=== PATIENT | female | born 1950 | race Caucasian/White ===

== ENCOUNTER 2017-03-11 16:32 | Emergency (ER) | payer MEDICARE, OTHER ==
[~2017-03-11] VITALS: Ht 160 cm; Wt 78.0 kg
[~2017-03-11 16:32] MED LIST: ASPIRIN EC81 MG PO; AZITHROMYCIN250 MG PO; BIAXIN500 MG PO; BRILINTA60 MG PO; C TESTOSTERONE; CARVEDILOL6.25 MG PO; CITALOPRAM HBR40 MG PO; CLARITHROMYCIN500 MG PO; CLONAZEPAM0.5 MG PO; CLONAZEPAM1 MG PO; COZAAR100 MG PO; CYCLOBENZAPRINE5 MG PO; EPIPEN 2-P0.3 MG/0.3 IM; GABAPENTIN100 MG PO; HYDROCODON-ACE1 EA10 PO; HYDROCODON-ACE1 EA14 PO; LEVOTHYROXINE50 MCG PO; LIPITOR80 MG PO; LISINOPRIL10 MG PO; LISINOPRIL5 MG PO; NORCO 5-325 TA1 EACH PO; PENICILLIN V P250 MG PO; PERCOCET 5-3251 EACH PO; POTASSIUM CHLO20 ME1 PO; PREDNISONE10 MG PO; PROGES; TRIAMCINOLONE16.5 GM NAS; [UNRECOGNIZED DRUG - OTHER]; [UNRECOGNIZED DRUG - OTHER]
[2017-03-11] MEDS ORDERED: ALDACTONE25 MG PO (17:03)
[2017-03-11] MEDS ORDERED: CRESTOR5 MG PO (17:04)
[2017-03-11] MEDS ORDERED: PROZAC20 MG PO (17:04)
[2017-03-11] MEDS ORDERED: PLAVIX75 MG PO (17:04)
[2017-03-11] MEDS ORDERED: LASIX20 MG PO (17:04)
[2017-03-11] MEDS ORDERED: ATENOLOL100 MG PO (17:05)
[2017-03-11] MEDS ORDERED: MECLIZINE HCL25 MG PO (18:30)
--- NOTE | 2017-03-12 19:16 | EKG ---
[facility] [address] [facility] [place] [address] Signed Sinus bradycardia Possible Anterior infarct , age undetermined Abnormal ECG When compared with ECG of 25-OCT-2016 15:39, T wave inversion no longer evident in Anterolateral leads Confirmed by HARRY ZACARIAS MD ([id number]) on 03/12/2017 7:16:01 PM Electronically Signed By: HARRY ZACARIAS MD 03/12/17 1916 PATIENT NAME: DANICALOPEZKINGSLEY Hayden Electrocardiogram DATE OF : 46 PHYSICIAN: HARRY ZACARIAS MD REPORT #: [id number] REPORT IS CONFIDENTIAL AND NOT TO BE RELEASED WITHOUT AUTHORIZATION
[2017-05-10] MEDS ORDERED: CARVEDILOL12.5 MG PO (17:43)
== END 2017-03-11 18:45 | disposition home or self-care (01) ==
LOC: ED 16:32
DX: R42 Dizziness and giddiness (principal); F32.9 Major depressive disorder, single episode, unspecified; F43.10 Post-traumatic stress disorder, unspecified; F41.9 Anxiety disorder, unspecified; Z87.891 Personal history of nicotine dependence; Z90.710 Acquired absence of both cervix and uterus; Z88.5 Allergy status to narcotic agent; Z88.2 Allergy status to sulfonamides; Z88.8 Allergy status to other drugs, medicaments and biological substances; Z79.899 Other long term (current) drug therapy
CPT/HCPCS: 80053; 84484; 85025; 93005; 93010; 99284

== ENCOUNTER 2017-05-10 17:01 | Emergency (ER) | payer MEDICARE, OTHER ==
[~2017-05-10] VITALS: Ht 160 cm; Wt 78.0 kg
[~2017-05-10 17:01] MED LIST changes: +ALDACTONE25 MG PO; +ATENOLOL100 MG PO; +CRESTOR5 MG PO; +CYCLOBENZAPRINE10 MG PO; +LASIX20 MG PO; +LEVOTHYROXINE100 MCG PO; -LEVOTHYROXINE50 MCG PO; +MECLIZINE HCL25 MG PO; +PLAVIX75 MG PO; +PROZAC20 MG PO
[2017-05-10] MEDS ORDERED: CARVEDILOL6.25 MG PO (17:43)
[2017-05-10] MEDS ORDERED: BACTRIM DS TAB1 EACH PO (19:47)
[2017-05-10] MEDS ORDERED: CEPHALEXIN500 MG PO (19:48)
[2017-05-10] MEDS ORDERED: OXYCODONE HCL5 MG PO (19:55)
[2017-05-10] MEDS ORDERED: HYDROXYZINE HCL25 MG PO (19:57)
== END 2017-05-10 20:08 | disposition home or self-care (01) ==
LOC: ED 17:01
DX: L03.211 Cellulitis of face (principal); R21 Rash and other nonspecific skin eruption; F32.9 Major depressive disorder, single episode, unspecified; F41.9 Anxiety disorder, unspecified; F43.10 Post-traumatic stress disorder, unspecified; Z90.710 Acquired absence of both cervix and uterus; Z87.891 Personal history of nicotine dependence; Z88.5 Allergy status to narcotic agent; Z88.8 Allergy status to other drugs, medicaments and biological substances; Z79.899 Other long term (current) drug therapy; Z79.82 Long term (current) use of aspirin
CPT/HCPCS: 96372; 99283; J1100; J1170; J2550; Q0177

== ENCOUNTER 2017-06-04 21:31 | Observation (INO) | payer MEDICARE, OTHER ==
[~2017-06-04] VITALS: Ht 160 cm; Wt 80.3 kg
[~2017-06-04 21:31] MED LIST changes: +BACTRIM DS TAB1 EACH PO; +CEPHALEXIN500 MG PO; +HYDROXYZINE HCL25 MG PO; +OXYCODONE HCL5 MG PO
[2017-06-04] MEDS ORDERED: COREG6.25 MG PO (21:41)
--- NOTE | 2017-06-05 00:20 | NUR ---
REPORT RECEIVED FROM IRON PILERGERA. PT ARRIVES TO FLOOR VIA STRETCHER, IS ABLE TO AMBULATE TO BED. PT IS ALERT/ORIENTED, REPORTS 6/10 BACK PAIN WHICH SHE STATES IS CHRONIC, AND A HEADACHE, SHE HAS MULTIPLE SALON-PAS PATCHES ON HER BODY. LUNGS CLEAR, RA. HR IRREGULAR, MURMUR PRESENT. BOWEL TONES ACTIVE, DENIES NAUSEA. SKIN INTACT. IV PATENT, SL. PT UP TO BATHROOM WITH SBA, DENIES DIZZINESS. VOIDED 400ML AND THEN RETURNED TO BED. PT HAS CALL LIGHT WITHIN REACH AND DENIES FURTHER REQUESTS AT THIS TIME.
--- NOTE | 2017-06-05 02:23 | NUR ---
PT APPEARS TO BE SLEEPING, NO APPARENT DISTRESS. RESPIRATIONS EVEN/UNLABORED, RR:14, SPO2: 97% ON RA. HR:59, SINUS AT THIS TIME. WILL CONTINUE TO MONITOR.
--- NOTE | 2017-06-05 03:59 | NUR ---
PT CONTINUES TO SLEEP, NO APPARENT DISTRESS. RESPIRATIONS EVEN AND UNLABORED, RR: 16, SPO2:94% ON RA. HR:59, SINUS HERNANDEZ. IV SL. WILL ALLOW FOR REST AND CONTINUE TO MONITOR.
--- NOTE | 2017-06-05 06:00 | NUR ---
PT APPEARS TO BE SLEEPING, NO APPARENT DISTRESS. RESPIRATIONS EVEN AND UNLABORED, RR:13, SPO2: 94% ON RA. HR:58, SINUS HERNANDEZ. WILL CONTINUE TO MONITOR.
--- NOTE | 2017-06-05 06:31 | NUR ---
PT UP TO BATHROOM WITH SBA, VOIDED 400ML AND THEN RETURNED TO BED. PT DENIES NEEDS AT THIS TIME, CALL LIGHT IS WITHIN REACH.=
--- NOTE | 2017-06-05 08:02 | NUR ---
Dr Bentley in to see patient, I just finished helping her to the bathroom and back, very stable and alert/oriented. family member in room also. Back to bed with HOB up about 30 degrees.
--- NOTE | 2017-06-05 09:42 | NUR ---
visitor in to see patient. patient has been up to the bathroom x2 this am but states no BM or urine output. just feeling cramping.
--- NOTE | 2017-06-05 10:55 | NUR ---
SOME OLD BLOOD AND CLOTS PRESENT IN EXTENSION TUBING. TUBING CHANGED AND DRESSING CHANGED.
--- NOTE | 2017-06-05 11:00 | NUR ---
DR ZACARIAS SPOKE WITH THE PATIENT'S AERODYNAMICIST AND THEY DECIDED SHE COULD BENEFIT FROM ELIQUIS. NEW ORDERS RECIEVED FOR THIS.
--- NOTE | 2017-06-05 11:22 | NUR ---
GAVE FIRST DOSE OF ELIQUIS. EDUCATION PROVIDED WRITTEN MATERIAL AND VERBAL TO PATIENT AND HER .
[2017-06-05] MEDS ORDERED: GABAPENTIN300 MG PO (11:23)
[2017-06-05] MEDS ORDERED: EUCRISA60 GM TOP (11:26)
[2017-06-05] MEDS ORDERED: ISOSORBIDE MONO30 MG PO (11:27)
[2017-06-05] MEDS ORDERED: HYDROXYZINE PAM25 MG PO (11:32)
[2017-06-05] MEDS ORDERED: LASIX20 MG PO (11:33)
[2017-06-05] MEDS ORDERED: MECLIZINE HCL25 MG PO (11:59)
[2017-06-05] MEDS ORDERED: CO Q-1050 MG PO (12:03)
[2017-06-05] MEDS ORDERED: VITAMIN D5000 UNIT PO (12:03)
[2017-06-05] MEDS ORDERED: MAGNESIUM400 M1 PO ×2 (12:03→17:36)
[2017-06-05] MEDS ORDERED: CALCIUM + VITA1 EACH PO (12:04)
--- NOTE | 2017-06-05 12:05 | NUR ---
MED REC COMPLETE
--- NOTE | 2017-06-05 12:20 | NUR ---
ASKING IF SHE CAN TAKE A CLONAZEPAM NOW FOR ANIETY AND TO HELP HER SLEEP. I ASKED DR ZACARIAS AND HE SAID HE WILL ORDER ONE FOR NOW.
--- NOTE | 2017-06-05 15:02 | NUR ---
HAS BEEN SLEEPING WITH IN ROOM, AWOKE FOR VITAL SIGNS EASILY AND QUICKLY.
--- NOTE | 2017-06-05 15:22 | NUR ---
MD MADE AWARE OF HR AND ORDERS TO CONTINUE CARDIZEM AND WALK PATIENT IN [place].
--- NOTE | 2017-06-05 16:39 | NUR ---
ASSESSMENT DONE. FAMILY IN ROOM. DINNER ORDERED. PATIENT DENIES PAIN.
--- NOTE | 2017-06-05 17:10 | NUR ---
UP TO BR TO VOID THEN AMBULATED IN J[place]. TOLERATED AMBULATION WELL. HR REMAIN IN NSR W/ HR 75. DENIES SHORTNESS OF BREATH. IS STABLE ON FEET. THEN TO CHAIR FOR DINNER.
[2017-06-05] MEDS ORDERED: ELIQUIS5 MG PO (17:34)
[2017-06-05] MEDS ORDERED: CARDIZEM LA120 MG PO (17:35)
[2017-06-05] MEDS ORDERED: COREG6.25 MG PO (17:35)
[2017-06-05] MEDS ORDERED: CARVEDILOL12.5 MG PO (17:39)
--- NOTE | 2017-06-05 18:21 | EKG ---
[facility] [address] [facility] [place] [address] Signed Atrial fibrillation Artefact noted in V4 and V5 Abnormal ECG When compared with ECG of 11-MAR-2017 16:46, Junctional rhythm has replaced Sinus rhythm Vent. rate has increased BY [address] now depressed in Anterior leads Nonspecific T wave abnormality, worse in Inferior leads Nonspecific T wave abnormality now evident in Lateral leads Confirmed by HARRY ZACARIAS MD ([id number]) on 06/05/2017 6:20:50 PM Electronically Signed By: HARRY ZCAARIAS MD 06/05/17 1821 PATIENT NAME: KINGSLEY SNELL ROSY Electrocardiogram DATE OF : 46 PHYSICIAN: HARRY ZACARIAS MD REPORT #: [id number] REPORT IS CONFIDENTIAL AND NOT TO BE RELEASED WITHOUT AUTHORIZATION
== END 2017-06-05 18:30 | disposition home or self-care (01) ==
LOC: ED 21:31 → CCU 21:33
PROVIDERS: ADMIT Internal Medicine
DX: I48.0 Paroxysmal atrial fibrillation (principal); I25.10 Atherosclerotic heart disease of native coronary artery without angina pectoris; I25.2 Old myocardial infarction; I10 Essential (primary) hypertension; K58.9 Irritable bowel syndrome, unspecified; M79.7 Fibromyalgia; E03.9 Hypothyroidism, unspecified; E78.5 Hyperlipidemia, unspecified; F43.10 Post-traumatic stress disorder, unspecified; F41.8 Other specified anxiety disorders; F13.20 Sedative, hypnotic or anxiolytic dependence, uncomplicated; Z88.5 Allergy status to narcotic agent; Z88.8 Allergy status to other drugs, medicaments and biological substances; Z95.5 Presence of coronary angioplasty implant and graft; Z79.02 Long term (current) use of antithrombotics/antiplatelets; Z79.82 Long term (current) use of aspirin; Z79.891 Long term (current) use of opiate analgesic; Z79.899 Other long term (current) drug therapy
CPT/HCPCS: 71045; 80053; 83735; 84439; 84443; 84484; 85025; 85610; 85730; 93005; 93010; 96365; 96374; 96375; 99285; G0378; J3475

== ENCOUNTER 2017-08-21 04:17 | Inpatient (IN) | payer MEDICARE, OTHER ==
[~2017-08-21] VITALS: Ht 160 cm; Wt 83.9 kg
--- OUTSIDE RECORDS SUMMARY | ~2017-08-21 | XMS | Encounter Summary ---
Demographics + + + | Address | [address] [place] [address] | | | [place] [address] | + + + | Home Phone | | + + + | Preferred Language | Unknown | + + + | Marital Status | | + + + | Synagogue Affiliation | 1013 | + + + | Race | Unknown | + + + | Ethnic Group | Unknown | + + + Author + + + | Author | [facility] | | | and [place] | + + + | Organization | [facility] | | | and [place] | + + + | Address | Unknown | + + + | Phone | Unavailable | + + + Support + + + + + | Name | Relationship | Address | Phone | + + + + + | Rashaun Escudero | ECON | [address] | | | | | [place] | | | | | [address] | | + + + + + Care Team Providers + +------+ + | Care Service Superintendent Name | Role | Phone | + +------+ + | Shane Bates MD | PCP | | + +------+ + Reason for Visit + + + | Reason | Comments | + + + | Medication Refill | | + + + Encounter Details +--------+--------+ + + + | Date | Type | Department | Care Team | Description | +--------+--------+ + + + | 06/21/ | Refill | [facility] | Shane Bates | Medication Refill | | 2017 | | [facility] | [address] | | | | | [facility] [address] | [facility] [place], | | | | | [address]TH [facility], | [place] [address] | | | | | [place] [address] | [phone] | | | | | [phone] | | | +--------+--------+ + + + Social History + +-------+ +--------+ + | Tobacco Use | Types | Packs/Day | Years | Date | | | | | Used | | + +-------+ +--------+ + | Former Smoker | | | | Quit: 05/17/1981 | + +-------+ +--------+ + + +---+---+ + | Smokeless Tobacco: | | | Quit: | | Former User | | | 09/15/18 | | | | | 74 | + +---+---+ + + + +---------+ + | Alcohol Use | Drinks/We | oz/Week | Comments | | | ek | | | + + +---------+ + | Yes | 0 | 9.0 | | | | Standard | | | | | drinks or | | | | | | | | | | equivalen | | | | | t 14 | | | | | Glasses | | | | | of wine | | | | | 1 Shots | | | | | of liquor | | | + + +---------+ + + + + | Sex Assigned at | Date Recorded | | | | + + + | Not on file | | + + + as of this encounter Functional Status + + + + | Functional Status | Response | Date of Assessment | + + + + | Are you deaf or do you have serious | No | 10/17/2016 | | difficulty hearing? | | | + + + + | Are you blind or do you have serious | No | 10/17/2016 | | difficulty seeing, even when wearing | | | | glasses? | | | + + + + | Do you have serious difficulty walking or | No | 10/17/2016 | | climbing stairs? (5 years old or older) | | | + + + + | Do you have difficulty dressing or bathing? | No | 10/17/2016 | | (5 years old or older) | | | + + + + | Because of a physical, mental, or emotional | No | 10/17/2016 | | condition, do you have difficulty doing | | | | errands alone such as visiting a doctor's | | | | office or shopping? [15 years old or | | | | older)] | | | + + + + + + + + | Cognitive Status | Response | Date of Assessment | + + + + | Because of a physical, mental, or emotional | No | 10/17/2016 | | condition, do you have serious difficulty | | | | concentrating, remembering, or making | | | | decisions? (5 years old or older) | | | + + + + as of this encounter Plan of Treatment +--------+---------+ + + + | Date | Type | Specialty | Care Team | Description | +--------+---------+ + + + | 09/07/ | Office | Sleep Medicine | Bubba Weller PA | | | 2017 | Visit | | [address] | | | | | | [place] | | | | | | [id number] | | | | | | | | +--------+---------+ + + + | 10/21/ | Office | Primary Care | Shane Bates | | | 2017 | Visit | | [address] | | | | | | [place], | | | | | | [place] [address] | | | | | | [phone] | | | | | | | | +--------+---------+ + + + as of this encounter Visit Diagnoses Not on filein this encounter"
--- OUTSIDE RECORDS SUMMARY | ~2017-08-21 | XMS | Encounter Summary ---
Demographics + + + | Address | [address] [place] [address] | | | [place] [address] | + + + | Home Phone | | + + + | Preferred Language | Unknown | + + + | Marital Status | | + + + | Restorationism Affiliation | 1013 | + + + | Race | Unknown | + + + | Ethnic Group | Unknown | + + + Author + + + | Author | [facility] | | | and [place] | + + + | Organization | [facility] | | | and [...] [place] | | | | | [address] | | + + + + + Care Team Providers + +------+ + | Care Manager Analysis Name | Role | Phone | + +------+ + | Shane Bates MD | PCP | | + +------+ + Reason for Visit + + + | Reason | Comments | + + + | CPAP Follow Up | | + + + Encounter Details +--------+---------+ + + + | Date | Type | Department | Care Team | Description | +--------+---------+ + + + | 07/07/ | Office | [facility] | Carla Cardoso MD | NADIR (obstructive | | 2018 | Visit | SLEEP DISORDER [address] | [address] | sleep apnea) | | | | [address] | [place] | (Primary Dx); PTSD | | | | [place] [id number] | [address] | (post-traumatic | | | | [phone] | | stress disorder) | +--------+---------+ + + + Social History + +-------+ [...] + + + as of this encounter Last Filed Vital Signs + + + + | Vital Sign | Reading | Time Taken | + + + + | Blood Pressure | 130/70 | 07/07/2017 1343 PST | + + + + | Pulse | 70 | 07/07/2017 1343 PST | + + + + | Temperature | - | - | + + + + | Respiratory Rate | 16 | 07/07/2017 134 PST | + + + + | Oxygen Saturation | 96% | 07/07/2017 134 PST | + + + + | Inhaled Oxygen | - | - | | Concentration | | | + + + + | Weight | 82.6 kg (182 lb 1.6 | 07/07/20171342 PST | | | oz) | | + + + + | Height | - | - | + + + + | Body Mass Index | 32.26 | 07/07/20171342 PST | + + + + in this encounter Functional Status + + + [...] + + + as of this encounter Instructions Patient Instructions - Carla Cardoso MD - 07/07/2017 1345 PST- We will send a prescription for CPAP machine to your home care company. - Please start using your CPAP as directed. - Follow up with DRE Mcmillan within 1-2 weeks. - Follow up with Dr. Cardoso afterwards. - Insurance compliance criteria: Once you received your machine, you have 90 days in which you must use your machine for 30 consecutive days and for 70% of those 30 days you must use your machine for >= 4 hours.in this encounter Progress Notes Carla Cardoso MD - 07/07/2017 1345 PSTFormatting of this note may be different from the or iginal. The patient comes in to discuss her sleep study results. My interpretation of the patient' s sleep study, which I have reviewed with the patient, is as follows: Polysomnogram Report on Tameka Escudero performed on June 15, 2017. PATIENT IDENTIFICATION: Tameka Escudero IS a 67 y.o..-year-old female. with a history of fibromyalgia, non-ST elevation MD in October 2016 status post 1 stent placement, hypertension, hypercholesterolemia, PTSD, depression, insomnia, and obstructive sleep apneapresenting for reevaluation of her sleep apnea. BMI: 32 She first was diagnosed with obstructive sleep apnea in this sleep center based on a diag nostic polysomnography which was done on September 20, 2002. She had moderate obstructive sleep apnea with AHI of 18 and no significant hypoxemia. She had spent 17.2% of total sleep time in supine sleep, and 25.3% of stage R sleep hadbeen captured. She had a second sleep study in [place] about 15 years ago. She says she tried CPAP for 5 years, but then she lost her insurance and didn't follow up. She thinks it was helping her to sleep better. She says she had a sleep study at [facility] September 2016, and she had hypoxemia but was not qualified for oxygen. Technical Information: Please see technical data which is attached. Definitions (The AASM Manual for the Scoring of Sleep and Associated Events, Version 2.4; 2 017): Apnea: There is a drop in the peak signal excursion by 90% or greater of pre-sara nt baseline using an oronasal thermal sensor (diagnostic study), PAP device flow (titration study), or an alternative apnea sensor (diagnostic study); the duration of the 90% or greate r drop in sensor signal is 10 seconds or longer. Obstructive Apnea: Event associated with continued or increased inspi ratory effort throughout the entire period of absent airflow. Central Apnea: Event associated with absent inspiratory effort throug hout the entire period of absent airflow. Mixed Apnea: Event associated with absent inspiratory effort in the i nitial portion of the event followed by resumption of inspiratory effort during the second p ortion of the event. Hypopnea: Nasal pressure excursion drop by 30% or more from baseline, lasting at lease 10 seconds and 90% of the event's duration meets this amplitude criteria. This is ass ociated with a 4% or greater desaturation from pre-baseline Respiratory Event Related Arousal: A sequence of breaths lasting 10 seconds or l onger characterized by increasing respiratory effort or by flattening of the inspiratory por tion of the nasal pressure (diagnostic study) or PAP device flow (titration study) waveform leading to arousal from sleep when the sequence of breaths does not meet criteria for an hotel or motel manager ea or hypopnea. REVELANT MEDICATIONS: Gabapentin, clonazepam as needed. Patient took 3 gabapentin 300 mg at bedtime. The dose had been increased after her recent fall. SUBJECTIVE: The patient rated sleep quality during sleep study as much better. Environmental Law Professor note: patient agreed to sleep in bed and stayed in bed for the entire study time . She sleeps in her recliner at home because she is scared she 4 stop breathing during sleep if she sleeps in her bed. She tried both fullface mask and nasal pillows and she tolerated Airfit P10 nasal pillows much better. SLEEP ARCHITECTURE AND EEG: Total sleep time was 466 minutes. Sleep efficiency was 83.5% and was normal. Sleep onset latency was 41 minutes and was increased. patient had a fall recently and wa s in pain. REM latency was 119 minutes and was increased. Percent of time in stage N3 was 13.7% and was within normal limits. Percent of time in stage REM was 17.1 % and was decreased. Arousal Index for this diagnostic study was 6.8/hour and was normal, with 3.3 respirator y arousals/hour and 3.5 spontaneous arousals/hour. RESPIRATORY: Respiratory disturbance index (RDI) was 10.7, consisting of total 70 hypopneas, 6 obstru ctive apneas, 0 mixed apneas, and 0 central apneas and 7 RERAs. AHI 1B was 9.8 and was mildl y elevated. Sleep disordered breathing was worsened in supine position with supine AHI of 21.7. Sh e spent 13.6% of total sleep time in supine position. Nonsupine AHI was 7.9.. Sleep disordered breathing was worsened in REM sleep with REM AHI of 23.4. Non-REM AHI was 7.. Mean SpO2 was 94 %, jen SpO2 was 82%, and amount of total sleep time spent below SpO2 of 88% was 3.2 minutes. 4% Oxygen Desaturation Index (KAILASH) was 8 and was mildly elevated. ETCO2 was not elevated. Raúl-Boucher breathing was not observed. LIMB MOVEMENTS: Total sleep periodic limb movement index was 0 and was not increased. EKG: Normal sinus rhythm was noted with mean heart rate of 71, 65, and 66 beats per minute in wa ke, non-REM, and REM sleep respectively.. INTERPRETATION: - This diagnostic polysomnography showed mild obstructive sleep apnea which was worsened i n supine position and stage R sleep. Patient spent 31.6% of total sleep time in supine posi tion, and 17.1% of stage R sleep was captured. Mean SpO2 was 94 %, jen SpO2 was 82%, and a mount of total sleep time spent below SpO2 of 88% was 3.2 minutes. 4% Oxygen Desaturation In dex (KAILASH) was 8 and was mildly elevated. - Sleep efficiency was normal, and sleep was minimally fragmented. - Excessive leg movement was not observed. RECOMMENDATIONS: Start auto-PAP at 5-15 cm H2O with a small Airfit P10 mask. Today, I discussed the above results in detail with patient. NADIR: She is interested in trying CPAP again. Discussed with her that, and CPAP machines ar e not noisy like her old machine, and we now have better masks. also, discussed with her th at there are some studies that have shown that treating her sleep apnea might help with nigh tmares in PTSD. I also discussed the benefits of treatment of CPAP because of her history o f atrial fibrillation. Insurance compliance criteria was discussed. Nightmares (PTSD): She is very disturbed by her nightmares. Sometimes she cannot recall th em, but they're usually repetitive. Today, I discussed Imagery Rehearsal Therapy as an effe ctive treatment that in some people can help with the nightmares. I encouraged her to keep a dream Journal to remember them better. I advised her do this therapy only if she feels co mfortable with writing and rehearsing her dreams. She was very motivated to try this and se e if it helps. Vitals: 07/07/17 1343 BP: 130/70 Pulse: 70 Resp: 16 PainSc: 8 Plan: Start auto CPAP at 5-15 cm H2O with patient's preference mask. The patient will try Imagery Rehearsal Therapy , and I will reevaluate her progress in next visit. Follow up with DRE Mcmillan within 1-2 weeks. Follow up with Dr. Cardoso afterwards. I spent 25 minutes face to face with the patient, with over 50% spent in counseling and/or coordination of care regarding sleep apnea and nightmares.in this encounter Plan of Treatment +--------+---------+ + + + | Date | Type | Specialty | Care Team | Description | +--------+---------+ + + + | 09/07/ | Office | Sleep Medicine | Bubba Weller PA | | | 2017 | Visit | | [address] | | | | | | [place] | | | | | | [id number] | | | | | | | | +--------+---------+ + + + | 10/21/ | Office | Primary Care | Shane Bates | | | 2017 | Visit | | [address] | | | | | | [place], | | | | | | [place] [address] | | | | | | [phone] | | | | | | | | +--------+---------+ + + + as of this encounter Visit Diagnoses + + | Diagnosis | + + | NADIR (obstructive sleep apnea) - Primary | + + | Obstructive sleep apnea (adult) (pediatric) | + + | PTSD (post-traumatic stress disorder) | + + | Posttraumatic stress disorder | + +"
--- OUTSIDE RECORDS SUMMARY | ~2017-08-21 | XMS | Encounter Summary ---
Demographics + + + | Address | [address] [place] [address] | | | [place] [address] | + + + | Home Phone | | + + + | Preferred Language | Unknown | + + + | Marital Status | | + + + | Tenriism Affiliation | 1013 | + + + | Race | Unknown | + + + | Ethnic Group | Unknown | + + + Author + + + | Author | [facility] | | | and [place] | + + + | Organization | [facility] | | | and [...] [place] | | | | | [address] | | + + + + + Care Team Providers + +------+ + | Care Induction Coordination Engineer Name | Role | Phone | + [...] Description | +--------+--------+ + + + | 05/27/ | Refill | [facility] | Shane Bates | Medication Refill | | 2017 | | [facility] | [address] | | | | | [facility] | [facility] [place], | | | | | [address]TH [facility], | [place] [address] | | | | | [place] [address] | [phone] | | | | | [phone] | | | +--------+--------+ + + + [...] [place] | | | | | | [address] | | | | | | | | +--------+---------+ + + + | 10/21/ | Office | Primary Care | Shane Bates | | | 2017 | Visit | | [address] | | | | | | [place], | | | | | | [place] [address] | | | | | | [phone] | | | | | | | | +--------+---------+ + + + as of this encounter Visit Diagnoses + + | Diagnosis | + + | Essential hypertension | + + | Unspecified essential hypertension | + +"
--- OUTSIDE RECORDS SUMMARY | ~2017-08-21 | XMS | Encounter Summary ---
Demographics + + + | Address | [address] [place] [address] | | | [place] [address] | + + + | Home Phone | | + + + | Preferred Language | Unknown | + + + | Marital Status | | + + + | Sikhism Affiliation | 1013 | + + + | Race | Unknown | + + + | Ethnic Group | Unknown | + + + Author + + + | Author | [facility] | | | and [place] | + + + | Organization | [facility] | | | and [...] [place] | | | | | [address] | | + + + + + Care Team Providers + +------+ + | Care Waiter/Waitress Informal Name | Role | Phone | + [...] Description | +--------+--------+ + + + | 07/27/ | Refill | [facility] | Kate Patel NP | Medication Refill | | 2017 | | [facility] | [address] | | | | | [facility] | [facility], [place] | | | | | [address] [facility], | [address] | | | | | [place] [address] | [phone] | | | | | [phone] | | | +--------+--------+ + + + Social History + +-------+ +--------+ + | Tobacco Use | Types | Packs/Day | Years | Date | | | | | Used | | + +-------+ +--------+ + | Former Smoker | | | | Quit: 09/16/1975 | + +-------+ +--------+ + + +---+---+---+ | Smokeless Tobacco: | | | | | Never Used | | | | + +---+---+---+ + + +---------+ + | Alcohol Use | Drinks/We | oz/Week | Comments | | | ek | | | + + +---------+ + | Yes | 14 | 9.0 | | | | Glasses | | | | | of wine | | | | | 1 Shots | | | | | of liquor | | | | | 0 | | | | | Standard | | | | | drinks or | | | | | | | | | | equivalen | | | | | t | | | + + +---------+ + [...] [address] | | | | | | [place] | | | | | | [address] | | | | | | | | +--------+---------+ + + + | 10/21/ | Office | Primary Care | Shane Bates | | | 2017 | Visit | | [address] | | | | | | [place], | | | | | | [place] [address] | | | | | | [phone] | | | | | | | | +--------+---------+ + + + as of this encounter Visit Diagnoses Not on filein this encounter"
--- OUTSIDE RECORDS SUMMARY | ~2017-08-21 | XMS | Encounter Summary ---
Demographics + + + | Address | [address] [place] [address] | | | [place] [address] | + + + | Home Phone | | + + + | Preferred Language | Unknown | + + + | Marital Status | | + + + | Sabianist Affiliation | 1013 | + + + | Race | Unknown | + + + | Ethnic Group | Unknown | + + + Author + + + | Author | [facility] | | | and [place] | + + + | Organization | [facility] | | | [...] [place] | | | | | [address] | | + + + + + Care Team Providers + +------+ + | Care Remedial Reading Teacher Name | Role | Phone | + +------+ + | Shane Bates MD | PCP | | + +------+ + Reason for Visit + + + | Reason | Comments | + + + | Medication Prior | Cyclobenzaprine 10 mg | | Authorization | | + + + Encounter Details +--------+ + + + + | Date | Type | Department | Care Team | Description | +--------+ + + + + | 06/16/ | Telephone | [facility] | Shane Bates | Medication Prior | | 2018 | | [facility] | [address] | Authorization | | | | [facility] [address] | [facility], | (Cyclobenzaprine 10 | | | | [address] [facility], | [place] [address] | mg ) | | | | [place] [address] | [phone] | | | | | [phone] | | | +--------+ + + + [...] [place] | | | | | | [address] | | | | | | | | +--------+---------+ + + + | 10/21/ | Office | Primary Care | Shane Bates | | | 2017 | Visit | | MD [address] [facility] | | | | | | [place] | | | | | | [place] [address] | | | | | | [phone] | | | | | | | | +--------+---------+ + + + as of this encounter Visit Diagnoses Not on filein this encounter"
--- OUTSIDE RECORDS SUMMARY | ~2017-08-21 | XMS | Encounter Summary ---
Demographics + + + | Address | [address] [place] [address] | | | [place] [address] | + + + | Home Phone | | + + + | Preferred Language | Unknown | + + + | Marital Status | | + + + | Buddhism Affiliation | 1013 | + + + | Race | Unknown | + + + | Ethnic Group | Unknown | + + + Author + + + | Author | [facility] | | | and Darrelana | + + + | Organization | [facility] | | [...] [place] | | | | | [address] | | + + + + + Care Team Providers + +------+ + | Care Pack Worker Name | Role | Phone | + [...] Description | +--------+--------+ + + + | 05/25/ | Refill | [facility] | Shane Bates | Medication Refill | | 2017 | | [facility] | [address] | | | | | [facility] [address] | [facility] [place], | | | | | [address]TH [facility], | [place] [address] | | | | | [place] [address] | [phone] | | | | | [phone] | | | +--------+--------+ + + + [...] [place] | | | | | | [id number] | | | | | | | | +--------+---------+ + + + | 10/21/ | Office | Primary Care | Shane Bates | | | 2017 | Visit | | [address] | | | | | | [place], | | | | | | [place] [address] | | | | | | [phone] | | | | | | | | +--------+---------+ + + + as of this encounter Visit Diagnoses Not on filein this encounter"
--- OUTSIDE RECORDS SUMMARY | ~2017-08-21 | XMS | Encounter Summary ---
Demographics + + + | Address | [address] [place] [address] | | | [place] [address] | + + + | Home Phone | | + + + | Preferred Language | Unknown | + + + | Marital Status | | + + + | Confucianism Affiliation | 1013 | + + + | Race | Unknown | + + + | Ethnic Group | Unknown | + + + Author + + + | Author | [facility] | | | and Darrelana | + + + | Organization | [facility] | | | and [...] [place] | | | | | [address] | | + + + + + Care Team Providers + +------+ + | Care Tennis Instructor Name | Role | Phone | + +------+ + | Shane Bates MD | PCP | | + +------+ + Reason for Visit + + + | Reason | Comments | + + + | Follow-up | | + + + Encounter Details +--------+---------+ + + + | Date | Type | Department | Care Team | Description | +--------+---------+ + + + | 05/28/ | Office | [facility] | Shane Bates | Spinal stenosis of | | 2018 | Visit | [facility] | [address] | lumbar region | | | | [facility] [address] | [address] [place], | without neurogenic | | | | [address] [place], | [place] [address] | claudication | | | | [place] [address] | [phone] | (Primary Dx); | | | | [phone] | | Coronary artery | | | | | | disease involving | | | | | | qawalangin coronary | | | | | | artery of qawalangin | | | | | | heart with angina | | | | | | pectoris (HCC); | | | | | | Hyperlipidemia, | | | | | | unspecified | | | | | | hyperlipidemia type; | | | | | | Insomnia, | | | | | | unspecified type; | | | | | | Essential | | | | | | hypertension; Facial | | | | | | cellulitis | +--------+---------+ + + + Social History [...] + + + | Blood Pressure | 136/92 | 05/28/20179 PST | + + + + | Pulse | 64 | 05/28/20179 PST | + + + + | Temperature | - | - | + + + + | Respiratory Rate | 18 | 05/28/20179 PST | + + + + | Oxygen Saturation | 100% | 05/28/20171358 PST | + + + + | Inhaled Oxygen | - | - | | Concentration | | | + + + + | Weight | 80.3 kg (177 lb) | 05/28/20171358 PST | + + + + | Height | - | - | + + + + | Body Mass Index | 31.35 | 05/28/20171358 PST | + + + + in [...] of this encounter Instructions Patient Instructions - Shane Bates MD - 05/28/2017 1400 PSTAssessment and Plan: Spinal stenosis of lumbar region without neurogenic claudication (Primary) Assessment & Plan: Increase Gabapentin to 300 mg 3 at bedtime, and 2 in AM and mid-day for her back pain. Orders: - Gabapentin; Take 3 capsules by mouth 3 times daily. 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 Bright yesterday, and a sleep study is pending on 06/15/17 Essential hypertension Assessment & Plan: Reportedly controlled without the Spironolactone and Lasix. Facial cellulitis Assessment & Plan: Improved. in this encounter Progress Notes Shane Bates MD - 05/28/2017 1400 PSTFormatting of this note may be different from the original. Patient ID: Tameka Escudero is a 66 y.o. year old female Chief Complaint: Chief Complaint Patient presents with Follow-up Assessment and Plan: Spinal stenosis of lumbar region without neurogenic claudication (Primary) Assessment & Plan: Increase Gabapentin to 300 mg 3 at bedtime, and 2 in AM and mid-day for her back pain. Orders: - Gabapentin; Take 3 capsules by mouth 3 times daily. 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 Bright yesterday, and a sleep study is pending on 06/15/17 Essential hypertension Assessment & Plan: Reportedly controlled without the Spironolactone and Lasix. Facial cellulitis Assessment & Plan: Improved. No Follow-up on file. Subjective: Tameka has coronary artery disease, sustained an SD on 10/15/16 for which a MIR was placed in the LAD. She has been stable on Carvedilol 6.25 mg in the morning and 12.5 mg in the eveni ngs (because her blood pressures were higher in the evenings). She has had ongoing heaviness, and we discussed this at her last visit, and Isosorbide mono nitrate this started at 30 mg a day. With this her chest heaviness has resolved, even off o f Isosorbide. She remains on Losartan. She still has been tolerating Rosuvastatin 5 mg daily! She ran out of Prozac and stopped taking it for a month. She has not restarted it. Nevert heless, she is feeling pretty good and not feeling depressed. Fatigue has plagued her, and although she has a history of NADIR years ago, this was not conf irmed last year by Dr. Nieves. Nevertheless, she was hypoxemic at night. She was referred to Dr. Bright for an evaluation at her last appointment with me on 04/16/17. His evaluation i s pending. She had a CT of the pelvis last year which suggested a bone island and a 12 month follow-up CT was unchanged. She was reassured regarding this. An MRI of the LS spine demonstrated some concern for the left nerve root of L3-4 which a di sc bulge touches. She has DDD with lumbar spinal stenosis. She was seen in the ED on 04/30/17 and had a facial cellulitis. She was given Bactrim. Sh e improved, but even though she looked great and felt well on 05/09/17 it returned on and she was seen at the ED in [place], where they doubled her Bactrim and a Cephalexin QID x 10 days. She has had diarrhea from the 2 antibiotics she recently was on, and she say s that it is improving. She completed them about a week ago. 4-5 days after she started Bactrim her BP dropped. She stopped taking Lasix and Spironolac tone. The Wharf Operator stopped Isosorbide mononitrate. Yesterday her BP was 110/70. She fell down the stairs 2 weeks ago and struck her head. She was confused and thinks she had a concussion. Her back hurts more since the pain. For this reason she was using Flexer il more than she usually has taken before. Her back is "okay, I will live". She thinks she will need to increase Gabapentin for a while. She tries to vacuum or sweep and her back st arts throbbing. She has lost control of her legs twice. She was sitting and got up and fel l backwards, but did not lose sensation. Another time she was walking down the stairs and l ost sensation in her legs (but not strength), so she sat down and after a minute it resolved . Currently she is taking Gabapentin 300 mg 3 at night, and 1 in the morning and occasionally 2 later in the day. Electronic chart was reviewed and updated as appropriate including: active problem list, me dication list, notes from last encounter Allergies: Allergies Allergen Reactions Isosorbide Tramadol Swelling Swelling [...] Hcl Other (See Comments) No reaction indicated Sulfa Antibiotics Nausea Only Amitriptyline Palpitations Weight gain Medications: Current Outpatient Prescriptions Medication Sig Dispense Refill aspirin 81 mg chewable tablet Take 81 mg by mouth every evening. 30 tablet carvedilol (COREG) 6.25 mg tablet 6.25 mg in AM and 12.5 mg in Pm. 90 tablet 2 clonazePAM (KLONOPIN) 1 mg tablet take 1 tablet by mouth three times a day if needed 90 tablet 0 clopidogrel (PLAVIX) 75 mg tablet Take 1 tablet by mouth Daily. 90 tablet 11 cyclobenzaprine (FLEXERIL) 10 mg tablet Take 1 tablet by mouth 3 times daily as needed. 30 tablet 2 gabapentin (NEURONTIN) 300 mg capsule Take 3 capsules by mouth 3 times daily. 270 capsu le 4 hydrOXYzine pamoate (VISTARIL) 25 mg capsule take 1 to 2 capsules by mouth every 6 hour s if needed for ITCHING 0 levothyroxine (SYNTHROID, LEVOTHROID) 88 mcg tablet Take 1 tablet by mouth every mornin g (before breakfast). 30 tablet losartan (COZAAR) 100 MG tablet take 1 tablet by mouth once daily 90 tablet 3 meclizine (ANTIVERT) 25 mg tablet take 1 tablet by mouth three times a day as needed 0 nitroglycerin (NITROSTAT) 0.[address] 1 tablet under the tongue every 5 murali gabino as needed for Chest pain. 25 tablet 3 rosuvastatin (CRESTOR) 5 MG tablet take 1 tablet by mouth once daily 30 tablet 2 sulfamethoxazole-trimethoprim (BACTRIM DS) 800-160 mg per tablet take 2 tablets by mout h twice a day for 10 days 0 No current facility-administered medications for this visit. PAST MEDICAL HISTORY: Hyperlipidemia Fibromyalgia Hypertension Renin activity, Aldosterone levels normal 12/24/15 Depression Hypothyroidism Nocturnal hypoxemia, not NADIR. Nocturnal O2 ordered (09/23/16) Vitamin D deficiency (25-OH Vit D 23 (30-80)) Normal BMD 03/29/08 Normal 01/15/17 Irritable bowel syndrome Lumbar spinal stenosis, DDD NSTEMI 10/15/16 PAST SURGICAL HISTORY: Vaginal hysterectomy with ovaries intact D&C x 2 Stripped varicose vein EGD 06/28/08 few gastric polyps, gastritis nonerosive reflux dz with bx-proven esophagitis 07/14/11 severe reflux, recommended anti-reflux surgery (Dr. Sanford Toscano) Colonoscopy 06/28/08 small polyp (tubular adenoma) in descending colon resected, moderate colonic spasm c/w irritable bowel syndrome. F/U colonoscopy rec d . Ultrasound-guided vacuum-assisted breast bx left breast 11/07/08 Laparoscopic Geovany Fundoplication 08/28/11 Cardiac cath 10/16/16: 60% EF, 90% LAD lesion, stented with Promus MIR. Review of Systems Constitutional: Positive for fatigue. Negative for fever and unexpected weight change. Respiratory: Positive for cough (non-productive. Onset was 1 month ago.). Negative for shor tness of breath. Cardiovascular: Negative for chest pain. Psychiatric/Behavioral: Positive for sleep disturbance. Objective: Vitals: BP (!) 136/92 | Pulse 64 | Resp 18 | Wt 80.3 kg (177 lb) | SpO2 100% | BMI 31.35 kg/m Physical Exam Neck: No JVD present. Cardiovascular: Normal rate, regular rhythm and normal heart sounds. Exam reveals no colon p. No murmur heard. Pulmonary/Chest: Effort normal and breath sounds normal. No respiratory distress. She has n o wheezes. She has no rales. Abdominal: Soft. She exhibits no distension and no mass. There is tenderness (diffuse). The re is no rebound and no guarding. Musculoskeletal: She exhibits no edema. Lymphadenopathy: She has no cervical adenopathy. Shane Bates MD05/28/201714:43in this encounter Plan of Treatment +--------+---------+ + + + | Date | Type | Specialty | Care Team | Description | +--------+---------+ + + + | 09/07/ | Office | Sleep Medicine | Bubba Weller PA | | | 2017 | Visit | | [address] [facility] | | | | | | [place], [place] | | | | | | [id number] | | | | | | | | +--------+---------+ + + + | 10/21/ | Office | Primary Care | Shane Bates | | | 2017 | Visit | | [address] | | | | | | [place], | | | | | | [place] [address] | | | | | | [phone] | | | | | | | | +--------+---------+ + + + as of this encounter Visit Diagnoses + + | Diagnosis | + + | Spinal stenosis of lumbar region without neurogenic claudication - Primary | + + | Spinal stenosis, lumbar region, without neurogenic claudication | + + | Coronary artery disease involving qawalangin coronary artery of qawalangin heart with angina | | pectoris (HCC) | + + | Hyperlipidemia, unspecified hyperlipidemia type | + + | Insomnia, unspecified type | + + | Essential hypertension | + + | Unspecified essential hypertension | + + | Facial cellulitis | + + | Cellulitis and abscess of face | + +
--- OUTSIDE RECORDS SUMMARY | ~2017-08-21 | XMS | Encounter Summary ---
Demographics + + + | Address | [address] [place] [address] | | | [place] [address] | + + + | Home Phone | | + + + | Preferred Language | Unknown | + + + | Marital Status | | + + + | Sabianism Affiliation | 1013 | + + + | Race | Unknown | + + + | Ethnic Group | Unknown | + + + Author + + + | Author | [facility] | | | and Darrelana | + + + | Organization | [facility] | | [...] [place] | | | | | [address] | | + + + + + Care Team Providers + +------+ + | Care Document Image Technician Name | Role | Phone | + +------+ + | Shane Bates MD | PCP | | + +------+ + Reason for Visit + + + | Reason | Comments | + + + | Knee Problem | bilateral knee pain | + + + Evaluate & Treat (Routine) +--------+ + + + + + | Status | Reason | Specialty | Diagnoses / | Referred By | Referred To | | | | | Procedures | Contact | Contact | +--------+ + + + + + | Closed | Specialty | Orthopedic | Diagnoses | Bump, | [facility] | | | Services | Surgery | Chronic | Shane | Orthopedic | | | Required | | pain of both | MD Mark | [address] | | | | | knees | [address] | [place] | | | | | [address] | [address] [place] | [place], [place] | | | | | PAIN | [place] | [address] | | | | | Procedures | [address] | Phone: | | | | | OFFICE VISIT | Phone: | [phone] | | | | | | [phone] | Fax: | | | | | | Fax: | [phone] | | | | | | [phone] | | +--------+ + + + + + Encounter Details +--------+---------+ + + + | Date | Type | Department | Care Team | Description | +--------+---------+ + + + | 07/10/ | Office | [place] [facility] | Wilber Hester, | Primary | | 2018 | Visit | [facility] | [address] | osteoarthritis of | | | | [address] | [place], [place] | both knees (Primary | | | | [place], [place] | [address] | Dx); Chronic pain of | | | | [address] | | both knees | | | | [phone] | | | +--------+---------+ + + + [...] + + + | Blood Pressure | 142/88 | 07/10/20171352 PST | + + + + | Pulse | 63 | 07/10/20171352 PST | + + + + | Temperature | - | - | + + + + | Respiratory Rate | 16 | 07/10/20171352 PST | + + + + | Oxygen Saturation | 94% | 07/10/20171352 PST | + + + + | Inhaled Oxygen | - | - | | Concentration | | | + + + + | Weight | 81.6 kg (180 lb) | 07/10/20171352 PST | + + + + | Height | 160 cm (5' 3") | 07/10/20171352 PST | + + + + | Body Mass Index | 31.89 | 07/10/20171352 PST | + + + + in [...] of this encounter Instructions Patient Instructions - Wilber Hester MD - 07/10/2017 1400 PSTFormatting of this note m ay be different from the original. Cortisone Injections Your pain may be relieved by a cortisone injection. Cortisone is a type of steroid. It can greatly reduce swelling, redness, inflammation, and pain. Being injected with cortisone is simple and doesn t take long. Your doctor may ask y ou questionsabout your health. Cortisone can affect certain health conditions, such as agustin betes. Why have a cortisone injection? Injecting cortisone can sometimes relieve pain for anything from a sports injury to arthrit is. Your doctor may suggest an injection if rest,splints, physical therapy, rehabilitation exercises, ororal medicine doesn t relieve your pain. Injecting cortisone is simpler th an having surgery. And cortisonemay provide the lasting pain relief that can help you get out and enjoy life again. A recent study showed steroid injections may actually worsen osteo arthritis of the knee. Be sure to discuss all options with your healthcare provider. Injecti ons are usually used no more than 3 to 4 times a year in one area of the body. Getting the injection Your doctorwill start by cleaning and possibly numbing your skin at the injection site. N ext you ll be injected with local anesthetics (for short-term pain relief) and cortisone. The injectionmaylast a fewmoments. A small bandage will be put over the injection site . You ll then be ready to go home. After your injection After being injected, make sure you don t injure the treated region. But stay active. Enj oy a walk or some other mild activity. Just be careful not to strain the region that gave yo u trouble. The next day Some people feel more pain after being injected. This is normal, and it will go away soon. Applying ice for 20 minutes at a time to your injury may reduce the increased pain. Rest for the first day or two. You don t need to stay in bed. But avoid tasks that may strain the injured region. If you have diabetes Cortisone injections can increase your blood sugar for several days after the injection. If you have diabetes, follow your blood sugar closely during this time. Follow your regular pl an for what to do when your blood sugar is elevated. Date Last Reviewed: 01/09/201719999848-5341 [employer]. [address] [place] [address], [place] [address]. All righ ts reserved. This information is not intended as a substitute for professional medical care. Always follow your healthcare professional's instructions. in this encounter Progress Notes Wilber Hester MD - 07/10/2017 1400 PSTFormatting of this note may be different from th e original. [facility] Patient Name: Tameka Escudero | Age: 67 y.o. | : 1950 | Medical Record Number:[id number] | Author: Wilber Hester MD | Date of Encounter: 07/10/2017 Medications: Current Outpatient Prescriptions on File Prior to Visit Medication Sig Dispense Refill CARTIA XT 120 MG 24 hr capsule take 1 capsule by mouth at bedtime 90 capsule 3 carvedilol (COREG) 12.5 mg tablet take 1 tablet by mouth twice a day 0 carvedilol (COREG) 6.25 mg tablet take 1 tablet by mouth every morning and take 2 table ts by mouth every evening 90 tablet 2 clonazePAM (KLONOPIN) 1 mg tablet take 1 tablet by mouth three times a day if needed 90 tablet 0 clopidogrel (PLAVIX) 75 mg tablet Take 1 tablet by mouth Daily. 90 tablet 11 cyclobenzaprine (FLEXERIL) 10 mg tablet Take 1 tablet by mouth 3 times daily as needed. (Patient taking differently: Take 10 mg by mouth Daily.) 30 tablet 2 ELIQUIS 5 MG tablet take 1 tablet by mouth twice a day 180 tablet 3 gabapentin (NEURONTIN) 300 mg capsule Take 3 capsules by mouth 3 times daily. 270 capsu le 4 hydrOXYzine pamoate (VISTARIL) 25 mg capsule take 1 to 2 capsules by mouth every 6 hour s if needed for ITCHING 0 levothyroxine (SYNTHROID, LEVOTHROID) 88 mcg tablet Take 1 tablet by mouth every mornin g (before breakfast). 30 tablet meclizine (ANTIVERT) 25 mg tablet take 1 tablet by mouth three times a day as needed 0 nitroglycerin (NITROSTAT) 0.[address] 1 tablet under the tongue every 5 murali gabino as needed for Chest pain. 25 tablet 3 rosuvastatin (CRESTOR) 5 MG tablet take 1 tablet by mouth once daily 30 tablet 2 No current facility-administered medications on file prior to visit. Allergies: Isosorbide; Tramadol; Adhesive & tape; Allopurinol; Amlodipine; Amoxicillin; Atorvastatin; Citalopram; Duloxetine; Hydrochlorothiazide; Latex; Milnacipran hcl; Sulfa antibiotics; and Amitriptyline Vitals: BP 142/88 | Pulse 63 | Resp 16 | Temp | Wt 81.6 kg (180 lb) | BMI Body mass index is 31. 89 kg/m. Chief Complaint: Chief Complaint Patient presents with Knee Problem bilateral knee pain Date of Injury: n/a History of Present Illness: Tameka Escudero is a 67 y.o. woman with longstanding symptoms of weakness and pains in b oth legs, since childhood. He has know degenerative disc disease in her lumbar spine causin g radicular weakness and dysesthesias in both legs to variable degrees, but in recent years she has developed bilateral activity related knee pain as well. She's previously had left k nee steroid injection twice, never on the right, by her report. Left knee now can be very p ainful, right knee becoming more painful. As she tells it, she was considered for left total knee replacement, but has advanced cardi ac disease that prevented it from proceeding. She is here today stating she want to be more active to exercise and play with her grandchildren, and is requesting bilateral knee inject ions. Most recent injection on left was more than 6 months ago per patient. She is on Eloquis (Rivaroxaban) for a-fib, but has not had any spontaneous bleeding episode s. Review of Pertinent Systems: Patient denies any visit problem associated neurologic and vascular system symptoms of numb ness, tingling or weakness during this history today. Physical Exam: Body mass index is 31.89 kg/m. Legs are heavy, but neutrally aligned, stable collaterals, minimal effusions. Medial joint line tenderness and patellofemoral irritability mild to moderate, worse on left than right. Good motion, distal n/v intact grossly in both legs, but dose describe subjective paresthe jerzy in both lower extremities. Imaging/Labs/Special Study Results: Visit problem associated images and findings reviewed by me today with the patient include: bilateral knee x-rays show mild to moderate OA diffusely. Discussion: Bilateral early knee OA, symptomatic. Advised in weight loss, which she is trying to do. Requesting bilateral knee injections today. KNEE INJECTIONS Extensive PAR discussion took place with patient. Patient has agreed to continue with john davis. Limitations and short term duration of injection discussed. Procedure: BILAERAL KNEE INTRAARTICULAR STEROID INJECTION INJECTION OF MAJOR JOINT/BURSA KENALOG 40MG x 2.5 Diagnosis: BILATERAL KNEE OA, MILD TO MODERATE Consent: Risks, benefits, and alternative treatments discussed and all questions were answ ered. Patient elected to proceed and written consent obtained (see scanned consent form).Fidel azevedo advised of their right to have diagnostic testing, health care treatment and/or servic es at a facility other than [facility]. Time out to verify correct patient, procedure and site. Description: The area was prepped with chlorhexidine using semi-sterile technique. Using an anterolater al approach, a mixture of 4.0mg of 1% Lidocaine, 4.0ml of 0.5% Ropivacaine & 2.5ml of Kenalo g 40 was injected in knee intra-articular space of the left knee, and the same process was r epeated for the right knee. Bandages was then placed over the injection sites. Complications: None Assessment: Tameka was seen today for knee problem. Diagnoses and all orders for this visit: Primary osteoarthritis of both knees - XR Knee Right 4 + Vw; Standing - XR Knee Left 4 + Vw; Standing Chronic pain of both knees - XR Knee Right 4 + Vw; Standing - XR Knee Left 4 + Vw; Standing Other orders - Cancel: HB TERM HC XR KNEE 3 VIEWS BILAT; Standing Follow up: No Follow-up on file. Current Problem List: Patient Active Problem List Diagnosis Essential hypertension Status post insertion of drug-eluting stent into left anterior descending (LAD) artery for coronary artery disease Insomnia Spinal stenosis of lumbar region without neurogenic claudication Fatigue Abnormal CT scan, pelvis Nocturnal hypoxemia Depression Anxiety PTSD (post-traumatic stress disorder) Coronary artery disease involving chicken ranch coronary artery of chicken ranch heart Hyperlipidemia Paroxysmal atrial fibrillation Hypothyroidism Fibromyalgia Chronic pain of both knees Degenerative arthritis of knee, bilateral Past Medical History: Past Medical History: Diagnosis Date Anemia Anxiety Arthritis Complication of anesthesia Depression Environmental allergies Fibromyalgia Gastric polyps GERD (gastroesophageal reflux disease) Heart murmur Hyperlipidemia Hypertension Hypothyroidism Hypoxemia Sleep related Irritable bowel Neuromuscular disorder (HCC) fibromyalga NSTEMI, initial episode of care ([facility]) 10/16/2016 Sleep apnea Spinal stenosis of lumbar region Vitamin D deficiency Past Surgical History: Past Surgical History: Procedure Laterality Date BREAST BIOPSY BREAST SURGERY cyst removal CARDIAC CATHERIZATION N/A 10/16/2016 Procedure: CV Cor Angio; Surgeon: Scarlet Altman MD; Location: [facility] CV LAB COLONOSCOPY EYE SURGERY lasik GASTRIC FUNDOPLICATION Laparoscopic HYSTERECTOMY Vaginal, with ovaries intact UPPER GASTROINTESTINAL ENDOSCOPY VEIN SURGERY Stripped varicose vein Family History Problem Relation Age of Onset Cancer Mother Type of cancer unknown Early Mother Heart attack Father [place] Other (see comment) Father snoring Early Father Diabetes, IDDM Daughter Kidney and pancrease transplant at age 25. Heart attack Other Cancer Other No Known Problems Sister No Known Problems Brother Non-Contributory Social History Social History Marital status: Spouse name: N/A Number of children: N/A Years of education: N/A Social History Main Topics Smoking status: Former Smoker Quit date: 09/16/1975 Smokeless tobacco: Never Used Alcohol use 9.0 oz/week 14 Glasses of wine, 1 Shots of liquor per week Drug use: No Sexual activity: Not Asked Other Topics Concern None Social History Narrative None Thank you for your referral and/or to this patient for choosing my services for their ortho pedic care. I attest to the fact that I have reviewed the patient's medical, surgical, family and socia l histories, medications, allergies, and their vital signs recorded by my assistant store leader today, jose s found in this chart note. Electronically signed by: Wilber Hester MD 07/10/2017 at 14:36 in this encounter Plan of Treatment +--------+---------+ + + + | Date | Type | Specialty | Care Team | Description | +--------+---------+ + + + | 09/07/ | Office | Sleep Medicine | Bubba Weller PA | | | 2017 | Visit | | [address] | | | | | | [place] | | | | | | [id number] | | | | | | | | +--------+---------+ + + + | 10/21/ | Office | Primary Care | Shane Bates | | | 2018 | Visit | | MD Mark [address] | | | | | [address] [place], | | | | | | [place] [address] | | | | | | [phone] | | | | | | | | +--------+---------+ + + + as of this encounter Results XR Knee Left 4 + Vw (07/10/2017 1413) + + | Impressions | + + | IMPRESSION: 1. No acute finding. 2. Mild osteoarthritis left medial and lateral | | knee. 3. Mild osteoarthritis right medial and patellofemoral joint. Dictated by: | | Gaurav Harper | + + + + | Narrative | + + | EXAMINATION: XR KNEE RIGHT 4 + VW; XR KNEE LEFT 4 + VW HISTORY: pain | | COMPARISON STUDY: MRI left knee 04/12/2016. FINDINGS: Mild medial knee joint | | narrowing is noted bilaterally with mild associated hypertrophic bone formation. | | Mild hypertrophic bone formation present at the lateral tibial plateau on the left. | | Minimal hypertrophic bone formation at the right patellofemoral joint. No acute bone | | finding identified. If concern for acute fracture remains clinically follow-up images | | in 10 to 14 days recommended. . | + + + + | Procedure Note | + + | Ankit, Rad Results In - 07/10/2017 1435 PST EXAMINATION:XR KNEE RIGHT 4 + VW; XR KNEE | | LEFT 4 + VWHISTORY:painCOMPARISON STUDY:MRI left knee 04/12/2016.FINDINGS:Mild medial | | knee joint narrowing is noted bilaterally with mild associated hypertrophic bone | | formation.Mild hypertrophic bone formation present at the lateral tibial plateau on the | | left.Minimal hypertrophic bone formation at the right patellofemoral joint.No acute bone | | finding identified.If concern for acute fracture remains clinically follow-up images in | | 10 to 14 days recommended. .IMPRESSION: IMPRESSION:1. No acute finding.2. Mild | | osteoarthritis left medial and lateral knee.3. Mild osteoarthritis right medial and | | patellofemoral joint.Dictated by: Gaurav Harper | |Mild medial knee joint narrowing is noted bilaterally with mild associated hypertrophic bon e formation. | | | |Mild hypertrophic bone formation present at the lateral tibial plateau on the left. | | | |Minimal hypertrophic bone formation at the right patellofemoral joint. | | | |No acute bone finding identified. | |If concern for acute fracture remains clinically follow-up images in 10 to 14 days recommen ded. . | | | |IMPRESSION: | |IMPRESSION: | |1. No acute finding. | |2. Mild osteoarthritis left medial and lateral knee. | |3. Mild osteoarthritis right medial and patellofemoral joint. | | | |Dictated by: Gaurav Harper | | | | | + + XR Knee Right 4 + Vw (07/10/2017 1413) + + | Impressions | + + | IMPRESSION: 1. No acute finding. 2. Mild osteoarthritis left medial and lateral | | knee. 3. Mild osteoarthritis right medial and patellofemoral joint. Dictated by: | | Gaurav Harper | + + + + | Narrative | + + | EXAMINATION: XR KNEE RIGHT 4 + VW; XR KNEE LEFT 4 + VW HISTORY: pain | | COMPARISON STUDY: MRI left knee 04/12/2016. FINDINGS: Mild medial knee joint | | narrowing is noted bilaterally with mild associated hypertrophic bone formation. | | Mild hypertrophic bone formation present at the lateral tibial plateau on the left. | | Minimal hypertrophic bone formation at the right patellofemoral joint. No acute bone | | finding identified. If concern for acute fracture remains clinically follow-up images | | in 10 to 14 days recommended. . | + + + + | Procedure Note | + + | Ankit, Rad Results In - 07/10/2017 1435 PST EXAMINATION:XR KNEE RIGHT 4 + VW; XR KNEE | | LEFT 4 + VWHISTORY:painCOMPARISON STUDY:MRI left knee 04/12/2016.FINDINGS:Mild medial | | knee joint narrowing is noted bilaterally with mild associated hypertrophic bone | | formation.Mild hypertrophic bone formation present at the lateral tibial plateau on the | | left.Minimal hypertrophic bone formation at the right patellofemoral joint.No acute bone | | finding identified.If concern for acute fracture remains clinically follow-up images in | | 10 to 14 days recommended. .IMPRESSION: IMPRESSION:1. No acute finding.2. Mild | | osteoarthritis left medial and lateral knee.3. Mild osteoarthritis right medial and | | patellofemoral joint.Dictated by: Gaurav Harper | |Mild medial knee joint narrowing is noted bilaterally with mild associated hypertrophic bon e formation. | | | |Mild hypertrophic bone formation present at the lateral tibial plateau on the left. | | | |Minimal hypertrophic bone formation at the right patellofemoral joint. | | | |No acute bone finding identified. | |If concern for acute fracture remains clinically follow-up images in 10 to 14 days recommen ded. . | | | |IMPRESSION: | |IMPRESSION: | |1. No acute finding. | |2. Mild osteoarthritis left medial and lateral knee. | |3. Mild osteoarthritis right medial and patellofemoral joint. | | | |Dictated by: Gaurav Harper | | | | | + + in this encounter Visit Diagnoses + + | Diagnosis | + + | Primary osteoarthritis of both knees - Primary | + + | Primary localized osteoarthrosis, lower leg | + + | Chronic pain of both knees | + +
--- OUTSIDE RECORDS SUMMARY | ~2017-08-21 | XMS | Encounter Summary ---
Demographics + + + | Address | [address] [place] [address] | | | [place] [address] | + + + | Home Phone | | + + + | Preferred Language | Unknown | + + + | Marital Status | | + + + | Uatsdin Affiliation | 1013 | + + + | Race | Unknown | + + + | Ethnic Group | Unknown | + + + Author + + + | Author | [facility] | | | and Darrelana | + + + | Organization | [facility] | | | [...] [place] | | | | | [address] | | + + + + + Care Team Providers + +------+ + | Care Reach Lift Truck Driver Name | Role | Phone | + [...] neurogenic | | | | [address] [place], | [place] [address] | claudication | | | | [place] [address] | [phone] | (Primary Dx); | | | | [phone] | | Coronary artery | | | | | | disease involving | | | | | | point [place] ir[place] coronary | | | | | | artery of [place] | | | | | | heart [...] capsule; Refill: 4 Coronary artery disease involving [place] coronary artery of [place] heart with angina pector is (HCC) Assessment [...] capsule; Refill: 4 Coronary artery disease involving [place] coronary artery of [place] heart with angina pector is (HCC) Assessment [...] Tameka has coronary artery disease, sustained an VA on 10/15/16 for which a MIR was [...] she was seen at the ED in [place], where they doubled her Bactrim and a Cephalexin QID x 10 days. She has had diarrhea from the 2 antibiotics she recently was on, and she say s that it is improving. She completed them about a week ago. 4-5 days after she started Bactrim her BP dropped. She stopped taking Lasix and Spironolac tone. The Dwarf Tree Grower stopped Isosorbide mononitrate. Yesterday her BP was [...] 2017 | Visit | | [address] [facility] | | | | | | [place], [place] | | | | | | [id number] | | | | | | | | +--------+---------+ + + + | 10/21/ | Office | Primary Care | Shane Bates | | | 2017 | Visit | | MD Mark [address] | | | | | | [place], | | | | | | [place] [address] | | | | | | [phone] | | | | | | | | +--------+---------+ + + + as of this encounter Visit Diagnoses + + | Diagnosis | + + | Spinal stenosis of lumbar region without neurogenic claudication - Primary | + + | Spinal stenosis, lumbar region, without neurogenic claudication | + + | Coronary artery disease involving [place] coronary artery of [place] heart with angina | | pectoris (HCC) | + + | Hyperlipidemia, unspecified hyperlipidemia type | + + | Insomnia, unspecified type | + + | Essential hypertension | + + | Unspecified essential hypertension | + + | Facial cellulitis | + + | Cellulitis and abscess of face | + +
--- OUTSIDE RECORDS SUMMARY | ~2017-08-21 | XMS | Encounter Summary ---
Demographics + + + | Address | [address] [place] [address] | | | [place] [address] | + + + | Home Phone | | + + + | Preferred Language | Unknown | + + + | Marital Status | | + + + | Scientologist Affiliation | 1013 | + + + | Race | Unknown | + + + | Ethnic Group | Unknown | + + + Author + + + | Author | [facility] | | | and Darrelana | + + + | Organization | [facility] | | | [...] [place] | | | | | [address] | | + + + + + Care Team Providers + +------+ + | Care Welfare Visitor Name | Role | Phone | + [...] Description | +--------+--------+ + + + | 08/14/ | Refill | [facility] | Shane Bates | Medication Refill | | 2017 | | [facility] | MD Mark [address] | | | | | [facility] | [facility] [place], | | | | | [address] [facility], | [place] [address] | | | | | [place] [address] | [phone] | | | | | [phone] | | | +--------+--------+ + + + [...] | | | | | [place] | | | | | | [address] | | | | | | | | +--------+---------+ + + + | 10/21/ | Office | Primary Care | Shane Bates | | | 2017 | Visit | | MD Mark [address] | | | | | | [place], | | | | | | [place] [address] | | | | | | [phone] | | | | | | | | +--------+---------+ + + + as of this encounter Visit Diagnoses Not on filein this encounter"
--- OUTSIDE RECORDS SUMMARY | ~2017-08-21 | XMS | Encounter Summary ---
Demographics + + + | Address | [address] [place] [address] | | | [place] [address] | + + + | Home Phone | | + + + | Preferred Language | Unknown | + + + | Marital Status | | + + + | Bahai Affiliation | 1013 | + + + | Race | Unknown | + + + | Ethnic Group | Unknown | + + + Author + + + | Author | [facility] | | | and Darrelana | + + + | Organization | [facility] | | [...] [place] | | | | | [address] | | + + + + + Care Team Providers + +------+ + | Care Detonator Assembler Name | Role | Phone | + [...] neurogenic | | | | [address] [place], | [place] [address] | claudication | | | | [place] [address] | [phone] | (Primary Dx); | | | | [phone] | | Coronary artery | | | | | | disease involving | | | | | | yocha dehe coronary | | | | | | artery of yocha dehe | | | | | | heart [...] capsule; Refill: 4 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 She has had diarrhea from the 2 antibiotics she recently was on, and she say s that it is improving. She completed them about a week ago. 4-5 days after she started Bactrim her BP dropped. She stopped taking Lasix and Spironolac tone. 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 Yesterday her BP was [...] Visit | | [address] [facility] | | | | | | [place], [place] | | | | | | [id number] | | | | | | | | +--------+---------+ + + + | 10/21/ | Office | Primary Care | Shane Bates | | | 2017 | Visit | | MD [address] | | | | | | [place], | | | | | | [place] [address] | | | | | | [phone] | | | | | | | | +--------+---------+ + + + as of this encounter Visit Diagnoses + + | Diagnosis | + + | Spinal stenosis of lumbar region without neurogenic claudication - Primary | + + | Spinal stenosis, lumbar region, without neurogenic claudication | + + | 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
--- OUTSIDE RECORDS SUMMARY | ~2017-08-21 | XMS | Encounter Summary ---
Demographics + + + | Address | [address] [place] [address] | | | [place] [address] | + + + | Home Phone | | + + + | Preferred Language | Unknown | + + + | Marital Status | | + + + | Christian Affiliation | 1013 | + + + | Race | Unknown | + + + | Ethnic Group | Unknown | + + + Author + + + | Author | [facility] | | | and Darrelana | + + + | Organization | [facility] | | | [...] [place] | | | | | [address] | | + + + + + Care Team Providers + +------+ + | Care Audit Manager Name | Role | Phone | + [...] Description | +--------+--------+ + + + | 07/04/ | Refill | [facility] | Shane Bates | Medication Refill | | 2017 | | [facility] | [address] | | | | | [facility] | [facility] [place], | | | | | [address] [facility], | [place] [address] | | | | | [place] [address] | [phone] | | | | | [phone] | | | +--------+--------+ + + + [...] [place] | | | | | | [address] | | | | | | | | +--------+---------+ + + + | 10/21/ | Office | Primary Care | Shane Bates | | | 2017 | Visit | | [address] | | | | | | [place], | | | | | | [place] [address] | | | | | | [phone] | | | | | | | | +--------+---------+ + + + as of this encounter Visit Diagnoses Not on filein this encounter"
--- OUTSIDE RECORDS SUMMARY | ~2017-08-21 | XMS | Clinical Summary ---
Demographics + + + | Address | [address] [place] [address] | | | [place] [address] | + + + | Home Phone | | + + + | Preferred Language | Unknown | + + + | Marital Status | | + + + | Evangelical Affiliation | 1013 | + + + | Race | Unknown | + + + | Ethnic Group | Unknown | + + + Author + + + | Author | [facility] | | | and [place] | + + + | Organization | [facility] | | | and [place] | + + + | Address | Unknown | + + + | Phone | Unavailable | + + + Support + + + + + | Name | Relationship | Address | Phone | + + + + + | Rashaun Escudero | ECON | [address] [facility] | | | | | [place] | | | | | [address] | | + + + + + Care Team Providers + +------+ + | Care Acute Specialist Name | Role | Phone | + +------+ + | Shane Bates MD | PP | | + +------+ + Allergies + + + + + + | Active Allergy | Reactions | Severity | Noted | Comments | | | | | Date | | + + + + + + | Adhesive & Tape | | | 08/29/19 | | | | | | 12 | | + + + + + + | Allopurinol | Other (See Comments) | | 05/18/19 | Bad stomach pain | | | | | 18 | | + + + + + + | Amitriptyline | Palpitations | Low | 05/18/19 | Weight gain | | | | | 18 | | + + + + + + | Amlodipine | Other (See Comments) | | 05/18/19 | No reaction | | | | | 18 | indicated | + + + + + + | Amoxicillin | Nausea Only | | 05/18/19 | | | | | | 18 | | + + + + + + | Atorvastatin | Other (See Comments) | | 05/18/19 | Dizziness, stomach | | | | | 18 | pain, could not | | | | | | eat. | + + + + + + | Citalopram | Diarrhea | | 05/18/19 | | | | | | 18 | | + + + + + + | Duloxetine | Other (See Comments) | | 05/18/19 | ineffective | | | | | 18 | | + + + + + + | Hydrochlorothiazide | Other (See Comments) | | 05/18/19 | Hyponatremia | | | | | 18 | | + + + + + + | Isosorbide | | High | 05/28/19 | | | | | | 18 | | + + + + + + | Latex | Other (See Comments) | | 05/17/19 | Skin breakdown | | | | | 17 | | + + + + + + | Milnacipran Hcl | Other (See Comments) | | 05/18/19 | No reaction | | | | | 18 | indicated | + + + + + + | Sulfa Antibiotics | Nausea Only | | 05/18/19 | | | | | | 18 | | + + + + + + | Tramadol | Swelling | High | 05/17/19 | Swelling of the | | | | | 17 | throat and lips. | + + + + + + Current Medications + + +---------+---------+------+------+-------+ | Prescription | Sig. | Disp. | Refills | Star | End | Statu | | | | | | t | Date | s | | | | | | Date | | | + + +---------+---------+------+------+-------+ | nitroglycerin | Place 1 tablet under | 25 | 3 | 06/0 | | Activ | | (NITROSTAT) 0.4 mg | the tongue every 5 | tablet | | /20 | | e | | SL tablet | minutes as needed | | | 17 | | | | | for Chest pain. | | | | | | + + +---------+---------+------+------+-------+ | clopidogrel | Take 1 tablet by | 90 | 11 | 06/2 | 06/2 | Activ | | (PLAVIX) 75 mg | mouth Daily. | tablet | | 0/20 | 0/20 | e | | tablet | | | | 17 | 18 | | + + +---------+---------+------+------+-------+ | hydrOXYzine | take 1 to 2 capsules | | 0 | 01/0 | | Activ | | pamoate (VISTARIL) | by mouth every 6 | | | 1/20 | | e | | 25 mg capsule | hours if needed for | | | 18 | | | | | ITCHING | | | | | | + + +---------+---------+------+------+-------+ | meclizine | take 1 tablet by | | 0 | 11/0 | | Activ | | (ANTIVERT) 25 mg | mouth three times a | | | 2/20 | | e | | tablet | day as needed | | | 17 | | | + + +---------+---------+------+------+-------+ | gabapentin | Take 3 capsules by | 270 | 4 | 01/1 | | Activ | | (NEURONTIN) 300 mg | mouth 3 times daily. | capsule | | 12/28 | | e | | capsuleIndications: | | | | 18 | | | | Spinal stenosis of | | | | | | | | lumbar region | | | | | | | | without neurogenic | | | | | | | | claudication | | | | | | | + + +---------+---------+------+------+-------+ | carvedilol (COREG) | take 1 tablet by | | 0 | 01/2 | | Activ | | 12.5 mg tablet | mouth twice a day | | | 10/28 | | e | | | | | | 18 | | | + + +---------+---------+------+------+-------+ | rosuvastatin | take 1 tablet by | 30 | 2 | 02/2 | | Activ | | (CRESTOR) 5 MG | mouth once daily | tablet | | 020 | | e | | tablet | | | | 18 | | | + + +---------+---------+------+------+-------+ | ELIQUIS 5 MG | take 1 tablet by | 180 | 3 | 02/2 | | Activ | | tablet | mouth twice a day | tablet | | 10/28 | | e | | | | | | 18 | | | + + +---------+---------+------+------+-------+ | CARTIA XT 120 MG | take 1 capsule by | 90 | 3 | 02/2 | | Activ | | 24 hr capsule | mouth at bedtime | capsule | | 6/20 | | e | | | | | | 18 | | | + + +---------+---------+------+------+-------+ | clonazePAM | take 1 tablet by | 90 | 0 | 03/1 | | Activ | | (KLONOPIN) 1 mg | mouth three times a | tablet | | 9/20 | | e | | tablet | day if needed | | | 18 | | | + + +---------+---------+------+------+-------+ | FLUoxetine | Take 20 mg by mouth | | | | | Activ | | (PROZAC) 20 mg | Daily. | | | | | e | | capsule | | | | | | | + + +---------+---------+------+------+-------+ | cyclobenzaprine | take 1 tablet by | 30 | 0 | 04/0 | | Activ | | (FLEXERIL) 10 mg | mouth three times a | tablet | | 6/20 | | e | | tablet | day if needed | | | 18 | | | + + +---------+---------+------+------+-------+ | levothyroxine | Take 1 tablet by | 30 | 2 | 04/1 | | Activ | | (SYNTHROID) 100 mcg | mouth every morning | tablet | | 0/20 | | e | | tabletIndications: | (before breakfast). | | | 18 | | | | Hypothyroidism, | | | | | | | | unspecified type | | | | | | | + + +---------+---------+------+------+-------+ | levothyroxine | Take 1 tablet by | 30 | | 06/0 | 04/1 | Disco | | (SYNTHROID, | mouth every morning | tablet | | 9/20 | 0/20 | ntinu | | LEVOTHROID) 88 mcg | (before breakfast). | | | 17 | 18 | ed | | tablet | | | | | | | + + +---------+---------+------+------+-------+ | clonazePAM | take 1 tablet by | 90 | 0 | 02/1 | 03/1 | Disco | | (KLONOPIN) 1 mg | mouth three times a | tablet | | 5/20 | 9/20 | ntinu | | tablet | day if needed | | | 18 | 18 | ed | + + +---------+---------+------+------+-------+ | carvedilol (COREG) | take 1 tablet by | 90 | 2 | 02/2 | 04/1 | Disco | | 6.25 mg tablet | mouth every morning | tablet | | 7/20 | 0/20 | ntinu | | | and take 2 tablets | | | 18 | 18 | ed | | | by mouth every | | | | | | | | evening | | | | | | + + +---------+---------+------+------+-------+ | cyclobenzaprine | take 1 tablet by | 30 | 2 | 03/0 | 04/0 | Disco | | (FLEXERIL) 10 mg | mouth three times a | tablet | | 5/20 | 6/20 | ntinu | | tablet | day if needed | | | 18 | 18 | ed | + + +---------+---------+------+------+-------+ Active Problems + + + | Problem | Noted Date | + + + | Hair loss | 08/18/2017 | + + + + + | Last Assessment & Plan: Check TSH today | + + + + + | NADIR (obstructive sleep apnea) | 08/17/2017 | + + + | Degenerative arthritis of knee, bilateral | 07/10/2017 | + + + + + | Last Assessment & Plan: Status post bilateral knee injections | | with corticosteroids 07/10/17 | + + + + + | Hypothyroidism | 06/15/2017 | + + + + + | Last Assessment & Plan: Continue Levothyroxine 0.088 mg daily | | Recheck TSH | + + + + + | Fibromyalgia | 06/15/2017 | + + + | Paroxysmal atrial fibrillation (HCC) | 06/08/2017 | + + + + + | Overview: 06/05/17 admitted with PAF [id number] score is 4 | | (age, HTN, vascular disease) reflecting an annual stroke rate of | | 4.8% HASBLED score of 2 represents a bleeding risk of 4.1% | | per year Continue Carvedilol 12.5 mg by mouth twice a day and | | Cardizem 30 mg every [address] Villatoro, he recommended | | continuing Plavix, stopping Aspirin and beginning Eliquis Last | | Assessment & Plan: Continue Apixaban 5 mg by mouth twice a day | + + + + + | Coronary artery disease involving [place] coronary artery of | 05/28/2017 | | [place] heart | | + + + + + | Overview: NSTEMI 10/15/16 Last Assessment & Plan: Status | | post NSTEMI 10/15/16, currently on Clopidogrel, Aspirin 81 mg | | daily, in addition to Apixaban.Anticipate discontinuing | | Clopidogrel in 11/2017 and at that time continue ASA and Apixaban | | as she currently is taking.She knows of a gas furnace installer who comes | | to [place], and will get me information about them so that I | | can make a referral to them. | + + + + + | Hyperlipidemia | 05/28/2017 | + + + + + | Last Assessment & Plan: Check lipid panel | + + + + + | Insomnia | 04/16/2017 | + + + + + | Last Assessment & Plan: Nocturnal hypoxemia, suspect | | OSAEvaluation by Dr. Bright yesterday, and a sleep study is | | pending on 06/15/17 | + + + + + | Spinal stenosis of lumbar region without neurogenic claudication | 04/16/2017 | + + + + + | Last Assessment & Plan: Increase Gabapentin to 300 mg 3 at | | bedtime, and 2 in AM and mid-day for her back pain. | + + +---------+ + | Fatigue | 04/16/2017 | +---------+ + + + | Last Assessment & Plan: Unclear whether or not there has been | | any change with the recent change in Carvedilol to Atenolol and | | back again. - Continue Carvedilol and adjust as per under | | hypertension. | + + + + + | Abnormal CT scan, pelvis | 04/16/2017 | + + + + + | Overview: Suspect bone island. | | Last Assessment & Plan: CT pelvis | + + + + + | Nocturnal hypoxemia | 04/16/2017 | + + + + + | Last Assessment & Plan: Referral to Dr. Bright in [place], | | eval and treat. | + + + + + | Status post insertion of drug-eluting stent into left anterior | 02/26/2017 | | descending (LAD) artery for coronary artery disease | | + + + + + | Overview: 3.5 x 24 mm Promus stent, proximal LAD | + + + + + | Essential hypertension | 10/16/2016 | + + + + + | Last Assessment & Plan: Controlled | + + + + + | Depression | 04/18/2013 | + + + | Anxiety | 04/18/2013 | + + + | PTSD (post-traumatic stress disorder) | 04/18/2013 | + + + Resolved Problems + + + + | Problem | Noted | Resolved | | | Date | Date | + + + + | Chronic pain of both knees | 06/15/19 | | | | 18 | 8 | + + + + + + | Last Assessment & Plan: Referral to Dr. Cee to evaluate | | and treat bilateral knee pain. | + + + + + + | Facial cellulitis | 05/28/19 | | | | 18 | 8 | + + + + + + | Last Assessment & Plan: Improved. | + + + + + + | [place] (myocardial infarction) | 02/27/20 | | | | 17 | 8 | + + + + | NSTEMI, initial episode of care ([facility]) | 10/17/19 | | | | 17 | 8 | + + + + + + | Overview: Cath 10/17/16CONCLUSIONS:1. 90% long lesion of the | | proximal LAD stented with Promus DES2. Normal LCX (dominant)3. | | Normal RCA4. EF 60% Anteroapical hypokinesiss/p MIR to 90% LAD | | 10/17/16 Last Assessment & Plan: Chest pressure. Not highly | | suspicious for CAD, but neither was her NSTEMI. - EKG today. - | | Isosorbide mononitrate 30 mg po daily. - RTC in 1 month. | | | |s/p MIR to 90% LAD 10/17/16 | | Last Assessment & Plan: Chest pressure. Not highly suspicious for CAD, but neither was her NSTEMI. | | - EKG today. | | - Isosorbide mononitrate 30 mg po daily. | | - RTC in 1 month. | + + + + + + | Pure hypercholesterolemia | 10/17/19 | | | | 17 | 8 | + + + + + + | Last Assessment & Plan: Tolerating Rosuvastatin, which she | | will continue. | + + Encounters +--------+ + + + + | Date | Type | Specialty | Care Team | Description | +--------+ + + + + | 08/18/ | Office | | Shane Bates | Essential | | 2017 | Visit | | MD Mark | hypertension | | | | | | (Primary Dx); | | | | | | Coronary artery | | | | | | disease involving | | | | | | [place] coronary | | | | | | artery of [place] | | | | | | heart with angina | | | | | | pectoris (HCC); | | | | | | Paroxysmal atrial | | | | | | fibrillation (HCC); | | | | | | Hyperlipidemia, | | | | | | unspecified | | | | | | hyperlipidemia type; | | | | | | Hypothyroidism, | | | | | | unspecified type; | | | | | | Fibromyalgia; | | | | | | Primary | | | | | | osteoarthritis of | | | | | | both knees; NADIR | | | | | | (obstructive sleep | | | | | | apnea); Hair loss | +--------+ + + + + | 08/14/ | Refill | | Shane Bates | Medication Refill | | 2017 | | | MD Mark | | +--------+ + + + + | 08/03/ | Clinical | | Carla Cardoso MD | NADIR (obstructive | | 2018 | Support | | | sleep apnea) | | | | | | (Primary Dx) | +--------+ + + + + | 07/27/ | Refill | | Kate Patel NP | Medication Refill | | 2017 | | | | | +--------+ + + + + | 07/12/ | Refill | | Shane Bates | Medication Refill | | 2017 | | | MD Mark | | +--------+ + + + + | 07/10/ | Hospital | | Wilber Hester, | | | 2017 | Encounter | | | | +--------+ + + + + | 07/10/ | Office | | Wilber Hester, | Primary | | 2018 | Visit | | MD | osteoarthritis of | | | | | | both knees (Primary | | | | | | Dx); Chronic pain of | | | | | | both knees | +--------+ + + + + | 02/27/ | Office | | Carla Cardoso MD | NADIR (obstructive | 2017 | Visit | | | sleep apnea) | | | | | | (Primary Dx); PTSD | | | | | | (post-traumatic | | | | | | stress disorder) | +--------+ + + + + | 07/07/ | Refill | | Shane Bates | Medication Refill | 2017 | | | MD Mark | | +--------+ + + + + | 07/04/ | Refill | | Shane Bates | Medication Refill | | 2017 | | | MD Mark | | +--------+ + + + + 06/30/ | Refill | | Kate Patel NP | Medication Refill | | 2017 | | | | | +--------+ + + + + | 06/25/ | Office | | Richard Bond MD | Coronary artery | | 2018 | Visit | | | disease involving | | | | | | [place] coronary | | | | | | artery of [place] | | | | | | heart without angina | | | | | | pectoris (Primary | | | | | | Dx) | +--------+ + + + + | 06/25/ | Refill | | Shane Bates | Medication Refill | | 2017 | | | MD Mark | | +--------+ + + + + | 06/24/ | Telephone | | Shane Bates | Other (Please call ) | | 2017 | | | MD Mark | | +--------+ + + + + | 06/21/ | Refill | | Shane Btaes | Medication Refill | | 2017 | | | MD Mark | | +--------+ + + + | 06/16/ | Telephone | | Shane Bates | Medication Prior | 2017 | | | MD Mark | Authorization | | | | | | (Cyclobenzaprine 10 | | | | | | mg ) | +--------+ + + + + | 06/15/ | Hospital | | Carla Cardoso MD | Nocturnal hypoxemia | | 2018 - | Encounter | | | | | | | | | | | 06/16/ | | | | | | 2017 | | | | | +--------+ + + + + | 06/15/ | Office | | Shane Bates | Paroxysmal atrial | | 2017 | Visit | | MD Mark | fibrillation (HCC) | | | | | | (Primary Dx); | | | | | | Coronary artery | | | | | | disease involving | | | | | | [place] coronary | | | | | | artery of [place] | | | | | | heart with angina | | | | | | pectoris (HCC); | | | | | | Essential | | | | | | hypertension; | | | | | | Hypothyroidism, | | | | | | unspecified type; | | | | | | Fibromyalgia; | | | | | | Chronic pain of both | | | | | | knees | +--------+ + + + + | 06/10/ | Telephone | | Richard Bond MD | Records Request | | 2017 | | | | | +--------+ + + + + | 06/09/ | Refill | | Shane Bates | Medication Refill | | 2017 | | | MD Mark | | +--------+ + + + + | 05/28/ | Office | | Shane Bates | Spinal stenosis of | | 2017 | Visit | | MD Mark | lumbar region | | | | | | without neurogenic | | | | | | claudication | | | | | | (Primary Dx); | | | | | | Coronary artery | | | | | | disease involving | | | | | | [place] coronary | | | | | | artery of [place] | | | | | | heart [...] | | | | | cellulitis | +--------+ + + + + | 05/27/ | Office | | Carla Cardoso MD | NADIR (obstructive | | 2017 | Visit | | | sleep apnea) | | | | | | (Primary Dx) | +--------+ + + + + | 05/27/ | Refill | | Shane Bates | Medication Refill | | 2017 | | | MD Mark | | +--------+ + + + + | 05/27/ | Refill | | Kate Patel NP | Medication Refill | | 2017 | | | | | +--------+ + + + + | 05/27/ | Refill | | Shane Bates | Medication Refill | | 2017 | | | MD Mark | | +--------+ + + + + | 05/25/ | Refill | | Shane Bates | Medication Refill | | 2017 | | | MD Mark | | +--------+ + + + + | 05/24/ | Refill | | Shane Bates | Medication Refill | | 2017 | | | MD Mark | | +--------+ + + + + from Last 3 Months Family History + + + + + | Medical History | Relation | Name | Comments | + + + + + | No Known Problems | Brother | | | + + + + + | Diabetes, IDDM | Daughter | | Kidney and pancrease transplant at age 25. | + + + + + | Early | Father | | | + + + + + | Heart attack | Father | | [place] | + + + + + | Other (see comment) | Father | | snoring | + + + + + | Cancer | Mother | | Type of cancer unknown | + + + + + | Early | Mother | | | + + + + + | Cancer | Other | Several | | | | | siblings | | + + + + + | Heart attack | Other | Several | | | | | siblings | | + + + + + | No Known Problems | Sister | | | + + + + + + + + + + | Relation | Name | Status | Comments | + + + + + | Brother | | | | + + + + + | Daughter | | | | + + + + + | Father | | | | | | | (Age | | | | | 52) | | + + + + + | Mother | | | | | | | (Age | | | | | 42) | | + + + + + | Other | Several | | | | | siblings | | | + + + + + | Sister | | | | + + + + + Social History + [...] on file | | + + + Last Filed Vital Signs + + + + | Vital Sign | Reading | Time Taken | + + + + | Blood Pressure | 138/80 | 08/18/20171116 PDT | + + + + | Pulse | 70 | 08/18/20171116 PDT | + + + + | Temperature | 36.1 C (97 F) | 04/30/20171051 PST | + + + + | Respiratory Rate | 18 | 08/18/20171116 PDT | + + + + | Oxygen Saturation | 98% | 08/18/20171116 PDT | + + + + | Inhaled Oxygen | - | - | | Concentration | | | + + + + | Weight | 83.9 kg (185 lb) | 08/18/20171116 PDT | + + + + | Height | 160 cm (5' 3") | 08/03/2017 1334 PDT | + + + + | Body Mass Index | 32.77 | 08/18/20171116 PDT | + + + + Plan of Treatment +--------+---------+ + + + | Date | Type | Specialty | Care Team | Description | +--------+---------+ + + + | 09/07/ | Office | | Bubba Weller PA | | | 2017 | Visit | | [address] | | | | | | [place], [place] | | | | | | [address] | | | | | | | | +--------+---------+ + + + | 10/21/ | Office | | Shane Bates | | | 2017 | Visit | | MD Mark [address] | | | [address] [place], | | | | | | [place] [address] | | | | | | [phone] | | | | | | | | +--------+---------+ + + + + + + + + | Health Maintenance | Due Date | Last Done | Comments | + + + + + | Hepatitis C | | | | | Screening | 9 | | | + + + + + | Vaccine: | | | | | Dtap/Tdap/Td (1 - | 8 | | | | Tdap) | | | | + + + + + | BREAST CANCER | | | | | SCREENING (MAMM Q2 | 9 | | | | YEARS 50-74) | | | | + + + + + | COLON CANCER | | | | | SCREENING | 9 | | | | (COLONOSCOPY EVERY | | | | | 10 YEARS 50-75) | | | | + + + + + | Vaccine: Zoster (#1) | | | | | | 9 | | | + + + + + | Vaccine: | | | | | Pneumococcal 65+ | 4 | | | | Low/Medium Risk (1 | | | | | of 2 - PCV13) | | | | + + + + + | Vaccine: Influenza | | | | | (Season Ended) | 8 | | | + + + + + Implants + +-------+--------+ +--------+--------+--------+ | Implanted | Type | Area | Manufacture | Device | Expira | Model | | | | | r | | tion | / | | | | | | Identi | Date | Serial | | | | | | fier | | / Lot | + +-------+--------+ +--------+--------+--------+ | Stent Crnry P Prmr Mr 3.5x24 | Stent | N/A: | [employer] | | 10/20/ | [id number] | | - [id number]: Qty: 1 | | Segura | SCIENTIFIC | | 2017 | [id number] / | | on 10/16/2016 by Agapito, | | ry | [facility] | | | | | Scarlet Sheth MD | | | | | | / | | | | | | | | 7 | + +-------+--------+ +--------+--------+--------+ Results Lipid Panel (08/18/2017 1234) + + + + | Component | Value | Ref Range | + + + + | Triglycerides | 91 | 30 - 200 mg/dL | + + + + | Cholesterol | 298 (H) | 0 - 200 mg/dL | + + + + | HDL | 76 | >=40 mg/dL | + + + + | Chol/HDL Ratio | 3.9 | | + + + + | LDL, Calculated | 204 (H) | <=150 mg/dL | | | Comment: | | | | LDL reference range: | | | | | | | | < 100 mg/dL Optimal | | | | 100 - 129 mg/dL Near Optimal | | | | 130 - 159 mg/dL Borderline | | | | 160 - 189 mg/dL High | | | | > 190 mg/dL Very High | | + + + + | Fasting? | Yes | | + + + + + + + | Specimen | Performing Laboratory | + + + | Blood | [facility] [address] | | | [place] [address] | + + + + + | Narrative | + + | Fasting 16 hrs | + + TSH (08/18/20171233) + + + + | Component | Value | Ref Range | + + + + | TSH | 5.37 (H) | 0.36 - 3.74 uIU/mL | + + + + + + + | Specimen | Performing Laboratory | + + + | Blood | [facility] [address] | | | [place] [address] | + + + XR Knee Right 4 + [...] + | Sebastian Pham Results In - 07/10/2017 1435 PST EXAMINATION:XR [...] | | | + + XR Knee Left 4 + Vw (07/10/2017 [...] + | Sebastian Pham Results In - 07/10/2017 1435 PST EXAMINATION:XR [...] | | | | | + + Sleep study diagnostic only (no PAP) (06/21/2017 1556) + + | Narrative | + + | Carla Cardoso MD 06/21/2017 16:17 [facility] | | [place] [address] Polysomnogram | | Report on Tameka Escudero performed on June 15, 2017. PATIENT | | IDENTIFICATION: Tameka Escudero IS a 67 y.o..-year-old female. with a history | | of fibromyalgia, non-ST elevation [place] in October 2016 status post 1 stent placement, | | hypertension, hypercholesterolemia, PTSD, depression, insomnia, and obstructive sleep | | apnea presenting for reevaluation of her sleep apnea. BMI: 32 She first was | | diagnosed with obstructive sleep apnea in this sleep center based on a diagnostic | | polysomnography which was done on September 20, 2002. She had moderate obstructive sleep | | apnea with AHI of 18 and no significant hypoxemia. She had spent 17.2% of total | | sleep time in supine sleep, and 25.3% of stage R sleep had been captured. She had a | | second sleep study in [place] about 15 years ago. She says she tried CPAP for 5 | | years, but then she lost her insurance and didn't follow up. She thinks it was | | helping her to sleep better. She says she had a sleep study at [place] in September | | 2017, and she had hypoxemia but was not qualified for oxygen. Technical | | Information: Please see technical data which is attached. Definitions (The AASM | | Manual for the Scoring of Sleep and Associated Events, Version 2.4; 2017): Apnea: | | There is a drop in the peak signal excursion by 90% or greater of pre-event baseline | | using an oronasal thermal sensor (diagnostic study), PAP device flow (titration | | study), or an alternative apnea sensor (diagnostic study); the duration of the 90% | | or greater drop in sensor signal is 10 seconds or longer. Obstructive Apnea: Event | | associated with continued or increased inspiratory effort throughout the entire period | | of absent airflow. Central Apnea: Event associated with absent inspiratory | | effort throughout the entire period of absent airflow. Mixed Apnea: Event | | associated with absent inspiratory effort in the initial portion of the event followed | | by resumption of inspiratory effort during the second portion of the event. | | Hypopnea: Nasal pressure excursion drop by 30% or more from baseline, lasting at lease | | 10 seconds and 90% of the event's duration meets this amplitude criteria. This is | | associated with a 4% or greater desaturation from pre-baseline Respiratory Event | | Related Arousal: A sequence of breaths lasting 10 seconds or longer characterized by | | increasing respiratory effort or by flattening of the inspiratory portion of the nasal | | pressure (diagnostic study) or PAP device flow (titration study) waveform leading | | to arousal from sleep when the sequence of breaths does not meet criteria for an apnea | | or hypopnea. REVELANT MEDICATIONS: Gabapentin, clonazepam as needed. Patient | | took 3 gabapentin 300 mg at bedtime. The dose had been increased after her recent | | fall. SUBJECTIVE: The patient rated sleep quality during sleep study as much | | better. 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 She sleeps in her recliner at home because she is scared she 4 stop | | breathing during sleep if she sleeps in her bed. She tried both fullface mask and | | nasal pillows and she tolerated Airfit P10 nasal pillows much better. SLEEP | | ARCHITECTURE AND EEG: ? Total sleep time was 466 minutes. Sleep efficiency was 83.5% | | and was normal. ? Sleep onset latency was 41 minutes and was increased. patient | | had a fall recently and was in pain. ? REM latency was 119 minutes and was increased. | | ? Percent of time in stage N3 was 13.7% and was within normal limits. ? Percent of | | time in stage REM was 17.1 % and was decreased. ? Arousal Index for this diagnostic | | study was 6.8/hour and was normal, with 3.3 respiratory arousals/hour and 3.5 | | spontaneous arousals/hour. RESPIRATORY: ? Respiratory disturbance index (RDI) | | was 10.7, consisting of total 70 hypopneas, 6 obstructive apneas, 0 mixed apneas, and | | 0 central apneas and 7 RERAs. AHI 1B was 9.8 and was mildly elevated. ? Sleep | | disordered breathing was worsened in supine position with supine AHI of | | 21.7. She spent 13.6% of total sleep time in supine position. Nonsupine AHI was | | 7.9.. ? Sleep disordered breathing was worsened in REM sleep with REM AHI of | | 23.4. Non-REM AHI was 7.. ? Mean SpO2 was 94 %, ejn SpO2 was 82%, and amount of | | total sleep time spent below SpO2 of 88% was 3.2 minutes. 4% Oxygen Desaturation | | Index (KAILASH) was 8 and was mildly elevated. ? ETCO2 was not elevated. ? Raúl-Boucher | | breathing was not observed. LIMB MOVEMENTS: ? Total sleep periodic limb movement | | index was 0 and was not increased. EKG: Normal sinus rhythm was noted with | | mean heart rate of 71, 65, and 66 beats per minute in wake, non-REM, and REM sleep | | respectively.. INTERPRETATION: - This diagnostic polysomnography showed mild | | obstructive sleep apnea which was worsened in supine position and stage R sleep. | | Patient spent 31.6% of total sleep time in supine position, and 17.1% of stage R sleep | | was captured. Mean SpO2 was 94 %, jen SpO2 was 82%, and amount of total sleep time | | spent below SpO2 of 88% was 3.2 minutes. 4% Oxygen Desaturation Index (KAILASH) was 8 and | | was mildly elevated. - Sleep efficiency was normal, and sleep was minimally | | fragmented. - Excessive leg movement was not observed. RECOMMENDATIONS: | | Start auto-PAP at 5-15 cm H2O with a small Airfit P10 mask. Carla Cardoso MD | | Portions of this chart may have been created with Invesdor voice recognition software. | | Occasional wrong-word or | | | | sound-alike | | substitutions may have occurred due to the inherent limitations of voice | | recognition software. Please read the chart carefully and recognize, using context, | | where these substitutions have occurred. | + + + + | Procedure Note | + + | Carla Cardoso MD - 06/21/2017 [address] [facility] | | [place], [place] [address]Hissjxjkpyztn Report on Tameka Sanderson | Benjamin Escudero performed on June 15, 2017.PATIENT IDENTIFICATION:Tameka Escudero IS a 67 | | y.o..-year-old female. with a history of fibromyalgia, non-ST elevation [place] in October | | 2016 status post 1 stent placement, hypertension, hypercholesterolemia, PTSD, | | depression, insomnia, and obstructive sleep apnea presenting for reevaluation of her | | sleep apnea.BMI: 32She first was diagnosed with obstructive sleep apnea in this sleep | | center based on a diagnostic polysomnography which was done on September 20, 2002. She had | | moderate obstructive sleep apnea with AHI of 18 and no significant hypoxemia. She had | | spent 17.2% of total sleep time in supine sleep, and 25.3% of stage R sleep had been | | captured. She had a second sleep study in [place] about 15 years ago. She says she | | tried CPAP for 5 years, but then she lost her insurance and didn't follow up. She | | thinks it was helping her to sleep better. She says she had a sleep study at [place] | | in September 2016, and she had hypoxemia but was not qualified for oxygen. Technical | | Information: Please see technical data which is attached.Definitions (The AASM Manual | | for the Scoring of Sleep and Associated Events, Version 2.4; 2017): Apnea: There is a | | drop in the peak signal excursion by 90% or greater of pre-event baseline using an | | oronasal thermal sensor (diagnostic study), PAP device flow (titration study), or an | | alternative apnea sensor (diagnostic study); the duration of the 90% or greater drop in | | sensor signal is 10 seconds or longer. Obstructive Apnea: Event associated with | | continued or increased inspiratory effort throughout the entire period of absent | | airflow. Central Apnea: Event associated with absent inspiratory effort throughout the | | entire period of absent airflow. Mixed Apnea: Event associated with absent inspiratory | | effort in the initial portion of the event followed by resumption of inspiratory effort | | during the second portion of the event. Hypopnea: Nasal pressure excursion drop by 30% | | or more from baseline, lasting at lease 10 seconds and 90% of the event's duration meets | | this amplitude criteria. This is associated with a 4% or greater desaturation from | | pre-baseline Respiratory Event Related Arousal: A sequence of breaths lasting 10 seconds | | or longer characterized by increasing respiratory effort or by flattening of the | | inspiratory portion of the nasal pressure (diagnostic study) or PAP device flow | | (titration study) waveform leading to arousal from sleep when the sequence of breaths | | does not meet criteria for an apnea or hypopnea.REVELANT MEDICATIONS: Gabapentin, | | clonazepam as needed. Patient took 3 gabapentin 300 mg at bedtime. The dose had been | | increased after her recent fall. SUBJECTIVE:The patient rated sleep quality during sleep | | study as much better. 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 She sleeps in her recliner at home because she is scared she | | 4 stop breathing during sleep if she sleeps in her bed. She tried both fullface mask | | and nasal pillows and she tolerated Airfit P10 nasal pillows much better.SLEEP | | ARCHITECTURE AND EEG:? Total sleep time was 466 minutes. Sleep efficiency was 83.5% and | | was normal. ? Sleep onset latency was 41 minutes and was increased. patient had a fall | | recently and was in pain. ? REM latency was 119 minutes and was increased.? Percent of | | time in stage N3 was 13.7% and was within normal limits.? Percent of time in stage REM | | was 17.1 % and was decreased.? Arousal Index for this diagnostic study was 6.8/hour and | | was normal, with 3.3 respiratory arousals/hour and 3.5 spontaneous arousals/hour. | | RESPIRATORY:? Respiratory disturbance index (RDI) was 10.7, consisting of total 70 | | hypopneas, 6 obstructive apneas, 0 mixed apneas, and 0 central apneas and 7 RERAs. AHI | | 1B was 9.8 and was mildly elevated.? Sleep disordered breathing was worsened in supine | | position with supine AHI of 21.7. She spent 13.6% of total sleep time in supine | | position. Nonsupine AHI was 7.9..? Sleep disordered breathing was worsened in REM sleep | | with REM AHI of 23.4. Non-REM AHI was 7..? Mean SpO2 was 94 %, jen SpO2 was 82%, and | | amount of total sleep time spent below SpO2 of 88% was 3.2 minutes. 4% Oxygen | | Desaturation Index (KAILASH) was 8 and was mildly elevated.? ETCO2 was not elevated.? | | Raúl-Boucher breathing was not observed. LIMB MOVEMENTS:? Total sleep periodic limb | | movement index was 0 and was not increased. EKG:Normal sinus rhythm was noted with mean | | heart rate of 71, 65, and 66 beats per minute in wake, non-REM, and REM sleep | | respectively.. INTERPRETATION: - This diagnostic polysomnography showed mild obstructive | | sleep apnea which was worsened in supine position and stage R sleep. Patient spent | | 31.6% of total sleep time in supine position, and 17.1% of stage R sleep was captured. | | Mean SpO2 was 94 %, jen SpO2 was 82%, and amount of total sleep time spent below SpO2 | | of 88% was 3.2 minutes. 4% Oxygen Desaturation Index (KAILASH) was 8 and was mildly | | elevated. - Sleep efficiency was normal, and sleep was minimally fragmented. - | | Excessive leg movement was not observed.RECOMMENDATIONS:Start auto-PAP at 5-15 cm H2O | | with a small Airfit P10 mask.YADY Schultzortions of this chart may have been | | created with Invesdor voice recognition software. Occasional wrong-word or | | | | sound-alike | | substitutions may have occurred due to the inherent limitations of voice recognition | | software. Please read the chart carefully and recognize, using context, where these | | substitutions have occurred. | |- Sleep efficiency was normal, and sleep was minimally fragmented. | | | |- Excessive leg movement was not observed. | | | | | |RECOMMENDATIONS: | | | |Start auto-PAP at 5-15 cm H2O with a small Airfit P10 mask. | | | | | |Carla Cardoso MD | | | |Portions of this chart may have been created with Dragon voice recognition software. Occasi onal wrong-word or sound-alike substitutions may have occurred due to the inherent higgins itations of voice recognition software. | |Please read the chart carefully and recognize, using context, where these substitutions hav e occurred. | + + LABS - EXTERNAL SCAN (06/17/2017)Only the most recent of 3 results within the time period i s included. + + | Narrative | + + | Ordered by an unspecified provider. | + + ECG - EXTERNAL SCAN (06/15/2017) + + | Narrative | + + | Ordered by an unspecified provider. | + + from Last 3 Months Insurance + +--------+ +--------+ +---------+ | Payer | Benefi | Subscriber | Type | Phone | Address | | | t Plan | ID | | | | | | / | | | | | | | Group | | | | | + +--------+ +--------+ +---------+ | MEDICARE | MEDICA | xxxxxxxxxx | Medica | +- | | | | RE | | re | [id number] | | | | PART A | | | | | | | AND B | | | | | + +--------+ +--------+ +---------+ | MEDICARE | MEDICA | xxxxxxxxxx | Medica | +- | | | | RE | | re | [phone] | | | | PART A | | | | | | | AND B | | | | | + +--------+ +--------+ +---------+ | INDIVIDUAL ASSURANCE | INDIVI | [id number] | Indemn | | | | COMPANY | DUAL | | ity | | | | | ASSURA | | | | | | | [place]CE [place] | | | | | | | MDCR | | | | | | | SUPPL | | | | | + +--------+ +--------+ +---------+ | INDIVIDUAL ASSURANCE | INDIVI | [id number] | Indemn | | | | COMPANY | DUAL | | ity | | | | | ASSURA | | | | | | | NCE [place] | | | | | | | MDCR | | | | | | | SUPPL | | | | | + +--------+ +--------+ +---------+ + +--------+ +--------+ + + | Guarantor Name | Accoun | Relation to | Date | Phone | Billing Address | | | t Type | Patient | of | | | | | | | | | | + +--------+ +--------+ + + | TAMEKA ESCUDERO | Person | Self [birth year] | Home: | [address] | | | al/Fam | | [address] | +- | [place], | | | [address] | | | [phone] | [place] [address] | + +--------+ +--------+ + + | TAMEKA ESCUDERO | Person | Self | [birth year] | Home: | [address] | | | al/Fam | | 9 | +- | [address] [place], | | | [address] | | | [phone] | [place] [address] | + +--------+ +--------+ + +
--- OUTSIDE RECORDS SUMMARY | ~2017-08-21 | XMS | Encounter Summary ---
Demographics + + + | Address | [address] [place] [address] | | | [place] [address] | + + + | Home Phone [...] + | Author | [facility] | | | and Darrelana | + + + | Organization | [facility] | | | and [...] [place] | | | | | [address] | | + + + + + Care Team Providers + +------+ + | Care Retirement Administrator Name | Role | Phone | + [...] | | | [facility] [address] | [facility] [place], | | | | | [address]TH [facility], | [place] [address] | | | | | [place] [address] | [phone] | | | | | [phone] | | | +--------+--------+ + + + [...] [place] | | | | | | [id number] | | | | | | | | +--------+---------+ + + + | 10/21/ | Office | Primary Care | Shane Bates | | | 2017 | Visit | | [address] | | | | | | [place], | | | | | | [place] [address] | | | | | | [phone] | | | | | | | | +--------+---------+ + + + as of this encounter Visit Diagnoses Not on filein this encounter"
--- OUTSIDE RECORDS SUMMARY | ~2017-08-21 | XMS | Encounter Summary ---
Demographics + + + | Address | [address] [place] [address] | | | [place] [address] | + + + | Home Phone | | + + + | Preferred Language | Unknown | + + + | Marital Status | | + + + | Sabianism Affiliation | 1013 | + + + | Race | Unknown | + + + | Ethnic Group | Unknown | + + + Author + + + | Author | [facility] | | | and Darrelana | + + + | Organization | [facility] | | | and [...] [place] | | | | | [address] | | + + + + + Care Team Providers + +------+ + | Care Pari Mutuel Ticket Seller Name | Role | Phone | + [...] | | [facility] [address] | [facility] [place], | | | | | [address]TH [facility], | [place] [address] | | | | | [place] [address] | [phone] | | | | | [phone] | | | +--------+--------+ + + + [...] [place] | | | | | | [address] | | | | | | | | +--------+---------+ + + + | 10/21/ | Office | Primary Care | Shane Bates | | | 2017 | Visit | | [address] | | | | | | [place], | | | | | | [place] [address] | | | | | | [phone] | | | | | | | | +--------+---------+ + + + as of this encounter Visit Diagnoses Not on filein this encounter"
--- OUTSIDE RECORDS SUMMARY | ~2017-08-21 | XMS | Encounter Summary ---
Demographics + + + | Address | [address] [place] [address] | | | [place] [address] | + + + | Home Phone | | + + + | Preferred Language | Unknown | + + + | Marital Status | | + + + | Christian Affiliation | 1013 | + + + | Race | Unknown | + + + | Ethnic Group | Unknown | + + + Author + + + | Author | [facility] | | | and Darrelana | + + + | Organization | [facility] | | | [...] [place] | | | | | [address] | | + + + + + Care Team Providers + +------+ + | Care Cheese Pancake Roller Name | Role | Phone | + [...] + + | 05/27/ | Refill | [facility] [facility] | Kate Patel NP | Medication Refill | | 2018 | | [facility] | [address] | | | | | [facility] | [facility], [place] | | | | | [address] [facility], | [address] | | | | | [place] [address] | [phone] | | | | | [phone] | | | +--------+--------+ + + + [...] [place] | | | | | | [address] | | | | | | | | +--------+---------+ + + + | 10/21/ | Office | Primary Care | Shane Bates | | | 2017 | Visit | | [address] | | | | | | [place], | | | | | | [place] [address] | | | | | | [phone] | | | | | | | | +--------+---------+ + + + as of this encounter Visit Diagnoses Not on filein this encounter"
--- OUTSIDE RECORDS SUMMARY | ~2017-08-21 | XMS | Encounter Summary ---
Demographics + + + | Address | [address] [place] [address] | | | [place] [address] | + + + | Home Phone | | + + + | Preferred Language | Unknown | + + + | Marital Status | | + + + | Bahai Affiliation | 1013 | + + + | Race | Unknown | + + + | Ethnic Group | Unknown | + + + Author + + + | Author | [facility] | | | and Darrelana | + + + | Organization | [facility] | | | and [...] [place] | | | | | [address] | | + + + + + Care Team Providers + +------+ + | Care Ship Rigger Name | Role | Phone | + +------+ + | Shane Bates MD | PCP | | + +------+ + Reason for Visit + + + | Reason | Comments | + + + | Records Request | | + + + Encounter Details +--------+ + + + + | Date | Type | Department | Care Team | Description | +--------+ + + + + | 06/10/ | Telephone | [facility] | Richard Bond MD | Records Request | | 2018 | | CARDIOLOGY [address] | | | | | [place], | [place], [place] | | | | | [place] [address] | [address] | | | | | [phone] | | | +--------+ + + + [...] [place] | | | | | | [address] | | | | | | | | +--------+---------+ + + + | 10/21/ | Office | Primary Care | Shane Bates | | | 2017 | Visit | | [address] | | | | | | [place], | | | | | | [place] [address] | | | | | | [phone] | | | | | | | | +--------+---------+ + + + as of this encounter Visit Diagnoses Not on filein this encounter"
--- OUTSIDE RECORDS SUMMARY | ~2017-08-21 | XMS | Encounter Summary ---
Demographics + + + | Address | [address] [place] [address] | | | [place] [address] | + + + | Home Phone | | + + + | Preferred Language | Unknown | + + + | Marital Status | | + + + | Temple Affiliation | 1013 | + + + | Race | Unknown | + + + | Ethnic Group | Unknown | + + + Author + + + | Author | [facility] | | | and Darrelana | + + + | Organization | [facility] | | | [...] [place] | | | | | [address] | | + + + + + Care Team Providers + +------+ + | Care Personal Lines Sales Executive Name | Role | Phone | + [...] Description | +--------+---------+ + + + | 08/18/ | Office | [facility] | Shane Bates | Essential | | 2018 | Visit | [facility] | [facility] [address] | hypertension | | | | [facility] [address] [place], | (Primary Dx); | | | | [address] [place], | [place] [address] | Coronary artery | | | | [place] [address] | [phone] | disease involving | | | | [phone] | | stebbins coronary | | | | | | artery of stebbins | | | | | | heart [...] | | | apnea); Hair loss | +--------+---------+ + + + Social History [...] 08/18/20171116 PDT | + + + + in this [...] Patient Instructions - Shane Bates MD - 08/18/2017 1100 PDTAssessment and Plan: Essential hypertension (Primary) Assessment & Plan: Controlled 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 Anticipate discontinuing Clopidogrel in 11/2017 and at that time continue ASA and Apixaban a s she currently is taking. She knows of a rehabilitation tech who comes to [place], and will get me information about them so that I can make a referral to them. Paroxysmal atrial fibrillation (HCC) Assessment & Plan: Continue Apixaban 5 mg by mouth twice a day Hyperlipidemia, unspecified hyperlipidemia type Assessment & Plan: Check lipid panel Hypothyroidism, unspecified type Assessment & Plan: Continue Levothyroxine 0.088 mg daily Recheck TSH in 09/2017 Fibromyalgia Primary osteoarthritis of both knees Assessment & Plan: Status post bilateral knee injections with corticosteroids 07/10/17 NADIR (obstructive sleep apnea) in this encounter Progress Notes Shane Bates MD - 08/18/2017 1100 PDTFormatting of this note may be different from the original. Patient ID: Tameka Escudero is a 67 y.o. 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 Anticipate discontinuing Clopidogrel in 11/2017 and at that time continue ASA and Apixaban a s she currently is taking. She knows of a rehabilitation tech who comes to [place], and will get me information about them so that I can make a referral to them. Paroxysmal atrial fibrillation (HCC) Assessment & Plan: Continue Apixaban 5 mg by mouth twice a day Hyperlipidemia, unspecified hyperlipidemia type Assessment & Plan: Check lipid panel Orders: - Lipid Panel; Future Hypothyroidism, unspecified type Assessment & Plan: Continue Levothyroxine 0.088 mg daily Recheck TSH Orders: - TSH; Future Fibromyalgia Primary osteoarthritis of both knees Assessment & Plan: Status post bilateral knee injections with corticosteroids 07/10/17 NADIR (obstructive sleep apnea) Hair loss Assessment & Plan: Check TSH today Return in about 2 months (around 10/18/2017). Subjective: PAFIB: She denies palpitations, she denies dizziness, she denies chest pain. She is taking her Cartia 120mg, Carvedilol 12.5mg, Eliquis 5mg. She denies rectal bleeding or excessive bruising. CAD: She is taking Plavix 75mg currently, but she was advised by the [employer] in [place] to discontinue Plavix and begin Aspirin 81mg PO daily in November,. She needs to est ablish care with a rehabilitation tech. Hyperlipidemia: Her last lipid panel was 10/2016. Total cholesterol was 282, Trig 109, HDL 54, LDL 206. She is taking her Crestor 5mg daily. HTN: Her blood pressure today is 138/80 with HR 70. Hypothyroid: She is taking Synthroid 88mcg. She denies excessive fatigue, but states she i s able to get out of bed. Her last TSH on 10/2016 was 5.03. Fibromyalgia: She states she is feeling like her pain is well controlled with use of Gabape ntin 900mg daily. She says she becomes "lightheaded" while using the Gabapentin, but denies falling within the past 3 months. She will decrease her afternoon dose to 2 capsules if sh e has to go anywhere. She also takes her Clonazepam daily for anxiety, but has not had an a nxiety attack since July. Her daughter is ill and this is causing increased stress for the patient. Bilateral Knee Pain: Bilat knee injections on 07/10/[address] Hester. She continues to co mplain of right knee pain 11/17 and keeps her from exercising. She likes to go to the pool, but is frustrated because she is not losing weight, but is gaining it. The left has improve d, but the right knee continues to bother her (as noted). She states Tylenol and Vicodin di d not help her pain. She is not able to use NSAIDs due to her anticoag status. A/P: Follow up with Dr. Hester NADIR: She saw Dr. Bright 06/25/17. She got a CPAP with nasal pillow machine which she uses n ightly, and it feels really good to be able to breathe, and has taken away the heaviness in her left chest. She had a follow up in July 2017. Hair Loss: She states she notices increased hair loss and her hairdresser made a comment a bout loss of volume. She can extract a handful of hair with each brushing. She first notic ed this 2 months ago. She denies headaches, she denies visual disturbance. Cough with wheezing: She has had a cough x 48 hours without production and she complains o f a "bad taste" in her mouth. She denies congestion. Her grandkids have been sick and she has recently spent extended amounts of time with them. She denies fevers or chills. Family: Daughter remains on transplant list for her kidney because her old kidney continue s to make stones, and she has had one transplanted kidney already. Electronic chart was reviewed and updated as [...] Current Outpatient Prescriptions Medication Sig Dispense Refill CARTIA XT 120 MG 24 hr capsule take 1 capsule by mouth at bedtime 90 capsule 3 carvedilol (COREG) 12.5 mg tablet take 1 tablet by mouth twice a day 0 clonazePAM (KLONOPIN) 1 mg tablet take 1 tablet by mouth three times a day if needed 90 tablet 0 clopidogrel (PLAVIX) 75 mg tablet Take 1 tablet by mouth Daily. 90 tablet 11 cyclobenzaprine (FLEXERIL) 10 mg tablet take 1 tablet by mouth three times a day if nee ded 30 tablet 0 ELIQUIS 5 MG tablet take 1 tablet by mouth twice a day 180 tablet 3 FLUoxetine (PROZAC) 20 mg capsule Take 20 mg by mouth Daily. gabapentin (NEURONTIN) 300 mg capsule Take 3 [...] 30 tablet 2 No current facility-administered medications for this visit. Review of Systems Constitutional: Positive for fatigue (Functional). Negative for activity change, appetite c hange, chills and fever. HENT: Negative for congestion and ear pain. Eyes: Negative for visual disturbance. Respiratory: Negative for chest tightness and shortness of breath. Cardiovascular: Negative for chest pain, palpitations and leg swelling. Gastrointestinal: Negative for abdominal distention. Musculoskeletal: Positive for arthralgias (Right knee pain with activity). Neurological: Positive for light-headedness (With use of Gabapentin). Negative for dizzines s, facial asymmetry, weakness and headaches. Psychiatric/Behavioral: Negative for agitation, confusion and sleep disturbance. Objective: Vitals: BP 138/80 | Pulse 70 | Resp 18 | Wt 83.9 kg (185 lb) | SpO2 98% | BMI 32.77 kg/m Physical Exam Constitutional: She is oriented to person, place, and time. She appears well-developed and well-nourished. HENT: Head: Normocephalic. Eyes: Pupils are equal, round, and reactive to light. Neck: Normal range of motion. No thyromegaly present. Cardiovascular: Normal rate. Murmur (Grade 1 systolic murmur) heard. Pulmonary/Chest: Effort normal. No respiratory distress. Abdominal: Soft. She exhibits no distension. Musculoskeletal: Normal range of motion. She exhibits no edema or tenderness. Lymphadenopathy: She has no cervical adenopathy. Neurological: She is alert and oriented to person, place, and time. No cranial nerve defici t. Skin: Skin is warm and dry. Hair thinning diffusely, no exclamation point hairs. Psychiatric: She has a normal mood and affect. in this encounter Plan of Treatment +--------+---------+ + + + | Date | Type | Specialty | Care Team | Description | +--------+---------+ + + + | 09/07/ | Office | Sleep Medicine | Bubba Weller PA | | | 2017 | Visit | | [address] | | | | | | [place] | | | | | | [address] | | | | | | | | +--------+---------+ + + + | 10/21/ | Office | Primary Care | Shane Bates | | | 2017 | Visit | | [facility] [address] [facility] | | | | | | [place], | | | | | | [place] [address] | | | | | | [phone] | | | | | | | | +--------+---------+ + + + as of this encounter Results Lipid Panel (08/18/2017 2232) + + + + | Component | [...] | + + + | Blood | [facility] [address] | | | [place] [address] | + + + + + | Narrative | + + | Fasting 16 hrs | + + TSH (08/18/20174) + + + + | Component | Value | Ref Range | + + + + | TSH | 5.37 (H) | 0.36 - 3.74 uIU/mL | + + + + + + + | Specimen | Performing Laboratory | + + + | Blood | [facility] [address] | | | [place] [address] | + + + in this encounter Visit Diagnoses + + | Diagnosis | + + | Essential hypertension - Primary | + + | Unspecified essential hypertension | + + | Coronary artery disease involving stebbins coronary artery of stebbins heart with angina | | pectoris (HCC) | + + | Paroxysmal atrial fibrillation (HCC) | + + | Atrial fibrillation | + + | Hyperlipidemia, unspecified hyperlipidemia type | + + | Hypothyroidism, unspecified type | + + | Fibromyalgia | + + | Mylagia and myositis, unspecified | + + | Primary osteoarthritis of both knees | + + | Primary localized osteoarthrosis, lower leg | + + | NADIR (obstructive sleep apnea) | + + | Obstructive sleep apnea (adult) (pediatric) | + + | Hair loss | + + | Alopecia, unspecified | + +
--- OUTSIDE RECORDS SUMMARY | ~2017-08-21 | XMS | Encounter Summary ---
Demographics + + + | Address | [address] [place] [address] | | | [place] [address] | + + + | Home Phone | | + + + | Preferred Language | Unknown | + + + | Marital Status | | + + + | Mosque Affiliation | 1013 | + + + | Race | Unknown | + + + | Ethnic Group | Unknown | + + + Author + + + | Author | [facility] | | | and [place]relana | [...] [place] | | | | | [address] | | + + + + + Care Team Providers + +------+ + | Care Snack Stewardess Name | Role | Phone | + [...] | | | [facility] [address] | [facility] [place], | | | | | [address] [facility], | [place] [address] | | | | | [place] [address] | [phone] | | | | | [phone] | | | +--------+--------+ + + + [...] [place] | | | | | | [address] | | | | | | | | +--------+---------+ + + + | 10/21/ | Office | Primary Care | Shane Bates | | | 2017 | Visit | | MD [address] | | | | | | [place], | | | | | | [place] [address] | | | | | | [phone] | | | | | | | | +--------+---------+ + + + as of this encounter Visit Diagnoses + + | Diagnosis | + + | Essential hypertension | + + | Unspecified essential hypertension | + +"
--- OUTSIDE RECORDS SUMMARY | ~2017-08-21 | XMS | Encounter Summary ---
Demographics + + + | Address | [address] [place] [address] | | | [place] [address] | + + + | Home Phone | | + + + | Preferred Language | Unknown | + + + | Marital Status | | + + + | Taoist Affiliation | 1013 | + + + | Race | Unknown | + + + | Ethnic Group | Unknown | + + + Author + + + | Author | [facility] | | | and [place]ana [...] [place] | | | | | [address] | | + + + + + Care Team Providers + +------+ + | Care Maintenance And Engineering Manager Name | Role | Phone | + +------+ + | Shane Bates MD | PCP | | + +------+ + Reason for Visit + + + | Reason | Comments | + + + | CPAP Follow Up | Sleep Resource | + + + Encounter Details +--------+ + + + + | Date | Type | Department | Care Team | Description | +--------+ + + + + | 08/03/ | Clinical | [facility] | Carla Cardoso MD | NADIR (obstructive | | 2018 | Support | SLEEP DISORDER [address] | sleep apnea) | | | | [address] | [place] | (Primary Dx) | | | | [place] [address] | [address] | | | | | [phone] | | | +--------+ + + + [...] + + + | Blood Pressure | 124/74 | 08/03/20174 PDT | + + + + | Pulse | 78 | 08/03/2017 1334 PDT | + + + + | Temperature | - | - | + + + + | Respiratory Rate | 16 | 08/03/20174 PDT | + + + + | Oxygen Saturation | 99% | 08/03/20174 PDT | + + + + | Inhaled Oxygen | - | - | | Concentration | | | + + + + | Weight | 83.6 kg (184 lb 4.9 | 08/03/20171333 PDT | | | oz) | | + + + + | Height | 160 cm (5' 3") | 08/03/20171333 PDT | + + + + | Body Mass Index | 32.65 | 08/03/20171333 PDT | + + + + in [...] + + + as of this encounter Progress Notes Ryan Gomes, Neurodiagnostic Tech - 08/03/2017 1330 PDTFormatting of this note may be d ifferent from the original. Clinical Sleep Support Visit Patient:Tameka Escudero Date of :1950 Encounter Date: 08/03/2017 Reason for visit: Chief Complaint Patient presents with CPAP Follow Up Sleep Resource Patient was last seen in our clinic on 07/07/[address] Cardoso, referred to us by Dr. Bates . PAP was ordered on 07/07/2017 from [facility]. Patient has been using PAP for 27 out of 27 nights, wearing the ResMed S-10 auto PAP with settings of 5 to 15, wearing the P-10 mask . ~ Vital signs were: BP 124/74 | Pulse 78 | Resp 16 | Ht 1.6 m (5' 3") | Wt 83.6 kg (184 lb 4.9 oz) | SpO2 99% | BMI 32.65 kg/m ~ Patient is doing good and states she is feeling and sleeping better. She sleeps in a cedrick r and on her back nightly. Prior PAP user in 2002 and was stopped at an indeterminate time. She blames a GERD problem and solution. Mask fit great and it was a special order through [facility], she said the one they gave her originally hurt. Application and fit test were also good a nd without problems. ~ Overall leak is 28.8 ~ Compliance >4 hours =96% with AHI of 0.3 ~ Average daily usage of 9:21 Original date of most recent study was on 06/15/2017 that showed an AHI of 9.8 with a O2 Nadi r of 82% with 3.2 minutes < 88%. Sleep hygiene reviewed with the patient included study results, all PAP unit and mask infor mation and instructions and no new recommendations needed Plan for continuous PAP use: 1. Wear PAP any time you are sleeping 2. Continue with PAP indefinitely 3. Follow up with Bubba [place]ALES in 3 weeks with equipment Ryan Gomes [facility] in this encounter Plan of Treatment +--------+---------+ + + + | Date | Type | Specialty | Care Team | Description | +--------+---------+ + + + | 09/07/ | Office | Sleep Medicine | Bubba Weller PA | | | 2017 | Visit | | [address] | | | | | | [place] | | | | | | [address] | | | | | | | | +--------+---------+ + + + | 10/21/ | Office | Primary Care | Shane Bates | | | 2017 | Visit | | MD [address] | | | | | | [address] [place], | | | | | | [place] [address] | | | | | | [phone] | | | | | | | | +--------+---------+ + + + as of this encounter Visit Diagnoses + + | Diagnosis | + + | NADIR (obstructive sleep apnea) - Primary | + + | Obstructive sleep apnea (adult) (pediatric) | + +
--- OUTSIDE RECORDS SUMMARY | ~2017-08-21 | XMS | Encounter Summary ---
Demographics + + + | Address | [address] [place] [address] | | | [place] [address] | + + + | Home Phone [...] + | Author | [facility] | | | and [place]relana | + + + | Organization | [facility] | | [...] [place] | | | | | [address] | | + + + + + Care Team Providers + +------+ + | Care Civil Engineering Technician Name | Role | Phone | [...] | | | MEDICAL [facility] [address] | [facility] [place], | | | | | [address] [facility], | [place] [address] | | | | | [place] [address] | [phone] | | | | | [phone] | | | +--------+--------+ + + + [...] [place] | | | | | | [address] | | | | | | | | +--------+---------+ + + + | 10/21/ | Office | Primary Care | Shane Bates | | | 2017 | Visit | | MD [address] | | | | | | [place], | | | | | | [place] [address] | | | | | | [phone] | | | | | | | | +--------+---------+ + + + as of this encounter Visit Diagnoses Not on filein this encounter"
--- OUTSIDE RECORDS SUMMARY | ~2017-08-21 | XMS | Encounter Summary ---
Demographics + + + | Address | [address] [place] [address] | | | [place] [address] | + + + | Home Phone | | + + + | Preferred Language | Unknown | + + + | Marital Status | | + + + | Presybeterian Affiliation | 1013 | + + + | Race | Unknown | + + + | Ethnic Group | Unknown | + + + Author + + + | Author | [facility] | | | and [place]relana | + + + | Organization | [facility] | | | [...] [place] | | | | | [address] | | + + + + + Care Team Providers + +------+ + | Care Veneer Supervisor Name | Role | Phone | [...] Description | +--------+--------+ + + + | 07/07/ | Refill | [facility] | Shane Bates | Medication Refill | | 2017 | | [facility] | MD [address] | | | | | [facility] [address] | [facility] [place], | | | | | [address] [facility], | [place] [address] | | | | | [place] [address] | [phone] | | | | | [phone] | | | +--------+--------+ + + + [...] [place] | | | | | | [address] | | | | | | | | +--------+---------+ + + + | 10/21/ | Office | Primary Care | Shane Bates | | | 2017 | Visit | | [facility] [address] | | | | | | [place], | | | | | | [place] [address] | | | | | | [phone] | | | | | | | | +--------+---------+ + + + as of this encounter Visit Diagnoses Not on filein this encounter"
--- OUTSIDE RECORDS SUMMARY | ~2017-08-21 | XMS | Encounter Summary ---
Demographics + + + | Address | [address] [place] [address] | | | [place] [address] | + + + | Home Phone | | + + + | Preferred Language | Unknown | + + + | Marital Status | | + + + | Restorationist Affiliation | 1013 | + + + | Race | Unknown | + + + | Ethnic Group | Unknown | + + + Author + + + | Author | [facility] | | | and Darrelana | + + + | Organization | [facility] | | | [...] [place] | | | | | [address] | | + + + + + Care Team Providers + +------+ + | Care Gin Clerk Name | Role | Phone | + [...] + + | Closed | Specialty | Sleep | Diagnoses | Janae, | [facility] | | | Services | Medicine | NADIR | MD Carla | Center [address] | | | Required | | (obstructive | [address] | [place] | | | | | sleep | [address] [place] | [place], | | | | | apnea) | [place], [place] | [place] [address] | | | | | Procedures | [address] | Phone: | | | | | [place] POLYSOM | Phone: | [phone] | | | | | 6/>YRS SLEEP | [phone] | Fax: | | | | | W/CPAP 4/> | Fax: | [phone] | | | | | ADDL [place] | [phone] | | | | | | ATTND S/N | | | | | | | (2/5 @ 7pm) | | | +--------+ + + + + + Encounter Details +--------+ + + + + | Date | Type | Department | Care Team | Description | +--------+ + + + + | 06/15/ | Hospital | [facility] | Carla Cardoso MD | Nocturnal hypoxemia | | 2018 - | Encounter | MED CTR SLEEP | [address] | | | | | CENTER [address] [place] | [place] | | | 06/16/ | | [place] | [address] | | | 2018 | | [address] | | | | | | [phone] | | | +--------+ + + + [...] + + + as of this encounter Medications at Time of Discharge + + +---------+---------+ + + | Medication | Sig. | Disp. | Refills | Start | End Date | | | | | | Date | | + + +---------+---------+ + + | carvedilol (COREG) | take 1 tablet by | | 0 | 06/05/19 | | | 12.5 mg tablet | mouth twice a day | | | 18 | | + + +---------+---------+ + + | clopidogrel | Take 1 tablet by | 90 | 11 | 10/29/19 | | | (PLAVIX) 75 mg | mouth Daily. | tablet | | 17 | 8 | | tablet | | | | | | + + +---------+---------+ + + | gabapentin | Take 3 capsules by | 270 | 4 | 05/28/19 | | | (NEURONTIN) 300 mg | [...] | | | | | + + +---------+---------+ + + | hydrOXYzine | take 1 to 2 capsules | | 0 | 05/11/19 | | | pamoate (VISTARIL) | by mouth every 6 | | | 18 | | | 25 mg capsule | hours if needed for | | | | | | | ITCHING | | | | | + + +---------+---------+ + + | meclizine | take 1 tablet by | | 0 | 03/12/20 | | | (ANTIVERT) 25 mg | mouth three times a | | | 17 | | | tablet | day as needed | | | | | + + +---------+---------+ + + | nitroglycerin | Place 1 tablet under | 25 | 3 | 10/18/19 | | | (NITROSTAT) 0.4 mg | the tongue every 5 | tablet | | 17 | | | SL tablet | minutes as needed | | | | | | | for Chest pain. | | | | | + + +---------+---------+ + + | aspirin 81 mg | Take 81 mg by mouth | 30 | | 10/18/19 | | | chewable tablet | every evening. | tablet | | 17 | 8 | + + +---------+---------+ + + | CARTIA XT 120 MG | take 1 capsule by | | 0 | 06/05/19 | | | 24 hr capsule | mouth at bedtime | | | 18 | 8 | + + +---------+---------+ + + | carvedilol (COREG) | 6.25 mg in AM and | 90 | 2 | 04/16/20 | | | 6.25 mg | 12.5 mg in Pm. | tablet | | 17 | 8 | | tabletIndications: | | | | | | | Essential | | | | | | | hypertension | | | | | | + + +---------+---------+ + + | clonazePAM | take 1 tablet by | 90 | 0 | 05/27/19 | | | (KLONOPIN) 1 mg | mouth three times a | tablet | | 18 | 8 | | tablet | day if needed | | | | | + + +---------+---------+ + + | cyclobenzaprine | Take 1 tablet by | 30 | 2 | 05/25/19 | | | (FLEXERIL) 10 mg | mouth 3 times daily | tablet | | 18 | 8 | | tablet | as needed. | | | | | + + +---------+---------+ + + | ELIQUIS 5 MG | take 1 tablet by | | 0 | 06/05/19 | | | tablet | mouth twice a day | | | 18 | 8 | + + +---------+---------+ + + | levothyroxine | Take 1 tablet by | 30 | | 10/18/19 | | | (SYNTHROID, | mouth every morning | tablet | | 17 | 8 | | LEVOTHROID) 88 mcg | (before breakfast). | | | | | | tablet | | | | | | + + +---------+---------+ + + | losartan (COZAAR) | take 1 tablet by | 90 | 3 | 05/25/19 | | | 100 MG tablet | mouth once daily | tablet | | 18 | 8 | + + +---------+---------+ + + | rosuvastatin | take 1 tablet by | 30 | 2 | 04/08/20 | | | (CRESTOR) 5 MG | mouth once daily | tablet | | 17 | 8 | | tablet | | | | | | + + +---------+---------+ + + | | take 2 tablets by | | 0 | 05/11/19 | | | sulfamethoxazole-tri | mouth twice a day | | | 18 | 8 | | methoprim (BACTRIM | for 10 days | | | | | | DS) 800-160 mg per | | | | | | | tablet | | | | | | + + +---------+---------+ + + as of this encounter Plan [...] [place] | | | | | | [address] | | | | | | | | +--------+---------+ + + + | 10/21/ | Office | Primary Care | Shane Bates | | | 2017 | Visit | | MD [address] | | | | | | [place], | | | | | | [place] [address] | | | | | | [phone] | | | | | | | | +--------+---------+ + + + as of this encounter Results Sleep study diagnostic only (no PAP) (06/21/2017 1556) + + | Narrative | + + | Carla Cardoso MD 06/21/2017 16:17 [facility] | | [place] [address] Polysomnogram | | Report on Tameka Escudero performed on June 15, 2017. PATIENT | | IDENTIFICATION: Tameka Escudero IS a 67 y.o..-year-old female. with a history | | of fibromyalgia, non-ST elevation [place] in October 2016 status post 1 stent [...] a | | second sleep study in [place] about 15 years ago. She says she tried CPAP for 5 | | years, but then she lost her insurance and didn't follow up. She thinks it was | | helping her to sleep better. She says she had a sleep study at [place] in September | | 2017, and she [...] sleep study as much | | better. Turf Keeper note: patient agreed to sleep in bed [...] 7.. ? Mean SpO2 was 94 %, jen SpO2 was 82%, and amount of | [...] this chart may have been created with [employer] voice recognition software. | | Occasional wrong-word [...] | Carla Cardoso MD - 06/21/2017 1556 [facility] | | [place], [place] [id number] Report on Tameka Sanderson | Benjamin Escudero performed on June 15, 2017.PATIENT IDENTIFICATION:Tameka Escudero IS a 67 | | y.o..-year-old female. with a history of fibromyalgia, non-ST elevation [place] in October | | 2016 status post [...] She had a second sleep study in [place] about 15 years ago. She says she | | tried CPAP for 5 years, but then she lost her insurance and didn't follow up. She | | thinks it was helping her to sleep better. She says she had a sleep study at [place] | | in September 2016, and she [...] sleep | | study as much better. Turf Keeper note: patient agreed to sleep in bed [...] | | with a small Airfit P10 mask.Carla Cardoso, MDPortions of this chart may have been | | created with [employer] voice recognition software. Occasional wrong-word or | [...] this chart may have been created with [employer] voice recognition software. Occasi onal wrong-word or sound-alike substitutions may have occurred due to the inherent higgins itations of voice recognition software. | |Please read the chart carefully and recognize, using context, where these substitutions hav e occurred. | + + in this encounter Visit Diagnoses + + | Diagnosis | + + | Nocturnal hypoxemia | + + | Hypoxemia | + +"
--- OUTSIDE RECORDS SUMMARY | ~2017-08-21 | XMS | Encounter Summary ---
Demographics + + + | Address | [address] [place] [address] | | | [place] [address] | + + + | Home Phone | | + + + | Preferred Language | Unknown | + + + | Marital Status | | + + + | Mormonism Affiliation | 1013 | + + + | Race | Unknown | + + + | Ethnic Group | Unknown | + + + Author + + + | Author | [facility] | | | and Darrelana | + + + | Organization | [facility] | | [...] [place] | | | | | [address] | | + + + + + Care Team Providers + +------+ + | Care Foreman Shipping Department Name | Role | Phone | + [...] | (obstructive | [address] | [place] | | | | | sleep | [address] | [place], | | | | | apnea) | [place], [place] | [place] [address] | | | | | Procedures | [address] | Phone: | | | | | [place] POLYSOM | Phone: | [phone] | | | | | 6/>YRS SLEEP | [phone] | Fax: | | | | | W/CPAP 4/> | Fax: | [phone] | | | | | ADDL [place] | [phone] | | | | | | ATTND S/N | | | | | | | (2/5 @ 7pm) | | | +--------+ + + + + + Encounter Details +--------+ + + + + | Date | Type | Department | Care Team | Description | +--------+ + + + + | 06/15/ | Hospital | [facility] | Carla Cardoso MD | Nocturnal hypoxemia | | 2018 - | Encounter | MED CTR SLEEP | [address] | | | | | CENTER [address] [place] | [place] | | | 06/16/ | | [place] | [address] | | | 2018 | | [address] | | | | | | [phone] | | | +--------+ + + + [...] [place] | | | | | | [address] | | | | | | | | +--------+---------+ + + + | 10/21/ | Office | Primary Care | Shane Bates | | | 2017 | Visit | | MD [address] | | | | | | [place], | | | | | | [place] [address] | | | | | | [phone] | | | | | | | | +--------+---------+ + + + as of this encounter Results Sleep study diagnostic only (no PAP) (06/21/2017 1556) + + | Narrative | + + | Carla Cardoso MD 06/21/2017 16:17 [facility] | | [place] [address] Polysomnogram | | Report on Tameka Escudero performed on June 15, 2017. PATIENT | | IDENTIFICATION: Tameka Escudero IS a 67 y.o..-year-old female. with a history | | of fibromyalgia, non-ST elevation [place] in October 2016 status post 1 stent [...] a | | second sleep study in [place] about 15 years ago. She says she tried CPAP for 5 | | years, but then she lost her insurance and didn't follow up. She thinks it was | | helping her to sleep better. She says she had a sleep study at [place] in September | | 2017, and she [...] sleep study as much | | better. Die Grinder note: patient agreed to sleep in bed [...] this chart may have been created with [employer] voice recognition software. | | Occasional wrong-word [...] | Carla Cardoso MD - 06/21/2017 1556 [facility] | | [place], [place] [id number] Report on Tameka Sanderson | Benjamin Escudero performed on June 15, 2017.PATIENT IDENTIFICATION:Tameka Escudero IS a 67 | | y.o..-year-old female. with a history of fibromyalgia, non-ST elevation [place] in October | | 2016 status post [...] She had a second sleep study in [place] about 15 years ago. She says she | | tried CPAP for 5 years, but then she lost her insurance and didn't follow up. She | | thinks it was helping her to sleep better. She says she had a sleep study at [place] | | in September 2016, and she [...] sleep | | study as much better. Die Grinder note: patient agreed to sleep in bed [...] elevated.? ETCO2 was not elevated.? | | Raúl-Buocher breathing was not observed. LIMB MOVEMENTS:? Total [...] may have been | | created with [employer] voice recognition software. Occasional wrong-word or | [...] this chart may have been created with [employer] voice recognition software. Occasi onal wrong-word or [...]
--- OUTSIDE RECORDS SUMMARY | ~2017-08-21 | XMS | Encounter Summary ---
Demographics + + + | Address | [address] [place] [address] | | | [place] [address] | + + + | Home Phone | | + + + | Preferred Language | Unknown | + + + | Marital Status | | + + + | Christianity Affiliation | 1013 | + + + | Race | Unknown | + + + | Ethnic Group | Unknown | + + + Author + + + | Author | [facility] | | | and Darrelana | + + + | Organization | [facility] | | | and [...] [place] | | | | | [address] | | + + + + + Care Team Providers + +------+ + | Care Curtain Framer Name | Role | Phone | + [...] Description | +--------+--------+ + + + | 06/30/ | Refill | [facility] | Kate Patel NP | Medication Refill | | 2018 | | [facility] | [address] [place] | | | | | [facility] [address] | [facility], [place] | | | | | [address] [place], | [address] | | | | | [place] [address] | [phone] | | | | | [phone] | | | +--------+--------+ + + + [...] | Visit | | [address] | | | | | | [place] | | | | | | [address] | | | | | | | | +--------+---------+ + + + | 10/21/ | Office | Primary Care | Shane Bates | | | 2017 | Visit | | MD [address] | | | | | | [place], | | | | | | [place] [address] | | | | | | [phone] | | | | | | | | +--------+---------+ + + + as of this encounter Visit Diagnoses Not on filein this encounter"
--- OUTSIDE RECORDS SUMMARY | ~2017-08-21 | XMS | Encounter Summary ---
Demographics + + + | Address | [address] [place] [address] | | | [place] [address] | + + + | Home Phone | | + + + | Preferred Language | Unknown | + + + | Marital Status | | + + + | Episcopalian Affiliation | 1013 | + + + | Race | Unknown | + + + | Ethnic Group | Unknown | + + + Author + + + | Author | [facility] | | | and [place]relana | + + + | Organization | [facility] | | | and [place] | + + + | Address | Unknown | + + + | Phone | Unavailable | + + + Support + + + + + | Name | Relationship | Address | Phone | + + + + + | Rsahaun Escudero | ECON | [address] | | | | | [place] | | | | | [address] | | + + + + + Care Team Providers + +------+ + | Care Slot Machine Mechanic Name | Role | Phone | + [...] Description | +--------+--------+ + + + | 05/24/ | Refill | [facility] | Shane Bates | Medication Refill | | 2017 | | [facility] | [address] | | | | | [facility] | [facility], | | | | | [address]TH [facility], | [place] [address] | | | | | [place] [address] | [phone] | | | | | [phone] | | | +--------+--------+ + + + [...] [place] | | | | | | [address] | | | | | | | | +--------+---------+ + + + | 10/21/ | Office | Primary Care | Shane Bates | | | 2017 | Visit | | MD [address] | | | | | | [place], | | | | | | [place] [address] | | | | | | [phone] | | | | | | | | +--------+---------+ + + + as of this encounter Visit Diagnoses Not on filein this encounter"
--- OUTSIDE RECORDS SUMMARY | ~2017-08-21 | XMS | Encounter Summary ---
Demographics + + + | Address | [address] [place] [address] | | | [place] [address] | + + + | Home Phone | | + + + | Preferred Language | Unknown | + + + | Marital Status | | + + + | Confucianist Affiliation | 1013 | + + + | Race | Unknown | + + + | Ethnic Group | Unknown | + + + Author + + + | Author | [facility] | | | and Darrelana | + + + | Organization | [facility] | | [...] [place] | | | | | [address] | | + + + + + Care Team Providers + +------+ + | Care Knowledge Manager Name | Role | Phone | [...] | | | MEDICAL CL[facility] [address] | [facility], [place] | | | | | [address] [place], | [address] | | | | | [place] [address] | [phone] | | | | | [phone] | | | +--------+--------+ + + + [...] [place] | | | | | | [address] | | | | | | | | +--------+---------+ + + + | 10/21/ | Office | Primary Care | Shane Bates | | | 2017 | Visit | | MD [address] | | | | | | [place], | | | | | | [place] [address] | | | | | | [phone] | | | | | | | | +--------+---------+ + + + as of this encounter Visit Diagnoses Not on filein this encounter"
--- OUTSIDE RECORDS SUMMARY | ~2017-08-21 | XMS | Encounter Summary ---
Demographics + + + | Address | [address] [place] [address] | | | [place] [address] | + + + | Home Phone | | + + + | Preferred Language | Unknown | + + + | Marital Status | | + + + | Bahai Affiliation | 1013 | + + + | Race | Unknown | + + + | Ethnic Group | Unknown | + + + Author + + + | Author | [facility] | | | and [place]rel[place] | + + + | Organization | [facility] | | | and [...] [place] | | | | | [address] | | + + + + + Care Team Providers + +------+ + | Care Day Care Teacher Name | Role | Phone | [...] | | | MEDICAL [facility] [address] | [facility] [place], | | | | | [address]TH [facility], | [place] [address] | | | | | [place] [address] | [phone] | | | | | [phone] | | | +--------+--------+ + + + [...] [place] | | | | | | [address] | | | | | | | | +--------+---------+ + + + | 10/21/ | Office | Primary Care | Shane Bates | | | 2017 | Visit | | MD [address] | | | | | | [place], | | | | | | [place] [address] | | | | | | [phone] | | | | | | | | +--------+---------+ + + + as of this encounter Visit Diagnoses + + | Diagnosis | + + | Essential hypertension | + + | Unspecified essential hypertension | + +"
--- OUTSIDE RECORDS SUMMARY | ~2017-08-21 | XMS | Encounter Summary ---
Demographics + + + | Address | [address] [place] [address] | | | [place] [address] | + + + | Home Phone | | + + + | Preferred Language | Unknown | + + + | Marital Status | | + + + | Jew Affiliation | 1013 | + + + | Race | Unknown | + + + | Ethnic Group | Unknown | + + + Author + + + | Author | [facility] | | | and [place]rel[place] | + + + | Organization | [facility] | | | [...] [place] | | | | | [address] | | + + + + + Care Team Providers + +------+ + | Care Light Equipment Operator Name | Role | Phone | + [...] Description | +--------+--------+ + + + | 06/25/ | Refill | [facility] | Shane Bates | Medication Refill | | 2017 | | [facility] | MD [address] | | | | | [facility] [address] | [facility], | | | | | [address]TH [facility], | [place] [address] | | | | | [place] [address] | [phone] | | | | | [phone] | | | +--------+--------+ + + + [...] [place] | | | | | | [address] | | | | | | | | +--------+---------+ + + + | 10/21/ | Office | Primary Care | Shane Bates | | | 2017 | Visit | | MD [address] | | | | | | [place], | | | | | | [place] [address] | | | | | | [phone] | | | | | | | | +--------+---------+ + + + as of this encounter Visit Diagnoses Not on filein this encounter"
--- OUTSIDE RECORDS SUMMARY | ~2017-08-21 | XMS | Encounter Summary ---
Demographics + + + | Address | [address] [place] [address] | | | [place] [address] | + + + | Home Phone | | + + + | Preferred Language | Unknown | + + + | Marital Status | | + + + | Bahai Affiliation | 1013 | + + + | Race | Unknown | + + + | Ethnic Group | Unknown | + + + Author + + + | Author | [facility] | | | and [place] | + + + | Organization | [facility] | | | [...] [place] | | | | | [address] | | + + + + + Care Team Providers + +------+ + | Care Lipcoat Sprayer Name | Role | Phone | + [...] Description | +--------+--------+ + + + | 07/12/ | Refill | [facility] | Shane Bates | Medication Refill | | 2017 | | [facility] | MD [address] | | | | | [facility] [address] | [facility], | | | | | [address] [facility], | [place] [address] | | | | | [place] [address] | [phone] | | | | | [phone] | | | +--------+--------+ + + + [...] | | | | | [place] | | | | | | [address] | | | | | | | | +--------+---------+ + + + | 10/21/ | Office | Primary Care | Shane Bates | | | 2017 | Visit | | MD [address] | | | | | | [place], | | | | | | [place] [address] | | | | | | [phone] | | | | | | | | +--------+---------+ + + + as of this encounter Visit Diagnoses Not on filein this encounter"
--- OUTSIDE RECORDS SUMMARY | ~2017-08-21 | XMS | Clinical Summary ---
Demographics + + + | Address | [address] [place] [address] | | | [place] [address] | + + + | Home Phone | | + + + | Preferred Language | Unknown | + + + | Marital Status | | + + + | Anabaptism Affiliation | 1013 | + + + | Race | Unknown | + + + | Ethnic Group | Unknown | + + + Author + + + | Author | [facility] | | | and [place] | + + + | Organization | [facility] | | | and [place] | + + + | Address | Unknown | + + + | Phone | Unavailable | + + + Support + + + + + | Name | Relationship | Address | Phone | + + + + + | Rashaun Escudero | ECON | [address] [facility] | | | | | [place] | | | | | [address] | | + + + + + Care Team Providers + +------+ + | Care Electric Fork Operator Name | Role | Phone | [...] + | Overview: 06/05/17 admitted with PAF [id number] score is 4 | | (age, HTN, [...] + + | Coronary artery disease involving [place] coronary artery of | 05/28/2017 | | [place] heart | | + + + + + | Overview: NSTEMI 10/15/16 Last Assessment & Plan: Status | | post NSTEMI 10/15/16, currently on Clopidogrel, Aspirin 81 mg | | daily, in addition to Apixaban.Anticipate discontinuing | | Clopidogrel in 11/2017 and at that time continue ASA and Apixaban | | as she currently is taking.She knows of a customer marketing manager who comes | | to [place], and will get me information about them [...] & Plan: Referral to Dr. Bright in [place], | | eval and treat. | + [...] + + + + + | Old [place] (myocardial infarction) | 02/27/20 | | | | 17 | 8 | + + + + | NSTEMI, initial episode of care ([facility]) | 10/17/19 | | | | 17 [...] involving | | | | | | [place] coronary | | | | | | artery of [place] | | | | | | heart [...] | 07/27/ | Refill | | Kate Paetl NP | Medication Refill | | 2017 [...] involving | | | | | | [place] coronary | | | | | | artery of [place] | | | | | | heart [...] | 06/21/ | Refill | | Shane Bates | [...] involving | | | | | | [place] coronary | | | | | | artery of [place] | | | | | | heart [...] involving | | | | | | [place] coronary | | | | | | artery of [place] | | | | | | heart [...] | Heart attack | Father | | [place] | + + + + + | [...] 2017 | Visit | | [address] | | | | | | [place], [place] | | | | | | [address] | | | | | | | | +--------+---------+ + + + | 10/21/ | Office | | Shane Bates | | | 2017 | Visit | | MD Mark [address] | | | | | [address] [place], | | | | | | [place] [address] | | | | | | [phone] | | | | | | | [...] N/A: | [place] | | 10/20/ | [id number]- | | - [id number]: Qty: 1 | | [place] | SCIENTIFIC [...] | + + + | Blood | [facility] [address] | | | [place] [address] | + + + + + | [...] | + + + | Blood | [facility] [address] | | | [place] [address] | + + + XR Knee Right [...] [facility] | | [place] [address] Polysomnogram | | Report on Tameka Escudero performed on June 15, 2017. PATIENT | | IDENTIFICATION: Tameka Escudero IS a 67 y.o..-year-old female. with a history | | of fibromyalgia, non-ST elevation [place] in October 2016 status post 1 stent [...] a | | second sleep study in [place] about 15 years ago. She says she tried CPAP for 5 | | years, but then she lost her insurance and didn't follow up. She thinks it was | | helping her to sleep better. She says she had a sleep study at [place] in September | | 2017, and she [...] sleep study as much | | better. Security Director note: patient agreed to sleep in bed [...] this chart may have been created with [employer] voice recognition software. | | Occasional wrong-word [...] | Carla Cardoso MD - 06/21/2017 [address] [facility] | | [place], [place] [id number] Report on Tameka Sanderson | Benjamin Escudero performed on June 15, 2017.PATIENT IDENTIFICATION:Tameka Escudero IS a 67 | | y.o..-year-old female. with a history of fibromyalgia, non-ST elevation [place] in October | | 2016 status post [...] She had a second sleep study in [place] about 15 years ago. She says she | | tried CPAP for 5 years, but then she lost her insurance and didn't follow up. She | | thinks it was helping her to sleep better. She says she had a sleep study at [place] | | in September 2016, and she [...] sleep | | study as much better. Security Director note: patient agreed to sleep in bed [...] may have been | | created with [employer] voice recognition software. Occasional wrong-word or | [...] vic | | | [phone] | [place] [address] | + +--------+ +--------+ + + | TAMEKA ESCUDERO | Person | Self | [birth year] | Home: | [address] | | | al/Fam | | 9 | +- | [address] [place], | | | vic | | | [phone] | [place] [address] | + +--------+ +--------+ + +
--- OUTSIDE RECORDS SUMMARY | ~2017-08-21 | XMS | Encounter Summary ---
Demographics + + + | Address | [address] [place] [address] | | | [place] [address] | + + + | Home Phone | | + + + | Preferred Language | Unknown | + + + | Marital Status | | + + + | Temple Affiliation | 1013 | + + + | Race | Unknown | + + + | Ethnic Group | Unknown | + + + Author + + + | Author | [facility] | | | and [place] | + + + | Organization | [facility] | | | and [...] [place] | | | | | [address] | | + + + + + Care Team Providers + +------+ + | Care Stained Glass Painter Name | Role | Phone | + [...] | | | [facility] [address] | [facility] [place], | | | | | [address] [facility] [place] [place], | [place] [address] | | | | | [place] [address] | [phone] | | | | | [phone] | | | +--------+--------+ + + + [...] [place] | | | | | | [address] | | | | | | | | +--------+---------+ + + + | 10/21/ | Office | Primary Care | Shane Bates | | | 2017 | Visit | | MD Mark [address] | | | | | | [place], | | | | | | [place] [address] | | | | | | [phone] | | | | | | | | +--------+---------+ + + + as of this encounter Visit Diagnoses Not on filein this encounter"
--- OUTSIDE RECORDS SUMMARY | ~2017-08-21 | XMS | Encounter Summary ---
Demographics + + + | Address | [address] [place] [address] | | | [place] [address] | + + + | Home Phone | | + + + | Preferred Language | Unknown | + + + | Marital Status | | + + + | Bahai Affiliation | 1013 | + + + | Race | Unknown | + + + | Ethnic Group | Unknown | + + + Author + + + | Author | [facility] | | | and [place] | + + + | Organization | [facility] | | [...] [place] | | | | | [address] | | + + + + + Care Team Providers + +------+ + | Care Or Nurse Manager Name | Role | Phone | + +------+ + | Shane Bates MD | PCP | | + +------+ + Reason for Referral Evaluate & Treat (Routine) +--------+ + + + + + | Status | Reason | Specialty | Diagnoses / | Referred By | Referred To | | | | | Procedures | Contact | Contact | +--------+ + + + + + | Closed | Specialty | Orthopedic | Diagnoses | Bump, | [facility] | | | Services | Surgery | Chronic | Shane | Orthopedic | | | Required | | pain of both | MD Mark | [address] | | | | | knees | [address] | [place] | | | | | [address] [place] | [address] [place] | [place], [place] | | | | | PAIN | [place], [place] | [address] | | | | | Procedures | [address] | Phone: | | | | | OFFICE VISIT | Phone: | [phone] | | | | | | [phone] | Fax: | | | | | | Fax: | [phone] | | | | | | [phone] | | +--------+ + + + + + Reason for Visit + + + | Reason | Comments | + + + | Follow-up | ED | + + + Encounter Details +--------+---------+ + + + | Date | Type | Department | Care Team | Description | +--------+---------+ + + + | 06/15/ | Office | [place] [facility] | Paulo Shane | Paroxysmal atrial | | 2018 | Visit | [facility] | MD Mark [address] | fibrillation (HCC) | | | | [facility]ICAL [facility] [address] | [address] [place], | (Primary Dx); | | | | [address] [place], | [place] [address] | Coronary artery | | | | [place] [address] | [phone] | disease involving | | | | [phone] | | [place] coronary | | | | | | artery of [place] | | | | | | heart [...] | | | | | knees | +--------+---------+ + + + Social History [...] + + + | Blood Pressure | 120/80 | 06/15/2017 1331 PST | + + + + | Pulse | 58 | 06/15/20171 PST | + + + + | Temperature | - | - | + + + + | Respiratory Rate | 18 | 06/15/2017 1331 PST | + + + + | Oxygen Saturation | 99% | 06/15/20171330 PST | + + + + | Inhaled Oxygen | - | - | | Concentration | | | + + + + | Weight | 81.5 kg (179 lb 10.8 | 06/15/20171330 PST | | | oz) | | + + + + | Height | - | - | + + + + | Body Mass Index | 31.83 | 06/15/20171330 PST | + + + + in [...] Patient Instructions - Shane Bates MD - 06/15/2017 1330 PSTAssessment and Plan: Paroxysmal atrial fibrillation (HCC) (Primary) Assessment & Plan: Started on Eliquis 5 mg by mouth twice a day Referral to [employer] in [place]. She will find out who she would like to see, and let me know. 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 Recheck TSH in 3 mos. Orders: - TSH; Future; Expected date: 09/12/2017 Fibromyalgia Chronic pain of both knees Assessment & Plan: Referral to Dr. Cee to evaluate and treat bilateral knee pain. Orders: - AMB [facility] this encounter Progress Notes Shane Bates MD - 06/15/2017 1330 PSTFormatting of this note may be different from the original. Patient ID: Tameka Escudero is a 67 y.o. year old female Chief Complaint: Chief Complaint Patient presents with Follow-up ED Assessment and Plan: Paroxysmal atrial fibrillation (HCC) (Primary) Assessment & Plan: Started on Eliquis 5 mg by mouth twice a day Referral to [employer] in [place]. She will find out who she would like to see, and let me know. 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 Recheck TSH in 3 mos. Orders: - TSH; Future; Expected date: 09/12/2017 Fibromyalgia Chronic pain of both knees Assessment & Plan: Referral to Dr. Cee to evaluate and treat bilateral knee pain. Orders: - AMB [facility] Return in about 2 months (around 08/13/2017). Subjective: Tameka was hospitalized at [facility] on 06/05/17 with paroxysmal atrial fibrillation. I note that her TSH was slightly elevated on 06/04/17 at 6.47 (0.27-4.20). Note that she ta kes Levothyroxine 88 g daily. She received 15 mg of Cardizem intravenously on admission t o the ED. After intravenous and oral Cardizem administration she converted to sinus rhythm and was asymptomatic. She was continued on Carvedilol 12.5 mg by mouth twice a day and Card izem 30 mg every 6 hours. Her legs are puffy now. Prior to this they only occasionally wer e puffy due to Gabapentin. Her [id number] score is 4 (age, HTN, vascular disease) reflectin g an annual stroke rate of 4.8%. Her HASBLED score of 2 represents a bleeding risk of 4.1% per year, so Dr. Bentley called her lining feller to discuss the question of anticoagulation fo r stroke prophylaxis. After discussing the situation with Dr. Villatoro, he recommended contin uing Plavix, stopping Aspirin and beginning Eliquis 5 mg by mouth twice a day (options of [place] rfarin versus Eliquis were discussed with her). She has never seen Dr. Villatoro, and would li ke to be seen at a cardiology clinic in [place] on [facility]. She has had arrhythmias , but not for days like it was when she was hospitalized. She finds it hard to take Gabapentin consistently. It makes her dopey. It helps with her back pain, but not the feet so much. She fell down the stairs a month ago, and injured her knees. She injured her back and knee s, and asks whether or not she can return to Dr. Cee for steroid injections. She is thinking about returning to taking Prozac. Electronic chart was reviewed and updated as [...] mg by mouth every evening. 30 tablet CARTIA XT 120 MG 24 hr capsule take 1 capsule by mouth at bedtime 0 carvedilol (COREG) 12.5 mg tablet take 1 tablet by mouth twice a day 0 carvedilol (COREG) 6.25 mg tablet 6.25 mg in AM and 12.5 mg in Pm. (Patient not taking: Reported on 06/15/2017) 90 tablet 2 clonazePAM (KLONOPIN) 1 mg tablet take 1 tablet by mouth three times a day if needed 90 tablet 0 clopidogrel (PLAVIX) 75 mg tablet Take 1 tablet by mouth Daily. 90 tablet 11 cyclobenzaprine (FLEXERIL) 10 mg tablet Take 1 tablet by mouth 3 times daily as needed. 30 tablet 2 ELIQUIS 5 MG tablet take 1 tablet by mouth twice a day 0 gabapentin (NEURONTIN) 300 mg capsule Take [...] take 1 tablet by mouth once daily (Patient not taking: Reported on 06/15/2017) 90 tablet 3 meclizine (ANTIVERT) 25 mg [...] syndrome Lumbar spinal stenosis, DDD NSTEMI 10/15/16 Paroxysmal atrial fibrillation 1/26/18 [id number] score is 4 (age, HTN, vascular disease) reflecting an annual stroke rate of 4.8% HASBLED score of 2 represents a bleeding risk of 4.1% per year Continue Carvedilol 12.5 mg by mouth twice a day and Cardizem 30 mg every [address] Villatoro, he recommended continuing Plavix, stopping Aspirin and beginning Eliquis PAST SURGICAL HISTORY: Vaginal hysterectomy with ovaries [...] 90% LAD lesion, stented with Promus MIR. HABITS: Alcohol: She has one to two drinks, either beer or wine or vodka, per night to help her sle ep. Smoking: none. She quit smoking 40+ years ago. Coffee: 2 cups/d Review of Systems Respiratory: Negative for shortness of breath. Cardiovascular: Positive for palpitations. Negative for chest pain. Psychiatric/Behavioral: Positive for sleep disturbance (fibromyalgia). Objective: Vitals: BP 120/80 | Pulse 58 | Resp 18 | Wt 81.5 kg (179 lb 10.8 oz) | SpO2 99% | BMI 31.83 kg /m Physical Exam Neck: No JVD present. Cardiovascular: Normal rate, regular rhythm and normal heart sounds. Exam reveals no colon p. No murmur heard. Pulmonary/Chest: Effort normal and breath sounds normal. No respiratory distress. She has n o wheezes. She has no rales. Abdominal: Soft. Bowel sounds are normal. She exhibits no distension. There is no tendernes s. There is no rebound and no guarding. Musculoskeletal: She exhibits no edema. Shane Bates MD06/15/201714:11in this encounter Plan of Treatment +--------+---------+ + + + | Date | Type | Specialty | Care Team | Description | +--------+---------+ + + + | 09/07/ | Office | Sleep Medicine | Bubba Weller PA | | | 2017 | Visit | | [address] | | | | | | [place] | | | | | | [address] | | | | | | | | +--------+---------+ + + + | 10/21/ | Office | Primary Care | Shane Bates | | | 2017 | Visit | | MD Mark [address] | | | | | | [place], | | | | | | [place] [address] | | | | | | [phone] | | | | | | | | +--------+---------+ + + + + +--------+ + + | Name | Priori | Associated Diagnoses | Order Schedule | | | ty | | | + +--------+ + + | * [facility] | Routin | Chronic pain of | Ordered: 06/15/2017 | | - AMB Referral | e | both knees | | + +--------+ + + as of this encounter Visit Diagnoses + + | Diagnosis | + + | Paroxysmal atrial fibrillation (HCC) - Primary | + + | Atrial fibrillation | + + | Coronary artery disease involving [place] coronary artery of [place] heart with angina | | pectoris (HCC) | + + | Essential hypertension | + + | Unspecified essential hypertension | + + | Hypothyroidism, unspecified type | + + | Fibromyalgia | + + | Mylagia and myositis, unspecified | + + | Chronic pain of both knees | + +"
--- OUTSIDE RECORDS SUMMARY | ~2017-08-21 | XMS | Clinical Summary ---
Demographics + + + | Address | [address] [place] [address] | | | [place] [address] | + + + | Home Phone | | + + + | Preferred Language | Unknown | + + + | Marital Status | | + + + | Sikhism Affiliation | 1013 | + + + | Race | Unknown | + + + | Ethnic Group | Unknown | + + + Author + + + | Author | [facility] | | | and [place] | + + + | Organization | [facility] | | | and [place] | + + + | Address | Unknown | + + + | Phone | Unavailable | + + + Support + + + + + | Name | Relationship | Address | Phone | + + + + + | Rashaun Escudero | ECON | [address] [facility] | | | | | [place] | | | | | [address] | | + + + + + Care Team Providers + +------+ + | Care Outbound Supervisor Name | Role | Phone | [...] + | Overview: 06/05/17 admitted with PAF [id number] score is 4 | | (age, HTN, [...] + + | Coronary artery disease involving [place] coronary artery of | 05/28/2017 | | [place] heart | | + + + + + | Overview: NSTEMI 10/15/16 Last Assessment & Plan: Status | | post NSTEMI 10/15/16, currently on Clopidogrel, Aspirin 81 mg | | daily, in addition to Apixaban.Anticipate discontinuing | | Clopidogrel in 11/2017 and at that time continue ASA and Apixaban | | as she currently is taking.She 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 Bright in [place], | | eval and treat. | + [...] + + + + + | Old [place] (myocardial infarction) | 02/27/20 | | | | 17 | 8 | + + + + | NSTEMI, initial episode of care ([facility]) | 10/17/19 | | | | 17 [...] involving | | | | | | [place] coronary | | | | | | artery of [place] | | | | | | heart [...] involving | | | | | | [place] coronary | | | | | | artery of [place] | | | | | | heart [...] involving | | | | | | [place] coronary | | | | | | artery of [place] | | | | | | heart [...] involving | | | | | | [place] coronary | | | | | | artery of [place] | | | | | | heart [...] | Heart attack | Father | | PA | + + + + + | [...] 2017 | Visit | | [address] | | | | | | [place], [place] | | | | | | [address] | | | | | | | | +--------+---------+ + + + | 10/21/ | Office | | Shane Bates | | | 2017 | Visit | | MD Mark [address] | | | | | | [address] [place], | | | | | | [place] [address] | | | | | | [phone] | | | | | | | [...] N/A: | [place] | | 10/20/ | [id number]- | | - [id number]: Qty: 1 | | [place] | SCIENTIFIC | | 2017 | 2435 / | | on 10/16/2016 by gAapito, | | ry | ERYN - BSCI [...] | + + + | Blood | [facility] [address] | | | [place] [address] | + + + + + | [...] | + + + | Blood | [facility] [address] | | | [place] [address] | + + + XR Knee Right [...] [facility] | | [place] [address] Polysomnogram | | Report on Tameka Escudero performed on June 15, 2017. PATIENT | | IDENTIFICATION: Tameka Escudero IS a 67 y.o..-year-old female. with a history | | of fibromyalgia, non-ST elevation [place] in October 2016 status post 1 stent [...] a | | second sleep study in [place] about 15 years ago. She says she tried CPAP for 5 | | years, but then she lost her insurance and didn't follow up. She thinks it was | | helping her to sleep better. She says she had a sleep study at [place] in September | | 2017, and she [...] sleep study as much | | better. Lokie Engineer note: patient agreed to sleep in bed [...] this chart may have been created with [employer] voice recognition software. | | Occasional wrong-word [...] | Carla Cardoso MD - 06/21/2017 [address] [facility] | | [place], [place] [id number] Report on Tameka Sanderson | Benjamin Escudero performed on June 15, 2017.PATIENT IDENTIFICATION:Tameka Escudero IS a 67 | | y.o..-year-old female. with a history of fibromyalgia, non-ST elevation [place] in October | | 2016 status post [...] She had a second sleep study in [place] about 15 years ago. She says she | | tried CPAP for 5 years, but then she lost her insurance and didn't follow up. She | | thinks it was helping her to sleep better. She says she had a sleep study at [place] | | in September 2016, and she [...] sleep | | study as much better. Lokie Engineer note: patient agreed to sleep in bed [...] may have been | | created with [employer] voice recognition software. Occasional wrong-word or | [...] vic | | | [address] | [place] [address] | + +--------+ +--------+ + + | TAMEKA ESCUDERO | Person | Self | [birth year] | Home: | [address] | | | al/Fam | | 9 | +- | [address] [place], | | | vic | | | [phone] | [place] [address] | + +--------+ +--------+ + +
--- OUTSIDE RECORDS SUMMARY | ~2017-08-21 | XMS | Encounter Summary ---
Demographics + + + | Address | [address] [place] [address] | | | [place] [address] | + + + | Home Phone | | + + + | Preferred Language | Unknown | + + + | Marital Status | | + + + | Presybeterian Affiliation | 1013 | + + + | Race | Unknown | + + + | Ethnic Group | Unknown | + + + Author + + + | Author | [facility] | | | and [place] | + + + | Organization | [facility] | | | and [...] [place] | | | | | [address] | | + + + + + Care Team Providers + +------+ + | Care Boat Fueler Name | Role | Phone | + [...] | | MEDICAL CL[facility] [address] | [facility] [place], | | | | | [address]TH [facility], | [place] [address] | | | | | [place] [address] | [phone] | | | | | [phone] | | | +--------+--------+ + + + [...] [place] | | | | | | [address] | | | | | | | | +--------+---------+ + + + | 10/21/ | Office | Primary Care | Shane Bates | | | 2017 | Visit | | MD Mark [address] | | | | | | [place], | | | | | | [place] [address] | | | | | | [phone] | | | | | | | | +--------+---------+ + + + as of this encounter Visit Diagnoses Not on filein this encounter"
--- OUTSIDE RECORDS SUMMARY | ~2017-08-21 | XMS | Encounter Summary ---
Demographics + + + | Address | [address] [place] [address] | | | [place] [address] | + + + | Home Phone | | + + + | Preferred Language | Unknown | + + + | Marital Status | | + + + | Restoration Affiliation | 1013 | + + + | Race | Unknown | + + + | Ethnic Group | Unknown | + + + Author + + + | Author | and [facility] | | | and [place] | + + + | Organization | and Services [facility] | | | and [...] [place] | | | | | [address] | | + + + + + Care Team Providers + +------+ + | Care Rubber Thread Spooler Name | Role | Phone | + [...] Medication Prior | | 2018 | | [facility] | MD Mark [address] | Authorization | | | | MEDICAL CLIN[facility] [address] | [facility], | (Cyclobenzaprine 10 | | | | [address] [facility], | [place] [address] | mg ) | | | | [place] [address] | [phone] | | | | | [phone] | | | +--------+ + + + [...] [place] | | | | | | [address] | | | | | | | | +--------+---------+ + + + | 10/21/ | Office | Primary Care | Shane Bates | | | 2017 | Visit | | MD Mark [address] [facility] | | | | | | [place] | | | | | | [place] [address] | | | | | | [phone] | | | | | | | | +--------+---------+ + + + as of this encounter Visit Diagnoses Not on filein this encounter"
--- OUTSIDE RECORDS SUMMARY | ~2017-08-21 | XMS | Encounter Summary ---
Demographics + + + | Address | [address] [place] [address] | | | [place] [address] | + + + | Home Phone | | + + + | Preferred Language | Unknown | + + + | Marital Status | | + + + | Church Affiliation | 1013 | + + + | Race | Unknown | + + + | Ethnic Group | Unknown | + + + Author + + + | Author | [facility] | | | and Darrelana | + + + | Organization | [facility] | | [...] [place] | | | | | [address] | | + + + + + Care Team Providers + +------+ + | Care Receiver Name | Role | Phone | + [...] + | 08/03/ | Clinical | [facility] | Carla Cardoso MD | NADIR (obstructive | | 2018 | Support | SLEEP DISORDER [address] | sleep apnea) | | | | [address] [place] | [place] | (Primary Dx) | | | | [place] [address] | [address] | | | | | [phone] | | | +--------+ + + + [...] in 3 weeks with equipment Ryan Gomes [facility] C[facility] in this encounter Plan of Treatment +--------+---------+ + + + | Date | Type | Specialty | Care Team | Description | +--------+---------+ + + + | 09/07/ | Office | Sleep Medicine | Bubba Weller PA | | | 2017 | Visit | | [address] | | | | | | [place] | | | | | | [address] | | | | | | | | +--------+---------+ + + + | 10/21/ | Office | Primary Care | Shane Bates | | | 2017 | Visit | | MD [address] | | | | | [address] [place], | | | | | | [place] [address] | | | | | | [phone] | | | | | | | | +--------+---------+ + + + as of this encounter Visit Diagnoses + + | Diagnosis | + + | NADIR (obstructive sleep apnea) - Primary | + + | Obstructive sleep apnea (adult) (pediatric) | + +
--- OUTSIDE RECORDS SUMMARY | ~2017-08-21 | XMS | Encounter Summary ---
Demographics + + + | Address | [address] [place] [address] | | | [place] [address] | + + + | Home Phone [...] Author | [facility] | | | and [...] [place] | | | | | [address] | | + + + + + Care Team Providers + +------+ + | Care Dredge Pipe Installer Name | Role | Phone | + [...] [place], | | | | | [address] [facility], | [place] [address] | | | | | [place] [address] | [phone] | | | | | [phone] | | | +--------+--------+ + + + [...] [place] | | | | | | [address] | | | | | | | | +--------+---------+ + + + | 10/21/ | Office | Primary Care | Shane Bates | | | 2017 | Visit | | MD [address] | | | | | | [place], | | | | | | [place] [address] | | | | | | [phone] | | | | | | | | +--------+---------+ + + + as of this encounter Visit Diagnoses Not on filein this encounter"
--- OUTSIDE RECORDS SUMMARY | ~2017-08-21 | XMS | Encounter Summary ---
Demographics + + + | Address | [address] [place] [address] | | | [place] [address] | + + + | Home Phone | | + + + | Preferred Language | Unknown | + + + | Marital Status | | + + + | Mandaeism Affiliation | 1013 | + + + | Race | Unknown | + + + | Ethnic Group | Unknown | + + + Author + + + | Author | [facility] | | | and Darrelana | + + + | Organization | [facility] | | [...] [place] | | | | | [address] | | + + + + + Care Team Providers + +------+ + | Care Medical Engineer Name | Role | Phone | [...] + + | 06/10/ | Telephone | [facility] | Richard Bond MD | Records Request | | 2018 | | CARDIOLOGY [address] | | | | | [place], | [place], [place] | | | | | [place] [address] | [address] | | | | | [phone] | | | +--------+ + + + [...] [place] | | | | | | [address] | | | | | | | | +--------+---------+ + + + | 10/21/ | Office | Primary Care | Shane Bates | | | 2017 | Visit | | MD [address] | | | | | | [place], | | | | | | [place] [address] | | | | | | [phone] | | | | | | | | +--------+---------+ + + + as of this encounter Visit Diagnoses Not on filein this encounter"
--- OUTSIDE RECORDS SUMMARY | ~2017-08-21 | XMS | Encounter Summary ---
Demographics + + + | Address | [address] [place] [address] | | | [place] [address] | + + + | Home Phone | | + + + | Preferred Language | Unknown | + + + | Marital Status | | + + + | Jehovah'S Witness Affiliation | 1013 | + + + | Race | Unknown | + + + | Ethnic Group | Unknown | + + + Author + + + | Author | [facility] | | | and Darrelana | + + + | Organization | [facility] | | [...] [place] | | | | | [address] | | + + + + + Care Team Providers + +------+ + | Care Hvac Sheet Metal Installer Name | Role | Phone | [...] + + | 07/07/ | Office | [facility] | Carla Cardoso MD | NADIR (obstructive | | 2018 | Visit | SLEEP DISORDER [address] | [address] | sleep apnea) | | | | [place] | [place] | (Primary Dx); PTSD | | | | [place] [address] | [address] | (post-traumatic | | | | [phone] | | stress disorder) | +--------+---------+ + [...] with a history of fibromyalgia, non-ST elevation MA in October 2016 status post 1 stent [...] She had a second sleep study in [place] about 15 years ago. She says she tried CPAP for 5 years, but then she lost her insurance and didn't follow up. She thinks it was helping her to sleep better. 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 REVELANT MEDICATIONS: Gabapentin, clonazepam as needed. Patient took 3 gabapentin 300 mg at bedtime. The dose had been increased after her recent fall. SUBJECTIVE: The patient rated sleep quality during sleep study as much better. Resident Doctor note: patient agreed to sleep in bed [...] [place] | | | | | | [id number] | | | | | | | | +--------+---------+ + + + | 10/21/ | Office | Primary Care | Shane Bates | | | 2017 | Visit | | MD [address] | | | | | | [place], | | | | | | [place] [address] | | | | | | [phone] | | | | | | | [...]
--- OUTSIDE RECORDS SUMMARY | ~2017-08-21 | XMS | Encounter Summary ---
Demographics + + + | Address | [address] [place] [address] | | | [place] [address] | + + + | Home Phone | | + + + | Preferred Language | Unknown | + + + | Marital Status | | + + + | Amish Affiliation | 1013 | + + + | Race | Unknown | + + + | Ethnic Group | Unknown | + + + Author + + + | Author | [facility] | | | and Darrelana | + + + | Organization | [facility] | | | and [...] [place] | | | | | [address] | | + + + + + Care Team Providers + +------+ + | Care Tunnel Form Placing Supervisor Name | Role | Phone | [...] | | | MEDICAL CLINIC [address] | [facility] [place], | | | | | [address]TH [facility], | [place] [address] | | | | | [place] [address] | [phone] | | | | | [phone] | | | +--------+--------+ + + + [...] [place] | | | | | | [address] | | | | | | | | +--------+---------+ + + + | 10/21/ | Office | Primary Care | Shane Bates | | | 2017 | Visit | | MD [address] | | | | | | [place], | | | | | | [place] [address] | | | | | | [phone] | | | | | | | | +--------+---------+ + + + as of this encounter Visit Diagnoses Not on filein this encounter"
--- OUTSIDE RECORDS SUMMARY | ~2017-08-21 | XMS | Encounter Summary ---
Demographics + + + | Address | [address] [place] [address] | | | [place] [address] | + + + | Home Phone [...] + | Author | [facility] | | | and Darrelana [...] [place] | | | | | [address] | | + + + + + Care Team Providers + +------+ + | Care Manager Transmission Name | Role | Phone | + [...] | | MEDICAL CLINIC [address] | [address] [place], | (Primary Dx); | | | | [address] [place], | [place] [address] | Coronary artery | | | | [place] [address] | [phone] | disease involving | | | | [phone] | | council coronary | | | | | | artery of council | | | | | | heart [...] & Plan: 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 Anticipate discontinuing Clopidogrel in 11/2017 and at that time continue ASA and Apixaban a s she currently is taking. 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 Anticipate discontinuing Clopidogrel in 11/2017 and at that time continue ASA and Apixaban a s she currently is taking. She knows of a child abuse worker who comes to [place], and will get me information about them [...] currently, but she was advised by the Cover Cre[employer] in [place] to discontinue Plavix and begin Aspirin 81mg PO daily in November,. She needs to est ablish care with a child abuse worker. Hyperlipidemia: Her last lipid panel was 10/2016. [...] 2017 | Visit | | [address] | | | | | | [place] | | | | | | [address] | | | | | | | | +--------+---------+ + + + | 10/21/ | Office | Primary Care | Shane Bates | | | 2017 | Visit | | MD [address] [facility] | | | | | | [place], | | | | | | [place] [address] | | | | | | [phone] | | | | | | | | +--------+---------+ + + + as of this encounter Results Lipid Panel (08/18/2017 9195) + + + + | Component | [...] | + + + | Blood | [facility] [address] | | | [place] [address] | + + + + + | [...] | + + + | Blood | [facility] [address] | | | [place] [address] | + + + in this encounter Visit Diagnoses + + | Diagnosis | + + | Essential hypertension - Primary | + + | Unspecified essential hypertension | + + | Coronary artery disease involving council coronary artery of council heart with angina | | pectoris (HCC) [...]
--- OUTSIDE RECORDS SUMMARY | ~2017-08-21 | XMS | Encounter Summary ---
Demographics + + + | Address | [address] [place] [address] | | | [place] [address] | + + + | Home Phone | | + + + | Preferred Language | Unknown | + + + | Marital Status | | + + + | Gnosticism Affiliation | 1013 | + + + | Race | Unknown | + + + | Ethnic Group | Unknown | + + + Author + + + | Author | [facility] | | | and Darrelana | + + + | Organization | [facility] | | [...] [place] | | | | | [address] | | + + + + + Care Team Providers + +------+ + | Care Informal Waiter/Waitress Name | Role | Phone | + +------+ + | Shane Batse MD | PCP | | + +------+ + Reason for Visit + + + | Reason | Comments | + + + | Hospital Follow-up | | + + + Self-referral (Routine) +--------+--------+ + + + + | Status | Reason | Specialty | Diagnoses / | Referred By | Referred To | | | | | Procedures | Contact | Contact | +--------+--------+ + + + + | Closed | | Cardiology | Diagnoses | | [facility] | | | | [facility] | | Cardiology | | | | | Procedures | | [address] | | | | | [place] - | | [place], | | | | | [place] | | [place] | | | | | [place] | | [address] | | | | | | | Phone: | | | | | | | [phone] | | | | | | | Fax: | | | | | | | [phone] | +--------+--------+ + + + + Encounter Details +--------+---------+ + + + | Date | Type | Department | Care Team | Description | +--------+---------+ + + + | 02/15/ | Office | [facility] | Richard Bond MD | Coronary artery | | 2018 | Visit | CARDIOLOGY [address] | [address] | disease involving | | | | [place], | [place], [place] | upper [place] coronary | | | | [place] [address] | [address] | artery of upper [place] | | | | [phone] | | heart without angina | | | | | | pectoris (Primary | | | | | | Dx) | +--------+---------+ + + + Social History [...] + + + | Blood Pressure | 122/80 | 06/25/2017 1043 PST | + + + + | Pulse | 70 | 06/25/20171042 PST | + + + + | Temperature | - | - | + + + + | Respiratory Rate | 16 | 06/25/20171042 PST | + + + + | Oxygen Saturation | - | - | + + + + | Inhaled Oxygen | - | - | | Concentration | | | + + + + | Weight | 80 kg (176 lb 5.9 | 06/25/20171042 PST | | | oz) | | + + + + | Height | 160 cm (5' 3") | 06/25/20171042 PST | + + + + | Body Mass Index | 31.24 | 06/25/20171042 PST | + + + + in [...] + as of this encounter Progress Notes Richard Bond MD - 06/25/2017 1100 PSTFormatting of this note may be different from the or iginal. PATIENT NAME: Tameka Escudero : 1950: AGE: 67 y.o. PRIMARY CARE: Shane Bates MD OUTPATIENT FOLLOW UP VISIT Date of Service: 06/25/17 PROBLEMS ADDRESSED AT THIS VISIT: PAF and CAD PRESENT ILLNESS: Tameka Escudero is a 67 y.o. female Is s/p LAD stenting with MIR in 10/2016 for NSTEMI, and had been doing well without angina, syncope, chf, pedal edema, but had an episode of AF requiring hospitalization a few wks ago. She did not have any angina with it. She has been i n NSR after initiation of cardiazem and has been on Eliquis and off of ASA since that time. She has no cardiac c/o and is going to try to establish with a visiting rock climbing team member in [facility]. Her TSH was hi and is being regulated by primary MD. ASSESSMENT: PAF and CAD PLAN: Medication changes: None--advised her to discuss with her new rock climbing team member to stop Plavix in 11/2017 and start back on ASA 81/d at that time along with Eliquis. Testing ordered today: None. Return: PRN. MEDICAL, SURGICAL, AND PERSONAL HISTORY Past Medical, Surgical, Family, and Social History details are found in EPIC and not reprod uced here. Changes since last visit: AF as described above. CURRENT MEDICATIONS Current Outpatient Prescriptions Medication Sig Dispense [...] Antibiotics Nausea Only Amitriptyline Palpitations Weight gain ROS Data found and reviewed in [employer]. Pertinent changes/review: See above. OBJECTIVE: PHYSICAL EXAM BP 122/80 | Pulse 70 | Resp 16 | Ht 1.6 m (5' 3") | Wt 80 kg (176 lb 5.9 oz) | BMI 31. 24 kg/m General: No distress and not acutely ill. HEENT: Ocular movements normal. No facial or cranial trauma. Chest: Normal respiratory effort and pattern. CV: No JVD. Rhythm RRR . Ausculation: no mgr Abd: No hepatomegaly or tenderness. Ext: No significant pedal edema. Neuro: No obvious motor or cranial nerve deficit. Oriented. NEW OR RECENT DATA: Reviewed. Electronically signed by: Kathryn Bond MD 06/25/2017 in this encounter Plan of Treatment +--------+---------+ + + + | Date | Type | Specialty | Care Team | Description | +--------+---------+ + + + | 09/07/ | Office | Sleep Medicine | Bubba Weller PA | | | 2017 | Visit | | [address] | | | | | | [place] | | | | | | [address] | | | | | | | | +--------+---------+ + + + | 10/21/ | Office | Primary Care | Shane Bates | | | 2017 | Visit | | MD Mark [address] | | | | | [address] [place], | | | | | | [place] [address] | | | | | | [phone] | | | | | | | | +--------+---------+ + + + as of this encounter Visit Diagnoses + + | Diagnosis | + + | Coronary artery disease involving upper [place] coronary artery of upper [place] heart without angina | | pectoris - Primary | + +
--- OUTSIDE RECORDS SUMMARY | ~2017-08-21 | XMS | Encounter Summary ---
Demographics + + + | Address | [address] [place] [address] | | | [place] [address] | + + + | Home Phone [...] Author | [facility] | | | and Darrel[place] [...] [place] | | | | | [address] | | + + + + + Care Team Providers + +------+ + | Care Clinical Mental Health Counselor Name | Role | Phone | + [...] | | Procedures | | [address] | | | | | [facility] - | | [place], | | | | | [place] | | [place] | | | | | [place] | | [address] | | | | | | | Phone: | | | | | | | [phone] | | | | | | | Fax: | | | | | | | [phone] | +--------+--------+ + + + + Encounter Details +--------+---------+ + + + | Date | Type | Department | Care Team | Description | +--------+---------+ + + + | 02/15/ | Office | [facility] | Richard Bond MD | Coronary artery | | 2018 | Visit | CARDIOLOGY [address] | disease involving | | | | [place], | [place], [place] | [place] coronary | | | | [place] [address] | [address] | artery of [place] | | | | [phone] | | heart without angina | | [...] to try to establish with a visiting wire sawyer in [facility]. Her TSH was hi and is being regulated by primary MD. ASSESSMENT: PAF and CAD PLAN: Medication changes: None--advised her to discuss with her new wire sawyer to stop Plavix in 11/2017 and start [...] gain ROS Data found and reviewed in [employer]. Pertinent changes/review: See above. OBJECTIVE: PHYSICAL EXAM [...] 2017 | Visit | | [address] | | | | | | [place] | | | | | | [address] | | | | | | | | +--------+---------+ + + + | 10/21/ | Office | Primary Care | Shane Bates | | | 2017 | Visit | | MD Mark [address] | | | | | [address] [place], | | | | | | [place] [address] | | | | | | [phone] | | | | | | | | +--------+---------+ + + + as of this encounter Visit Diagnoses + + | Diagnosis | + + | Coronary artery disease involving [place] coronary artery of [place] heart without angina | | pectoris - Primary | + +
--- OUTSIDE RECORDS SUMMARY | ~2017-08-21 | XMS | Encounter Summary ---
Demographics + + + | Address | [address] [place] [address] | | | [place] [address] | + + + | Home Phone | | + + + | Preferred Language | Unknown | + + + | Marital Status | | + + + | Rastafarian Affiliation | 1013 | + + + | Race | Unknown | + + + | Ethnic Group | Unknown | + + + Author + + + | Author | [facility] | | | and [...] | + + + + + | Rahsaun Escudero | ECON | [address] | | | | | [place] | | | | | [address] | | + + + + + Care Team Providers + +------+ + | Care Dock Hand Name | Role | Phone | + [...] | | | MEDICAL CL[facility] [address] | [facility] [place], | | | | | [address] [facility] [place], | [place] [address] | | | | | [place] [address] | [phone] | | | | | [phone] | | | +--------+--------+ + + + [...] [place] | | | | | | [address] | | | | | | | | +--------+---------+ + + + | 10/21/ | Office | Primary Care | Shane Bates | | | 2017 | Visit | | MD [address] | | | | | | [place], | | | | | | [place] [address] | | | | | | [phone] | | | | | | | | +--------+---------+ + + + as of this encounter Visit Diagnoses Not on filein this encounter"
--- OUTSIDE RECORDS SUMMARY | ~2017-08-21 | XMS | Encounter Summary ---
Demographics + + + | Address | [address] [place] [address] | | | [place] [address] | + + + | Home Phone [...] Author | [facility] Renee | | | and Darrelana [...] [place] | | | | | [address] | | + + + + + Care Team Providers + +------+ + | Care Window And Door Installer Name | Role | Phone | [...] | (obstructive | [address] | [place] | | | | | sleep | [address] [place] | [place], | | | | | apnea) | [place], [place] | [place] [address] | | | | | Procedures | [address] | Phone: | | | | | SD POLYSOM | Phone: | [phone] | | | | | 6/>YRS SLEEP | [phone] | Fax: | | | | | W/CPAP 4/> | Fax: | [phone] | | | | | ADDL COLETTE | [phone] | | | | | | ATTND S/N | | | | | | | (2/5 @ 7pm) | | | +--------+ + + + + + Reason for Visit +---------+ + | Reason | Comments | +---------+ + | Consult | | +---------+ + | Snoring | | +---------+ + Evaluate & Treat (Routine) +--------+--------+ + + + + | Status | Reason | Specialty | Diagnoses / | Referred By | Referred To | | | | | Procedures | Contact | Contact | +--------+--------+ + + + + | Closed | | Psychiatry & | Diagnoses | Paulo, | Janae | | | | Neurology - | Obstructive | Shane | MD [place] | | | | Sleep | sleep apnea | MD Mark | [address] | | | | Medicine / | (adult) | [address] | [facility] | | | | Sleep | (pediatric) | [address] | [place] | | | | Medicine | CONSULT YRS | [place], [place] | [address] Phone: | | | | | [address]GO [address] | [address] | [phone] | | | | | NO CPAP | Phone: | Fax: | | | | | Procedures | [phone] | [phone] | | | | | NEW PATIENT | Fax: | | | | | | | [phone] | | +--------+--------+ + + + + Encounter Details +--------+---------+ + + + | Date | Type | Department | Care Team | Description | +--------+---------+ + + + | 05/27/ | Office | [facility] | Carla Cardoso MD | NADIR (obstructive | | 2018 | Visit | SLEEP DISORDER [address] | [address] | sleep apnea) | | | | [place] | [place] | (Primary Dx) | | | | [place] [address] | [address] | | | | | [phone] | | | +--------+---------+ + + + [...] + | Blood Pressure | 110/70 | 05/27/20171402 PST | + + + + | Pulse | 57 | 05/27/20171402 PST | + + + + | Temperature | - | - | + + + + | Respiratory Rate | 16 | 05/27/20171402 PST | + + + + | Oxygen Saturation | 97% | 05/27/20171402 PST | + + + + | Inhaled Oxygen | - | - | | Concentration | | | + + + + | Weight | 81.8 kg (180 lb 5.4 | 05/27/20171402 PST | | | oz) | | + + + + | Height | 160 cm (5' 3") | 05/27/20171402 PST | + + + + | Body Mass Index | 31.95 | 05/27/20171402 PST | + + + + in [...] Patient Instructions - Carla Cardoso MD - 05/27/2017 1400 PSTFormatting of this note may b e different from the original. Please: 1- Schedule your sleep study. An appointment will be made a few days after the sleep study so that we can discuss the results of the sleep study with you to determine how to best help you with your sleep issues. If you can't come to the sleep center on the night of your scheduled sleep study, please no tify us ( ). 2- Review the following sleep hygiene tips: - Awaken at nearly the same time ever day (less than 2 hours difference between work/school days and off/weekend days). Don't sleep in. - Obtain as much bright light as possible during your desired waking hours. - Minimize caffeine (coffee, tea, energy drinks, soft drinks, etc.) and limit to the hours immediately after awakening. - Eliminate or minimize smoking and alcohol consumption, especially near bedtime. - Minimize or eliminate napping (unless you are a good sleeper at night and you are really sleepy during the day). - Darken your environment an hour or two before bedtime. - Consider "unwinding" and "closing" your day about an hour before your anticipated bedtime . - Go to bed only when you are sleepy and no earlier than 9 hours before your anticipated wa ke time. - Good sleepers enjoy sleeping and know that not everyone sleeps well every night. The occa sional night of poor sleep happens to everyone and isn't something to worry about. It was very nice meeting you today and thank you for letting me take care of you. What Are Snoring and Obstructive Sleep Apnea? If you ve ever had a stuffed-up nose, you know the feeling of trying to breathe through a very narrow passageway. This is what happens in your throat when you snore. While you sleep , structures in your throat partially block your air passage, making the passage narrow and hard to breathe through. If the entire passage becomes blocked and you can t breathe at al l, you have sleep apnea. Snoring Obstructive sleep apnea Snoring If your throat structures are too large or the muscles relax too much during sleep, the air passage may be partially blocked. As air from the nose or mouth passes around this blockage , the throat structures vibrate, causing the familiar sound of snoring. At times, this sound can be so loud that snorers wake up others, or even themselves, during the night. Snoring g ets worse as more and more of the air passage is blocked. Obstructive sleep apnea If the structures completely block the throat, air can t flow to the lungs at all. This i s called apnea (meaning no breathing ). Since the lungs aren t getting fresh air, the brain tells the body to wake up just enough to tighten the muscles and unblock the air pass age. With a loud gasp, breathing begins again. This process may be repeated over and over ag ain throughout the night, making your sleep fragmentedwith a anime designer stage of sleep. Even though you do not remember waking up many times during the night to a anime designer sleep, you fee l tired the next day. The lack of sleep and fresh air can also strain your lungs, heart, and other organs, leading to problems such as high blood pressure, heart attack, or stroke. Problems in the nose and jaw Problems in the structure of the nose may obstruct breathing. A crooked (deviated) septum o r swollen turbinates can make snoring worse or lead to apnea. Also, a receding jaw may make the tongue sit too far back, so it s more likely to block the airway when you re asleep. Date Last Reviewed: 11/25/201419997983-5548 The [employer]. [address] [place] [address]. All righ ts reserved. This information is not intended as a substitute for professional medical care. Always follow your healthcare professional's instructions. Continuous Positive Air Pressure (CPAP) A mask over the nose gently directs air into the throat to keep the airway open. Continuous positive air pressure (CPAP)uses gentle air pressure to hold the airway open. CPAP is often the most effective treatment for sleep apnea and severe snoring. It works very well for many people. But keep in mind that it can take several adjustments before the setu p is right for you. How CPAP works The CPAP machine is asmall portable pump beside the bed. The pumpsends air through a hose, which is held over your noseand mouthby a mask.Mild air pressureis gently push ed through your airway. The air pressure nudges sagging tissues aside. This widens the airwa y so you can breathe better. CPAP may be combined with other kinds of therapy for sleep apne a. Types of air pressure treatments There are different types of CPAP. Your doctor or CPAP software test technician will help you decide whic h type is best for you: Basic CPAPkeeps the pressure constant all night long. A bilevel device(BiPAP)providesmore pressure when you breathe in and less when you breathe out.A BiPAP machine also may be set to provide automatic breaths to maintain marlo thing if you stop breathing while sleeping. An autoCPAP deviceautomatically adjusts pressure throughout the night and in response to changes such as body position, sleep stage, and snoring. Date Last Reviewed: 12/18/201419990035-2095 The [employer]. [address] [place] [address], [place] [address]. All righ ts reserved. This information is not intended as a substitute for professional medical care. Always follow your healthcare professional's instructions. in this encounter Progress Notes Carla Cardoso MD - 05/27/2017 1400 PSTFormatting of this note may be different from the or iginal. ID/CC: We are asked to seeTameka Escudero referred for consultation from Shane Bates for evaluation of obstructive sleep apnea. Tameka Escudero is a 66 y.o. year female old with history of fibromyalgia, non-ST elev ation [place] in October 2016 status post 1 stent placement, hypertension, hypercholesterolemia, PTS D, depression, insomnia, and obstructive sleep apnea presenting for reevaluation of her slee p apnea. she doesn't sleep well, and since she also has had heart attack, her primary care doctor re commended treatment of her sleep apnea. Also, she says her echocardiography showed pulmonar y hypertension, and her embedded hardware engineer told her that it's likely due to her untreated obstruct ashley sleep apnea. I don't have the echocardiogram available to review today. She first was diagnosed with obstructive sleep apnea in this sleep center based on a diagn ostic polysomnography which was done on September 20, 2002. I reviewed a study report which indic ates that she had moderate obstructive sleep apnea with AHI of 18 and no significant hypoxem ia. She had spent 17.2% of total sleep time in supine sleep, and 25.3% of stage R sleep had been captured. She has some difficulty remembering things, but says she had a second sleep study in [facility] about 15 years ago. She says she tried CPAP for 5 years, but then she lost her insuranc e and didn't follow up. She thinks it was helping her to sleep better. She says she had a sleep study at [place] in September 2016, and she had hypoxemia but she was not qualified for ox ygen. I don't have that study to review at this time. she has been sleeping in a recliner and in semi- upright position for the past 10 years. S he is afraid to sleep in her bed as she is afraid of stopping breathing during sleep. Also , sometimes falling asleep and staying asleep is hard for her for the same reason as she is afraid to go back to sleep. She snores, and her tells her that she frequently stops breathing during sleep. She has morning headaches, fatigue, and daytime sleepiness. She h as not drived for the past 6 months as she is afraid that she might fall asleep while drivin g. She has previous history of drowsy driving before her first sleep study. She thinks she gets 4 hours of sleep per night. She is a night owl and goes to bed between 1 and 3 AM. She also has PTSD, and depression and has difficulty relaxing her mind. She i s not sure how long but it takes a while for her to fall asleep. Once asleep, she wakes up several times. She says she wakes up between 2 and 11 times at night for urination. she do es not drink much liquids after 6 PM. she doesn't have difficulty falling back asleep, but she has frequent awakenings. She also has frequent nightmares, some of them about not being able to breathe. During the day, she dozes off often in her recliner. She has been told that she has night terrors though she is an adult. Every couple of weeks , she screams in sleep, and she cannot recall anything when her wakes her up. She a lso has history of thrashing in bed, but she cannot recall any dreams when she wakes up. Do es not sleepwalk. ? [place]scoda Sleepiness Scale: 14 out of 24 ( score >11 clinnically significant for sleepiness ). ? Patient reports drowsy driving. She does not drive currently. ? - Insomnia Severity Index Score: 23 out of 28, suggesting severe insomnia. 0-7 no clinically significant. 8-14 subthreshold insomnia 15-21 moderate insomnia 22-28 severe insomnia ADDITIONAL DATA: ? Bocanegra Depression Inventory: 18, consistent with mild depression ? Bocanegra Anxiety Inventory:44, consistent with severe anxiety SF-36v2: significant decline in all subscales PAST MEDICAL HISTORY Past Medical History: Diagnosis Date Anemia Anxiety Arthritis Complication of anesthesia Depression Environmental allergies Fibromyalgia Gastric polyps GERD (gastroesophageal reflux disease) Heart murmur Hyperlipidemia Hypertension Hypothyroidism Hypoxemia Sleep related Irritable bowel Neuromuscular disorder (HCC) fibromyalga NSTEMI, initial episode of care ([facility]) 10/16/2016 Sleep apnea Spinal stenosis of lumbar region Vitamin D deficiency PAST SURGICAL HISTORY Past Surgical History: Procedure Laterality Date BREAST BIOPSY BREAST SURGERY cyst removal CARDIAC CATHERIZATION N/A 10/16/2016 Procedure: CV Cor Angio; Surgeon: Scarlet Altman MD; Location: [facility] CV LAB COLONOSCOPY EYE SURGERY lasik GASTRIC FUNDOPLICATION Laparoscopic HYSTERECTOMY Vaginal, with ovaries intact UPPER GASTROINTESTINAL ENDOSCOPY VEIN SURGERY Stripped varicose vein ALLERGIES Allergies Allergen Reactions Tramadol Swelling Swelling of the throat and [...] Antibiotics Nausea Only Amitriptyline Palpitations Weight gain CURRENT MEDICATIONS Prior to Admission medications Medication Sig Start Date End Date Taking? Authorizing Provider aspirin 81 mg chewable tablet Take 81 mg by mouth every evening. 10/17/16 Yes Scarlet caldwell MD carvedilol (COREG) 6.25 mg tablet 6.25 mg in AM and 12.5 mg in Pm. 04/16/17 Yes Shane Bates MD clonazePAM (KLONOPIN) 1 mg tablet take 1 tablet by mouth three times a day if needed Yes Kate Patel NP clopidogrel (PLAVIX) 75 mg tablet Take 1 tablet by mouth Daily. 10/28/16 10/28/17 Yes Scarlet Altman MD cyclobenzaprine (FLEXERIL) 10 mg tablet Take 1 tablet by mouth 3 times daily as needed. 05/11 09/25 Yes Shane Bates MD gabapentin (NEURONTIN) 300 mg capsule Take 300-600 mg by mouth 3 times daily as needed (for back pain). 04/29/16 Yes Historical Provider, hydrOXYzine pamoate (VISTARIL) 25 mg capsule take 1 to 2 capsules by mouth every 6 hours if needed for ITCHING 05/11/17 Yes Historical Provider, levothyroxine (SYNTHROID, LEVOTHROID) 88 mcg tablet Take 1 tablet by mouth every morning (b efore breakfast). 10/17/16 Yes Scarlet Altman MD losartan (COZAAR) 100 MG tablet take 1 tablet by mouth once daily 05/25/17 Yes Shane Bates MD nitroglycerin (NITROSTAT) 0.[address] 1 tablet under the tongue every 5 minutes as needed for Chest pain. 10/17/16 Yes Scarlet Altman MD rosuvastatin (CRESTOR) 5 MG tablet take 1 tablet by mouth once daily 04/08/17 Yes Kate Patel NP sulfamethoxazole-trimethoprim (BACTRIM DS) 800-160 mg per tablet take 2 tablets by mouth tw ice a day for 10 days 05/11/17 Yes Historical Provider, SOCIAL HISTORY - Lives with her . - ETOH: Usually drinks 1 shot of Vodka in the evening - Smoking: Quit smoking at age 21. - Caffeine: 11/2 cup of coffee in the morning. - Exercise: none - Eating habits: homemade foods, but eats a lot of wheat, and some vegetables. FAMILY HISTORY Her father snored heavily. REVIEW OF SYSTEMS Constitutional: + fatigue ENT: No nasal or sinus congestion. Card: No palpitation Resp: + SOB on exertion GI: + Diarrhea, bloating and constipation : + nocturia MS: + back pain Neuro: + headaches Psych: + anxiety Heme: + easy bruising PHYSICAL EXAMINATION BP 110/70 | Pulse 57 | Resp 16 | Ht 1.6 m (5' 3") | Wt 81.8 kg (180 lb 5.4 oz) | SpO2 97% | BMI 31.95 kg/m Neck circumference inches: 13 GEN: Well developed well nourished, pleasant, NAD HEENT: Sclerae anicteric. No ptosis.. Oropharyngeal exam reveals Modified Mallampati grade3 airway with 1+ tonsils. Tongue does not have scalloping. Patient does not have a high arc hed palate. CV: RRR, no m/r/g RESP: CTAB, no w/r/r EXT: No clubbing/cyanosis. NEURO: A&Ox3, speech fluent. face symmetric, uvula/tongue midline. . Normal casual gait. PSYCH: Appropriate affect. ASSESSMENT AND PLAN 66 y.o. year female old with history of fibromyalgia, non-ST elevation [place] in October 2016 sta tus post 1 stent placement, hypertension, hypercholesterolemia, PTSD, depression, insomnia, and obstructive sleep apnea presenting for reevaluation of her sleep apnea. NADIR: she has previous diagnosis of obstructive sleep apnea which is not treated at this ti az. She continues to have several symptoms and risk factors. I discussed theses, and the p athophysiology of sleep apnea today, associated risks including heart attack and stroke with untreated severe sleep apnea, and association between obstructive sleep apnea and hypertens ion, insulin resistance and diabetes, GERD, headaches, and mood and memory problems. I thin k since her original study is old, and since she had a recent heart attack, it's reasonable to repeat her sleep study and reevaluate her sleep apnea. She is in agreement with this. Today, I ordered a Split-night polysomnography. I also discussed treatment options for slee p apnea, including CPAP (gold standard), and supplemental oxygen if necessary. An appointme nt will be made a few days after the sleep study so that we can discuss the results of the s [facility] study with patient. she has chronic insomnia, and she has high anxiety level. I will reevaluate her insomnia o nce her sleep apnea is t she appears to have occasional dream enactment, though she cannot recall any dreams. It c ould be just right first toe it's not common in adults, or it could be related to her PTSD. sleep study will show if she has REM without atonia. The issue of sleep safety was discusse d. I recommended removal or padding of furniture with sharp edges in the bedroom to prevent injury and locking doors and windows at night as well as applying noise making devices to do ors and windows to minimize the likelihood of inadvertently leaving the sleeping area or zia e. Thank you for the opportunity to participate in this patient's care. Portions of this chart may have been created with [employer] voice recognition software. Occasi onal wrong-word or sound-alike substitutions may have occurred due to the inherent higgins itations of voice recognition software. Please read the chart carefully and recognize, using context, where these substitutions have occurred. Leatha Weaver, Barrel Burner - 05/27/2017 1400 PSTFormatting of this note may be differen t from the original. 05/27/17 1300 Bocanegra Depression Inventory-II Depression Score 18 - Mild depression Insomnia Severity Index Insomnia Severity Index 23 Oscoda Sleepiness Scale Sitting and reading 0 Watching TV 2 Sitting, inactive in a public place (e.g. a theatre or a meeting) 3 As a passenger in a car for an hour without a break 3 Lying down to rest in the afternoon when circumstances permit 3 Sitting and talking to someone 1 Sitting quietly after a lunch without alcohol 1 In a car, while stopped for a few minutes in traffic 1 Total score 14 SF-36v2 Score PF 36.49 RP 32.46 BP 34.18 GH 36.54 VT 22.89 SF 22.25 RE 14.39 MH 32.56 PCS 39.86 MCS 19.25 in this encounter Plan of Treatment +--------+---------+ + + + | Date | Type | Specialty | Care Team | Description | +--------+---------+ + + + | 09/07/ | Office | Sleep Medicine | Bubba Weller PA | | | 2017 | Visit | | [address] | | | | | | [place] | | | | | | [id number] | | | | | | | | +--------+---------+ + + + | 10/21/ | Office | Primary Care | PauloShane | | | 2017 | Visit | | MD Mark [address] | | | | | | [address] [place], | | | | | | [place] [address] | | | | | | [phone] | | | | | | | | +--------+---------+ + + + + +--------+ + + | Name | Priori | Associated Diagnoses | Order Schedule | | | ty | | | + +--------+ + + | * [facility] - AMB Referral | Routin | NADIR (obstructive | Ordered: 05/27/2017 | | | e | sleep apnea) | | + +--------+ + + as of this encounter Visit Diagnoses + + | Diagnosis | + + | NADIR (obstructive sleep apnea) - Primary | + + | Obstructive sleep apnea (adult) (pediatric) | + +
--- OUTSIDE RECORDS SUMMARY | ~2017-08-21 | XMS | Encounter Summary ---
Demographics + + + | Address | [address] [place] [address] | | | [place] [address] | + + + | Home Phone [...] Author | [facility] Renee | | | [...] [place] | | | | | [address] | | + + + + + Care Team Providers + +------+ + | Care Meal Grinder Tender Name | Role | Phone | + [...] | | PAIN | [place], [place] | [address] | | | | | Procedures | [address] | Phone: | | | | | OFFICE VISIT | Phone: | [phone] | | | | | | [phone] | Fax: | | | | | | Fax: | [phone] | | | | | | [phone] | | +--------+ + + + + [...] | | 2018 | Visit | [facility] | MD Mark [address] | fibrillation (HCC) | | | | [facility] [address] [place], | (Primary Dx); | | | | [address] [place], | [place] [address] | Coronary artery | | | | [place] [address] | [phone] | disease involving | | | | [phone] | | [place] coronary | | | | | | artery of [place] | | | | | | heart [...] by mouth twice a day Referral to Paper Core Machine Operator in [place]. She will find out who she would like to see, and let me know. 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 Orders: - AMB Referral to [facility] in this encounter Progress Notes Shane [...] by mouth twice a day Referral to Paper Core Machine Operator in [place]. She will find out who she would like to see, and let me know. 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 Orders: - AMB Referral to [facility] Return in about 2 months (around 08/13/2017). Subjective: Tameka was hospitalized at [facility] on 06/05/17 with paroxysmal atrial [...] wer e puffy due to Gabapentin. Her [id number] score is 4 (age, HTN, vascular disease) reflectin g an annual stroke rate of 4.8%. Her HASBLED score of 2 represents a bleeding risk of 4.1% per year, so Dr. Bentley called her brineyard supervisor to discuss the question of anticoagulation fo r stroke prophylaxis. After discussing the situation with Dr. Villatoro, he recommended contin uing Plavix, stopping Aspirin and beginning Eliquis 5 mg by mouth twice a day (options of [place] rfarin versus Eliquis were discussed with her). She has never seen Dr. Villatoro, and would li ke to be seen at a cardiology clinic in [place] on [facility]. She has had arrhythmias , but not [...] DDD NSTEMI 10/15/16 Paroxysmal atrial fibrillation 1/26/18 [id number] score is 4 (age, HTN, vascular disease) [...] [place] | | | | | | [address] | | | | | | | | +--------+---------+ + + + | 10/21/ | Office | Primary Care | Shane Bates | | | 2017 | Visit | | MD Mark [address] | | | | | | [place], | | | | | | [place] [address] | | | | | | [phone] | | | | | | | [...] + + | Coronary artery disease involving on[place] coronary artery of [place] heart with angina | | pectoris (HCC) | + + | Essential hypertension | + + | Unspecified essential hypertension | + + | Hypothyroidism, unspecified type | + + | Fibromyalgia | + + | Mylagia and myositis, unspecified | + + | Chronic pain of both knees | + +"
--- OUTSIDE RECORDS SUMMARY | ~2017-08-21 | XMS | Encounter Summary ---
Demographics + + + | Address | [address] [place] [address] | | | [place] [address] | + + + | Home Phone | | + + + | Preferred Language | Unknown | + + + | Marital Status | | + + + | Samaritan Affiliation | 1013 | + + + | Race | Unknown | + + + | Ethnic Group | Unknown | + + + Author + + + | Author | [facility] | | | and Darrelana | + + + | Organization | [facility] | | [...] [place] | | | | | [address] | | + + + + + Care Team Providers + +------+ + | Care Stud Setter Name | Role | Phone | + [...] | | | MED[facility] CLIN[facility] [address] | [facility] [place], | | | | | [address]TH [facility] [place], | [place] [address] | | | | | [place] [address] | [phone] | | | | | [phone] | | | +--------+--------+ + + + [...] [place] | | | | | | [id number] | | | | | | | | +--------+---------+ + + + | 10/21/ | Office | Primary Care | Shane Bates | | | 2017 | Visit | | MD Mark [address] | | | | | | [place], | | | | | | [place] [address] | | | | | | [phone] | | | | | | | | +--------+---------+ + + + as of this encounter Visit Diagnoses Not on filein this encounter"
--- OUTSIDE RECORDS SUMMARY | ~2017-08-21 | XMS | Encounter Summary ---
Demographics + + + | Address | [address] [place] [address] | | | [place] [address] | + + + | Home Phone [...] | [facility] | | | and [place]rel[place] [...] [place] | | | | | [address] | | + + + + + Care Team Providers + +------+ + | Care Agri Business Agent Name | Role | Phone | + [...] | | | MEDICAL CLINIC [address] | [facility] [place], | | | | | 4TH [facility], | [place] [address] | | | | | [place] [address] | [phone] | | | | | [phone] | | | +--------+--------+ + + + [...] [place] | | | | | | 560972 | | | | | | | | +--------+---------+ + + + | 10/21/ | Office | Primary Care | Shane Bates | | | 2017 | Visit | | MD Mark [address] | | | | | | [place], | | | | | | [place] [address] | | | | | | [phone] | | | | | | | | +--------+---------+ + + + as of this encounter Visit Diagnoses Not on filein this encounter"
--- OUTSIDE RECORDS SUMMARY | ~2017-08-21 | XMS | Encounter Summary ---
Demographics + + + | Address | [address] [place] [address] | | | [place] [address] | + + + | Home Phone | | + + + | Preferred Language | Unknown | + + + | Marital Status | | + + + | Rastafarian Affiliation | 1013 | + + + | Race | Unknown | + + + | Ethnic Group | Unknown | + + + Author + + + | Author | [facility] | | | and Darrelana | + + + | Organization | [facility] | | | [...] [place] | | | | | [address] | | + + + + + Care Team Providers + +------+ + | Care Organ Assembler Name | Role | Phone | + +------+ + | Shane Bates MD | PCP | | + +------+ + Reason for Visit +--------+ + | Reason | Comments | +--------+ + | Other | Please call | +--------+ + Encounter Details +--------+ + + + + | Date | Type | Department | Care Team | Description | +--------+ + + + + | 06/24/ | Telephone | [place] [facility] | Shane Bates | Other (Please call ) | | 2018 | | [facility] | MD Mark [address] | | | | | MEDICAL CLINIC [address] | [address] [place], | | | | | 4TH [facility], | [place] [address] | | | | | [place] [address] | [phone] | | | | | [phone] | | | +--------+ + + + [...] [place] | | | | | | [id number] | | | | | | | | +--------+---------+ + + + | 10/21/ | Office | Primary Care | Shane Bates | | | 2017 | Visit | | MD Mark [address] | | | | | | [place], | | | | | | [place] [address] | | | | | | [phone] | | | | | | | | +--------+---------+ + + + + +--------+ + + | Name | Priori | Associated Diagnoses | Order Schedule | | | ty | | | + +--------+ + + | Culture, Strep A, Throat | Routin | Pharyngitis, | 1 Occurrences | | | e | unspecified etiology | starting 06/24/2017 | | | | | until 06/24/2018 | + +--------+ + + as of this encounter Visit Diagnoses + + | Diagnosis | + + | Pharyngitis, unspecified etiology - Primary | + +"
--- OUTSIDE RECORDS SUMMARY | ~2017-08-21 | XMS | Encounter Summary ---
Demographics + + + | Address | [address] [place] [address] | | | [place] [address] | + + + | Home Phone [...] | Author | [facility] | [...] [place] | | | | | [address] | | + + + + + Care Team Providers + +------+ + | Care Repairer Hairspring Name | Role | Phone | + [...] Medication Refill | | 2017 | | [facility] | [address] [place] | | | | | MEDICAL CLIN[facility] [address] | [facility], [place] | | | | | [address] [facility], | [address] | | | | | [place] [address] | [phone] | | | | | [phone] | | | +--------+--------+ + + + [...] | | | | | [place] | | | | | | [address] | | | | | | | | +--------+---------+ + + + | 10/21/ | Office | Primary Care | Shane Bates | | | 2017 | Visit | | MD Mark [address] | | | | | | [place], | | | | | | [place] [address] | | | | | | [phone] | | | | | | | | +--------+---------+ + + + as of this encounter Visit Diagnoses Not on filein this encounter"
--- OUTSIDE RECORDS SUMMARY | ~2017-08-21 | XMS | Encounter Summary ---
Demographics + + + | Address | [address] [place] [address] | | | [place] [address] | + + + | Home Phone | | + + + | Preferred Language | Unknown | + + + | Marital Status | | + + + | Holiness Affiliation | 1013 | + + + | Race | Unknown | + + + | Ethnic Group | Unknown | + + + Author + + + | Author | [facility] | | | and Darrelana | + + + | Organization | [facility] | [...] [place] | | | | | [address] | | + + + + + Care Team Providers + +------+ + | Care Coil Strapper Name | Role | Phone | + [...] | (obstructive | [address] | [place] | | | | | sleep | [address] [place] | [place], | | | | | apnea) | [place], [place] | [place] [address] | | | | | Procedures | [address] | Phone: | | | | | [place] POL[place] | Phone: | [phone] | | | | | 6/>YRS SLEEP | [phone] | Fax: | | | | | W/CPAP 4/> | Fax: | [phone] | | | | | ADDL COLETTE | [phone] | | | | | | ATTND [...] / | (adult) | [address] | [facility] | | | | Sleep | (pediatric) | [address] | [place] | | | | Medicine | CONSULT YRS | [place] | [address] Phone: | | | | | AGO [address] | [address] | [phone] | | | | | NO CPAP | Phone: | Fax: | | | | | Procedures | [phone] | [phone] | | | | | NEW PATIENT | Fax: | | | | | | | [phone] | | +--------+--------+ + + + + Encounter Details +--------+---------+ + + + | Date | Type | Department | Care Team | Description | +--------+---------+ + + + | 05/27/ | Office | [facility] | Carla [place] MD | NADIR (obstructive | | 2018 | Visit | SLEEP DISORDER [address] | [address] | sleep apnea) | | | | [place] | [place] | (Primary Dx) | | | | [place] [address] | [address] | | | | | [phone] | | | +--------+---------+ + + + [...] the night, making your sleep fragmentedwith a light equipment operator stage of sleep. Even though you do not remember waking up many times during the night to a light equipment operator sleep, you fee l tired the next [...] when you re asleep. Date Last Reviewed: 11/25/201419995667-4988 [employer] [place] [address]. All righ ts reserved. This information is [...] types of CPAP. Your doctor or CPAP document management technician will help you decide whic h [...] sleep stage, and snoring. Date Last Reviewed: 12/18/201419994231-3078 [employer]. [address] [place] [address], [place] [address]. All righ ts reserved. This information is [...] with history of fibromyalgia, non-ST elev ation [place] in October 2016 status post 1 stent placement, hypertension, hypercholesterolemia, PTS D, depression, insomnia, and obstructive sleep apnea presenting for reevaluation of her slee p apnea. she doesn't sleep well, and since she also has had heart attack, her primary care doctor re commended treatment of her sleep apnea. Also, she says her echocardiography showed pulmonar y hypertension, and her splicing machine operator automatic told her that it's likely due to [...] she had a second sleep study in [facility] about 15 years ago. She says she tried CPAP for 5 years, but then she lost her insuranc e and didn't follow up. She thinks it was helping her to sleep better. She says she had a sleep study at [place] in September 2016, and she had hypoxemia [...] wakes up. Do es not sleepwalk. ? [place] Sleepiness Scale: 14 out of 24 ( [...] fibromyalga NSTEMI, initial episode of care ([facility]) 10/16/2016 Sleep apnea Spinal stenosis of lumbar region Vitamin D deficiency PAST SURGICAL HISTORY Past Surgical History: Procedure Laterality Date BREAST BIOPSY BREAST SURGERY cyst removal CARDIAC CATHERIZATION N/A 10/16/2016 Procedure: CV Cor Angio; Surgeon: Scarlet Altman MD; Location: [facility] CV LAB COLONOSCOPY EYE SURGERY lasik [...] old with history of fibromyalgia, non-ST elevation [place] in October 2016 sta tus post 1 stent placement, hypertension, hypercholesterolemia, PTSD, depression, insomnia, and obstructive sleep apnea presenting for reevaluation of her sleep apnea. NADIR: she has previous diagnosis of obstructive sleep apnea which is not treated at this ti hi. She continues to have several symptoms and [...] can discuss the results of the s [facility] study with patient. she has [...] this chart may have been created with [employer] voice recognition software. Occasi onal wrong-word or sound-alike substitutions may have occurred due to the inherent higgins itations of voice recognition software. Please read the chart carefully and recognize, using context, where these substitutions have occurred. Leatha Weaver, Rehabilitation Services Director - 05/27/2017 1400 PSTFormatting of this note may be differen t from the original. 05/27/17 1300 Bocanegra Depression Inventory-II Depression Score 18 - Mild depression Insomnia Severity Index Insomnia Severity Index 23 [place] Sleepiness Scale Sitting and reading 0 Watching [...] [place] | | | | | | [id number] | | | | | | | | +--------+---------+ + + + | 10/21/ | Office | Primary Care | PauloShane | | | 2017 | Visit | | MD Mark [address] | | | | | | [address] [place], | | | | | | [place] [address] | | | | | | [phone] | | | | | | | | +--------+---------+ + + + + +--------+ + + | Name | Priori | Associated Diagnoses | Order Schedule | | | ty | | | + +--------+ + + | * [facility] - AMB Referral | [...]
--- OUTSIDE RECORDS SUMMARY | ~2017-08-21 | XMS | Encounter Summary ---
Demographics + + + | Address | [address] [place] [address] | | | [place] [address] | + + + | Home Phone | | + + + | Preferred Language | Unknown | + + + | Marital Status | | + + + | Congregation Affiliation | 1013 | + + + | Race | Unknown | + + + | Ethnic Group | Unknown | + + + Author + + + | Author | [facility] | | [...] [place] | | | | | [address] | | + + + + + Care Team Providers + +------+ + | Care Overseer Kosher Kitchen Name | Role | Phone | + [...] | | | MEDICAL CLINIC [address] | [facility], [place] | | | | | [address] [place], | [address] | | | | | [place] [address] | [phone] | | | | | [phone] | | | +--------+--------+ + + + [...] [place] | | | | | | [address] | | | | | | | | +--------+---------+ + + + | 10/21/ | Office | Primary Care | Shane Bates | | | 2017 | Visit | | MD Mark [address] | | | | | | [place], | | | | | | [place] [address] | | | | | | [phone] | | | | | | | | +--------+---------+ + + + as of this encounter Visit Diagnoses Not on filein this encounter"
--- OUTSIDE RECORDS SUMMARY | ~2017-08-21 | XMS | Encounter Summary ---
Demographics + + + | Address | [address] [place] [address] | | | [place] [address] | + + + | Home Phone | | + + + | Preferred Language | Unknown | + + + | Marital Status | | + + + | Presybeterian Affiliation | 1013 | + + + | Race | Unknown | + + + | Ethnic Group | Unknown | + + + Author + + + | Author | [facility] | | | and Darrelana | + + + | Organization | [facility] | | | [...] [place] | | | | | [address] | | + + + + + Care Team Providers + +------+ + | Care Driller Portable Name | Role | Phone | + [...] Medication Refill | | 2017 | | [facility] | [address] | | | | | MEDICAL CLIN[address] | [facility], [place] | | | | | [address] [facility], | [address] | | | | | [place] [address] | [phone] | | | | | [phone] | | | +--------+--------+ + + + [...] [place] | | | | | | [address] | | | | | | | | +--------+---------+ + + + | 10/21/ | Office | Primary Care | Shane Bates | | | 2017 | Visit | | MD Mark [address] | | | | | | [place], | | | | | | [place] [address] | | | | | | [phone] | | | | | | | | +--------+---------+ + + + as of this encounter Visit Diagnoses Not on filein this encounter"
--- OUTSIDE RECORDS SUMMARY | ~2017-08-21 | XMS | Encounter Summary ---
Demographics + + + | Address | [address] [place] [address] | | | [place] [address] | + + + | Home Phone | | + + + | Preferred Language | Unknown | + + + | Marital Status | | + + + | Voodoo Affiliation | 1013 | + + + | Race | Unknown | + + + | Ethnic Group | Unknown | + + + Author + + + | Author | [facility] | | | and [...] [place] | | | | | [address] | | + + + + + Care Team Providers + +------+ + | Care Employment Supervisor Name | Role | Phone | [...] | MEDICAL CLINIC [address] | [facility] [place], | | | | | 4TH [facility], | [place] [address] | | | | | [place] [address] | [phone] | | | | | [phone] | | | +--------+--------+ + + + [...] [place] | | | | | | 929122 | | | | | | | | +--------+---------+ + + + | 10/21/ | Office | Primary Care | Shane Bates | | | 2017 | Visit | | MD Mark [address] | | | | | | [place], | | | | | | [place] [address] | | | | | | [phone] | | | | | | | | +--------+---------+ + + + as of this encounter Visit Diagnoses Not on filein this encounter"
--- OUTSIDE RECORDS SUMMARY | ~2017-08-21 | XMS | Encounter Summary ---
Demographics + + + | Address | [address] [place] [address] | | | [place] [address] | + + + | Home Phone | | + + + | Preferred Language | Unknown | + + + | Marital Status | | + + + | Jainism Affiliation | 1013 | + + + | Race | Unknown | + + + | Ethnic Group | Unknown | + + + Author + + + | Author | [facility] | | | and [place] | + + + | Organization | [facility] | | | and [place] | + + + | Address | Unknown | + + + | Phone | Unavailable | + + + Support + + + + + | Name | Relationship | Address | Phone | + + + + + | Rashaun Escudero | ECON | [address] [facility] | | | | | [place] | | | | | [address] | | + + + + + Care Team Providers + +------+ + | Care Drier Attendant Name | Role | Phone | + +------+ + | Shane Bates MD | PCP | | + +------+ + Encounter Details +--------+ + + + + | Date | Type | Department | Care Team | Description | +--------+ + + + + | 07/10/ | Amalia | [facility] | Wil[facility] [place], | | | 2018 | Encounter | HOSPITAL | [address] | | | | | ORTHOPAEDICS XRAY | [place] | | | | | [address] [place] | [address] | | | | | [place] | | | | | | [address] | | | | | | [phone] | | | +--------+ + + + [...] capsule by | 90 | 3 | 07/06/19 | | | 24 hr capsule | mouth at bedtime | capsule | | 18 | | + + [...] day | tablet | | 18 | | + + [...] tablet by | 30 | 2 | 06/30/19 | | | (CRESTOR) 5 MG | mouth once daily | tablet | | 18 | | | tablet | | | | | | + + +---------+---------+ + + | carvedilol (COREG) | take 1 tablet by | 90 | 2 | 07/07/19 | | | 6.25 mg tablet | mouth every morning | tablet | | 18 | 8 | | | and take 2 tablets | | | | | | | by mouth every | | | | | | | evening | | | | | + + +---------+---------+ + + | clonazePAM | take 1 tablet by | 90 | 0 | 06/25/19 | | | (KLONOPIN) 1 mg | [...] [place] | | | | | | [id number] | | | | | | | | +--------+---------+ + + + | 10/21/ | Office | Primary Care | Shane Bates | | | 2017 | Visit | | MD Mark [address] | | | | | | [place], | | | | | | [place] [address] | | | | | | [phone] | | | | | | | | +--------+---------+ + + + as of this encounter Visit Diagnoses Not on filein this encounter"
--- OUTSIDE RECORDS SUMMARY | ~2017-08-21 | XMS | Encounter Summary ---
Demographics + + + | Address | [address] [place] [address] | | | [place] [address] | + + + | Home Phone | | + + + | Preferred Language | Unknown | + + + | Marital Status | | + + + | Quaker Affiliation | 1013 | + + + | Race | Unknown | + + + | Ethnic Group | Unknown | + + + Author + + + | Author | [facility] | | | and [place] | + + + | Organization | [facility] | | | [...] [place] | | | | | [address] | | + + + + + Care Team Providers + +------+ + | Care Buncher Machine Name | Role | Phone | + [...] | | | MEDICAL CLINIC [address] | [facility] [place], | | | | | 4TH [facility], | [place] [address] | | | | | [place] [address] | [phone] | | | | | [phone] | | | +--------+--------+ + + + [...] | | | | | [place] | | | | | | [address] | | | | | | | | +--------+---------+ + + + | 10/21/ | Office | Primary Care | Shane Bates | | | 2017 | Visit | | MD Mark [address] | | | | | | [place], | | | | | | [place] [address] | | | | | | [phone] | | | | | | | | +--------+---------+ + + + as of this encounter Visit Diagnoses Not on filein this encounter"
--- OUTSIDE RECORDS SUMMARY | ~2017-08-21 | XMS | Encounter Summary ---
Demographics + + + | Address | [address] [place] [address] | | | [place] [address] | + + + | Home Phone [...] + | Author | [facility] | | | and [place] | + + + | Organization | [facility] | | | and [...] [place] | | | | | [address] | | + + + + + Care Team Providers + +------+ + | Care Traffic Rate Computer Name | Role | Phone | + [...] Description | +--------+--------+ + + + | 06/09/ | Refill | [facility] | Shane Bates | Medication Refill | | 2017 | | [facility] | MD Mark [address] | | | | | MEDICAL CL[facility] [address] | [facility] [place], | | | | | [address]TH [facility], | [place] [address] | | | | | [place] [address] | [phone] | | | | | [phone] | | | +--------+--------+ + + + [...] [place] | | | | | | [address] | | | | | | | | +--------+---------+ + + + | 10/21/ | Office | Primary Care | Shane Bates | | | 2017 | Visit | | MD Mark [address] | | | | | | [place], | | | | | | [place] [address] | | | | | | [phone] | | | | | | | | +--------+---------+ + + + as of this encounter Visit Diagnoses Not on filein this encounter"
--- OUTSIDE RECORDS SUMMARY | ~2017-08-21 | XMS | Encounter Summary ---
Demographics + + + | Address | [address] [place] [address] | | | [place] [address] | + + + | Home Phone [...] Author | [facility] [...] [place] | | | | | [address] | | + + + + + Care Team Providers + +------+ + | Care Motorcoach Driver Name | Role | Phone | [...] | MEDICAL CLIN[facility] [address] | [facility] [place], | | | | | [address]TH [facility], | [place] [address] | | | | | [place] [address] | [phone] | | | | | [phone] | | | +--------+--------+ + + + [...] | | | | | [place] | | | | | | [address] | | | | | | | | +--------+---------+ + + + | 10/21/ | Office | Primary Care | Shane Bates | | | 2017 | Visit | | MD Mark [address] | | | | | | [place], | | | | | | [place] [address] | | | | | | [phone] | | | | | | | | +--------+---------+ + + + as of this encounter Visit Diagnoses Not on filein this encounter"
--- OUTSIDE RECORDS SUMMARY | ~2017-08-21 | XMS | Encounter Summary ---
Demographics + + + | Address | [address] [place] [address] | | | [place] [address] | + + + | Home Phone | | + + + | Preferred Language | Unknown | + + + | Marital Status | | + + + | Yarsanism Affiliation | 1013 | + + + | Race | Unknown | + + + | Ethnic Group | Unknown | + + + Author + + + | Author | [facility] | | | and [place] | + + + | Organization | [facility] | | [...] [place] | | | | | [address] | | + + + + + Care Team Providers + +------+ + | Care Assisted Living Nursing Director Name | Role | Phone | + [...] | | | MEDICAL CLIN[facility] [address] | [facility] [place], | | | | | 4TH [facility], | [place] [address] | | | | | [place] [address] | [phone] | | | | | [phone] | | | +--------+--------+ + + + [...] [place] | | | | | | [address] | | | | | | | | +--------+---------+ + + + | 10/21/ | Office | Primary Care | Shane Bates | | | 2017 | Visit | | MD Mark [address] | | | | | | [place], | | | | | | [place] [address] | | | | | | [phone] | | | | | | | | +--------+---------+ + + + as of this encounter Visit Diagnoses Not on filein this encounter"
--- OUTSIDE RECORDS SUMMARY | ~2017-08-21 | XMS | Encounter Summary ---
Demographics + + + | Address | [address] [place] [address] | | | [place] [address] | + + + | Home Phone [...] | Author | [facility] | | | and [place] | + + + | Organization | [facility] | | | and [...] [place] | | | | | [address] | | + + + + + Care Team Providers + +------+ + | Care Tobacco Wrapping Machine Tender Name | Role | Phone | [...] | | MEDICAL CLINIC [address] | [facility] [place], | | | | | [address]TH [facility], | [place] [address] | | | | | [place] [address] | [phone] | | | | | [phone] | | | +--------+--------+ + + + [...] | | | | | [place] | | | | | | [address] | | | | | | | | +--------+---------+ + + + | 10/21/ | Office | Primary Care | Shane Bates | | | 2017 | Visit | | MD Mark [address] | | | | | | [place], | | | | | | [place] [address] | | | | | | [phone] | | | | | | | | +--------+---------+ + + + as of this encounter Visit Diagnoses Not on filein this encounter"
--- OUTSIDE RECORDS SUMMARY | ~2017-08-21 | XMS | Encounter Summary ---
Demographics + + + | Address | [address] [place] [address] | | | [place] [address] | + + + | Home Phone | | + + + | Preferred Language | Unknown | + + + | Marital Status | | + + + | Mandaen Affiliation | 1013 | + + + | Race | Unknown | + + + | Ethnic Group | Unknown | + + + Author + + + | Author | [facility] | | | and Darrelana | + + + | Organization | [facility] | | [...] [place] | | | | | [address] | | + + + + + Care Team Providers + +------+ + | Care Expansion Envelope Maker Hand Name | Role | Phone | [...] | | Procedures | | [address] | | | | | FUP - | | [place], | | | | | PREVIOUS JJP | | [place] | | | | | [place] | | [address] | | | | | | | Phone: | | | | | | | [phone] | | | | | | | Fax: | | | | | | | [phone] | +--------+--------+ + + + + Encounter Details +--------+---------+ + + + | Date | Type | Department | Care Team | Description | +--------+---------+ + + + | 02/15/ | Office | [facility] | Richard Bond MD | Coronary artery | | 2018 | Visit | CARDIOLOGY [address] | disease involving | | | | [place], | [place], [place] | [place] coronary | | | | [place] [address] | [address] | artery of [place] | | | | [phone] | | heart without angina | | [...] to try to establish with a visiting lead database administrator in [facility]. Her TSH was hi and is being regulated by primary MD. ASSESSMENT: PAF and CAD PLAN: Medication changes: None--advised her to discuss with her new lead database administrator to stop Plavix in 11/2017 and start [...] gain ROS Data found and reviewed in [facility]. Pertinent changes/review: See above. 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
--- OUTSIDE RECORDS SUMMARY | ~2017-08-21 | XMS | Encounter Summary ---
Demographics + + + | Address | [address] [place] [address] | | | [place] [address] | + + + | Home Phone | | + + + | Preferred Language | Unknown | + + + | Marital Status | | + + + | Rastafari Affiliation | 1013 | + + + | Race | Unknown | + + + | Ethnic Group | Unknown | + + + Author + + + | Author | [facility] | | | and Darrelana | + + + | Organization | [facility] | | [...] [place] | | | | | [address] | | + + + + + Care Team Providers + +------+ + | Care Double Backer Name | Role | Phone | + [...] | | | MED[facility] CL[facility] [address] | [facility] [place], | | | | | 4TH [facility], | [place] [address] | | | | | [place] [address] | [phone] | | | | | [phone] | | | +--------+--------+ + + + [...] [place] | | | | | | [address] | | | | | | | | +--------+---------+ + + + | 10/21/ | Office | Primary Care | Shane Bates | | | 2017 | Visit | | MD Mark [address] | | | | | | [place], | | | | | | [place] [address] | | | | | | [phone] | | | | | | | | +--------+---------+ + + + as of this encounter Visit Diagnoses Not on filein this encounter"
--- OUTSIDE RECORDS SUMMARY | ~2017-08-21 | XMS | Encounter Summary ---
Demographics + + + | Address | [address] [place] [address] | | | [place] [address] | + + + | Home Phone | | + + + | Preferred Language | Unknown | + + + | Marital Status | | + + + | Adventism Affiliation | 1013 | + + + | Race | Unknown | + + + | Ethnic Group | Unknown | + + + Author + + + | Author | [facility] | | | and [...] [place] | | | | | [address] | | + + + + + Care Team Providers + +------+ + | Care Fleet Manager Name | Role | Phone | [...] | MEDICAL CLIN[facility] [address] | [facility] [place], | | | | | 4TH [facility], | [place] [address] | | | | | [place] [address] | [phone] | | | | | [phone] | | | +--------+--------+ + + + [...] | | | | | [place] | | | | | | [address] | | | | | | | | +--------+---------+ + + + | 10/21/ | Office | Primary Care | Shane Bates | | | 2017 | Visit | | MD Mark [address] | | | | | | [place], | | | | | | [place] [address] | | | | | | [phone] | | | | | | | | +--------+---------+ + + + as of this encounter Visit Diagnoses Not on filein this encounter"
--- OUTSIDE RECORDS SUMMARY | ~2017-08-21 | XMS | Encounter Summary ---
Demographics + + + | Address | [address] [place] [address] | | | [place] [address] | + + + | Home Phone | | + + + | Preferred Language | Unknown | + + + | Marital Status | | + + + | Hoahaoism Affiliation | 1013 | + + + | Race | Unknown | + + + | Ethnic Group | Unknown | + + + Author + + + | Author | [facility] | | | and Darrelana | + + + | Organization | [facility] | | | [...] [place] | | | | | [address] | | + + + + + Care Team Providers + +------+ + | Care Optometric Coordinator Name | Role | Phone | + [...] | (obstructive | [address] | [place] | | | | | sleep | [place] | [place], | | | | | apnea) | [place], [place] | [place] [address] | | | | | Procedures | [address] | Phone: | | | | | MS POLYSOM | Phone: | [phone] | | | | | 6/>YRS SLEEP | [phone] | Fax: | | | | | W/CPAP 4/> | Fax: | [phone] | | | | | ADDL COLETTE | [phone] | | | | | | ATTND [...] / | (adult) | [address] | [facility] | | | | Sleep | (pediatric) | [address] | [place] | | | | Medicine | CONSULT YRS | [place], [place] | [address] Phone: | | | | | AGO [address] | [address] | [phone] | | | | | NO CPAP | Phone: | Fax: | | | | | Procedures | [phone] | [phone] | | | | | NEW PATIENT | Fax: | | | | | | | [phone] | | +--------+--------+ + + + + Encounter Details +--------+---------+ + + + | Date | Type | Department | Care Team | Description | +--------+---------+ + + + | 05/27/ | Office | [facility] | Carla [place] MD | NADIR (obstructive | | 2018 | Visit | SLEEP DISORDER [address] | [address] | sleep apnea) | | | | [address] [place] | [place] | (Primary Dx) | | | | [place] [address] | [address] | | | | | [phone] | | | +--------+---------+ + + + [...] the night, making your sleep fragmentedwith a senior staff psychologist stage of sleep. Even though you do not remember waking up many times during the night to a senior staff psychologist sleep, you fee l tired the next [...] when you re asleep. Date Last Reviewed: 11/25/201419997077-4290 [employer]. [address] [place] [address]. All righ ts reserved. This information is [...] types of CPAP. Your doctor or CPAP automotive service technician will help you decide whic h [...] sleep stage, and snoring. Date Last Reviewed: 12/18/201419996514-8057 [employer]. [address] [place] [address], [place] [address]. All righ ts reserved. This information is [...] with history of fibromyalgia, non-ST elev ation [place] in October 2016 status post 1 stent placement, hypertension, hypercholesterolemia, PTS D, depression, insomnia, and obstructive sleep apnea presenting for reevaluation of her slee p apnea. she doesn't sleep well, and since she also has had heart attack, her primary care doctor re commended treatment of her sleep apnea. Also, she says her echocardiography showed pulmonar y hypertension, and her interactive developer told her that it's likely due to [...] she had a second sleep study in [facility] about 15 years ago. She says she tried CPAP for 5 years, but then she lost her insuranc e and didn't follow up. She thinks it was helping her to sleep better. She says she had a sleep study at [place] in September 2016, and she had hypoxemia [...] wakes up. Do es not sleepwalk. ? [place] Sleepiness Scale: 14 out of 24 ( [...] (HCC) fibromyalga NSTEMI, initial episode of care ([facility]) 10/16/2016 Sleep apnea Spinal stenosis of lumbar region Vitamin D deficiency PAST SURGICAL HISTORY Past Surgical History: Procedure Laterality Date BREAST BIOPSY BREAST SURGERY cyst removal CARDIAC CATHERIZATION N/A 10/16/2016 Procedure: CV Cor Angio; Surgeon: Scarlet Altman MD; Location: [facility] CV LAB COLONOSCOPY EYE SURGERY lasik [...] old with history of fibromyalgia, non-ST elevation [place] in October 2016 sta tus post 1 stent placement, hypertension, hypercholesterolemia, PTSD, depression, insomnia, and obstructive sleep apnea presenting for reevaluation of her sleep apnea. NADIR: she has previous diagnosis of obstructive sleep apnea which is not treated at this ti ma. She continues to have several symptoms and [...] can discuss the results of the s [facility] study with patient. she has chronic insomnia, [...] this chart may have been created with Camero voice recognition software. Occasi onal wrong-word or sound-alike substitutions may have occurred due to the inherent higgins itations of voice recognition software. Please read the chart carefully and recognize, using context, where these substitutions have occurred. Leatha Weaver, Manufacturing Operator - 05/27/2017 1400 PSTFormatting of this note may be differen t from the original. 05/27/17 1300 Bocanegra Depression Inventory-II Depression Score 18 - Mild depression Insomnia Severity Index Insomnia Severity Index 23 Quincy Sleepiness Scale Sitting and reading 0 Watching [...] [place] | | | | | | [id number] | | | | | | | | +--------+---------+ + + + | 10/21/ | Office | Primary Care | PauloShane | | | 2017 | Visit | | MD Mark [address] | | | | | | [address] [place], | | | | | | [place] [address] | | | | | | [phone] | | | | | | | | +--------+---------+ + + + + +--------+ + + | Name | Priori | Associated Diagnoses | Order Schedule | | | ty | | | + +--------+ + + | * [facility] - AMB Referral | [...]
--- OUTSIDE RECORDS SUMMARY | ~2017-08-21 | XMS | Encounter Summary ---
Demographics + + + | Address | [address] [place] [address] | | | [place] [address] | + + + | Home Phone | | + + + | Preferred Language | Unknown | + + + | Marital Status | | + + + | Hinduism Affiliation | 1013 | + + + | Race | Unknown | + + + | Ethnic Group | Unknown | + + + Author + + + | Author | [facility] | | | and Darrelana | + + + | Organization | [facility] | | | [...] [place] | | | | | [address] | | + + + + + Care Team Providers + +------+ + | Care Trench Trimmer Fine Name | Role | Phone | + [...] Medication Refill | | 2018 | | [facility] | [address] | | | | | MEDICAL CLINIC [address] | [facility], [place] | | | | | [address] [facility], | [address] | | | | | [place] [address] | [phone] | | | | | [phone] | | | +--------+--------+ + + + [...] [place] | | | | | | [address] | | | | | | | | +--------+---------+ + + + | 10/21/ | Office | Primary Care | Shane Bates | | | 2017 | Visit | | MD Mark [address] | | | | | | [place], | | | | | | [place] [address] | | | | | | [phone] | | | | | | | | +--------+---------+ + + + as of this encounter Visit Diagnoses Not on filein this encounter"
--- OUTSIDE RECORDS SUMMARY | ~2017-08-21 | XMS | Encounter Summary ---
Demographics + + + | Address | [address] [place] [address] | | | [place] [address] | + + + | Home Phone | | + + + | Preferred Language | Unknown | + + + | Marital Status | | + + + | Nondenominational Affiliation | 1013 | + + + | Race | Unknown | + + + | Ethnic Group | Unknown | + + + Author + + + | Author | [facility] | | | and Darrelana | + + + | Organization | [facility] | | | [...] [place] | | | | | [address] | | + + + + + Care Team Providers + +------+ + | Care Continuous Process Machine Operator Name | Role | Phone [...] + | 08/03/ | Clinical | [facility] | Carla Cardoso MD | NADIR (obstructive | | 2018 | Support | SLEEP DISORDER [address] | [address] | sleep apnea) | | | | [address] [place] | [place] | (Primary Dx) | | | | [place] [address] | [address] | | | | | [phone] | | | +--------+ + + + [...] in 3 weeks with equipment Ryan Gomes [facility] CSE in this encounter Plan of Treatment +--------+---------+ + + + | Date | Type | Specialty | Care Team | Description | +--------+---------+ + + + | 09/07/ | Office | Sleep Medicine | Bubba Weller PA | | | 2017 | Visit | | [address] | | | | | | [place] | | | | | | [address] | | | | | | | | +--------+---------+ + + + | 10/21/ | Office | Primary Care | Shane Bates | | | 2017 | Visit | | MD Mark [address] | | | | | | [address] [place], | | | | | | [place] [address] | | | | | | [phone] | | | | | | | | +--------+---------+ + + + as of this encounter Visit Diagnoses + + | Diagnosis | + + | NADIR (obstructive sleep apnea) - Primary | + + | Obstructive sleep apnea (adult) (pediatric) | + +
--- OUTSIDE RECORDS SUMMARY | ~2017-08-21 | XMS | Encounter Summary ---
Demographics + + + | Address | [address] [place] [address] | | | [place] [address] | + + + | Home Phone | | + + + | Preferred Language | Unknown | + + + | Marital Status | | + + + | Yazdanism Affiliation | 1013 | + + + | Race | Unknown | + + + | Ethnic Group | Unknown | + + + Author + + + | Author | [facility] | | | and Darrelana | [...] [place] | | | | | [address] | | + + + + + Care Team Providers + +------+ + | Care Private Eye Name | Role | Phone | + [...] 2018 | | [facility] | MD Mrak [address] | | | | | MEDICAL CLINIC [address] | [address] [place], | | | | | 4TH [facility], | [place] [address] | | | | | [place] [address] | [phone] | | | | | [phone] | | | +--------+ + + + [...] [place] | | | | | | [id number] | | | | | | | | +--------+---------+ + + + | 10/21/ | Office | Primary Care | Shane Bates | | | 2017 | Visit | | MD Mark [address] | | | | | | [place], | | | | | | [place] [address] | | | | | | [phone] | | | | | | | [...]
--- OUTSIDE RECORDS SUMMARY | ~2017-08-21 | XMS | Encounter Summary ---
Demographics + + + | Address | [address] [place] [address] | | | [place] [address] | + + + | Home Phone | | + + + | Preferred Language | Unknown | + + + | Marital Status | | + + + | Quaker Affiliation | 1013 | + + + | Race | Unknown | + + + | Ethnic Group | Unknown | + + + Author + + + | Author | [facility] | | | and Darrelana | + + + | Organization | [facility] | | | [...] [place] | | | | | [address] | | + + + + + Care Team Providers + +------+ + | Care Manager Of International Name | Role | Phone | + [...] + + | 07/07/ | Office | [facility] | Carla Cardoso MD | NADIR (obstructive | | 2018 | Visit | SLEEP DISORDER [address] | [address] | sleep apnea) | | | | [place] | [place] | (Primary Dx); PTSD | | | | [place] [address] | [address] | (post-traumatic | | | | [phone] | | stress disorder) | +--------+---------+ + [...] with a history of fibromyalgia, non-ST elevation [place] in October 2016 status post 1 stent [...] She had a second sleep study in [place] about 15 years ago. She says she tried CPAP for 5 years, but then she lost her insurance and didn't follow up. She thinks it was helping her to sleep better. She says she had a sleep study at [facility] September 2016, and she had hypoxemia [...] breaths does not meet criteria for an compliance field technician ea or hypopnea. REVELANT MEDICATIONS: Gabapentin, clonazepam as needed. Patient took 3 gabapentin 300 mg at bedtime. The dose had been increased after her recent fall. SUBJECTIVE: The patient rated sleep quality during sleep study as much better. Global President note: patient agreed to sleep in bed [...] [place] | | | | | | [address] | | | | | | | | +--------+---------+ + + + | 10/21/ | Office | Primary Care | Shane Bates | | | 2017 | Visit | | MD Mark [address] | | | | | | [place], | | | | | | [place] [address] | | | | | | [phone] | | | | | | | [...]
--- OUTSIDE RECORDS SUMMARY | ~2017-08-21 | XMS | Encounter Summary ---
Demographics + + + | Address | [address] [place] [address] | | | [place] [address] | + + + | Home Phone [...] + | Author | [facility] | | | and Darrelana [...] [place] | | | | | [address] | | + + + + + Care Team Providers + +------+ + | Care Drapery Maker Name | Role | Phone | + [...] | | PAIN | [place], [place] | [address] | | | | | Procedures | [address] | Phone: | | | | | OFFICE VISIT | Phone: | [phone] | | | | | | [phone] | Fax: | | | | | | Fax: | [phone] | | | | | | [phone] | | +--------+ + + + + [...] | | [address] | [place], [place] | both knees (Primary | | | | [place], [place] | [address] | Dx); Chronic pain of | | | | [address] | | both knees | | | | [phone] | | | +--------+---------+ + + + [...] blood sugar is elevated. Date Last Reviewed: 01/09/201719998963-2181 [employer]. [address] [place] [address], [place] [address]. All righ ts reserved. This information is not intended as a substitute for professional medical care. Always follow your healthcare professional's instructions. in this encounter Progress Notes Wilber Hester MD - 07/10/2017 1400 PSTFormatting of this note may be different from th e original. [facility] Patient Name: Tameka Escudero | Age: 67 y.o. | : 1950 | Medical Record Number:[id number] | Author: Wilber Hester MD | Date [...] servic es at a facility other than [facility]. Time out to [...] (post-traumatic stress disorder) Coronary artery disease involving [place] coronary artery of [place] heart Hyperlipidemia Paroxysmal atrial fibrillation Hypothyroidism Fibromyalgia Chronic pain of both knees Degenerative arthritis of knee, bilateral Past Medical History: Past Medical History: Diagnosis Date Anemia Anxiety Arthritis Complication of anesthesia Depression Environmental allergies Fibromyalgia Gastric polyps GERD (gastroesophageal reflux disease) Heart murmur Hyperlipidemia Hypertension Hypothyroidism Hypoxemia Sleep related Irritable bowel Neuromuscular disorder (HCC) fibromyalga NSTEMI, initial episode of care ([facility]) 10/16/2016 Sleep apnea Spinal stenosis of lumbar region Vitamin D deficiency Past Surgical History: Past Surgical History: Procedure Laterality Date BREAST BIOPSY BREAST SURGERY cyst removal CARDIAC CATHERIZATION N/A 10/16/2016 Procedure: CV Cor Angio; Surgeon: Scarlet Altman MD; Location: [facility] CV LAB COLONOSCOPY EYE SURGERY lasik GASTRIC FUNDOPLICATION Laparoscopic HYSTERECTOMY Vaginal, with ovaries intact UPPER GASTROINTESTINAL ENDOSCOPY VEIN SURGERY Stripped varicose vein Family History Problem Relation Age of Onset Cancer Mother Type of cancer unknown Early Mother Heart attack Father [place] Other (see comment) Father snoring Early Father [...] their vital signs recorded by my assistant project engineer today, jose s found in this chart [...] [place] | | | | | | [address] | | | | | | | | +--------+---------+ + + + | 10/21/ | Office | Primary Care | Shane Bates | | | 2018 | Visit | | MD Mark [address] | | | | | | [address] [place], | | | | | | [place] [address] | | | | | | [phone] | | | | | | | [...]
--- OUTSIDE RECORDS SUMMARY | ~2017-08-21 | XMS | Encounter Summary ---
Demographics + + + | Address | [address] [place] [address] | | | [place] [address] | + + + | Home Phone [...] | Author | [facility] | | | and Darrelana [...] [place] | | | | | [address] | | + + + + + Care Team Providers + +------+ + | Care Utility Bill Collection Clerk Name | Role | Phone | [...] | | MEDICAL CLINIC [address] | [address] [place], | (Primary Dx); | | | | [address] [place], | [place] [address] | Coronary artery | | | | [place] [address] | [phone] | disease involving | | | | [phone] | | [place] coronary | | | | | | artery of [place] | | | | | | heart [...] & Plan: Controlled 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 Anticipate discontinuing Clopidogrel in 11/2017 and at that time continue ASA and Apixaban a s she currently is taking. 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 Anticipate discontinuing Clopidogrel in 11/2017 and at that time continue ASA and Apixaban a s she currently is taking. She knows of a senior pastor who comes to [place], and will get me information about them [...] currently, but she was advised by the Crystalizer Operator in [place] to discontinue Plavix and begin Aspirin 81mg PO daily in November,. She needs to est ablish care with a senior pastor. Hyperlipidemia: Her last lipid panel was 10/2016. [...] 2017 | Visit | | [address] | | | | | | [place] | | | | | | [address] | | | | | | | | +--------+---------+ + + + | 10/21/ | Office | Primary Care | Shane Bates | | | 2017 | Visit | | MD Mark [address] [facility] | | | | | | [place], | | | | | | [place] [address] | | | | | | [phone] | | | | | | | | +--------+---------+ + + + as of this encounter Results Lipid Panel (08/18/2017 8323) + + + + | Component | [...] | + + + | Blood | [facility] [address] | | | [place] [address] | + + + + + | [...] | + + + | Blood | [facility] [address] | | | [place] [address] | + + + in this encounter Visit Diagnoses + + | Diagnosis | + + | Essential hypertension - Primary | + + | Unspecified essential hypertension | + + | Coronary artery disease involving [place] coronary 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
--- OUTSIDE RECORDS SUMMARY | ~2017-08-21 | XMS | Encounter Summary ---
Demographics + + + | Address | [address] [place] [address] | | | [place] [address] | + + + | Home Phone | | + + + | Preferred Language | Unknown | + + + | Marital Status | | + + + | Episcopal Affiliation | 1013 | + + + | Race | Unknown | + + + | Ethnic Group | Unknown | + + + Author + + + | Author | [facility] | | | and Darrelana | + + + | Organization | [facility] | | | [...] [place] | | | | | [address] | | + + + + + Care Team Providers + +------+ + | Care National Business Director Name | Role | Phone | [...] + + | 06/10/ | Telephone | [facility] | Richard Bond MD | Records Request | | 2018 | | CARDIOLOGY [address] | | | | | [place], | [place], [place] | | | | | [place] [address] | [address] | | | | | [phone] | | | +--------+ + + + [...] [place] | | | | | | [address] | | | | | | | | +--------+---------+ + + + | 10/21/ | Office | Primary Care | Shane Bates | | | 2017 | Visit | | MD [address] | | | | | | [place], | | | | | | [place] [address] | | | | | | [phone] | | | | | | | | +--------+---------+ + + + as of this encounter Visit Diagnoses Not on filein this encounter"
--- OUTSIDE RECORDS SUMMARY | ~2017-08-21 | XMS | Encounter Summary ---
Demographics + + + | Address | [address] [place] [address] | | | [place] [address] | + + + | Home Phone [...] Author | [facility] | | [...] [place] | | | | | [address] | | + + + + + Care Team Providers + +------+ + | Care Third Loader Name | Role | Phone | + [...] | | | MED[facility] CL[facility] [address] | [facility] [place], | | | | | 4TH [facility], | [place] [address] | | | | | [place] [address] | [phone] | | | | | [phone] | | | +--------+--------+ + + + [...] [place] | | | | | | [address] | | | | | | | | +--------+---------+ + + + | 10/21/ | Office | Primary Care | Shane Bates | | | 2017 | Visit | | MD [address] | | | | | | [place], | | | | | | [place] [address] | | | | | | [phone] | | | | | | | | +--------+---------+ + + + as of this encounter Visit Diagnoses Not on filein this encounter"
--- OUTSIDE RECORDS SUMMARY | ~2017-08-21 | XMS | Encounter Summary ---
Demographics + + + | Address | [address] [place] [address] | | | [place] [address] | + + + | Home Phone | | + + + | Preferred Language | Unknown | + + + | Marital Status | | + + + | Moravian Affiliation | 1013 | + + + | Race | Unknown | + + + | Ethnic Group | Unknown | + + + Author + + + | Author | [facility] | | | and Darrelana | + + + | Organization | [facility] | | [...] [place] | | | | | [address] | | + + + + + Care Team Providers + +------+ + | Care Window Cleaner Name | Role | Phone | + [...] | | PAIN | [place], [place] | [address] | | | | | Procedures | [address] | Phone: | | | | | OFFICE VISIT | Phone: | [phone] | | | | | | [phone] | Fax: | | | | | | Fax: | [phone] | | | | | | [phone] | | +--------+ + + + + [...] | | [address] | [place], [place] | both knees (Primary | | | | [place] | [address] | Dx); Chronic pain of | | | | [address] | | both knees | | | | [phone] | | | +--------+---------+ + + + [...] blood sugar is elevated. Date Last Reviewed: 01/09/201719992609-5344 [employer]. [address] [place] [address], [place] [address]. All righ ts reserved. This information is not intended as a substitute for professional medical care. Always follow your healthcare professional's instructions. in this encounter Progress Notes Wilber Hester MD - 07/10/2017 1400 PSTFormatting of this note may be different from th e original. [facility] Patient Name: Tameka Escudero | Age: 67 y.o. | : 1950 | Medical Record Number:[id number] | Author: Wilber Hester MD | Date [...] servic es at a facility other than [facility]. Time out to verify correct patient, procedure [...] (post-traumatic stress disorder) Coronary artery disease involving northern chey[place] coronary artery of [place] heart Hyperlipidemia Paroxysmal atrial fibrillation Hypothyroidism Fibromyalgia Chronic pain of both knees Degenerative arthritis of knee, bilateral Past Medical History: Past Medical History: Diagnosis Date Anemia Anxiety Arthritis Complication of anesthesia Depression Environmental allergies Fibromyalgia Gastric polyps GERD (gastroesophageal reflux disease) Heart murmur Hyperlipidemia Hypertension Hypothyroidism Hypoxemia Sleep related Irritable bowel Neuromuscular disorder (HCC) fibromyalga NSTEMI, initial episode of care ([facility]) 10/16/2016 Sleep apnea Spinal stenosis of lumbar region Vitamin D deficiency Past Surgical History: Past Surgical History: Procedure Laterality Date BREAST BIOPSY BREAST SURGERY cyst removal CARDIAC CATHERIZATION N/A 10/16/2016 Procedure: CV Cor Angio; Surgeon: Scarlet Altman MD; Location: [facility] CV LAB COLONOSCOPY EYE SURGERY lasik GASTRIC FUNDOPLICATION Laparoscopic HYSTERECTOMY Vaginal, with ovaries intact UPPER GASTROINTESTINAL ENDOSCOPY VEIN SURGERY Stripped varicose vein Family History Problem Relation Age of Onset Cancer Mother Type of cancer unknown Early Mother Heart attack Father [place] Other (see comment) Father snoring Early Father [...] their vital signs recorded by my assistant reading teacher today, jose s found in this chart [...] [place] | | | | | | [id number] | | | | | | | | +--------+---------+ + + + | 10/21/ | Office | Primary Care | Shane Bates | | | 2018 | Visit | | MD [address] | | | | | | [address] [place], | | | | | | [place] [address] | | | | | | [phone] | | | | | | | [...]
--- OUTSIDE RECORDS SUMMARY | ~2017-08-21 | XMS | Encounter Summary ---
Demographics + + + | Address | [address] [place] [address] | | | [place] [address] | + + + | Home Phone | | + + + | Preferred Language | Unknown | + + + | Marital Status | | + + + | Latter-Day Affiliation | 1013 | + + + | Race | Unknown | + + + | Ethnic Group | Unknown | + + + Author + + + | Author | [facility] | | | and [...] [place] | | | | | [address] | | + + + + + Care Team Providers + +------+ + | Care Jewelry Department Supervisor Name | Role | Phone | [...] Medication Prior | | 2018 | | [facility] | MD [address] | Authorization | | | | MEDICAL CL[facility] [address] | [facility], | (Cyclobenzaprine 10 | | | | 4TH [facility], | [place] [address] | mg ) | | | | [place] [address] | [phone] | | | | | [phone] | | | +--------+ + + + [...] [place] | | | | | | [address] | | | | | | | | +--------+---------+ + + + | 10/21/ | Office | Primary Care | Shane Bates | | | 2017 | Visit | | MD [address] [facility] | | | | | | [place] | | | | | | [place] [address] | | | | | | [phone] | | | | | | | | +--------+---------+ + + + as of this encounter Visit Diagnoses Not on filein this encounter"
--- OUTSIDE RECORDS SUMMARY | ~2017-08-21 | XMS | Encounter Summary ---
Demographics + + + | Address | [address] [place] [address] | | | [place] [address] | + + + | Home Phone | | + + + | Preferred Language | Unknown | + + + | Marital Status | | + + + | Islam Affiliation | 1013 | + + + | Race | Unknown | + + + | Ethnic Group | Unknown | + + + Author + + + | Author | [facility] | | | and [place]rel[place] | + + + | Organization | [facility] | | | and [place] | + + + | Address | Unknown | + + + | Phone | Unavailable | + + + Support + + + + + | Name | Relationship | Address | Phone | + + + + + | Rashaun Escudero | ECON | [address] | | | | | [place] | | | | | [address] | | + + + + + Care Team Providers + +------+ + | Care Middle School Guidance Counselor Name | Role | Phone | [...] | | [address] [place] | [address] | | | | | [place] | | | | | | [address] | | | | | | [phone] | | | +--------+ + + + [...] [place] | | | | | | [address] | | | | | | | | +--------+---------+ + + + | 10/21/ | Office | Primary Care | Shane Bates | | | 2017 | Visit | | MD [address] | | | | | | [place], | | | | | | [place] [address] | | | | | | [phone] | | | | | | | | +--------+---------+ + + + as of this encounter Visit Diagnoses Not on filein this encounter"
--- OUTSIDE RECORDS SUMMARY | ~2017-08-21 | XMS | Encounter Summary ---
Demographics + + + | Address | [address] [place] [address] | | | [place] [address] | + + + | Home Phone | | + + + | Preferred Language | Unknown | + + + | Marital Status | | + + + | Moravian Affiliation | 1013 | + + + | Race | Unknown | + + + | Ethnic Group | Unknown | + + + Author + + + | Author | [facility] | | | and Darrelana | + + + | Organization | [facility] | | [...] [place] | | | | | [address] | | + + + + + Care Team Providers + +------+ + | Care Alterations Workroom Clerk Name | Role | Phone | [...] | | MEDICAL CLINIC [address] | [address] [place], | | | | | 4TH [facility], | [place] [address] | | | | | [place] [address] | [phone] | | | | | [phone] | | | +--------+ + + + [...] [place] | | | | | | [id number] | | | | | | | | +--------+---------+ + + + | 10/21/ | Office | Primary Care | Shane Bates | | | 2017 | Visit | | MD [address] | | | | | | [place], | | | | | | [place] [address] | | | | | | [phone] | | | | | | | [...]
--- OUTSIDE RECORDS SUMMARY | ~2017-08-21 | XMS | Encounter Summary ---
Demographics + + + | Address | [address] [place] [address] | | | [place] [address] | + + + | Home Phone [...] | Author | [facility] | | | and Darrelana [...] [place] | | | | | [address] | | + + + + + Care Team Providers + +------+ + | Care Quartz Mounter Name | Role | Phone | + [...] | (obstructive | [address] | [place] | | | | | sleep | [place] | [place], | | | | | apnea) | [place], [place] | [place] [address] | | | | | Procedures | [address] | Phone: | | | | | [place] POLYSOM | Phone: | [phone] | | | | | 6/>YRS SLEEP | [phone] | Fax: | | | | | W/CPAP 4/> | Fax: | [phone] | | | | | ADDL COLETTE | [phone] | | | | | | ATTND S/N | | | | | | | (2/5 @ 7pm) | | | +--------+ + + + + + Encounter Details +--------+ + + + + | Date | Type | Department | Care Team | Description | +--------+ + + + + | 06/15/ | Hospital | [facility] | Carla Cardoso MD | Nocturnal hypoxemia | | 2018 - | Encounter | MED CTR SLEEP | [address] | | | | | CENTER [address] | [place] | | | 06/16/ | | [place] | [address] | | | 2018 | | [address] | | | | | | [phone] | | | +--------+ + + + [...] [place] | | | | | | [address] | | | | | | | | +--------+---------+ + + + | 10/21/ | Office | Primary Care | Shane Bates | | | 2017 | Visit | | MD Mark [address] | | | | | | [place], | | | | | | [place] [address] | | | | | | [phone] | | | | | | | | +--------+---------+ + + + as of this encounter Results Sleep study diagnostic only (no PAP) (06/21/2017 1556) + + | Narrative | + + | Carla Cardoso MD 06/21/2017 16:17 [facility] | | [place] [address] Polysomnogram | | Report on Tameka Escudero performed on June 15, 2017. PATIENT | | IDENTIFICATION: Tameka Escudero IS a 67 y.o..-year-old female. with a history | | of fibromyalgia, non-ST elevation ID in October 2016 status post 1 stent [...] a | | second sleep study in [place] about 15 years ago. She says she tried CPAP for 5 | | years, but then she lost her insurance and didn't follow up. She thinks it was | | helping her to sleep better. She says she had a sleep study at [place] in September | | 2017, and she [...] sleep study as much | | better. Command And Control Specialist note: patient agreed to sleep in bed [...] this chart may have been created with Smart Cube voice recognition software. | | Occasional wrong-word [...] | Carla Cardoso MD - 06/21/2017 1556 [facility] | | [place], [place] [id number] Report on Tameka Sanderson | Benjamin Escudero performed on June 15, 2017.PATIENT IDENTIFICATION:Tameka Escudero IS a 67 | | y.o..-year-old female. with a history of fibromyalgia, non-ST elevation ID in October | | 2016 status post [...] She had a second sleep study in [place] about 15 years ago. She says she | | tried CPAP for 5 years, but then she lost her insurance and didn't follow up. She | | thinks it was helping her to sleep better. She says she had a sleep study at [place] | | in September 2016, and she [...] sleep | | study as much better. Command And Control Specialist note: patient agreed to sleep in bed [...] may have been | | created with Smart Cube voice recognition software. Occasional wrong-word or | [...] this chart may have been created with Smart Cube voice recognition software. Occasi onal wrong-word or [...]
--- OUTSIDE RECORDS SUMMARY | ~2017-08-21 | XMS | Encounter Summary ---
Demographics + + + | Address | [address] [place] [address] | | | [place] [address] | + + + | Home Phone [...] + | Author | [facility] | | | and [place]rel[place] [...] [place] | | | | | [address] | | + + + + + Care Team Providers + +------+ + | Care Delivery Clerk Name | Role | Phone | [...] | | | MEDICAL CLIN[facility] [address] | [facility] [place], | | | | | 4TH [facility], | [place] [address] | | | | | [place] [address] | [phone] | | | | | [phone] | | | +--------+--------+ + + + [...] [place] | | | | | | 3363[address] | | | | | | | | +--------+---------+ + + + | 10/21/ | Office | Primary Care | Shane Bates | | | 2017 | Visit | | MD [address] | | | | | | [place], | | | | | | [place] [address] | | | | | | [phone] | | | | | | | | +--------+---------+ + + + as of this encounter Visit Diagnoses Not on filein this encounter"
--- OUTSIDE RECORDS SUMMARY | ~2017-08-21 | XMS | Encounter Summary ---
Demographics + + + | Address | [address] [place] [address] | | | [place] [address] | + + + | Home Phone | | + + + | Preferred Language | Unknown | + + + | Marital Status | | + + + | Samaritan Affiliation | 1013 | + + + | Race | Unknown | + + + | Ethnic Group | Unknown | + + + Author + + + | Author | [facility] | | | and [place]relana | + + + | Organization | [facility] | | | [...] [place] | | | | | [address] | | + + + + + Care Team Providers + +------+ + | Care Faith Doctor Name | Role | Phone | + [...] Medication Refill | | 2018 | | [facility] | [address] | | | | | MEDICAL CLINIC [address] | [facility], [place] | | | | | [address] [facility], | [address] | | | | | [place] [address] | [phone] | | | | | [phone] | | | +--------+--------+ + + + [...] [place] | | | | | | [address]047[address] | | | | | | | | +--------+---------+ + + + | 10/21/ | Office | Primary Care | Shane Bates | | | 2017 | Visit | | MD [address] | | | | | | [place], | | | | | | [place] [address] | | | | | | [phone] | | | | | | | | +--------+---------+ + + + as of this encounter Visit Diagnoses Not on filein this encounter"
--- OUTSIDE RECORDS SUMMARY | ~2017-08-21 | XMS | Encounter Summary ---
Demographics + + + | Address | [address] [place] [address] | | | [place] [address] | + + + | Home Phone | | + + + | Preferred Language | Unknown | + + + | Marital Status | | + + + | Mormon Affiliation | 1013 | + + + | Race | Unknown | + + + | Ethnic Group | Unknown | + + + Author + + + | Author | [facility] | | | and [place] | + + + | Organization | [facility] | | | and [place] | + + + | Address | Unknown | + + + | Phone | Unavailable | + + + Support + + + + + | Name | Relationship | Address | Phone | + + + + + | Rashaun Escudero | ECON | [address] [facility] | | | | | [place] | | | | | [address] | | + + + + + Care Team Providers + +------+ + | Care Trap Setter Name | Role | Phone | [...] | | [address] [place] | [address] | | | | | [place] | | | | | | [address] | | | | | | [phone] | | | +--------+ + + + [...] [place] | | | | | | [address] | | | | | | | | +--------+---------+ + + + | 10/21/ | Office | Primary Care | Shane Bates | | | 2017 | Visit | | MD [address] | | | | | | [place], | | | | | | [place] [address] | | | | | | [phone] | | | | | | | | +--------+---------+ + + + as of this encounter Visit Diagnoses Not on filein this encounter"
--- OUTSIDE RECORDS SUMMARY | ~2017-08-21 | XMS | Encounter Summary ---
Demographics + + + | Address | [address] [place] [address] | | | [place] [address] | + + + | Home Phone | | + + + | Preferred Language | Unknown | + + + | Marital Status | | + + + | Denominational Affiliation | 1013 | + + + | Race | Unknown | + + + | Ethnic Group | Unknown | + + + Author + + + | Author | [facility] | | | and [...] [place] | | | | | [address] | | + + + + + Care Team Providers + +------+ + | Care Correspondence Clerk Name | Role | Phone | [...] | | PAIN | [place], [place] | [address] | | | | | Procedures | [address] | Phone: | | | | | OFFICE VISIT | Phone: | [phone] | | | | | | [phone] | Fax: | | | | | | Fax: | [phone] | | | | | | [phone] | | +--------+ + + + + [...] | | 2018 | Visit | [facility] | MD [address] | fibrillation (HCC) | | | | MEDICAL CLINIC [address] | [address] [place], | (Primary Dx); | | | | [address] [place], | [place] [address] | Coronary artery | | | | [place] [address] | [phone] | disease involving | | | | [phone] | | ely shoshone coronary | | | | | | artery of ely shoshone | | | | | | heart [...] by mouth twice a day Referral to Social Insurance Specialist in [place]. She will find out who she would like to see, and let me know. 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 Orders: - AMB Referral to [facility] in this encounter Progress Notes [...] by mouth twice a day Referral to Social Insurance Specialist in [place]. She will find out who she would like to see, and let me know. 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 Orders: - AMB Referral to [facility] Return in about 2 months (around 08/13/2017). Subjective: Tameka was hospitalized at [facility] on 06/05/17 with paroxysmal atrial fibrillation. I [...] wer e puffy due to Gabapentin. Her [id number] score is 4 (age, HTN, vascular disease) reflectin g an annual stroke rate of 4.8%. Her HASBLED score of 2 represents a bleeding risk of 4.1% per year, so Dr. Bentley called her crab steamer to discuss the question of anticoagulation fo r stroke prophylaxis. After discussing the situation with Dr. Villatoro, he recommended contin uing Plavix, stopping Aspirin and beginning Eliquis 5 mg by mouth twice a day (options of [place] rfarin versus Eliquis were discussed with her). She has never seen Dr. Villatoro, and would li ke to be seen at a cardiology clinic in [place] on [facility]. 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
--- OUTSIDE RECORDS SUMMARY | ~2017-08-21 | XMS | Encounter Summary ---
Demographics + + + | Address | [address] [place] [address] | | | [place] [address] | + + + | Home Phone | | + + + | Preferred Language | Unknown | + + + | Marital Status | | + + + | Nondenominational Affiliation | 1013 | + + + | Race | Unknown | + + + | Ethnic Group | Unknown | + + + Author + + + | Author | [facility] | | | and [place] | + + + | Organization | [facility] | | [...] [place] | | | | | [address] | | + + + + + Care Team Providers + +------+ + | Care Parking Enforcement Specialist Name | Role | Phone | [...] | | | MEDICAL CLINIC [address] | [facility] [place], | | | | | 4TH [facility], | [place] [address] | | | | | [place] [address] | [phone] | | | | | [phone] | | | +--------+--------+ + + + [...] [place] | | | | | | [address] | | | | | | | | +--------+---------+ + + + | 10/21/ | Office | Primary Care | Shane Bates | | | 2017 | Visit | | MD [address] | | | | | | [place], | | | | | | [place] [address] | | | | | | [phone] | | | | | | | | +--------+---------+ + + + as of this encounter Visit Diagnoses Not on filein this encounter"
--- OUTSIDE RECORDS SUMMARY | ~2017-08-21 | XMS | Encounter Summary ---
Demographics + + + | Address | [address] [place] [address] | | | [place] [address] | + + + | Home Phone [...] | Author | [facility] | | | and [place] [...] [place] | | | | | [address] | | + + + + + Care Team Providers + +------+ + | Care Tire Tester Name | Role | Phone | + [...] | | | MEDICAL CLINIC [address] | [facility] [place], | | | | | [address]TH [place], | [place] [address] | | | | | [place] [address] | [phone] | | | | | [phone] | | | +--------+--------+ + + + [...] [place] | | | | | | [address] | | | | | | | | +--------+---------+ + + + | 10/21/ | Office | Primary Care | Shane Bates | | | 2017 | Visit | | MD [address] | | | | | | [place], | | | | | | [place] [address] | | | | | | [phone] | | | | | | | | +--------+---------+ + + + as of this encounter Visit Diagnoses Not on filein this encounter"
[~2017-08-21 04:17] MED LIST changes: +CALCIUM + VITA1 EACH PO; +CARDIZEM LA120 MG PO; +CARVEDILOL12.5 MG PO; +CO Q-1050 MG PO; +COREG6.25 MG PO; +ELIQUIS5 MG PO; +EUCRISA60 GM TOP; +GABAPENTIN300 MG PO; +HYDROXYZINE PAM25 MG PO; +ISOSORBIDE MONO30 MG PO; +MAGNESIUM400 M1 PO; +VITAMIN D5000 UNIT PO
[2017-08-21] MEDS ORDERED: CARVEDILOL6.25 MG PO (12:21)
[2017-08-21] MEDS ORDERED: COREG6.25 MG PO (12:21)
[2017-08-21] MEDS ORDERED: FLUOXETINE HCL20 MG PO (12:24)
[2017-08-21] MEDS ORDERED: NITROGLYCERIN0.4 MG SL (12:26)
[2017-08-23] MEDS ORDERED: CEFPODOXIME PR200 MG PO (12:10)
[2017-08-23] MEDS ORDERED: PROBIOTIC1 EAC2 PO (12:13)
== END 2017-08-23 13:56 | disposition home or self-care (01) | DRG 193 ==
LOC: ED 04:17 → MS 04:18
PROVIDERS: ADMIT Internal Medicine
DX: J13 Pneumonia due to Streptococcus pneumoniae (principal); J96.01 Acute respiratory failure with hypoxia; E87.1 Hypo-osmolality and hyponatremia; F13.20 Sedative, hypnotic or anxiolytic dependence, uncomplicated; K52.1 Toxic gastroenteritis and colitis; E87.6 Hypokalemia; I48.0 Paroxysmal atrial fibrillation; I25.10 Atherosclerotic heart disease of native coronary artery without angina pectoris; I25.2 Old myocardial infarction; E78.00 Pure hypercholesterolemia, unspecified; M79.7 Fibromyalgia; F32.9 Major depressive disorder, single episode, unspecified; F41.9 Anxiety disorder, unspecified; Z90.710 Acquired absence of both cervix and uterus; G47.33 Obstructive sleep apnea (adult) (pediatric); Z87.891 Personal history of nicotine dependence; E03.9 Hypothyroidism, unspecified; T36.95XA Adverse effect of unspecified systemic antibiotic, initial encounter
CPT/HCPCS: 36415; 71045; 80048; 80053; 81001; 83605; 83735; 83930; 83935; 84484; 85025; 85379; 87040; 87070; 87077; 87186; 87205; 87449; 87493; 87502; 87899; 94640; 94667; 94668; 94762; J0456; J0696; J2405; J7050; J7120

== ENCOUNTER 2018-06-06 18:26 | Emergency (ER) | payer MEDICARE, OTHER ==
[~2018-06-06] VITALS: Ht 160 cm; Wt 83.9 kg
[~2018-06-06 18:26] MED LIST changes: +CEFPODOXIME PR200 MG PO; +FLUOXETINE HCL20 MG PO; +NITROGLYCERIN0.4 MG SL; +PROBIOTIC1 EAC2 PO
== END 2018-06-06 20:46 | disposition home or self-care (01) ==
LOC: ED 18:26
DX: L25.9 Unspecified contact dermatitis, unspecified cause (principal); F32.9 Major depressive disorder, single episode, unspecified; F41.0 Panic disorder [episodic paroxysmal anxiety]; I25.2 Old myocardial infarction; Z90.710 Acquired absence of both cervix and uterus; Z88.5 Allergy status to narcotic agent; Z88.8 Allergy status to other drugs, medicaments and biological substances; Z79.899 Other long term (current) drug therapy
CPT/HCPCS: 99282

== ENCOUNTER 2018-09-09 10:31 | Emergency (ER) | payer MEDICARE, OTHER ==
[~2018-09-09] VITALS: Ht 160 cm; Wt 83.9 kg
--- OUTSIDE RECORDS SUMMARY | ~2018-09-09 | XMS | Encounter Summary ---
Demographics + + + | Address | [address] [place] [address] | | | [place] [address] | + + + | Home Phone | | + + + | Preferred Language | Unknown | + + + | Marital Status | | + + + | Christian Affiliation | 1013 | + + + | Race | Unknown | + + + | Ethnic Group | Unknown | + + + Author + + + | Author | [facility] | | | and [place] | + + + | Organization | [facility] | | | and [place] | + + + | Address | Unknown | + + + | Phone | Unavailable | + + + Support + + + + + | Name | Relationship | Address | Phone | + + + + + | Rashaun Escudero | ECON | [address] | | | | | [place] | | | | | [address] | | + + + + + Care Team Providers + +------+ + | Care Cloth Brushing And Sueding Supervisor Name | Role | Phone | + +------+ + | Shane Bates MD | PCP | | + +------+ + Encounter Details +--------+ + + + + | Date | Type | Department | Care Team | Description | +--------+ + + + + | 06/22/ | Hospital | [facility] | Raoul Bill, | Primary | | 2019 | Encounter | HOSP[facility] | DO [address] , | osteoarthritis of | | | | ORTHOPAEDICS XRAY | [place], [place] | both knees | | | | [address] [place] | [address] | | | | | [place], [place] | [phone] | | | | | [address] | | | | | | [phone] | | | +--------+ + + + + Social History + +-------+ [...] on file | | + + + + + + + | Job Start Date | Occupation | Industry | + + + + | Not on file | Not on file | Not on file | + + + + + + + + | Travel History | Travel Start | Travel End | + + + + + + | No recent travel history available. | + + documented as of this encounter Functional Status + [...] | | | + + + + documented as of this encounter Medications at Time of Discharge + + + +---------+ + + | Medication | Sig | Dispensed | Refills | Start | End Date | | | | | | Date | | + + + +---------+ + + | aspirin 81 mg EC | Take 81 mg by mouth. | | 0 | 11/13/19 | | | tablet | | | | 18 | | + + + +---------+ + + | carvedilol (COREG) | take 1 tablet by | 90 | 3 | 11/25/19 | | | 6.25 mg tablet | mouth every morning | tablet | | 18 | | | | and take 2 tablets | | | | | | | by mouth every | | | | | | | evening | | | | | + + + +---------+ + + | cyclobenzaprine | take 1 tablet by | 30 | 0 | 08/15/19 | | | (FLEXERIL) 10 mg | mouth three times a | tablet | | 18 | | | tablet | day if needed | | | | | + + + +---------+ + + | FLUoxetine | take 2 capsule by | 180 | 3 | 05/17/19 | | | (PROZAC) 20 mg | mouth every morning | capsule | | 19 | | | capsule | | | | | | + + + +---------+ + + | furosemide (LASIX) | take 1 tablet by | | 0 | 11/18/19 | | | 20 mg tablet | mouth once daily | | | 18 | | + + + +---------+ + + | gabapentin | Take 3 capsules by | 810 | 3 | 04/06/20 | | | (NEURONTIN) 300 mg | mouth 3 times daily. | capsule | | 18 | | | capsuleIndications: | | | | | | | Spinal stenosis of | | | | | | | lumbar region | | | | | | | without neurogenic | | | | | | | claudication | | | | | | + + + +---------+ + + | hydrOXYzine | take 1 to 2 capsules | | 0 | 05/11/19 | | | pamoate (VISTARIL) | by mouth every 6 | | | 18 | | | 25 mg capsule | hours if needed for | | | | | | | ITCHING | | | | | + + + +---------+ + + | meclizine | take 1 tablet by | | 0 | 03/12/20 | | | (ANTIVERT) 25 mg | mouth three times a | | | 17 | | | tablet | day as needed | | | | | + + + +---------+ + + | rosuvastatin | | | 0 | 04/07/20 | | | (CRESTOR) 40 MG | | | | 18 | | | tablet | | | | | | + + + +---------+ + + | clonazePAM | take 1 tablet by | 90 | 0 | 06/08/19 | | | (KLONOPIN) 1 mg | mouth three times a | tablet | | 19 | 9 | | tablet | day if needed for | | | | | | | anxiety | | | | | + + + +---------+ + + | ELIQUIS 5 MG | take 1 tablet by | 180 | 3 | 07/06/19 | | | tablet | mouth twice a day | tablet | | 18 | 9 | + + + +---------+ + + | levothyroxine | Take 1 tablet by | 45 | 0 | 02/11/20 | | | (SYNTHROID) 100 mcg | mouth Every other | tablet | | 18 | 9 | | tabletIndications: | day. On an empty | | | | | | Hypothyroidism, | stomach | | | | | | unspecified type | | | | | | + + + +---------+ + + | levothyroxine | Take 1 tablet by | 45 | 0 | 02/11/20 | | | (SYNTHROID) 88 mcg | mouth Every other | tablet | | 18 | 9 | | tabletIndications: | day. On an empty | | | | | | Hypothyroidism, | stomach | | | | | | unspecified type | | | | | | + + + +---------+ + + | nitroglycerin | Place 1 tablet under | 25 | 0 | 06/01/19 | | | (NITROSTAT) 0.4 mg | the tongue every 5 | tablet | | 19 | 9 | | SL tablet | minutes as needed | | | | | | | for Chest pain. | | | | | + + + +---------+ + + documented as of this encounter Plan of Treatment +--------+---------+ + + + | Date | Type | Specialty | Care Team | Description | +--------+---------+ + + + | 09/15/ | Office | Primary Care | Shane Btaes | | | 2018 | Visit | | MD [address] | | | | | | [place], | | | | | | [place] [address] | | | | | | [phone] | | | | | | | | +--------+---------+ + + + | 12/09/ | Office | Sleep Medicine | Bubba Weller PA | | | 2018 | Visit | | [address] | | | | | | [place] | | | | | | [address] | | | | | | | | +--------+---------+ + + + documented as of this encounter Procedures + +--------+ + + + | Procedure Name | Priori | Date/Time | Associated Diagnosis | Comments | | | ty | | | | + +--------+ + + + | XR KNEE RIGHT 4 + VW | Routin | 06/22/2018 | Primary | Results for this | | | e | 15:51 PST | osteoarthritis of | procedure are in the | | | | | both knees | results section. | + +--------+ + + + | XR KNEE LEFT 4 + VW | Routin | 06/22/2018 | Primary | Results for this | | | e | 15:51 PST | osteoarthritis of | procedure are in the | | | | | both knees | results section. | + +--------+ + + + documented in this encounter Results XR Knee Right 4 + Vw (06/22/2018 15:51 PST) + + | Specimen | + + | | + + + + + | Impressions | Performed At | + + + | IMPRESSION: No acute process. Bilateral osteoarthritis without | [facility] | | interval change. Dictated by: Thad Franco Electronically | | | Signed by: Thad Franco on 06/22/2018 4:24 PM | | + + + + + + | Narrative | Performed At | + + + | EXAMINATION: XR KNEE RIGHT 4 + VW; XR KNEE LEFT 4 + VW HISTORY: | [facility] | | knee OA COMPARISON STUDY: July 10, 2017 FINDINGS: Right | | | knee: Films in multiple projections show mild medial compartment | | | joint space narrowing. Small medial compartment | | | osteophytes. Small patellar osteophytes. No | | | subluxation. No dislocation. Decreased bone mineral density. | | | Left knee: Films in multiple projections show mild medial and | | | lateral compartment joint space narrowing. Small tricompartmental | | | osteophytes. Trace joint effusion. No subluxation. No | | | dislocation. Decreased bone mineral density. | | + + + + + | Procedure Note | + + | Ankit, Rad Results In 06/22/2018 1628 PST EXAMINATION:XR KNEE RIGHT 4 + VW; XR KNEE | | LEFT 4 + VWHISTORY:knee OACOMPARISON STUDY:July 10, 2017FINDINGS:Right knee:Films in | | multiple projections show mild medial compartment joint space narrowing. Small medial | | compartment osteophytes. Small patellar osteophytes. No subluxation. No | | dislocation. Decreased bone mineral density.Left knee:Films in multiple projections | | show mild medial and lateral compartment joint space narrowing. Small tricompartmental | | osteophytes. Trace joint effusion. No subluxation. No dislocation. Decreased bone | | mineral density.IMPRESSION: IMPRESSION:No acute process.Bilateral osteoarthritis | | without interval change.Dictated by: Thad Derasectronically Signed by: Thad Franco on 06/22/2018 4:24 PM | |Right knee: | |Films in multiple projections show mild medial compartment joint space narrowing. Small me dial compartment osteophytes. Small patellar osteophytes. No subluxation. No dislocatio n. Decreased bone mineral density. | | | |Left knee: | |Films in multiple projections show mild medial and lateral compartment joint space narrowin g. Small tricompartmental osteophytes. Trace joint effusion. No subluxation. No disloc ation. Decreased bone mineral density. | | | |IMPRESSION: | |IMPRESSION: | |No acute process. | |Bilateral osteoarthritis without interval change. | | | |Dictated by: Thad Franco | | | | | + + + +---------+ + + | Performing | Address | City/State/Zipcode | Phone Number | | Organization | | | | + +---------+ + + | [facility] | | | | + +---------+ + + XR Knee Left 4 + Vw (06/22/2018 15:51 PST) + + | Specimen | + + | | + + + + + | Impressions | Performed At | + + + | IMPRESSION: No acute process. Bilateral osteoarthritis without | [facility] | | interval change. Dictated by: Thad Franco Electronically | | | Signed by: Thad Franco on 06/22/2018 4:24 PM | | + + + + + + | Narrative | Performed At | + + + | EXAMINATION: XR KNEE RIGHT 4 + VW; XR KNEE LEFT 4 + VW HISTORY: | [facility] | | knee OA COMPARISON STUDY: July 10, 2017 FINDINGS: Right | | | knee: Films in multiple projections show mild medial compartment | | | joint space narrowing. Small medial compartment | | | osteophytes. Small patellar osteophytes. No | | | subluxation. No dislocation. Decreased bone mineral density. | | | Left knee: Films in multiple projections show mild medial and | | | lateral compartment joint space narrowing. Small tricompartmental | | | osteophytes. Trace joint effusion. No subluxation. No | | | dislocation. Decreased bone mineral density. | | + + + + + | Procedure Note | + + | Sebastian Pham Results In - 06/22/2018 1628 PST EXAMINATION:XR KNEE RIGHT 4 + VW; XR KNEE | | LEFT 4 + VWHISTORY:knee OACOMPARISON STUDY:July 10, 2017FINDINGS:Right knee:Films in | | multiple projections show mild medial compartment joint space narrowing. Small medial | | compartment osteophytes. Small patellar osteophytes. No subluxation. No | | dislocation. Decreased bone mineral density.Left knee:Films in multiple projections | | show mild medial and lateral compartment joint space narrowing. Small tricompartmental | | osteophytes. Trace joint effusion. No subluxation. No dislocation. Decreased bone | | mineral density.IMPRESSION: IMPRESSION:No acute process.Bilateral osteoarthritis | | without interval change.Dictated by: Thad Derasectronically Signed by: Thad Franco on 06/22/2018 4:24 PM | |Right knee: | |Films in multiple projections show mild medial compartment joint space narrowing. Small me dial compartment osteophytes. Small patellar osteophytes. No subluxation. No dislocatio n. Decreased bone mineral density. | | | |Left knee: | |Films in multiple projections show mild medial and lateral compartment joint space narrowin g. Small tricompartmental osteophytes. Trace joint effusion. No subluxation. No disloc ation. Decreased bone mineral density. | | | |IMPRESSION: | |IMPRESSION: | |No acute process. | |Bilateral osteoarthritis without interval change. | | | |Dictated by: Thad Franco | | | | | + + + +---------+ + + | Performing | Address | City/State/Zipcode | Phone Number | | Organization | | | | + +---------+ + + | [facility] | | | | + +---------+ + + documented in this encounter Visit Diagnoses + + | Diagnosis | + + | Primary osteoarthritis of both knees Primary localized osteoarthrosis, lower leg | + + documented in this encounter"
--- OUTSIDE RECORDS SUMMARY | ~2018-09-09 | XMS | Encounter Summary ---
Demographics + + + | Address | [address] [place] [address] | | | [place] [address] | + + + | Home Phone | | + + + | Preferred Language | Unknown | + + + | Marital Status | | + + + | Taoism Affiliation | [id number] | + + + | Race | Unknown | + + + | Ethnic Group | Unknown | + + + Author + + + | Author | [facility] | | | and Darrelana | + + + | Organization | [facility] | | | [...] [place] | | | | | [address] | | + + + + + Care Team Providers + +------+ + | Care Arch Pad Cementer Name | Role | Phone | + +------+ + | Shane Bates MD | PCP | | + +------+ + Reason for Visit Evaluate & Treat (Routine) +--------+ + + + + + | Status | Reason | Specialty | Diagnoses / | Referred By | Referred To | | | | | Procedures | Contact | Contact | +--------+ + + + + + | Closed | Specialty | Orthopedic | Diagnoses | Bump, | [facility] | | | Services | Surgery | Primary | Shane | Orthopedic | | | Required | | osteoarthrit | MD Mark | [address] | | | | | is of both | [address] | [place] | | | | | knees | [address] [place] | [place], [place] | | | | | Procedures | [place], [place] | [address] | | | | | [place] | [address] | Phone: | | | | | | Phone: | [phone] | | | | | | [phone] | Fax: | | | | | | Fax: | [phone] | | | | | | [phone] | | +--------+ + + + + + Encounter Details +--------+---------+ + + + | Date | Type | Department | Care Team | Description | +--------+---------+ + + + | 06/22/ | Office | [place] [facility] | Raoul Bill, | Primary | | 2019 | Visit | [facility] | DO [address], | osteoarthritis of | | | | [address] | [place], [place] | both knees (Primary | | | | [place], [place] | [address] | Dx) | | | | [address] | [phone] | | | | | [phone] | | | +--------+---------+ + + + Social History [...] + + documented as of this encounter Last Filed Vital Signs + + + + | Vital Sign | Reading | Time Taken | + + + + | Blood Pressure | 110/70 | 06/22/20181600 PST | + + + + | Pulse | 65 | 06/22/20181600 PST | + + + + | Temperature | - | - | + + + + | Respiratory Rate | 16 | 06/22/20181600 PST | + + + + | Oxygen Saturation | 94% | 06/22/20181600 PST | + + + + | Inhaled Oxygen | - | - | | Concentration | | | + + + + | Weight | 84.8 kg (187 lb) | 06/22/20181600 PST | + + + + | Height | 157.5 cm (5' 2") | 06/22/20181600 PST | + + + + | Body Mass Index | 34.2 | 06/22/20181600 PST | + + + + documented in this encounter Functional Status + + [...] + + documented as of this encounter Patient Instructions Patient Instructions Raoul Bill, - 06/21/2018 16:44 PSTFormatting of this note mi ght be different from the original. Understanding Osteoarthritis of the Knee A joint is a place where two bones meet. The knee is called a hinge joint. This joint is fo rmed where the thighbone (femur) meets the shinbone (tibia). A healthy knee joint bends free ly. Knee osteoarthritis is a condition where parts of the knee joint wear out. This can lead to pain, stiffness, and limited movement. What is osteoarthritis? Every joint contains a smooth tissue called cartilage. Cartilage cushions the ends of bones and helps bones in a joint glide smoothly against each other. Knee osteoarthritis occurs wh en cartilage in the knee joint begins to break down and wear away. Bones may become exposed and rub together. The cartilage may become irritated and rough. This prevents smooth movemen t of the joint and can lead to pain. Causes of osteoarthritis of the knee Causes can include: Wear and tear from normal use over time Overuse of the knee during sports or work activities Being overweight. This increases stress on the knee joint. Misalignment of the knee joint Injury to the knee Symptoms of osteoarthritis of the knee Common symptoms include: Pain and swelling around the joint. The pain and swelling get worse with activity and be tter with rest. Grinding sound when moving the knee Reduced knee movement Knee stiffness. This is often worse first thing in the morning. Treating osteoarthritis of the knee Osteoarthritis is a long-term condition. Treatment usually focuses on managing symptoms. Tr eatment may include: [id number]-qrt-[id number] or prescription medicines taken by mouth to help relieve pain and swell ing Injections of medicine into the joint to help relieve symptoms for a time A weight-loss plan for people who are overweight A plan of physical therapy and exercises to improve the strength and flexibility of the muscles around the knee Heat or cold therapy to help relieve pain and stiffness Assistive devices that help with movement, such as a cane or a walker Assistive devices that make activities of daily life easier, such as raised toilet seats or shower bars If other treatments don t do enough to relieve symptoms, you may need surgery to replace the joint. During this surgery, the damaged joint is removed. An artificial knee joint is th en put into place. This can help relieve pain and stiffness and restore movement of the knee . When to call your healthcare provider Call your healthcare provider right away if you have any of these: Fever of 100.4F (38C) or higher, or as directed Symptoms that don t get better with prescribed medicines or get worse New symptoms Date Last Reviewed: 07/19/201519998500-3060 [employer]. [address] [place] [address]. All righ ts reserved. This information is not intended as a substitute for professional medical care. Always follow your healthcare professional's instructions. documented in this encounter Progress Notes Raoul Bill DO - 06/22/2018 1600 PST Date of Service: 06/22/2018 Provider: Raoul Bill Pt. Name/Age/: Tameka Escudero 68 y.o. 1950 Date of Evalutaion: 06/22/2018 No chief complaint on file. History of Present Illness: Tameka is a 68 y.o. year old female with Bilateral knee pain for over the last several year s. Over the past few months, her symptoms have worsened, and now are moderate to severe and debilitating. Currently, she does not recall a specific inciting incident, it just gradua lly worsened. Pain is located throughout the anterior aspect of bilateral knees however rad iates up into her distal thigh and down her leg and she rates it as 3-4/10 at baseline and u p to 8/10 with activity. Pain quality is described as sharp, dull, stabbing, throbbing, ach ing and burning. Pain is worsened by walking for long times, standing for prolonged time, sitting, squatting, putting on her shoes and twisting/pivoting. In general, she reports being able to walk only a few blocks before pain affects his mobili ty. Patient requires using railing for up/down stairs. Conservative treatment has consisted of activity modification , physical therapy , home ex ercises , and taking over the counter NSAID's, Tylenol, prescription NSAID's, prescription p ain medication and intra-articular corticosteroid injections. These modalities are failing to provide adequate relief of pain. Patient denies previous surgery to the affected knee in the past. MEDICAL HISTORY Past Medical History: Diagnosis Date Acute diastolic heart failure ([facility]) 11/12/2017 Anemia Anxiety Arthritis Complication of anesthesia Depression Environmental allergies Fibromyalgia Gastric polyps GERD (gastroesophageal reflux disease) Heart murmur Hyperlipidemia Hypertension Hypothyroidism Hypoxemia Sleep related Irritable bowel Neuromuscular disorder (HCC) fibromyalga NSTEMI, initial episode of care ([facility]) 10/16/2016 Sleep apnea Spinal stenosis of lumbar region Vitamin D deficiency PAST SURGICAL HISTORY Past Surgical History: Procedure Laterality Date BREAST BIOPSY BREAST SURGERY cyst removal CARDIAC CATHERIZATION N/A 10/16/2016 Procedure: CV Cor Angio; Surgeon: Scarlet Altman MD; Location: [facility] CV LAB COLONOSCOPY EYE SURGERY lasik GASTRIC FUNDOPLICATION Laparoscopic HYSTERECTOMY Vaginal, with ovaries intact TOTAL HYSTERECTOMY vaginal hysterectomy with ovaries intact UPPER GASTROINTESTINAL ENDOSCOPY VEIN SURGERY Stripped varicose vein MEDICATIONS Current Outpatient Prescriptions Medication Sig Dispense Refill aspirin 81 mg EC tablet Take 81 mg by mouth. carvedilol (COREG) 6.25 mg tablet take 1 tablet by mouth every morning and take 2 table ts by mouth every evening 90 tablet 3 clonazePAM (KLONOPIN) 1 mg tablet take 1 tablet by mouth three times a day if needed fo r anxiety 90 tablet 0 cyclobenzaprine (FLEXERIL) 10 mg tablet take 1 tablet by mouth three times a day if nee ded 30 tablet 0 ELIQUIS 5 MG tablet take 1 tablet by mouth twice a day 180 tablet 3 FLUoxetine (PROZAC) 20 mg capsule take 2 capsule by mouth every morning 180 capsule 3 furosemide (LASIX) 20 mg tablet take 1 tablet by mouth once daily 0 gabapentin (NEURONTIN) 300 mg capsule Take 3 capsules by mouth 3 times daily. 810 capsu le 3 hydrOXYzine pamoate (VISTARIL) 25 mg capsule take 1 to 2 capsules by mouth every 6 hour s if needed for ITCHING 0 levothyroxine (SYNTHROID) 100 mcg tablet Take 1 tablet by mouth Every other day. On an empty stomach 45 tablet 0 levothyroxine (SYNTHROID) 88 mcg tablet Take 1 tablet by mouth Every other day. On an e mpty stomach 45 tablet 0 meclizine (ANTIVERT) 25 mg tablet take 1 tablet by mouth three times a day as needed 0 nitroglycerin (NITROSTAT) 0.[address] 1 tablet under the tongue every 5 murali gabino as needed for Chest pain. 25 tablet 0 rosuvastatin (CRESTOR) 40 MG tablet 0 No current facility-administered medications for this visit. ALLERGIES Allergies Allergen Reactions Isosorbide Tramadol Swelling Swelling of the throat and lips. Adhesive & Tape Allopurinol Other (See Comments) Bad stomach pain Amlodipine Other (See Comments) No reaction indicated Amoxicillin Nausea Only Atorvastatin Other (See Comments) Dizziness, stomach pain, could not eat. Citalopram Diarrhea Duloxetine Other (See Comments) ineffective Hydrochlorothiazide Other (See Comments) Hyponatremia Latex Other (See Comments) Skin breakdown Milnacipran Hcl Other (See Comments) No reaction indicated Nsaids Other (See Comments) Intolerance, due to heart condition Sulfa Antibiotics Nausea Only Amitriptyline Palpitations Weight gain SOCIAL HISTORY Social History Social History Marital status: Spouse name: N/A Number of children: N/A Years of education: N/A Occupational History Not on file. Social History Main Topics Smoking status: Former Smoker Quit date: 09/16/1975 Smokeless tobacco: Never Used Alcohol use 9.0 oz/week 14 Glasses of wine, 1 Shots of liquor per week Drug use: No Sexual activity: Not on file Other Topics Concern Not on file Social History Narrative No narrative on file FAMILY HISTORY Family History Problem Relation Age of Onset Cancer Mother Type of cancer unknown Early Mother Heart attack Father [place] Other (see comment) Father snoring Early Father Diabetes, IDDM Daughter Kidney and pancrease transplant at age 25. Heart attack Other Cancer Other No Known Problems Sister No Known Problems Brother Review of systems: Patient denies any nausea vomiting fevers chills chest pain shortness o f breath difficulty breathing constipation diarrhea blood in the stool blood or in the urine . Except as above, all other systems were reviewed and are negative PHYSICAL EXAM Vital Signs on Arrival: Vitals: 06/22/18 1601 BP: 110/70 Pulse: 65 Resp: 16 SpO2: 94% Weight: 84.8 kg (187 lb) Height: 1.575 m (5' 2") BMI: Body mass index is 34.2 kg/m. General: Patient is of normal development. Groomed and in a good nutritional state. Aler t and oriented x3. HEENT: Head is normocephalic atraumatic no scleral icterus or cervical adenopathy is appre ciated on exam Respiratory: Chest rise is symmetric. No conversational dyspnea or audible wheezing is tono reciated on exam. Respiratory rate is normal. Cardiovascular: Radial pulses are felt. They are 2/4 bilaterally. They demonstrate regula r rate and rhythm. Abdomen: Soft nontender nondistended. Musculoskeletal: Gait: There was a mild antalgic gait, with decreased stance phase on the left side Bilateral KNEE EXAMINATION Skin: normal without discoloration Effusion: There was mild effusion noted in the knee Range of motion: ROM 0-125, pain at terminal flexion, neutral, no contracture is noted Stability: ligament stress testing at extension and 30 degree flexion demonstrates grade 1 opening with varus/valgus stress; negative for extensor lag; stable to anterior/posterior drawer test with anterior posterior excursion of <5 mm, Joint line exam: joint line tenderness found medial, lateral and anterior; positive for McM urray test without obvious clicking Patella: positive for patella crepitus or grind; moderate tenderness to palpation along t he facet Strength: 4-5/5 strength with assessment of L4-S1 myotomes Sensation: Intact to light touch L4-S1 dermatomes Imagings: No results found for this or any previous visit (from the past 360 hour(s)). All pertinent imaging results were discussed with patient on today's visit. Assessment: Mild to moderate bilateral knee osteoarthritis Plan: We reviewed the natural history as well as non operative treatment options for the degenera tive joint disease. Non-operative options we discussed included light exercise, activity mo dification/avoidance, use of an assistive device/ambulatory aid, oral analgesics i.e. Tyleno l, non-steroidal anti-inflammatory medications and intra-articular injections (corticosteroi ds and hyaluronic acid-based products). The importance of achieving and maintaining a healt hy weight was emphasized. We discussed the risks and benefits of each treatment option, an d I spent some time answering the patient s questions. We discussed that, should non-oper ative treatment fail to provide the patient with lasting relief, surgical options might incl ude artificial joint replacement. Patient is requesting that we proceed with lubricant injection therapy. I will have her fo llow-up once approved for injections. All of Tameka 's questions were answered and she demonstrates understanding of the above me ntioned treatement. More than 20 minutes were spent reviewing patient's medical chart as well as reviewing imag ing and subsequent face to face discussion with and examination of Tameka malhotra g our visit. More than 50% of the visit was spent providing education and counseling to Conn ie and family regarding issues documented in this note. I attest to having reviewed the patient's medical surgical family and social histories as w ell as medications allergies and vital signs found in this chart note which was recorded by my patient assistant today. Electronically signed by: Raoul Bill DO 06/22/2018 16:04 CC: MD Paulo Strauss, Shane Flores MD Note: Part of this report was transcribed using voice recognition software. Every effort w as made to ensure accuracy. However, inadvertent computerized computing architect errors may be pr esent. documented in this enc ounter Plan of Treatment +--------+---------+ + + + | Date | Type | Specialty | Care Team | Description | +--------+---------+ + + + | 09/15/ | Office | Primary Care | Shane Bates | | | 2018 | Visit | | MD Mark [address] | | | | | | [facility], | | | | | | [place] [address] | | | | | | [phone] | | | | | | | | +--------+---------+ + + + | 12/09/ | Office | Sleep Medicine | Bubba Weller PA | | | 2018 | Visit | | [address] | | | | | | [place] | | | | | | [address] | | | | | | | | +--------+---------+ + + + documented as of this encounter Results XR Knee Right 4 [...] + + | Ankit, Rad Results In - 06/22/2018 1628 PST EXAMINATION:XR [...] change.Dictated by: Thad Derasectronically Signed by: Thad | Benjamin Franco on 06/22/2018 4:24 PM | |Right [...] + + | Ankit, Rad Results In - 06/22/2018 1628 PST EXAMINATION:XR [...] + | Primary osteoarthritis of both knees - Primary Primary localized osteoarthrosis, | | lower leg | + + documented in this encounter
--- OUTSIDE RECORDS SUMMARY | ~2018-09-09 | XMS | Encounter Summary ---
Demographics + + + | Address | [address] [place] [address] | | | [place] [address] | + + + | Home Phone | | + + + | Preferred Language | Unknown | + + + | Marital Status | | + + + | Quaker Affiliation | 1013 | + + + | Race | Unknown | + + + | Ethnic Group | Unknown | + + + Author + + + | Author | [facility] | | | and Darrelana | + + + | Organization | [facility] | | | [...] [place] | | | | | [id number] | | + + + + + Care Team Providers + +------+ + | Care Varnish Dipper Name | Role | Phone | + [...] Description | +--------+---------+ + + + | 07/12/ | Office | [facility] | Shane Bates | NADIR (obstructive | | 2019 | Visit | [facility] [address] | sleep apnea) | | | | [facility] [address] [place], | (Primary Dx); | | | | [address] [place], | [place] [address] | Coronary artery | | | | [place] [address] | [phone] | disease involving | | | | [phone] | | [place] coronary | | | | | | artery of [place] | | | | | | heart without angina | | | | | | pectoris; Essential | | | | | | hypertension; PAF | | | | | | (paroxysmal atrial | | | | | | fibrillation) (HCC); | | | | | | Hypothyroidism, | | | | | | unspecified type; | | | | | | Primary | | | | | | osteoarthritis of | | | | | | both knees; | | | | | | Fibromyalgia; | | | | | | Dyslipidemia; Viral | | | | | | URI | +--------+---------+ + + + Social History [...] + + + | Blood Pressure | 135/88 | 07/12/2018 1335 PST | + + + + | Pulse | 57 | 07/12/2018 1335 PST | + + + + | Temperature | 36.7 C (98 F) | 07/12/2018 1335 PST | + + + + | Respiratory Rate | 18 | 07/12/2018 1335 PST | + + + + | Oxygen Saturation | 96% | 07/12/2018 1335 PST | + + + + | Inhaled Oxygen | - | - | | Concentration | | | + + + + | Weight | 83.9 kg (185 lb) | 07/12/2018 1335 PST | + + + + | Height | - | - | + + + + | Body Mass Index | 33.84 | 06/22/2018 1601 PST | + + + + documented [...] of this encounter Patient Instructions Patient Instructions Shane Bates MD - 07/12/2018 14:00 PSTAssessment and Plan: NADIR (obstructive sleep apnea) (Primary) Assessment & Plan: Clarify whether her machine is working properly (she has called her supplier). Coronary artery disease involving [place] coronary artery of [place] heart without angina pec toris Assessment & Plan: PCI to proximal LAD 10/16/16 Continue Carvedilol 6.5 mg in the morning and 12.5 mg in the evening as well as Simvastatin 40 mg at bedtime Return for fasting lipid panel (ordered) Essential hypertension Assessment & Plan: Continue Carvedilol and Furosemide Due for CMP, CBC (ordered) PAF (paroxysmal atrial fibrillation) (HCC) Assessment & Plan: Diagnosed last year CHADS 2 VASC score = 2 Continue Eliquis Hypothyroidism, unspecified type Assessment & Plan: Check TSH drawn today. Primary osteoarthritis of both knees Assessment & Plan: Referred to Dr. Bill, who recommended lubricant injection therapy. Fibromyalgia Assessment & Plan: Continue Gabapentin Avoid alcohol Dyslipidemia Assessment & Plan: Due for lipid panel Viral URI documented in this encounter Progress Notes Shane Bates MD - 07/12/2018 1400 PSTFormatting of this note might be different fr om the original. Patient ID: Tameka Escudero is a 68 y.o. year old female Chief Complaint: Chief Complaint Patient presents with Follow-up Assessment and Plan: NADIR (obstructive sleep apnea) (Primary) Assessment & Plan: Clarify whether her machine is working properly (she has called her supplier). Coronary artery disease involving [place] coronary artery of [place] heart without angina pec toris Assessment & Plan: PCI to proximal LAD 10/16/16 Continue Carvedilol 6.5 mg in the morning and 12.5 mg in the evening as well as Simvastatin 40 mg at bedtime Return for fasting lipid panel (ordered) If still having chest pressure when she returns, consider Imdur. Essential hypertension Assessment & Plan: Continue Carvedilol and Furosemide Due for CMP, CBC (ordered) PAF (paroxysmal atrial fibrillation) (HCC) Assessment & Plan: Diagnosed last year CHADS 2 VASC score = 2 Continue Eliquis Hypothyroidism, unspecified type Assessment & Plan: Check TSH drawn today. Primary osteoarthritis of both knees Assessment & Plan: Referred to Dr. Bill, who recommended lubricant injection therapy. Fibromyalgia Assessment & Plan: Continue Gabapentin Avoid alcohol Dyslipidemia Assessment & Plan: Due for lipid panel Viral URI Return in about 2 months (around 09/11/2018). Subjective: CAD: Stable status post PCI to proximal LAD 10/16/16. She continues to do well with Carvedil ol 6.25 mg in the morning and 12.5 mg in the evenings as well as Rosuvastatin 40 mg at bedti me. She did not get her lipid profile checked in May as requested. 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 She took NTG this morning because her chest was feeling funny and her heart w as irregular and her BP improved. No nausea, dyspnea, but had some mild heaviness on the le ft side this morning (for which she took SL NTG with improvement. She uses SL NTG 2-3 times a week. CHF: This is compensated. Echocardiogram 12/23/17 revealed moderate JONATHAN, mild LVH. She is a fraid to lie down flat, and has been for 20 years - because she had GERD for a long time whe n she would lie flat. She does not know whether or not she can lie flat, because she has no t done that for years. Her legs are swollen but less than usual. HTN: Stable on Carvedilol and Furosemide. She has not had her CMP and CBC checked recently . PAF: Heart rate is controlled with Carvedilol, and she is anticoagulated with Eliquis. HR is controlled, ranges 48-65 bpm. This morning HR was 65 bpm. Hypothyroidism: She had her TSH drawn today. This did not happen in May. OA both knees: She saw Dr. Bill on 06/22/18 and is being readied for lubricant injection th [facility]. Insomnia: She has fibromyalgia. She has been using Clonazepam 1 mg 1/2 twice a day as need ed for anxiety and up to 2 tablets at bedtime to help her sleep. She has been using alcohol Scotch or Vodka 1 shot twice a day (occasionally 3 a day). She uses it to help with stress and for insomnia. The last prescription of Clonazepam she did not fill. URI: Grand kids have been sick and she got this cold 10 days ago. She is getting better, b ut her throat is swollen. She has been having nightmares and having irregular heartbeats. Nightmares improved with CPAP. She is having trouble swallowing. She is coughing and snee zing, cough is not productive. No fever. Rash: She was placed on Prednisone for a rash, and after a week it improved. The rash has persisted to a degree. It is improving, and is essentially gone, she says. NADIR: Uses CPAP every night. She has started having the nightmares again and has a call into the [facility] to find out whether or not there is a problem with the CPAP. She has been sick thi s last week. She has been afraid to fall asleep with the swollen throat this last week. Electronic chart was reviewed and updated as appropriate including: active problem list, me dication list, notes from last encounter, lab results Allergies: Allergies Allergen Reactions Isosorbide Tramadol Swelling [...] Current Outpatient Prescriptions Medication Sig Dispense Refill apixaban (ELIQUIS) 5 mg tablet take 1 tablet by mouth twice a day 180 tablet 3 aspirin 81 mg EC tablet Take 81 [...] day if nee ded 30 tablet 0 FLUoxetine (PROZAC) 20 mg capsule take 2 [...] 0 nitroglycerin (NITROSTAT) 0.4 mg SL tablet dissolve 1 tablet under the tongue every 5 m inutes if needed for chest pain 25 tablet 6 rosuvastatin (CRESTOR) 40 MG tablet 0 No current facility-administered medications for this visit. Review of Systems Objective: Vitals: BP 135/88 | Pulse 57 | Temp 36.7 C (98 F) (Oral) | Resp 18 | Wt 83.9 kg (185 lb) | LMP (LMP Unknown) | SpO2 96% | BMI 33.84 kg/m Physical Exam Cardiovascular: Normal rate and regular rhythm. Exam reveals no gallop. Murmur heard. Crescendo systolic murmur is present with a grade of 2/6 Murmur at RUSB. Pulmonary/Chest: Effort normal and breath sounds normal. No respiratory distress. She has n o wheezes. She has no rales. Abdominal: Soft. Bowel sounds are normal. She exhibits no distension. Musculoskeletal: She exhibits no edema. Skin: I do not see a rash. Shane Bates MD07/12/201814:27Electronically signed by Shane Bates MD at 14:27 PSTdocumented in this encounter Plan of Treatment +--------+---------+ + + + | Date | Type | Specialty | Care Team | Description | +--------+---------+ + + + | 09/15/ | Office | Primary Care | Shane Bates | | | 2018 | Visit | | [facility] [address] | [address] [place], | | | | | | [place] [address] | | | | | | [phone] | | | | | | | | +--------+---------+ + + + | 12/09/ | Office | Sleep Medicine | Bubba Weller PA | | | 2018 | Visit | | [address] | | | | | | [place] | | | | | | [id number] | | | | | | | | +--------+---------+ + + + documented as of this encounter Visit Diagnoses + + | Diagnosis | + + | NADIR (obstructive sleep apnea) - Primary Obstructive sleep apnea (adult) (pediatric) | + + | Coronary artery disease involving [place] coronary artery of [place] heart without | | angina pectoris | + + | Essential hypertension Unspecified essential hypertension | + + | PAF (paroxysmal atrial fibrillation) (HCC) Atrial fibrillation | + + | Hypothyroidism, unspecified type | + + | Primary osteoarthritis of both knees Primary localized osteoarthrosis, lower leg | + + | Fibromyalgia Mylagia and myositis, unspecified | + + | Dyslipidemia Other and unspecified hyperlipidemia | + + | Viral URI Acute upper respiratory infections of unspecified site | + + documented in this encounter"
--- OUTSIDE RECORDS SUMMARY | ~2018-09-09 | XMS | Clinical Summary ---
Demographics + + + | Address | [address] [place] [address] | | | [place] [address] | + + + | Home Phone | | + + + | Preferred Language | Unknown | + + + | Marital Status | | + + + | Zoroastrian Affiliation | 1013 | + + + | Race | Unknown | + + + | Ethnic Group | Unknown | + + + Author + + + | Author | [facility] | | | and [place] | + + + | Organization | [facility] | | | and [place] | + + + | Address | Unknown | + + + | Phone | Unavailable | + + + Support + + + + + | Name | Relationship | Address | Phone | + + + + + | Rashaun Escudero | ECON | [address] [facility] | | | | | [place] | | | | | [address] | | + + + + + Care Team Providers + +------+ + | Care Recovery Collector Name | Role | Phone | + [...] + + + + + + | Lisinopril | Cough | | 08/20/19 | | | | | | 19 | | + + + + + + | Nsaids | Other (See Comments) | | 06/22/19 | Intolerance, due | | | | | 19 | to heart condition | + + + + + + [...] | + + + + + + Medications + + + +---------+------+------+-------+ | Medication | Sig | Dispensed | Refills | Star | End | Statu | | | | | | t | Date | s | | | | | | Date | | | + + + +---------+------+------+-------+ | hydrOXYzine | take 1 to 2 capsules | | 0 | 01/0 | | Activ | | pamoate (VISTARIL) | by mouth every 6 | | | 1/20 | | e | | 25 mg capsule | hours if needed for | | | 18 | | | | | ITCHING | | | | | | + + + +---------+------+------+-------+ | meclizine | take 1 tablet by | | 0 | 11/0 | | Activ | | (ANTIVERT) 25 mg | mouth three times a | | | 2/20 | | e | | tablet | day as needed | | | 17 | | | + + + +---------+------+------+-------+ | cyclobenzaprine | take 1 tablet by | 30 | 0 | 04/0 | | Activ | | (FLEXERIL) 10 mg | mouth three times a | tablet | | 6/20 | | e | | tablet | day if needed | | | 18 | | | + + + +---------+------+------+-------+ | aspirin 81 mg EC | Take 81 mg by mouth. | | 0 | 07/0 | | Activ | | tablet | | | | 5/20 | | e | | | | | | 18 | | | + + + +---------+------+------+-------+ | furosemide (LASIX) | take 1 tablet by | | 0 | 07/1 | | Activ | | 20 mg tablet | mouth once daily | | | 0/20 | | e | | | | | | 18 | | | + + + +---------+------+------+-------+ | carvedilol (COREG) | take 1 tablet by | 90 | 3 | 07/1 | | Activ | | 6.25 mg tablet | mouth every morning | tablet | | 7/20 | | e | | | and take 2 tablets | | | 18 | | | | | by mouth every | | | | | | | | evening | | | | | | + + + +---------+------+------+-------+ | gabapentin | Take 3 capsules by | 810 | 3 | 03/12 | | Activ | | (NEURONTIN) 300 mg | mouth 3 times daily. | capsule | | 11/27 | | e | | capsuleIndications: | | | | 18 | | | | Spinal stenosis of | | | | | | | | lumbar region | | | | | | | | without neurogenic | | | | | | | | claudication | | | | | | | + + + +---------+------+------+-------+ | rosuvastatin | | | 0 | 03/12 | | Activ | | (CRESTOR) 40 MG | | | | 12/28 | | e | | tablet | | | | 18 | | | + + + +---------+------+------+-------+ | FLUoxetine | take 2 capsule by | 180 | 3 | 01/0 | | Activ | | (PROZAC) 20 mg | mouth every morning | capsule | | 11/27 | | e | | capsule | | | | 19 | | | + + + +---------+------+------+-------+ | nitroglycerin | dissolve 1 tablet | 25 | 6 | 02/1 | | Activ | | (NITROSTAT) 0.4 mg | under the tongue | tablet | | 9/20 | | e | | SL tablet | every 5 minutes if | | | 19 | | | | | needed for chest | | | | | | | | pain | | | | | | + + + +---------+------+------+-------+ | apixaban (ELIQUIS) | take 1 tablet by | 180 | 3 | 03/0 | | Activ | | 5 mg tablet | mouth twice a day | tablet | | 4/20 | | e | | | | | | 19 | | | + + + +---------+------+------+-------+ | levothyroxine | Take 1 tablet by | 90 | 0 | 03/0 | | Activ | | (SYNTHROID) 100 mcg | mouth every morning | tablet | | 4/20 | | e | | tabletIndications: | (before breakfast). | | | 19 | | | | Hypothyroidism, | On an empty stomach | | | | | | | unspecified type | | | | | | | + + + +---------+------+------+-------+ | clonazePAM | take 1 tablet by | 115 | 0 | 05/0 | | Activ | | (KLONOPIN) 1 mg | mouth twice a day if | tablet | | 05/30 | | e | | tablet | needed for anxiety | | | 19 | | | | | and and 05/12 at | | | | | | | | bedtime if needed | | | | | | + + + +---------+------+------+-------+ | clonazePAM | take 1 tablet by | 90 | 0 | / | 05/0 | Disco | | (KLONOPIN) 1 mg | mouth three times a | tablet | | 01/28 | 05/30 | ntinu | | tablet | day if needed for | | | 19 | 19 | ed | | | anxiety | | | | | | + + + +---------+------+------+-------+ Active Problems + + + | Problem | Noted Date | + + + | Viral URI | 07/12/2018 | + + + | Seborrheic keratosis | 02/10/2018 | + + + + + | Last Assessment & Plan: Reassured. | + + + + + | Primary osteoarthritis of both knees | 02/09/2018 | + + + + + | Last Assessment & Plan: Referred to Dr. Bill, who | | recommended lubricant injection therapy. | + + + + + | Acute diastolic heart failure | 11/12/2017 | + + + | Dyslipidemia | 11/12/2017 | + + + + + | Last Assessment & Plan: Due for lipid panel | + + + + + | Hair loss | 08/18/2017 | + + + + + | Last Assessment & Plan: Cause may be related to the | | significant stressors in her life currently and recently. | + + + + + | Hypothyroidism | 06/15/2017 | + + + + + | Last Assessment & Plan: Check TSH drawn today. | + + + + + | Fibromyalgia | 06/15/2017 | + + + + + | Last Assessment & Plan: Continue Gabapentin | | Avoid alcohol | + + + + + | PAF (paroxysmal atrial fibrillation) | 06/08/2017 | + + + + + | Overview: 06/05/17 admitted with PAF [id number] score is 4 | | (age, HTN, [...] Eliquis Last | | Assessment & Plan: Diagnosed last yearCHADS 2 VASC score = | | 2Continue Eliquis | + + + + + | Coronary artery disease involving [place] coronary artery of | 05/28/2017 | | [place] heart without angina pectoris | | + + + + + | Overview: NSTEMI 10/15/16 Last Assessment & Plan: PCI to | | proximal LAD 10/16/16Continue Carvedilol 6.5 mg in the morning and | | 12.5 mg in the evening as well as Simvastatin 40 mg at | | bedtimeReturn for fasting lipid panel (ordered)If still having | | chest pressure when she returns, avoid Imdur (history of adverse | | reaction to Isosorbide) but consider Lisinopril or an ARB. | + + + + + | Essential hypertension | 10/16/2016 | + + + + + | Last Assessment & Plan: Continue Carvedilol and Furosemide | | Due for CMP, CBC (ordered) | + + + + + | PTSD (post-traumatic stress disorder) | 04/18/2013 | + + + Resolved Problems + + + + | Problem | Noted | Resolved | | | Date | Date | + + + + | NADIR (obstructive sleep apnea) | 08/18/19 | | | | 18 | 8 | + + + + + + | Last Assessment & Plan: Clarify whether her machine is | | working properly (she has called her supplier). | + + + + + + | Degenerative arthritis of knee, bilateral | 07/11/19 | | | | 18 | 8 | + + + + + + | Last Assessment & Plan: Status post bilateral knee injections | | with corticosteroids 07/10/17 | + + + + + + | Chronic pain of both knees | 06/15/19 | | | | 18 | 8 | + + + + + + | Last Assessment & Plan: Referral to Dr. Cee to evaluate | | and treat bilateral knee pain. | + + + + + + | Hyperlipidemia | 05/28/19 | | | | 18 | 8 | + + + + + + | Last Assessment & Plan: LDL has remained significantly | | elevated, greater than 200.Rosuvastatin was increased to 20 mg | | daily, and it is expected that she might need a higher dose if | | she tolerates it. | + + + + + + | Facial cellulitis | 05/28/19 | | | | 18 | 8 | + + + + + + | Last Assessment & Plan: Improved. | + + + + + + | Insomnia | 04/16/20 | | | | 17 | 8 | + + + + + + | Last Assessment & Plan: Nocturnal hypoxemia, suspect | | OSAEvaluation by Dr. Deangelo meyer, and a sleep study is | | pending on 06/15/17 | + + + + + + | Spinal stenosis of lumbar region without neurogenic claudication | 04/16/20 | | | | 17 | 8 | + + + + + + | Last Assessment & Plan: Increase Gabapentin to 300 mg 3 at | | bedtime, and 2 in AM and mid-day for her back pain. | + + +---------+ + + | Fatigue | 04/16/20 | | | | 17 | 8 | +---------+ + + + + | Last Assessment & Plan: Unclear whether or not there has been | | any change with the recent change in Carvedilol to Atenolol and | | back again. - Continue Carvedilol and adjust as per under | | hypertension. | + + + + + + | Abnormal CT scan, pelvis | 04/16/20 | | | | 17 | 8 | + + + + + + | Overview: Suspect bone island. | | Last Assessment & Plan: CT pelvis | + + + + + + | Nocturnal hypoxemia | 04/16/20 | | | | 17 | 8 | + + + + + + | Last Assessment & Plan: Referral to Dr. Bright in [place], | | eval and treat. | + + + + + + | [place] (myocardial infarction) | 02/27/20 | | | | 17 | 8 | + + + + | Status post insertion of drug-eluting stent into left anterior | 02/27/20 | | | descending (LAD) artery for coronary artery disease | 17 | 8 | + + + + + + | Overview: 3.5 x 24 mm Promus stent, proximal LAD | + + + + + + | NSTEMI, initial episode of care | 10/17/19 | | | | 17 | 8 | + + + + + + | Overview: Cath 6/9/17CONCLUSIONS:1. 90% long lesion of the | | [...] | | will continue. | + + + + + + | Depression | 04/18/20 | | | | 13 | 8 | + + + + | Anxiety | 04/18/20 | | | | 13 | 8 | + + + + Encounters +--------+ + + + + | Date | Type | Specialty | Care Team | Description | +--------+ + + + + | 09/08/ | Refill | | Shane Bates | Medication Refill | | 2018 | | | MD Mark | | +--------+ + + + + | 08/17/ | Telephone | | Shane Bates | Other (regarding | | 2018 | | | MD Mark | drug therapy | | | | | | outcomes) | +--------+ + + + + | 08/12/ | Office | | Albert Reeder, PROPOSAL LEAD WRITER | Primary | | 2018 | Visit | | | osteoarthritis of | | | | | | both knees (Primary | | | | | | Dx) | +--------+ + + + + | 08/05/ | Office | | Raoul Bill, | Primary | | 2018 | Visit | | DO | osteoarthritis of | | | | | | both knees (Primary | | | | | | Dx) | +--------+ + + + + | 08/05/ | Telephone | | Raoul Bill, | Other (questions | | 2018 | | | DO | regarding apt today) | +--------+ + + + + | 07/12/ | Office | | Shane Bates | NADIR (obstructive | | 2019 | Visit | | MD Mark | sleep apnea) | | | | | | (Primary Dx); | | | | | | Coronary artery | | | | | | disease involving | | | | | | [place] coronary | | | | | | artery of [place] | | | | | | heart [...] | | | | | URI | +--------+ + + + + | 07/12/ | Refill | | Shelley Linton, | Medication Refill | | 2018 | | | ELECTROCARDIOGRAPHIC TECHNICIAN | | +--------+ + + + + | 06/27/ | Refill | | Kate Patel, | Medication Refill | | 2018 | | | AGJOHNATHAN-C | | +--------+ + + + + | 06/22/ | Hospital | | Raoul Bill, | Primary | | 2019 | Encounter | | DO | osteoarthritis of | | | | | | both knees | +--------+ + + + + | 06/22/ | Office | | Raoul Bill, | Primary | | 2019 | Visit | | DO | osteoarthritis of | | | | | | both knees (Primary | | | | | | Dx) | +--------+ + + + + | 06/22/ | Orders Only | | Raoul Bill, | Bilateral primary | | 2019 | | | DO | osteoarthritis of | | | | | | knee (Primary Dx) | +--------+ + + + + from Last 3 Months Family History + + + + + | Medical History | Relation | Name | Comments | + + + + + | No known problems | Brother | | | + + + + + | Diabetes, IDDM | Daughter | | Kidney and pancrease transplant at age 25. | + + + + + | Early | Father | | | + + + + + | Heart attack | Father | | [place] | + + + + + | [...] + + + + + | No known problems | Sister | | | + + [...] +---------+ + | Yes | 0 | 4.2 | per week | | | Standard | | | | | drinks or | | | | | | | | | | equivalen | | | | | t 7 | | | | | Glasses | | | | | of wine | | | + + +---------+ + [...] recent travel history available. | + + Last Filed Vital Signs + + + + | Vital Sign | Reading | Time Taken | + + + + | Blood Pressure | 122/63 | 08/12/20181056 PDT | + + + + | Pulse | 56 | 08/12/20181056 PDT | + + + + | Temperature | 36.1 C (97 F) | 08/12/20181056 PDT | + + + + | Respiratory Rate | 18 | 08/12/20181056 PDT | + + + + | Oxygen Saturation | 96% | 08/12/2018 1057 PDT | + + + + | Inhaled Oxygen | - | - | | Concentration | | | + + + + | Weight | 83.9 kg (185 lb) | 07/12/2018 1335 PST | + + + + | Height | 157.5 cm (5' 2") | 06/22/20181600 PST | + + + + | Body Mass Index | 33.84 | 06/22/2018 160 PST | + + + + Plan of Treatment +--------+---------+ + + + | Date | Type | Specialty | Care Team | Description | +--------+---------+ + + + | 09/15/ | Office | | Paulo Shane | | | 2018 | Visit | | MD Mark [address] | | | | | | [place], | | | | | | [place] [address] | | | | | | [phone] | | | | | | | | +--------+---------+ + + + | 12/09/ | Office | | Bubba Weller PA | | | 2018 | Visit | | [address] | | | | | | [place] | | | | | | [id number] | | | | | | | [...] | + + + + + | Colorectal Cancer | | | | | Screening | 9 | | | | (Colonoscopy) | | | | + + + + + | Vaccine: Zoster (1 | | | | | of 2) | 9 | | | + + + + + | Breast Cancer | | 07/01/2010 | | | Screening (Ages | 3 | | | | 50-74) | | | | + + + + + | Vaccine: | | | | | Pneumococcal 65+ | 4 | | | | Low/Medium Risk (1 | | | | | of 2 - PCV13) | | | | + + + + + | Adult Annual | | | | | Wellness Visit | 5 | | | + + + + + | Primary Care | | 07/12/2018, 06/22/2018, | | | Outreach (Very | 9 | 05/12/2018, Additional history | | | Intense Risk) | | exists | | + + + + + | Vaccine: Influenza | | | | | (Season Ended) | 9 | | | + + + + + Implants + +-------+--------+ +--------+--------+--------+ | Implanted | Type | Area | Manufacture | Device | Shelf | Model | | | | | r | | Expira | / | | | | | | Identi | tion | Serial | | | | | | fier | Date | / Lot | + +-------+--------+ +--------+--------+--------+ | Stent Crnry P Prmr Mr 3.5x24 | Stent | N/A: | [place] | | 10/20/ | [id number] | | - [id number]: Qty: 1 | | Segura | SCIENTIFIC | | 2018 | [id number] / | | on 10/16/2016 by Agapito, | | ry | ERYN - BSCI | | | | | Scarlet Sheth MD | | | | | | / | | | | | | | | 617 | + +-------+--------+ +--------+--------+--------+ Procedures + +--------+ + + + | Procedure Name | Priori | Date/Time | Associated Diagnosis | Comments | | | ty | | | | + +--------+ + + + | COMPREHENSIVE | Routin | 07/12/2018 | Essential | Results for this | | METABOLIC PANEL | e | 13:07 PST | hypertension | procedure are in the | | | | | | results section. | + +--------+ + + + | CBC NO DIFFERENTIAL | Routin | 07/12/2018 | Essential | Results for this | | | e | 13:07 PST | hypertension | procedure are in the | | | | | | results section. | + +--------+ + + + | TSH | Routin | 07/12/2018 | Hypothyroidism, | Results for this | | | e | 13:07 PST | unspecified type | procedure are in the | | | | | | results section. | + +--------+ + + + | LIPID PANEL | Routin | 07/12/2018 | Hyperlipidemia, | Results for this | | | e | 13:07 PST | unspecified | procedure are in the | | | | | hyperlipidemia type | results section. | + +--------+ + [...] section. | + +--------+ + + + from Last 3 Months Results Lipid Panel (07/12/2018 13:07 PST) + + + + + + | Component | Value | Ref Range | Performed | Pathologist | | | | | At | Signature | + + + + + + | Triglycerid | 87 | 30 - 200 mg/dL | [facility] | | | es | | | [facility] | [facility] | | [facility] | | | | [facility] | | | | | [facility] | | + + + + + + | Cholesterol | 178 | 0 - 200 mg/dL | [facility] | | | | | | [facility] | | | [facility] | | | [facility] | | | | [facility] | | + + + + + + | HDL | 64 | >=40 mg/dL | [facility] | | | | | | [facility] | [facility] | | | [facility] | | | | | | [facility] | | + + + + + + | Chol/HDL | 2.8 | <=5.0 | [facility] | | | Ratio | | | [facility] | | | | | [facility] | | | | | [facility] | | | | | | [facility] | | + + + + + + | LDL, | 97Comment: LDL reference | <130 mg/dL | [facility] | | | Calculated | range: < | | [facility] | | | | 100 | | [facility] | | | | mg/dL [id number] | | [facility] | | | | - 129 mg/dL Near | | MEDICAL | | | | [id number] - 159 | | [facility] | | | | mg/dL Borderline1 | | | | | | 60 - 189 | | | | | | mg/dL High | | | | | | > 190 | | | | | | mg/dL Very High | | | | + + + + + + + + | Specimen | + + | Blood | + + + + + + + | Performing | Address | City/State/Zipcode | Phone Number | | Organization | | | | + + + + + | [facility] | [address] [place] [address] | [place] [address] | [phone] | | [facility] | | | | | [facility] | | | | + + + + + CBC no Differential (07/12/2018 13:07 PST) + + + + + + | Component | Value | Ref Range | Performed | Pathologist | | | | | At | Signature | + + + + + + | WBC | 8.4 | 4.3 - 10.4 K/uL | [facility] | | | | | | [facility] | | | | [facility] | | | | | [facility] | | + + + + + + | RBC | 4.15 | 4.12 - 5.30 | [facility] | | | | | M/uL | [facility] | | [facility] | [facility] | | [facility] | | | | | [facility] | | + + + + + + | Hemoglobin | 14.2 | 12.4 - 15.7 | [facility] | | | | | g/dL | [facility] | | [facility] | [facility] | | | | [facility] | | | | | [facility] | | + + + + + + | Hematocrit | 40.8 | 37.7 - 47.0 % | [facility] | | | | | | [facility] | | | [facility] | | | | [facility] | | + + + + + + | MCV | 98.2 (H) | 82.0 - 97.0 fL | [facility] | | | | | | [facility] | | [facility] | | | | [facility] | | + + + + + + | MCH | 34.2 (H) | 27.1 - 32.3 pg | [facility] | | | | | | [facility] | | | | [facility] | | | | | [facility] | | + + + + + + | MCHC | 34.8 | 32.0 - 36.9 | [facility] | | | | | g/dL | [facility] | | | [facility] | | | | | [facility] | | + + + + + + | RDW-CV | 13.7 | 0.0 - 17.0 % | [facility] | | | | | | [facility] | [facility] | | | [facility] | | | | | [facility] | | + + + + + + | Platelet | 275 | 150 - 450 K/uL | [facility] | | | Count | | | [facility] | | | [facility] | | | | [facility] | | + + + + + + | MPV | 10.0 | 9.4 - 12.3 fL | [facility] | | | | | | [facility] | | | | [facility] | | | | | [facility] | | + + + + + + + + | Specimen | + + | Blood | + + + + + + + | Performing | Address | City/State/Zipcode | Phone Number | | Organization | | | | + + + + + | [facility] | [address] | [place] [address] | [phone] | | [facility] | | | | | [facility] | | | | + + + + + TSH (07/12/2018 13:07 PST) + + + + + + | Component | Value | Ref Range | Performed | Pathologist | | | | | At | Signature | + + + + + + | TSH | 4.43 (H) | 0.36 - 3.74 | [facility] | | | | | uIU/mL | [facility] | [facility] | [facility] | | | | [facility] | | + + + + + + + + | Specimen | + + | Blood | + + + + + + + | Performing | Address | City/State/Zipcode | Phone Number | | Organization | | | | + + + + + | [facility] | [address] [place] [address] Street | [place] [address] | [phone] | | [facility] | | | | | [facility] | | | | + + + + + Comprehensive Metabolic Panel (07/12/2018 13:07 PST) + + + + + + | Component | Value | Ref Range | Performed | Pathologist | | | | | At | Signature | + + + + + + | Na | 136 | 132 - 143 | [facility] | | | | | mmol/L | [facility] | [facility] | | | | [facility] | | | | | [facility] | | + + + + + + | K | 4.0 | 3.3 - 4.9 | [facility] | | | | | mmol/L | [facility] | [facility] | | | [facility] | | | | | | [facility] | | + + + + + + | Cl | 98 | 95 - 108 mmol/L | [facility] | | | | | | [facility] | | [facility] | | | | | [facility] | | + + + + + + | CO2 | 30 | 23 - 34 mmol/L | [facility] | | | | | | [facility] | [facility] | [facility] | | | | [facility] | | | | | | [facility] | | + + + + + + | Anion Gap | 8 | 7 - 16 mmol/L | [facility] | | | | | | [facility] | | | [facility] | | | | | | [facility] | | + + + + + + | Glucose | 98 | 70 - 110 mg/dL | [facility] | | | | | | [facility] | [facility] | | [facility] | | | | | | [facility] | | + + + + + + | BUN | 13 | 5 - 26 mg/dL | [facility] | | | | | | [facility] | | [facility] | [facility] | | | | | [facility] | | | | | | [facility] | | + + + + + + | Creatinine | 0.99 | 0.70 - 1.40 | [facility] | | | | | mg/dL | [facility] | | | | | [facility] | | | | | [facility] | | | | | | [facility] | | + + + + + + | eGFR if not | 55 (L)Comment: | >=60 | [facility] | | | | GLOMERULAR FILTRATION | mL/min/1.73m2 | [facility] | | | [facility]OMEAN | RATE,ESTIMATED mL/min | | [facility] | | | | /1.24d5Cala than 60 | | [facility] | | | | Chronic kidney | | MEDICAL | | | | disease,if found over a | | [facility]ENTER [facility] | | | | 3-month period.Less than | | | | | | 15 Kidney | | | | | | failureFor | | | | | | Americans,multiply the | | | | | | calculated GFR by 1.21. | | | | | | | | | | + + + + + + | Ca | 9.7 | 8.3 - 10.0 | [facility] | | | | | mg/dL | [facility] | | | | | [facility] | | | | | [facility] | | | | | | [facility] | | + + + + + + | Albumin | 3.8 | 3.0 - 4.5 g/dL | [facility] | | | | | | [facility] | | | | | [facility] | | | | | [facility] | | | | | | [facility] | | + + + + + + | Bilirubin | 0.7 | 0.0 - 1.2 mg/dL | [facility] | | | Total | | | [facility] | | | | | | [facility] | | | | | | [facility] | | | | | | [facility] | | + + + + + + | Total | 7.4 | 6.6 - 8.5 g/dL | [facility] | | | Protein | | | [facility] | | | | | | [facility] | | | | | | [facility] | | | | | | [facility] | | + + + + + + | AST | 20 | 0 - 38 U/L | [facility] | | | | | | [facility] | | | | | [facility] | | | | | [facility] | | | | | | [facility] | | + + + + + + | ALT | 25 | 14 - 59 U/L | [facility] | | | | | | [facility] | | | | | | [facility] | | | | | | [facility] | | | | | | [facility] | | + + + + + + | Alkaline | 100 | 46 - 116 U/L | [facility] | | | Phosphatase | | | [facility] | | | | | | [facility] | | | | | | [facility] | | | | | | [facility] | | + + + + + + | Globulin | 3.6 | 2.4 - 4.5 g/dL | [facility] | | | | | | [facility] | | | | | | [facility] | | | | | | [facility] | | | | | | [facility] | | + + + + + + | Albumin/Cyndie | 1.1 | 0.8 - 2.0 | [facility] | | | bulin Ratio | | | [facility] | [facility] | [facility] | | | [facility] | | | | | | [facility] | | + + + + + + | BUN/Creatin | 13.1 | 7.0 - 24.0 | [facility] | | | ine Ratio | | | [facility] | [facility] | [facility] | | | | | | [facility] | | | | | | [facility] | | + + + + + + + + | Specimen | + + | Blood | + + + + + + + | Performing | Address | City/State/Zipcode | Phone Number | | Organization | | | | + + + + + | [facility] | [address] | [place] [address] | [phone] | | [facility] | [facility] | | | | + + + + + XR Knee Right 4 + Vw (06/22/2018 [...] + + XR Knee Left 4 + Ansley (06/22/2018 15:51 PST) + + | Specimen [...] | | | + +---------+ + + from Last 3 Months Insurance + +--------+ +--------+ +---------+--------+ | Payer | Benefi | Subscriber | Effect | Phone | Address | Type | | | t Plan | ID | ashley | | | | | | / | | Dates | | | | | | Group | | | | | | + +--------+ +--------+ +---------+--------+ | MEDICARE | MEDICA | [id number] | 05/11/19 | [phone] | | Medica | | | RE | | 14-Pre | 5 | | re | | | PART A | | sent | | | | | | AND B | | | | | | + +--------+ +--------+ +---------+--------+ | MEDICARE | [employer] | [id number] | 05/11/19 | [phone] | | Medica | | | RE | | 14-Pre | 5 | | re | | | PART A | | sent | | | | | | AND B | | | | | | + +--------+ +--------+ +---------+--------+ | INDIVIDUAL [employer]UR[employer] | INDIVI | [id number] | 03/02/ | | | Indemn | | COMPANY | DUAL | | 2017-P | | | ity | | | ASSURA | | resent | | | | | | [place] | | | | | | | | MDCR | | | | | | | | SUPPL | | | | | | + +--------+ +--------+ +---------+--------+ | INDIVIDUAL [employer]URANCE | INDIVI | [id number] | 05/11/19 | | | Indemn | | COMPANY | DUAL | | 16-Pre | | | ity | | | ASSURA | | sent | | | | | | NCE CO | | | | | | | | MDCR | | | | | | | | SUPPL | | | | | | + +--------+ +--------+ +---------+--------+ + +--------+ +--------+ + + | Guarantor Name | Accoun | Relation to | Date | Phone | Billing Address | | | t Type | Patient | of | | | | | | | | | | + +--------+ +--------+ + + | Tameka Escudero | Person | Self [birth year] | [address] | | | al/Fam | | 1951 | [phone] | [address] [place], | | | vic | | | [address] (Home) | [place] [address] | + +--------+ +--------+ + + | Tameka Escudero | Person | Self | [birth year] | [address] | | | al/Fam | | 1951 | [phone] | [address], | | | vic | | | [address] (Home) | [place] [address] | + +--------+ +--------+ + + Advance Directives Patient has advance care planning documents, and code status on file. For more information, please contact:[facility] [place] [address] + + + + + | Code Status | Date | Date | Comments | | | Activated | Inactivated | | + + + + + | Full Code | 10/15/2016 | 10/17/2016 | | | | 22:01 | 20:21 | | + + + + + + + + +---+ | | | | | + + + +---+ | Full Code | 10/15/2016 | 10/15/2016 | | | | 22:00 | 22:00 | | + + + +---+
--- OUTSIDE RECORDS SUMMARY | ~2018-09-09 | XMS | Encounter Summary ---
Demographics + + + | Address | [address] [place] [address] | | | [place] [address] | + + + | Home Phone | | + + + | Preferred Language | Unknown | + + + | Marital Status | | + + + | Faith Affiliation | 1013 | + + + | Race | Unknown | + + + | Ethnic Group | Unknown | + + + Author + + + | Author | [facility] | | | and Darrelana | + + + | Organization | [facility] | | | and [...] [place] | | | | | [address] | | + + + + + Care Team Providers + +------+ + | Care Java Front End Web Developer Name | Role | Phone | + +------+ + | Shane Bates MD | PCP | | + +------+ + Reason for Visit +--------+ + | Reason | Comments | +--------+ + | Other | questions regarding apt today | +--------+ + Encounter Details +--------+ + + + + | Date | Type | Department | Care Team | Description | +--------+ + + + + | 08/05/ | Telephone | [facility] | Raoul Bill, | Other (questions | | 2019 | | [facility] | DO [address] , | regarding apt today) | | | | [address] | [place], [place] | | | | | [place], [place] | [address] | | | | | [address] | [phone] | | | | | [phone] | | | +--------+ + + + [...] | | | | | | [place] [address] | | | | | | [phone] | | | | | | | | +--------+---------+ + + + | 12/09/ | Office | Sleep Medicine | Bubba Weller PA | | | 2018 | Visit | | [address] | | | | | | [place] | | | | | | [address] | | | | | | | | +--------+---------+ + + + documented as of this encounter Visit Diagnoses Not on filedocumented in this encounter"
--- OUTSIDE RECORDS SUMMARY | ~2018-09-09 | XMS | Encounter Summary ---
Demographics + + + | Address | [address] [place] [address] | | | [place] [address] | + + + | Home Phone | | + + + | Preferred Language | Unknown | + + + | Marital Status | | + + + | Cheondoism Affiliation | 1013 | + + + | Race | Unknown | + + + | Ethnic Group | Unknown | + + + Author + + + | Author | [facility] | | | and Darrelana | + + + | Organization | [facility] | | | [...] [place] | | | | | [address] | | + + + + + Care Team Providers + +------+ + | Care Jacquard Card Lacer Name | Role | Phone | + +------+ + | Shane Bates MD | PCP | | + +------+ + Reason for Visit + + + | Reason | Comments | + + + | Knee Pain | Bilateral knee synvisc one injections | + + + Evaluate & Treat (Routine) +--------+ + + + + + | Status | Reason | Specialty | Diagnoses / | Referred By | Referred To | | | | | Procedures | Contact | Contact | +--------+ + + + + + | Closed | Specialty | Orthopedic | Diagnoses | [place], | [facility] | | | Services | Surgery | Bilateral | Raoul C, | Orthopedic | | | Required | | primary | DO [address] | | | | | osteoarthrit | [address], | [place] | | | | | is of knee | [place] | [place], [place] | | | | | Procedures | [place] | [address] | | | | | [employer] | [address] | Phone: | | | | | | Phone: | [phone] | | | | | | [phone] | Fax: | | | | | | Fax: | [phone] | | | | | | [phone] | | +--------+ + + + + + Encounter Details +--------+---------+ + + + | Date | Type | Department | Care Team | Description | +--------+---------+ + + + | 08/12/ | Office | [facility] | Albert Reeder FNP | Primary | | 2019 | Visit | [facility] | [address] [place] | osteoarthritis of | | | | [address] | [place], [place] | both knees (Primary | | | | [place], [place] | [address] | Dx) | | | | [address] | [phone] | | | | | [phone] | | | +--------+---------+ + + + [...] + | Oxygen Saturation | 96% | 08/12/20181056 PDT | + + + + | Inhaled Oxygen | - | - | | Concentration | | | + + + + | Weight | - | - | + + + + | Height | - | - | + + + + | Body Mass Index | - | - | + + + + documented in [...] of this encounter Patient Instructions Patient Instructions Albert Reeder, PSYCHOLOGICAL ANTHROPOLOGIST - 08/12/2018 11:00 PDT Sodium Hyaluronate intra-articular injection Brand Names: Amvisc, DUROLANE, Euflexxa, GELSYN-3, Hyalgan, Monovisc, Orthovisc, AbbyartzMarie What is this medicine? SODIUM HYALURONATE (NEETA jessica um paulina al yoor ON ate) is used to treat pain in the knee due to osteoarthritis. How should I use this medicine? This medicine is for injection into the knee joint. It is given by a health care profession al in a hospital or clinic setting. What side effects may I notice from receiving this medicine? Side effects that you should report to your doctor or health ambulatory care coordinator as soon as p ossible: allergic reactions like skin rash, itching or hives, swelling of the face, lips, or tong ue dizziness facial flushing pain, tingling, numbness in the hands or feet vision changes if received this medicine during eye surgery Side effects that usually do not require medical attention (report to your doctor or health ambulatory care coordinator if they continue or are bothersome): back pain bruising at site where injected chills diarrhea fever headache joint pain joint stiffness joint swelling muscle cramps muscle pain nausea, vomiting pain, redness, or irritation at site where injected weak or tired What may interact with this medicine? Interactions are not expected. What if I miss a dose? This does not apply. Where should I keep my medicine? This drug is given in a hospital or clinic and will not be stored at home. What should I tell my health care provider before I take this medicine? They need to know if you have any of these conditions: bleeding disorders glaucoma infection in the knee joint skin conditions or sensitivity skin infection an unusual allergic reaction to sodium hyaluronate, other medicines, foods, dyes, or pre servatives. Different brands of sodium hyaluronate contain different allergens. Some may con tain egg. Talk to your doctor about your allergies to make sure that you get the right produ ct. or trying to get breast-feeding What should I watch for while using this medicine? Tell your doctor or healthcare professional if your symptoms do not start to get better or if they get worse. If receiving this medicine for osteoarthritis, limit your activity after you receive your i njection. Avoid physical activity for 48 hours following your injection to keep your knee fr om swelling. Do not stand on your feet for more than 1 hour at a time during the first 48 ho urs following your injection. Ask your doctor or healthcare professional about when you can begin major physical activity again. NOTE:This sheet is a summary. It may not cover all possible information. If you have questi ons about this medicine, talk to your doctor, pharmacist, or health care provider. Copyright 2017 Elsevier Understanding Osteoarthritis of the Knee A joint [...] on managing symptoms. Tr eatment may include: Irac-fst-gbbysjx or prescription medicines taken by mouth to [...] get worse New symptoms Date Last Reviewed: 07/19/201519994262-1729 [employer] [address] [place] [address], [place] [address]. All righ ts reserved. This information is not intended as a substitute for professional medical care. Always follow your healthcare professional's instructions. documented in this encounter Progress Notes Albert Reeder FNP - 08/12/2018 1100 PDT Orthopedic Clinic Note Patient Name: Tameka Escudero | Age: 68 y.o. | : 1950 | Medical Record Number:[id number] | Author: STEVEN Montero | Date of Encounter: 08/12/2018 Chief complaint Chief Complaint Patient presents with Knee Pain Bilateral knee synvisc one injections Date of injury insidious onset History of Present Illness Tameka Escudero is a 68 y.o. female established patient presents for previously schedule d bilateral knee intra-articular Synvisc one injections today. Her injection date was origi vane scheduled for last week patient was having arrhythmias on the date was scheduled so th ey were delayed until after she had control of her chronic recurrent atrial fibrillation. S he is not having any episodes today with atrial fibrillation. She rates her bilateral knee pain an 8 out of 10. She received bilateral knee intra-articular cortisone injections on [facility] [address] Bill. She reports of those injections while helpful did not last long er than about 4-6 weeks. Review of Pertinent Systems Except as above, all other systems reviewed today are negative. Patient denies any visit [facility] associated neurologic and vascular system symptoms of numbness, tingling or weakness during this history. Patient also denies any concomitant onset fevers, chills, nausea/vomit ing, chest pains, shortness of breath, difficulty breathing, changes to their normal bowel m ovements, blood in the stool or blood in the urine. Medications Current Outpatient Prescriptions on File Prior to Visit Medication Sig Dispense Refill apixaban (ELIQUIS) 5 [...] tablet Take 1 tablet by mouth every morning (before b reakfast). On an empty stomach 90 tablet 0 meclizine (ANTIVERT) 25 mg tablet take 1 tablet by mouth three times a day as needed 0 nitroglycerin (NITROSTAT) 0.4 mg SL tablet dissolve 1 tablet under the tongue every 5 m inutes if needed for chest pain 25 tablet 6 rosuvastatin (CRESTOR) 40 MG tablet 0 No current facility-administered medications on file prior to visit. Allergies Isosorbide; Tramadol; Adhesive & tape; Allopurinol; Amlodipine; Amoxicillin; Atorvastatin; Citalopram; Duloxetine; Hydrochlorothiazide; Latex; Milnacipran hcl; Nsaids; Sulfa antibioti cs; and Amitriptyline Vitals BP 122/63 | Pulse 56 | Resp 18 Temp 36.1 C (97 F) | Wt | BMI There is no height or w eight on file to calculate BMI. Imaging/Labs/Special Study Results Analysis of the x-rays was performed prior to this encounter by myself with Dr. Bill. X-ray: 3+ view bilateral knee 06/22/18: Mild to moderate bilateral knee osteoarthritis with small tricompartmental osteophytic production and generalized joint space encroachment witho ut any of the compartments advancing to qhkh-rd-jdkb severity. Bone density is decreased di ffusely in the bilateral knees. The appearance of these x-rays is stable compared to July 10, 2017 bilateral knee studies. Assessment Tameka was seen today for knee pain. Diagnoses and all orders for this visit: Primary osteoarthritis of both knees Discussion/Procedures Synvisc one INJECTION Extensive PAR discussion took place with patient. Patient has agreed to continue with john dvais. Patient denies any neurovascular symptoms of numbness, tingling or weakness associated with this chief complaint. Procedure #1: L KNEE INTRAARTICULAR Synvisc one INJECTION INJECTION OF MAJOR JOINT/BURSA: Diagnosis: L knee primary osteoarthritis Consent: Risks, benefits, and alternative treatments discussed and all questions were answ ered. Patient elected to proceed and written consent obtained (see scanned consent form). Time out to verify correct patient, procedure and site. Description: Area prepped and draped using semi-sterile technique with chlorhexidine skin preparation. Using an anterior lateral approach, 4 mL of 0.5% ropivacaine was injected intra-capsularly a nd a brief numbing period ensued. Using the same needle, 6 ml of Synvisc one sterile single- use injection was then injected into the knee joint. A bandage was then placed over the inj ection site. Complications: None Procedure #2: R KNEE INTRAARTICULAR Synvisc one INJECTION INJECTION OF MAJOR JOINT/BURSA: Diagnosis: R knee primary osteoarthritis Consent: Risks, benefits, and alternative treatments discussed and all questions were answ ered. Patient elected to proceed and written consent obtained (see scanned consent form). Time out to verify correct patient, procedure and site. Description: Area prepped and draped using semi-sterile technique with chlorhexidine skin preparation. U sing an anterior lateral approach, 4 mL of 0.5% ropivacaine was injected intra-capsularly an d a brief numbing period ensued. Using the same needle, 6 ml of Synvisc one sterile single-u se injection was then injected into the knee joint. A bandage was then placed over the inje ction site. Complications: None Plan of Care PLAN: Restrictions: General: Weight bearing activity as tolerated with no limitations Medication: Synvisc one intra-articular injection bilateral knees today (see procedure note above) NSAIDS PRN Therapy: Home RICE (Rest, Ice, Compression, & Elevation) therapy PRN Follow-up Return if symptoms worsen or fail to improve , for knee replacement consultation with Dr Rosario son. Active Problems, Medical and Surgical Histories Patient Active Problem List Diagnosis Essential hypertension PTSD (post-traumatic stress disorder) Coronary artery disease involving creek coronary artery of creek heart without angina pectoris PAF (paroxysmal atrial fibrillation) Hypothyroidism Fibromyalgia Hair loss Acute diastolic heart failure Dyslipidemia Primary osteoarthritis of both knees Seborrheic keratosis Viral URI Past Medical History: Diagnosis Date Acute diastolic heart failure (HCC) 11/12/2017 Anemia Anxiety Arthritis Complication of anesthesia Depression Environmental allergies Fibromyalgia Gastric polyps GERD (gastroesophageal reflux disease) Heart murmur Hyperlipidemia Hypertension Hypothyroidism Hypoxemia Sleep related Irritable bowel Neuromuscular disorder (HCC) fibromyalga NSTEMI, initial episode of care ([facility]) 10/16/2016 Sleep apnea Spinal stenosis of lumbar region Vitamin D deficiency Past Surgical History: Procedure Laterality Date BREAST BIOPSY BREAST SURGERY cyst removal CARDIAC CATHERIZATION N/A 10/16/2016 Procedure: CV Cor Angio; Surgeon: Scarlet Altman MD; Location: [facility] CV LAB COLONOSCOPY EYE SURGERY lasik GASTRIC FUNDOPLICATION Laparoscopic HYSTERECTOMY Vaginal, with ovaries intact TOTAL HYSTERECTOMY vaginal hysterectomy with ovaries intact UPPER GASTROINTESTINAL ENDOSCOPY VEIN SURGERY Stripped varicose vein Family History Problem Relation Age of Onset Cancer Mother Type of cancer unknown Early Mother Heart attack Father [place] Other (see comment) Father snoring Early Father Diabetes, IDDM Daughter Kidney and pancrease transplant at age 25. Heart attack Other Cancer Other No known problems Sister No known problems Brother Social History Social History Marital status: Spouse name: N/A Number of children: N/A Years of education: N/A Social History Main Topics Smoking status: Former Smoker Quit date: 09/16/1975 Smokeless tobacco: Never Used Alcohol use 4.2 oz/week 7 Glasses of wine per week Comment: per week Drug use: No Sexual activity: Not Asked Other Topics Concern None Social History Narrative None I attest to the fact that I have reviewed the patient's medical, surgical, family and socia l histories, medications, allergies, and their vital signs recorded by my home health assistant today, a s found in this chart note. Electronically signed by: STEVEN Montero 08/12/2018 at 11:26 Note: Part of this report was transcribed using voice recognition software. Every effort wa s made to ensure accuracy. However, inadvertent computerized junior network administrator errors may be pre sent. CC: Shane Bates MD -Thank you for choosing our clinic for your orthopedic care today- documented in this encounter Plan of Treatment +--------+---------+ [...] | | | | | | [place] [address] | | | | | | [phone] | | | | | | | | +--------+---------+ + + + | 12/09/ | Office | Sleep Medicine | Bubba Weller PA | | | 2018 | Visit | | [address] | | | | | | [place] | | | | | | [address] | | | | | | | | +--------+---------+ + + + documented as of this encounter Visit Diagnoses + + | Diagnosis | + + | Primary osteoarthritis of both knees - Primary Primary localized osteoarthrosis, | | lower leg | + + documented in this encounter"
--- OUTSIDE RECORDS SUMMARY | ~2018-09-09 | XMS | Encounter Summary ---
Demographics + + + | Address | [address] [place] [address] | | | [place] [address] | + + + | Home Phone | | + + + | Preferred Language | Unknown | + + + | Marital Status | | + + + | Jainism Affiliation | 1013 | + + + | Race | Unknown | + + + | Ethnic Group | Unknown | + + + Author + + + | Author | [facility] | | | and Darrelana | + + + | Organization | [facility] | | | [...] [place] | | | | | [address] | | + + + + + Care Team Providers + +------+ + | Care Specialist Field Engineer Name | Role | Phone | [...] | | | [place], [place] | [address] | | | | | [address] | [phone] | | | | | [phone] | | | +--------+ + + + [...] | | | | | | [place] [address] | | | | | | [phone] | | | | | | | | +--------+---------+ + + + | 12/09/ | Office | Sleep Medicine | Bubba Weller PA | | | 2018 | Visit | | [address] | | | | | | [place] | | | | | | [address] | | | | | | | | +--------+---------+ + + + documented as of this encounter Visit Diagnoses Not on filedocumented in this encounter"
--- OUTSIDE RECORDS SUMMARY | ~2018-09-09 | XMS | Encounter Summary ---
Demographics + + + | Address | [address] [place] [address] | | | [place] [address] | + + + | Home Phone | | + + + | Preferred Language | Unknown | + + + | Marital Status | | + + + | Cheondoism Affiliation | 1013 | + + + | Race | Unknown | + + + | Ethnic Group | Unknown | + + + Author + + + | Author | [facility] | | | and Darrelana | + + + | Organization | [facility] | | | and [...] [place] | | | | | [address] | | + + + + + Care Team Providers + +------+ + | Care Director Of Casework Services Name | Role | Phone | + [...] | | Procedures | [place], [place] | [address] | | | | | [employer] | [address] | Phone: | | | | | | Phone: | [phone] | | | | | | [phone] | Fax: | | | | | | Fax: | [phone] | | | | | | [phone] | | +--------+ + + + + [...] | | | [place], [place] | [address] | Dx) | | | | [address] | [phone] | | | | | [phone] | | | +--------+---------+ + + + [...] encounter Patient Instructions Patient Instructions Albert Reeder, OUTBOARD MOTOR MECHANIC - 08/12/2018 11:00 PDT Sodium Hyaluronate intra-articular [...] should report to your doctor or health customer care manager as soon as p ossible: allergic reactions like skin rash, itching or hives, swelling of the face, lips, or tong ue dizziness facial flushing pain, tingling, numbness in the hands or feet vision changes if received this medicine during eye surgery Side effects that usually do not require medical attention (report to your doctor or health customer care manager if they continue or are bothersome): back [...] on managing symptoms. Tr eatment may include: Zgvb-jyl-ghenpbn or prescription medicines taken by mouth to [...] get worse New symptoms Date Last Reviewed: 07/19/201519998313-0002 [employer] [address] [place] [address], [place] [address]. All righ ts reserved. This information is not intended as a substitute for professional medical care. Always follow your healthcare professional's instructions. documented in this encounter Progress Notes Albert Reeder FNP - 08/12/2018 1100 PDT Orthopedic Clinic Note Patient Name: Tameka Escudero | Age: 68 y.o. | : 1950 | Medical Record Number:[id number] | Author: STEVEN Montero | Date of [...] received bilateral knee intra-articular cortisone injections on [facility] [address] Bill. She reports of [...] ut any of the compartments advancing to eafp-lx-vosx severity. Bone density is decreased di ffusely [...] has agreed to continue with john davis. Patient denies any neurovascular symptoms of numbness, [...] (post-traumatic stress disorder) Coronary artery disease involving [place] coronary artery of [place] heart without angina pectoris PAF (paroxysmal atrial [...] (HCC) fibromyalga NSTEMI, initial episode of care ([facility]) 10/16/2016 Sleep apnea Spinal stenosis of lumbar region Vitamin D deficiency Past Surgical History: Procedure Laterality Date BREAST BIOPSY BREAST SURGERY cyst removal CARDIAC CATHERIZATION N/A 10/16/2016 Procedure: CV Cor Angio; Surgeon: Scarlet Altman MD; Location: [facility] CV LAB COLONOSCOPY EYE SURGERY lasik GASTRIC FUNDOPLICATION Laparoscopic HYSTERECTOMY Vaginal, with ovaries intact TOTAL HYSTERECTOMY vaginal hysterectomy with ovaries intact UPPER GASTROINTESTINAL ENDOSCOPY VEIN SURGERY Stripped varicose vein Family History Problem Relation Age of Onset Cancer Mother Type of cancer unknown Early Mother Heart attack Father [place] Other (see comment) Father snoring Early Father [...] their vital signs recorded by my assistant paralegal today, a s found in this chart note. Electronically signed by: STEVEN Montero 08/12/2018 at 11:26 Note: Part of this report was transcribed using voice recognition software. Every effort wa s made to ensure accuracy. However, inadvertent computerized meeting/event planner errors may be pre sent. CC: Shane [...] | | | | | | [place] [address] | | | | | | [phone] | | | | | | | | +--------+---------+ + + + | 12/09/ | Office | Sleep Medicine | Bubba Weller PA | | | 2018 | Visit | | [address] | | | | | | [place] | | | | | | [address] | | | | | | | | +--------+---------+ + + + documented as of this encounter Visit Diagnoses + + | Diagnosis | + + | Primary osteoarthritis of both knees - Primary Primary localized osteoarthrosis, | | lower leg | + + documented in this encounter"
--- OUTSIDE RECORDS SUMMARY | ~2018-09-09 | XMS | Encounter Summary ---
Demographics + + + | Address | [address] [place] [address] | | | [place] [address] | + + + | Home Phone | | + + + | Preferred Language | Unknown | + + + | Marital Status | | + + + | Holiness Affiliation | 1013 | + + + | Race | Unknown | + + + | Ethnic Group | Unknown | + + + Author + + + | Author | [facility] | | | and [place]rel[place] [...] [place] | | | | | [address] | | + + + + + Care Team Providers + +------+ + | Care Reception Clerk Name | Role | Phone | [...] | Diagnoses | Bump, | [facility] | | | Services | Surgery | Primary | Shane | Orthopedic | | | Required | | osteoarthrit | MD Mark | [address] | | | | | is of both | [address] | [place] | | | | | knees | [address] [place] | [place], [place] | | | | | Procedures | [place], [place] | [address] | | | | | [place] | [address] | Phone: | | | | | | Phone: | [phone] | | | | | | [phone] | Fax: | | | | | | Fax: | [phone] | | | | | | [phone] | | +--------+ + + + + [...] | | | [place], [place] | [address] | Dx) | | | | [address] | [phone] | | | | | [phone] | | | +--------+---------+ + + + [...] on managing symptoms. Tr eatment may include: Cyip-mxq-fsotrgt or prescription medicines taken by mouth to [...] get worse New symptoms Date Last Reviewed: 07/19/201519996715-5432 [employer] [place] [address]. All righ ts reserved. This information is [...] History: Diagnosis Date Acute diastolic heart failure ([facility]) 11/12/2017 Anemia Anxiety Arthritis Complication of anesthesia Depression Environmental allergies Fibromyalgia Gastric polyps GERD (gastroesophageal reflux disease) Heart murmur Hyperlipidemia Hypertension Hypothyroidism Hypoxemia Sleep related Irritable bowel Neuromuscular disorder (HCC) fibromyalga NSTEMI, initial episode of care ([facility]) 10/16/2016 Sleep apnea Spinal stenosis of lumbar region Vitamin D deficiency PAST SURGICAL HISTORY Past Surgical History: Procedure Laterality Date BREAST BIOPSY BREAST SURGERY cyst removal CARDIAC CATHERIZATION N/A 10/16/2016 Procedure: CV Cor Angio; Surgeon: Scarlet Altman MD; Location: [facility] CV LAB COLONOSCOPY EYE SURGERY [...] cancer unknown Early Mother Heart attack Father [place] Other (see comment) Father snoring Early Father [...] chart note which was recorded by my assistant plant manager today. Electronically signed by: Raoul Bill DO 06/22/2018 16:04 CC: MD Paulo Strauss, Shane Flores MD Note: Part of this report was transcribed using voice recognition software. Every effort w as made to ensure accuracy. However, inadvertent computerized manager farm errors may be pr esent. documented in this enc ounter Plan of Treatment +--------+---------+ + + + | Date | Type | Specialty | Care Team | Description | +--------+---------+ + + + | 09/15/ | Office | Primary Care | Shane Bates | | | 2018 | Visit | | MD Mark [address] | | | | | | [facility], | | | | | | [place] [address] | | | | | | [phone] | | | | | | | | +--------+---------+ + + + | 12/09/ | Office | Sleep Medicine | Bubba Weller PA | | | 2018 | Visit | | [address] | | | | | | [place] | | | | | | [address] | | | | | | | [...]
--- OUTSIDE RECORDS SUMMARY | ~2018-09-09 | XMS | Encounter Summary ---
Demographics + + + | Address | [address] [place] [address] | | | [place] [address] | + + + | Home Phone [...] | [facility] | | | and [...] [place] | | | | | [address] | | + + + + + Care Team Providers + +------+ + | Care Entertainment Reporter Name | Role | Phone | + [...] Description | +--------+--------+ + + + | 09/08/ | Refill | [place] | Shane Bates | Medication Refill | | 2018 | | [facility] | MD Mark [address] | | | | | [facility]ICAL CL[facility] | [facility] [place], | | | | | 4TH [facility], | [place] [address] | | | | | [place] [address] | [phone] | | | | | [phone] | | | +--------+--------+ + + + [...] | 2018 | Visit | | MD Makr [address] | | | | | | STRE[address] [place], | | | | | | [place] [address] | | | | | | [phone] | | | | | | | | +--------+---------+ + + + | 12/09/ | Office | Sleep Medicine | Bubba Weller PA | | | 2018 | Visit | | [address] | | | | | | [place] | | | | | | [address] | | | | | | | | +--------+---------+ + + + documented as of this encounter Visit Diagnoses Not on filedocumented in this encounter"
--- OUTSIDE RECORDS SUMMARY | ~2018-09-09 | XMS | Encounter Summary ---
Demographics + + + | Address | [address] [place] [address] | | | [place] [address] | + + + | Home Phone | | + + + | Preferred Language | Unknown | + + + | Marital Status | | + + + | Pentecostalism Affiliation | 1013 | + + + | Race | Unknown | + + + | Ethnic Group | Unknown | + + + Author + + + | Author | [facility] | | | and Darrelana [...] [place] | | | | | [address] | | + + + + + Care Team Providers + +------+ + | Care Beater And Pulper Feeder Name | Role | Phone | + [...] Description | +--------+--------+ + + + | 06/27/ | Refill | [place] [facility] | Kate Patel, | Medication Refill | | 2018 | | [facility] | AGPCNP-C [address] | | | | | MEDICAL CLINIC [address] | [place], [place] | | | | | [address] [place] [facility], | [address] | | | | | [place] [address] | [phone] | | | | | [phone] | | | +--------+--------+ + + + [...] | | | | | | [place] [address] | | | | | | [phone] | | | | | | | | +--------+---------+ + + + | 12/09/ | Office | Sleep Medicine | Bubba Weller PA | | | 2018 | Visit | | [address] | | | | | | [place] | | | | | | [phone] | | | | | | | | +--------+---------+ + + + documented as of this encounter Visit Diagnoses Not on filedocumented in this encounter"
--- OUTSIDE RECORDS SUMMARY | ~2018-09-09 | XMS | Encounter Summary ---
Demographics + + + | Address | [address] [place] [address] | | | [place] [address] | + + + | Home Phone | | + + + | Preferred Language | Unknown | + + + | Marital Status | | + + + | Worship Affiliation | 1013 | + + + | Race | Unknown | + + + | Ethnic Group | Unknown | + + + Author + + + | Author | [facility] | | | and [...] [place] | | | | | [address] | | + + + + + Care Team Providers + +------+ + | Care Principal Systems Engineer Name | Role | Phone | [...] + | 07/12/ | Refill | [place] [facility] | Shelley Linton, | Medication Refill | | 2018 | | [facility] | [facility] | | | | | MEDICAL CLINIC [address] | | | | | | 4TH [facility], | | | | | | [place] [address] | | | | | | [phone] | | | +--------+--------+ + + + [...] | | | | | | [place] [address] | | | | | | [phone] | | | | | | | | +--------+---------+ + + + | 12/09/ | Office | Sleep Medicine | Bubba Weller PA | | | 2018 | Visit | | [address] | | | | | | [place] | | | | | | [address] | | | | | | | | +--------+---------+ + + + documented as of this encounter Visit Diagnoses Not on filedocumented in this encounter"
--- OUTSIDE RECORDS SUMMARY | ~2018-09-09 | XMS | Encounter Summary ---
Demographics + + + | Address | [address] [place] [address] | | | [place] [address] | + + + | Home Phone | | + + + | Preferred Language | Unknown | + + + | Marital Status | | + + + | Yarsani Affiliation | 1013 | + + + | Race | Unknown | + + + | Ethnic Group | Unknown | + + + Author + + + | Author | [facility] | | | and Darrelana | + + + | Organization | [facility] | | [...] [place] | | | | | [address] | | + + + + + Care Team Providers + +------+ + | Care Nurse Executive Name | Role | Phone | + +------+ + | Shane Bates MD | PCP | | + +------+ + Reason for Visit +--------+ + | Reason | Comments | +--------+ + | Other | regarding drug therapy outcomes | +--------+ + Encounter Details +--------+ + + + + | Date | Type | Department | Care Team | Description | +--------+ + + + + | 08/17/ | Telephone | [place] [facility] | Shane Bates | Other (regarding | | 2019 | | [facility] | MD Mark [address] | drug therapy | | | | MEDICAL CLINIC [facility] | [place], | outcomes) | | | | 4TH [facility], | [place] [address] | | | | | [place] [address] | [phone] | | | | | [phone] | | | +--------+ + + + [...] | | | | | | [place] [address] | | | | | | [phone] | | | | | | | | +--------+---------+ + + + | 12/09/ | Office | Sleep Medicine | Bubba Weller PA | | | 2018 | Visit | | [address] | | | | | | [place] | | | | | | [address] | | | | | | | | +--------+---------+ + + + documented as of this encounter Visit Diagnoses Not on filedocumented in this encounter"
--- OUTSIDE RECORDS SUMMARY | ~2018-09-09 | XMS | Encounter Summary ---
Demographics + + + | Address | [address] [place] [address] | | | [place] [address] | + + + | Home Phone | | + + + | Preferred Language | Unknown | + + + | Marital Status | | + + + | Quaker Affiliation | 1013 | + + + | Race | Unknown | + + + | Ethnic Group | Unknown | + + + Author + + + | Author | [facility] | | | and Darrelana | + + + | Organization | [facility] | | | [...] [place] | | | | | [address] | | + + + + + Care Team Providers + +------+ + | Care Ambulette Driver Name | Role | Phone | [...] | Orthopedic | Diagnoses | Landy, | [facility] | | | Services | Surgery | Bilateral | Raoul Vasquez, | Orthopedic | | | Required | | primary | DO [address] | | | | | osteoarthrit | [address], | [place] | | | | | is of knee | [place] | [place], [place] | | | | | Procedures | [place], [place] | [address] | | | | | Synvisc one | [address] | Phone: | | | | | | Phone: | [phone] | | | | | | [phone] | Fax: | | | | | | Fax: | [phone] | | | | | | [phone] | | +--------+ + + + + + Encounter Details +--------+---------+ + + + | Date | Type | Department | Care Team | Description | +--------+---------+ + + + | 08/05/ | Office | [place] [facility] | Raoul Bill, | Primary | | 2019 | Visit | [facility] | DO [address], | osteoarthritis of | | | | [address] | [place], [place] | both knees (Primary | | | | [place], [place] | [address] | Dx) | | | | [address] | [phone] | | | | | [phone] | | | +--------+---------+ + + + [...] + + documented as of this encounter Progress Notes Raoul Bill DO - 08/05/2018 1115 PDTCX documented in this enc ounter Plan of Treatment +--------+---------+ + + + | Date | Type | Specialty | Care Team | Description | +--------+---------+ + + + | 09/15/ | Office | Primary Care | Paulo Shane | | | 2018 | Visit | | MD Mark [address] | | | | | | STRE[address] [place], | | | | | | [place] [address] | | | | | | [phone] | | | | | | | | +--------+---------+ + + + | 12/09/ | Office | Sleep Medicine | Bubba Weller PA | | | 2018 | Visit | | [address] | | | | | | [place] | | | | | | [address] | | | | | | | | +--------+---------+ + + + documented as of this encounter Visit Diagnoses + + | Diagnosis | + + | Primary osteoarthritis of both knees - Primary Primary localized osteoarthrosis, | | lower leg | + + documented in this encounter"
--- OUTSIDE RECORDS SUMMARY | ~2018-09-09 | XMS | Encounter Summary ---
Demographics + + + | Address | [address] [place] [address] | | | [place] [address] | + + + | Home Phone | | + + + | Preferred Language | Unknown | + + + | Marital Status | | + + + | Congregation Affiliation | 1013 | + + + | Race | Unknown | + + + | Ethnic Group | Unknown | + + + Author + + + | Author | [facility] | | | and Darrelana | + + + | Organization | [facility] | | | and [place] | + + + | Address | Unknown | + + + | Phone | Unavailable | + + + Support + + + + + | Name | Relationship | Address | Phone | + + + + + | Rashaun Escudero | ECON | [address] [facility] | | | | | [place] | | | | | [address] | | + + + + + Care Team Providers + +------+ + | Care Mathematics Improvement Teacher Name | Role | Phone | [...] | | [address] [place] | [address] | | | | | [place], [place] | [phone] | | | | | [address] | | | | | | [phone] | | | +--------+ + + + [...] | | | | | | [place] [address] | | | | | | [phone] | | | | | | | | +--------+---------+ + + + | 12/09/ | Office | Sleep Medicine | Bubba Weller PA | | | 2018 | Visit | | [address] | | | | | | [place] | | | | | | [address] | | | | | | | [...]
--- OUTSIDE RECORDS SUMMARY | ~2018-09-09 | XMS | Encounter Summary ---
Demographics + + + | Address | [address] [place] [address] | | | [place] [address] | + + + | Home Phone | | + + + | Preferred Language | Unknown | + + + | Marital Status | | + + + | Shinto Affiliation | 1013 | + + + | Race | Unknown | + + + | Ethnic Group | Unknown | + + + Author + + + | Author | [facility] | | | and Darrelana | + + + | Organization | [facility] | | | and [...] [place] | | | | | [address] | | + + + + + Care Team Providers + +------+ + | Care Profiling Machine Operator Name | Role | Phone | [...] | Specialty | Orthopedic | Diagnoses | Landy | [facility] | | | Services | [...] | | Procedures | [place], [place] | [address] | | | | | Synvisc one | [address] | Phone: | | | | | | Phone: | [phone] | | | | | | [phone] | Fax: | | | | | | Fax: | [phone] | | | | | | [phone] | | +--------+ + + + + + Encounter Details +--------+ + + + + | Date | Type | Department | Care Team | Description | +--------+ + + + + | 06/22/ | Orders Only | [place] [facility] | Raoul Bill, | Bilateral primary | | 2019 | | [facility] | DO [address] | osteoarthritis of | | | | [address] | [place] | knee (Primary Dx) | | | | [place] | [address] | | | | | [address] | [phone] | | | | | [phone] | | | +--------+ + + + [...] Care | Shane Bates | | | 2019 | Visit | | MD Mark [address] | | | | | | [place], | | | | | | [place] [address] | | | | | | [phone] | | | | | | | | +--------+---------+ + + + | 12/09/ | Office | Sleep Medicine | Bubba Weller PA | | | 2018 | Visit | | [address] | | | | | | [place] | | | | | | [address] | | | | | | | | +--------+---------+ + + + + +--------+ + + | Name | Priori | Associated Diagnoses | Order Schedule | | | ty | | | + +--------+ + + | SYNVISC OR SYNVISC-ONE | Routin | Bilateral primary | Ordered: 06/22/2018 | | (HYALURONATE) MED AUTH REQUEST | e | osteoarthritis of | | | ([id number]) | | knee | | + +--------+ + + documented as of this encounter Visit Diagnoses + + | Diagnosis | + + | Bilateral primary osteoarthritis of knee - Primary | + + documented in this encounter"
--- OUTSIDE RECORDS SUMMARY | ~2018-09-09 | XMS | Encounter Summary ---
Demographics + + + | Address | [address] [place] [address] | | | [place] [address] | + + + | Home Phone | | + + + | Preferred Language | Unknown | + + + | Marital Status | | + + + | Jehovah'S Witness Affiliation | 1013 | + + + | Race | Unknown | + + + | Ethnic Group | Unknown | + + + Author + + + | Author | [facility] | | | and Darrelana | + + + | Organization | [facility] | | | [...] [place] | | | | | [address] | | + + + + + Care Team Providers + +------+ + | Care Camp Tender Name | Role | Phone | [...] | Diagnoses | Landy | [facility] | | | Services | Surgery [...] | | Procedures | [place], [place] | [address] | | | | | Synvisc one | [address] | Phone: | | | | | | Phone: | [phone] | | | | | | [phone] | Fax: | | | | | | Fax: | [phone] | | | | | | [phone] | | +--------+ + + + + [...] | | | [place] | [address] | | | | | [address] | [phone] | | | | | [phone] | | | +--------+ + + + [...] | | | | | | [place] [address] | | | | | | [phone] | | | | | | | | +--------+---------+ + + + | 12/09/ | Office | Sleep Medicine | Bubba Weller PA | | | 2018 | Visit | | [address] | | | | | | [place] | | | | | | [address] | | | | | | | [...]
--- OUTSIDE RECORDS SUMMARY | ~2018-09-09 | XMS | Encounter Summary ---
Demographics + + + | Address | [address] [place] [address] | | | [place] [address] | + + + | Home Phone | | + + + | Preferred Language | Unknown | + + + | Marital Status | | + + + | Nondenominational Affiliation | 1013 | + + + | Race | Unknown | + + + | Ethnic Group | Unknown | + + + Author + + + | Author | [facility] | | | and Darrelana | + + + | Organization | [facility] | | [...] [place] | | | | | [address] | | + + + + + Care Team Providers + +------+ + | Care Skin Tanner Name | Role | Phone | + [...] Medication Refill | | 2018 | | [facility] | CROWN PERFORATOR OPERATOR | | | | | MEDICAL CLINIC [address] | | | | | | [address]TH [facility], | | | | | | [place] [address] | | | | | | [phone] | | | +--------+--------+ + + + [...] | | | | | | [place] [address] | | | | | | [phone] | | | | | | | | +--------+---------+ + + + | 12/09/ | Office | Sleep Medicine | Bubba Weller PA | | | 2018 | Visit | | [address] | | | | | | [place] | | | | | | [address] | | | | | | | | +--------+---------+ + + + documented as of this encounter Visit Diagnoses Not on filedocumented in this encounter"
--- OUTSIDE RECORDS SUMMARY | ~2018-09-09 | XMS | Encounter Summary ---
Demographics + + + | Address | [address] [place] [address] | | | [place] [address] | + + + | Home Phone | | + + + | Preferred Language | Unknown | + + + | Marital Status | | + + + | Latter Day Affiliation | 1013 | + + + | Race | Unknown | + + + | Ethnic Group | Unknown | + + + Author + + + | Author | [facility] | | | and Darrelana [...] [place] | | | | | [address] | | + + + + + Care Team Providers + +------+ + | Care City Jailer Name | Role | Phone | + [...] | | MEDICAL CLINIC [address] | [address] [place], | (Primary Dx); | | | | [address] [place], | [place] [address] | Coronary artery | | | | [place] [address] | [phone] | disease involving | | | | [phone] | | lumbee coronary | | | | | | artery of lumbee | | | | | | heart [...] called her supplier). 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 She took NTG this morning because her [...] is being readied for lubricant injection th [facility]. Insomnia: She has fibromyalgia. 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
--- OUTSIDE RECORDS SUMMARY | ~2018-09-09 | XMS | Clinical Summary ---
Demographics + + + | Address | [address] [place] [address] | | | [place] [address] | + + + | Home Phone | | + + + | Preferred Language | Unknown | + + + | Marital Status | | + + + | Congregational Affiliation | 1013 | + + + | Race | Unknown | + + + | Ethnic Group | Unknown | + + + Author + + + | Author | [facility] | | | and Darrelana [...] | Rashaun Escudero | ECON | [address] [facility] | | | | | [place] | | | | | [address] | | + + + + + Care Team Providers + +------+ + | Care Watershed Tender Name | Role | Phone | [...] + | Overview: 06/05/17 admitted with PAF [id number] score is 4 | | (age, HTN, [...] + + | Coronary artery disease involving robinson coronary artery of | 05/28/2017 | | robinson heart without angina pectoris | | + [...] & Plan: Referral to Dr. Bright in [place], | | eval and treat. | + + + + + + | [place] (myocardial infarction) | 02/27/20 | | | [...] 08/12/ | Office | | Albert Reeder, SQL DATABASE DEVELOPER | Primary | | 2018 | Visit [...] involving | | | | | | robinson coronary | | | | | | artery of robinson | | | | | | heart [...] Refill | | 2018 | | | ROTARY SOIL STABILIZER | | +--------+ + + + + [...] | Heart attack | Father | | NH | + + + + + | [...] | | | | | | [place] [address] | | | | | | [phone] | | | | | | | | +--------+---------+ + + + | 12/09/ | Office | | Bubba Weller PA | | | 2018 | Visit | | [address] | | | | | | [place] | | | | | | [address] | | | | | | | [...] N/A: | [place] | | 10/20/ | [address]- | | - [id number]: Qty: 1 | | Segura | SCIENTIFIC [...] | HOSPITAL | | | | mg/dL [id number] | | REGIONAL | | | | - 129 mg/dL Near | | MEDICAL | | | | [id number] - 159 | | CENTER LAB | [...] + + + | [facility] | [address] [place] [address] | [place] [address] | [phone] | | [facility] | | | [...] [address] | [place] [address] | [phone] | | [facility] | | | [...] + + + | [facility] | [address] [place] [address] Street | [place] [address] | [phone] | | [facility] | | | | [...] | mL/min/1.73m2 | [facility] | | | BELGIAN | RATE,ESTIMATED mL/min | | HOSPITAL | | | | /[id number] than 60 | | REGIONAL | | [...] + + | [facility] | [address] [facility] | [place] [address] | [phone] | | [facility]ITAL [facility] | | | [...] +--------+ +---------+--------+ | MEDICARE | MEDICA | [id number] | 05/11/19 | [phone] | | Medica | | | RE | | 14-Pre | 5 | | re | | | PART A | | sent | | | | | | AND B | | | | | | + +--------+ +--------+ +---------+--------+ | MEDICARE | MEDICA | [id number] | 05/11/19 | [phone] | | Medica | | | RE | | 14-Pre | 5 | | re | | | PART A | | sent | | | | | | AND B | | | | | | + +--------+ +--------+ +---------+--------+ | INDIVIDUAL ASSURANCE | INDIVI | [id number] | 03/02/ | | | Indemn | [...] +---------+--------+ | INDIVIDUAL ASSURANCE | INDIVI | [id number] | 05/11/19 | | | Indemn | [...] Self | [birth year] | [address] | | | al/Fam | | 1951 | [phone] | [address] [place], | | | vic | | | 9 (Home) | [place] [address] | + +--------+ +--------+ + + | Tameka Escudero | Person | Self | [birth year] | [address] | | | al/Fam | | 1951 | [phone] | [address] [place], | | | vic | | | 9 (Home) | [place] [address] | + +--------+ +--------+ + + Advance Directives Patient has advance care planning documents, and code status on file. For more information, please contact:[facility] [address] + + + + + | Code [...]
--- OUTSIDE RECORDS SUMMARY | ~2018-09-09 | XMS | Encounter Summary ---
Demographics + + + | Address | [address] [place] [address] | | | [place] [address] | + + + | Home Phone [...] Author | [facility] | | | and Darrelana [...] [place] | | | | | [address] | | + + + + + Care Team Providers + +------+ + | Care Applications Instructor Name | Role | Phone | [...] | Diagnoses | Landy, | [facility] | | | Services | Surgery [...] | | Procedures | [place], [place] | [address] | | | | | Synvisc one | [address] | Phone: | | | | | | Phone: | [phone] | | | | | | [phone] | Fax: | | | | | | Fax: | [phone] | | | | | | [phone] | | +--------+ + + + + [...] | | | [place], [place] | [address] | Dx) | | | | [address] | [phone] | | | | | [phone] | | | +--------+---------+ + + + [...] | | | | | | [place] [address] | | | | | | [phone] | | | | | | | | +--------+---------+ + + + | 12/09/ | Office | Sleep Medicine | Bubba Weller PA | | | 2018 | Visit | | [address] | | | | | | [place] | | | | | | [address] | | | | | | | | +--------+---------+ + + + documented as of this encounter Visit Diagnoses + + | Diagnosis | + + | Primary osteoarthritis of both knees - Primary Primary localized osteoarthrosis, | | lower leg | + + documented in this encounter"
--- OUTSIDE RECORDS SUMMARY | ~2018-09-09 | XMS | Encounter Summary ---
Demographics + + + | Address | [address] [place] [address] | | | [place] [address] | + + + | Home Phone | | + + + | Preferred Language | Unknown | + + + | Marital Status | | + + + | Rastafarian Affiliation | 1013 | + + + | Race | Unknown | + + + | Ethnic Group | Unknown | + + + Author + + + | Author | [facility] | | | and Darrelana | + + + | Organization | [facility] | | | [...] [place] | | | | | [address] | | + + + + + Care Team Providers + +------+ + | Care Gluing Machine Operator Electronic Name | Role | Phone | + [...] | | | [facility] | [place], | outcomes) | | | | [facility], | [place] [address] | | | | | [place] [address] | [phone] | | | | | [phone] | | | +--------+ + + + [...] | | | | | | [place] [address] | | | | | | [phone] | | | | | | | | +--------+---------+ + + + | 12/09/ | Office | Sleep Medicine | Bubba Weller PA | | | 2018 | Visit | | [address] | | | | | | [place] | | | | | | [phone] | | | | | | | | +--------+---------+ + + + documented as of this encounter Visit Diagnoses Not on filedocumented in this encounter"
--- OUTSIDE RECORDS SUMMARY | ~2018-09-09 | XMS | Encounter Summary ---
Demographics + + + | Address | [address] [place] [address] | | | [place] [address] | + + + | Home Phone | | + + + | Preferred Language | Unknown | + + + | Marital Status | | + + + | Advent Affiliation | 1013 | + + + | Race | Unknown | + + + | Ethnic Group | Unknown | + + + Author + + + | Author | [facility] | | | and Darrelana | + + + | Organization | [facility] | | | [...] [place] | | | | | [address] | | + + + + + Care Team Providers + +------+ + | Care Waste/Materials Exchange Specialist Name | Role | Phone | [...] Medication Refill | | 2018 | | [facility] | [facility] [address] | | | | | [facility] | [place], [place] | | | | | [address] [facility], | [address] | | | | | [place] [address] | [phone] | | | | | [phone] | | | +--------+--------+ + + + [...] | | | | | | [place] [address] | | | | | | [phone] | | | | | | | | +--------+---------+ + + + | 12/09/ | Office | Sleep Medicine | Bubba Weller PA | | | 2018 | Visit | | [address] | | | | | | [place] | | | | | | [phone] | | | | | | | | +--------+---------+ + + + documented as of this encounter Visit Diagnoses Not on filedocumented in this encounter"
--- OUTSIDE RECORDS SUMMARY | ~2018-09-09 | XMS | Encounter Summary ---
Demographics + + + | Address | [address] [place] [address] | | | [place] [address] | + + + | Home Phone | | + + + | Preferred Language | Unknown | + + + | Marital Status | | + + + | Roman Catholic Affiliation | 1013 | + + + | Race | Unknown | + + + | Ethnic Group | Unknown | + + + Author + + + | Author | [facility] | [...] [place] | | | | | [address] | | + + + + + Care Team Providers + +------+ + | Care Core Stripper Name | Role | Phone | + [...] [place], | | | | | [facility], | [place] [address] | | | | | [place] [address] | [phone] | | | | | [phone] | | | +--------+--------+ + + + [...] | | | | | | [place] [address] | | | | | | [phone] | | | | | | | | +--------+---------+ + + + | 12/09/ | Office | Sleep Medicine | Bubba Weller PA | | | 2018 | Visit | | [address] | | | | | | [place] | | | | | | [address] | | | | | | | | +--------+---------+ + + + documented as of this encounter Visit Diagnoses Not on filedocumented in this encounter"
[2018-09-09] MEDS ORDERED: ASPIR-LOW81 MG PO (10:48)
[2018-09-09] MEDS ORDERED: FUROSEMIDE20 MG PO (10:52)
[2018-09-09] MEDS ORDERED: ROSUVASTATIN CA40 MG PO (10:52)
--- OUTSIDE RECORDS SUMMARY | 2018-09-09 13:32 | XMS ---
PreManage Notification: KINGSLEY SNELL Security Professional Services Consultant Events No recent Security Events currently on file CRITERIA MET - [facility] EVELIO DO Internal Medicine Current PHONE: Unknown HI BENNETT Primary Care Current PHONE: Unknown Suhail has no Care Guidelines for this patient. Kelvin VISIT COUNT (12 MO.) 1 Aaron Martins TOTAL 3 NOTE: Visits indicate total known visits. ED/UCC VISIT TRACKING (12 MO.) 09/09/2018 10:31 [facility] TYPE: Emergency COMPLAINT: - CHEST PAIN 06/06/2018 18:26 [facility] TYPE: Emergency COMPLAINT: - RASH DIAGNOSES: - Rash and other nonspecific skin eruption - Acquired absence of both cervix and uterus - Old myocardial infarction - Other penitentiary (current) drug therapy - Allergy status to other drugs, medicaments and biological substances status - Unspecified contact dermatitis, unspecified cause - Panic disorder [episodic paroxysmal anxiety] - Allergy status to narcotic agent status - Major depressive disorder, single episode, unspecified 10/31/2017 10:44 [facility] TYPE: Urgent Care DIAGNOSES: - ED Follow up; City Call 10/27/2017 12:33 [facility] [place] TYPE: Emergency DIAGNOSES: - Spontaneous ecchymoses - Chest Pain - Paroxysmal atrial fibrillation - Bruises (Non-traumatic) - Localized edema - Edema 10/27/2017 11:04 [facility] TYPE: Urgent Care DIAGNOSES: - Arm bruising , skin concern INPATIENT VISIT TRACKING (12 MO.) No inpatient visits to display in this time frame [email or web address]
--- NOTE | 2018-09-09 13:51 | EKG ---
[facility] [address] [place] [address] Signed Sinus bradycardia Otherwise normal ECG When compared with ECG of 04-JUN-2017 21:36, Sinus rhythm has replaced Atrial fibrillation Vent. rate has decreased BY 69 BPM Non-specific change in ST segment in Inferior leads ST no longer depressed in Anterolateral leads Nonspecific T wave abnormality, improved in Inferior leads T wave inversion now evident in Anterior leads Nonspecific T wave abnormality no longer evident in Lateral leads Confirmed by ZARI MEJÍA DO ([id number]) on 09/09/2018 1:51:24 PM Electronically Signed By: ZARI MEJÍA DO 09/09/18 1351 PATIENT NAME: KINGSLEY SNELL ROSY Electrocardiogram DATE OF : 46 PHYSICIAN: ZARI MEJÍA DO REPORT #: [id number] REPORT IS CONFIDENTIAL AND NOT TO BE RELEASED WITHOUT AUTHORIZATION
== END 2018-09-09 14:32 | disposition home or self-care (01) ==
LOC: ED 10:31
DX: I25.10 Atherosclerotic heart disease of native coronary artery without angina pectoris (principal); F32.9 Major depressive disorder, single episode, unspecified; F43.10 Post-traumatic stress disorder, unspecified; I48.91 Unspecified atrial fibrillation; Z87.891 Personal history of nicotine dependence; Z88.5 Allergy status to narcotic agent; Z88.8 Allergy status to other drugs, medicaments and biological substances; Z91.048 Other nonmedicinal substance allergy status; Z79.899 Other long term (current) drug therapy; Z79.82 Long term (current) use of aspirin
CPT/HCPCS: 71046; 80053; 84484; 85025; 85610; 85730; 93005; 93010; 99285-25

== ENCOUNTER 2019-01-13 17:55 | Emergency (ER) | payer MEDICARE, OTHER ==
[~2019-01-13] VITALS: Ht 160 cm; Wt 81.7 kg
[~2019-01-13 17:55] MED LIST changes: +ASPIR-LOW81 MG PO; +FUROSEMIDE20 MG PO; +ROSUVASTATIN CA40 MG PO
--- OUTSIDE RECORDS SUMMARY | 2019-01-13 17:58 | XMS ---
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 Kelvin VISIT COUNT (12 MO.) Kristine Martins TOTAL 3 NOTE: Visits indicate total known visits. ED/UCC VISIT TRACKING (12 MO.) 01/13/2019 17:56 [facility] [place] TYPE: Emergency COMPLAINT: - CHEST PAIN 09/09/2018 10:31 [facility] [place] TYPE: Emergency COMPLAINT: - CHEST PAIN DIAGNOSES: - Other nonmedicinal substance allergy status - Atherosclerotic heart disease of [place] coronary artery without angina pectoris - Precordial pain - Major depressive disorder, single episode, unspecified - Allergy status to narcotic agent status - Unspecified atrial fibrillation - Personal history of nicotine dependence - Other terminal gauger (current) drug therapy - nursing home (current) use of aspirin - Allergy status to other drugs, medicaments and biological substances status - Post-traumatic stress disorder, unspecified 06/06/2018 18:[address] [facility] [place] TYPE: Emergency COMPLAINT: - RASH DIAGNOSES: - Rash and other nonspecific skin eruption - Acquired absence of both cervix and uterus - Old myocardial infarction - Other terminal gauger (current) drug therapy - Allergy status to other drugs, medicaments and biological substances status - Unspecified contact dermatitis, unspecified cause - Panic disorder [episodic paroxysmal anxiety] - Allergy status to narcotic agent status - Major depressive disorder, single episode, unspecified INPATIENT VISIT TRACKING (12 MO.) No inpatient visits to display in this time frame [id number]
--- NOTE | 2019-01-14 13:11 | EKG ---
[facility] [address] [facility] [place], [place] [address] Signed Normal sinus rhythm Normal ECG When compared with ECG of 09-SEP-2018 10:36, No significant change was found Confirmed by ZARI MEJÍA DO ([id number]) on 01/14/2019 1:11:09 PM Electronically Signed By: ZARI MEJÍA DO 01/14/19 1311 PATIENT NAME: KINGSLEY SNELL ROSY Electrocardiogram DATE OF : 46 PHYSICIAN: ZARI MEJÍA DO REPORT #: [id number] REPORT IS CONFIDENTIAL AND NOT TO BE RELEASED WITHOUT AUTHORIZATION
== END 2019-01-13 21:25 | disposition home or self-care (01) ==
LOC: ED 17:55
DX: R07.9 Chest pain, unspecified (principal); I10 Essential (primary) hypertension; I48.91 Unspecified atrial fibrillation; F41.9 Anxiety disorder, unspecified; F32.9 Major depressive disorder, single episode, unspecified; Z95.5 Presence of coronary angioplasty implant and graft; Z87.891 Personal history of nicotine dependence; Z88.6 Allergy status to analgesic agent; Z91.048 Other nonmedicinal substance allergy status; Z88.8 Allergy status to other drugs, medicaments and biological substances; Z79.82 Long term (current) use of aspirin; Z79.899 Other long term (current) drug therapy
CPT/HCPCS: 71045; 80053; 83735; 84484; 85025; 85610; 93005; 93010; 99285-25

== ENCOUNTER 2019-06-05 11:01 | Inpatient (IN) | payer MEDICARE, OTHER ==
[~2019-06-05] VITALS: Ht 160 cm; Wt 88.0 kg
--- NOTE | ~2019-06-05 | DS ---
[facility] [address] [place], [place] [address] Draft ADMISSION DATE: 06/05/2019 DISCHARGE DATE: 06/09/2019 REASON FOR ADMISSION: This 68-year-old white woman is a patient of Dr. Bates in [place], [place] and she lives in [place]. She presented to the emergency room having persistent worsening right lower abdominal pain for the preceding four days. The patient has atrial fibrillation, for which she takes Eliquis chronically. She has a distant history of myocardial infarction (non-STEMI), for which she has undergone coronary stenting. She presented to the emergency room where she was evaluated by Dr. Sanchez, the emergency room physician for right-sided abdominal pain, was found to have a markedly dilated and inflamed appendix with adjacent inflammatory areas including sigmoid colon with some diverticula as well as the right adnexa. She was admitted for further evaluation and care. PERTINENT PHYSICAL EXAMINATION: GENERAL: Showed an anxious white woman who did not look to be in severe distress. She was accompanied by a friend. VITAL SIGNS: Her temperature is 98.3, pulse 84 and irregular, blood pressure 116/54, and O2 saturation on room air 95%. ABDOMEN: Obese. There is marked tenderness throughout the abdomen most dominantly in the right lower quadrant. There is no palpable mass. There is no ascites. DIAGNOSTIC DATA: White count was 12.6, hematocrit 43.4, creatinine 1.02, and INR 1.3. Urinalysis normal. CT scan confirmed marked inflammatory change in the right lower abdomen. HOSPITAL COURSE: She was admitted to the hospital, given broad-spectrum antibiotic meropenem based on her significant findings regarding inflammation and physical exam. Given that she had taken Eliquis on the way to the hospital, she would be considered fully anticoagulated without easy remedy to rectify this. She was monitored with the continued IV fluid administration, IV antibiotics, and allowed clear liquids as tolerated. Within 48 hours, she was considered adequate as regard to the coagulopathy standpoint to proceed with operation and on June 07, 2019, she underwent laparoscopy where she was found to have a markedly inflamed inflammatory mass in the right lower abdomen prompting conversion through a low midline incision for further exploration. She was found indeed to have marked inflammatory changes in the right lower quadrant with a small abscess which was drained. The appendix was the offending organ it appeared, which was PATIENT NAME: KINGSLEY SNELL DISCHARGE SUMMARY DATE OF : 46 REPORT #: [id number] PHYSICIAN: RADHA SMALLS MD PCP: EVELIO BATES MD REPORT IS CONFIDENTIAL AND NOT TO BE RELEASED WITHOUT AUTHORIZATION [facility] [address] [place], [place] [address] Draft inflamed, though not particularly perforated upon inspection. She did have marked inflammatory change related to the sigmoid colon as well as the right adnexa. Following appendectomy, a drain was placed. Postoperatively, she had marked improvement of her overall situation. She was begun on a liquid diet, which she promptly advanced to a solid diet. She was maintained on her usual medications. Her Eliquis was withheld of course. By the time of discharge, she is ambulating well, tolerating a regular diet, has had the drain removed and feeling quite well and ready to go home. Ultimately, we will see her back in the office in about a month. I have advised to restart her Eliquis anticoagulant on Thursday (today is ). DISCHARGE MEDICATIONS: Her discharge medications will include Cipro 500 mg p.o. b.i.d. #6, Flagyl 250 mg p.o. t.i.d. #9, and Tylenol Extra Strength 500 mg two tablets p.o. q.6 hours as needed for pain. She will not require an opiate pain medication. She will resume her usual medications which include: 1. Clonazepam 1 mg t.i.d. as needed for anxiety. 2. Synthroid 100 mcg alternating with 88 mcg daily. 3. Cyclobenzaprine (Flexeril) 10 mg p.o. t.i.d. as needed for muscle spasm. 4. Gabapentin 300 mg capsules three tabs p.o. t.i.d. 5. Carvedilol 6.25 mg p.o. two tabs in the evening. 6. Fluoxetine 2 tabs p.o. daily. 7. Nitroglycerin sublingual 0.4 mg as needed for chest pain. 8. Aspirin 81 mg daily. 9. Rosuvastatin 40 mg p.o. at bedtime. 10. Lasix 20 mg p.o. daily. 11. Losartan 25 mg p.o. daily. 12. As mentioned, she will resume her Eliquis (apixaban) 5 mg p.o. b.i.d. restarting Thursday. DISCHARGE DIAGNOSES: 1. Severe acute appendicitis and right lower abdominal abscess with marked inflammatory change of appendix, diverticular-laden sigmoid and right adnexal structures. 2. Status post laparoscopy, conversion to open laparotomy, drainage of abscess and appendectomy. 3. Chronic anticoagulation for atrial arrhythmia. 4. Hypertension. 5. Hypothyroidism. 6. Dyslipidemia. PATIENT NAME: KINGSLEY SNELL ROSY DISCHARGE SUMMARY DATE OF : 46 REPORT #: [id number] PHYSICIAN: RADHA SMALLS MD PCP: EVELIO BATES MD REPORT IS CONFIDENTIAL AND NOT TO BE RELEASED WITHOUT AUTHORIZATION [facility] [address] [place] [address] Draft FOLLOWUP PLAN: She is to return to see me in approximately one month. MD SILAS Martinez/MARVIN /[id number] cc: Dr. Corona Bates MD Copies: EVELIO BATES MD ~ PATIENT NAME: KINGSLEY SNELL DISCHARGE SUMMARY DATE OF : 46 REPORT #: [id number] PHYSICIAN: RADHA SMALLS MD PCP: EVELIO BATES MD REPORT IS CONFIDENTIAL AND NOT TO BE RELEASED WITHOUT AUTHORIZATION
[~2019-06-05 11:01] MED LIST changes: -NITROGLYCERIN0.4 MG SL
--- OUTSIDE RECORDS SUMMARY | 2019-06-05 11:04 | XMS ---
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 Kelvin VISIT COUNT (12 MO.) Charisma Martins TOTAL 4 NOTE: Visits indicate total known visits. ED/UCC VISIT TRACKING (12 MO.) 06/05/2019 11:02 [facility] [place] TYPE: Emergency COMPLAINT: - PAIN ON RIGHT SIDE,SOB 01/13/2019 17:56 [facility] [place] TYPE: Emergency COMPLAINT: - CHEST PAIN DIAGNOSES: - Anxiety disorder, unspecified - Presence of coronary angioplasty implant and graft - Other detention (current) drug therapy - Allergy status to oth drug/meds/biol subst status - Allergy status to analgesic agent status - Major depressive disorder, single episode, unspecified - Other nonmedicinal substance allergy status - Chest pain, unspecified - Essential (primary) hypertension - detention (current) use of aspirin - Personal history of nicotine dependence - Unspecified atrial fibrillation 09/09/2018 10:31 [facility] [place] TYPE: Emergency COMPLAINT: - CHEST PAIN DIAGNOSES: - Other nonmedicinal substance allergy status - Athscl heart disease of [place] coronary artery w/o ang pctrs - Precordial pain - Major depressive disorder, single episode, unspecified - Allergy status to narcotic agent status - Unspecified atrial fibrillation - Personal history of nicotine dependence - Other detention (current) drug therapy - detention (current) use of aspirin - Allergy status to oth drug/meds/biol subst status - Post-traumatic stress disorder, unspecified 06/06/2018 18:26 [facility] [place] TYPE: Emergency COMPLAINT: - RASH DIAGNOSES: - Rash and other nonspecific skin eruption - Acquired absence of both cervix and uterus - Old myocardial infarction - Other detention (current) drug therapy - Allergy status to oth drug/meds/biol subst status - Unspecified contact dermatitis, unspecified cause - Panic disorder [episodic paroxysmal anxiety] - Allergy status to narcotic agent status - Major depressive disorder, single episode, unspecified INPATIENT VISIT TRACKING (12 MO.) No inpatient visits to display in this time frame [id number]
--- NOTE | 2019-06-05 15:58 | NUR ---
PT TO ROOM VIA STRETCHER AMBULATES TO BED. PT DENIES PAIN AT THIS TIME, " LONG I STAY STILL" DR SMALLS IN TO SEE PT DISCUSSED SURGICAL PROCESS. APPENECTOMY INFORMATION PROVIDED WRITTEN WELL. H20 AT BEDSIDE
[2019-06-05] MEDS ORDERED: LEVOTHYROXINE88 MCG PO (16:07)
[2019-06-05] MEDS ORDERED: LOSARTAN POTASS25 MG PO (16:41)
--- NOTE | 2019-06-05 16:42 | NUR ---
Medications reconciled using pharmacy records, RX vials and patient interview
--- NOTE | 2019-06-05 18:06 | NUR ---
PT UP TO TOILET AFTER VITALS PHYSICIAN LOCUMS URGENT CARE REPORTS TEMP 101. PT HAD BEEN RESTING SOUNDLY. USES I/S TEMP 100 AT THIS TIME WILL MONITOR FOR POSSIBLE NEED TO REPORT TO DR SMALLS
--- NOTE | 2019-06-05 19:00 | NUR ---
RECEIVED REPORT FROM ZAYNAB MONTENEGRO. pt RESTING IN BED, VISITORS AT BEDSIDE. NO REQUESTS AT THIS TIME. STATED PAIN IS "OKAY." WHITEBOARD UPDATED. CALL LIGHT WITHIN REACH.
--- NOTE | 2019-06-05 20:24 | NUR ---
ROUNDED CHARGE. PATIENT IS RESTING IN BED. NAI RN IN ROOM. PATIENT DENIES ANY COMMENTS, QUESTIONS OR CONCERNS. NO NEEDS NOTED. CALL LIGHT IN REACH.
--- NOTE | 2019-06-05 21:19 | NUR ---
ROUNDED ON pt. RESTING IN BED, STATED HER PAIN WAS "FINE." HOME CPAP BROUGHT BY . RT INFORMED, REQUESTED WATER. CALL LIGHT WITHIN REACH.
--- NOTE | 2019-06-05 21:50 | NUR ---
TALKED TO MD ABOUT ORDERING TYLENOL VERBAL ORDER GIVEN AND ENTERED.
--- NOTE | 2019-06-05 23:37 | NUR ---
IV ABX COMPLETED. CHANGED TO IVF. pt UP TO VOID AND BACK TO BED. RATED PAIN 4/10. NO REQUESTS AT THIS TIME. CALL LIGHT WITHIN REACH.
--- NOTE | 2019-06-06 02:10 | NUR ---
ASSESSMENT DONE pt RATED PAIN 5/10, REFUSED MEDICATION AT THIS TIME. VITALS AND I&O RECORDED. pt UP TO VOID AND BACK TO BED. PAINFUL WITH MOVEMENT. IV ABX INFUSING (SEE MAR). CPAP IN PLACE. NO FURTHER REQUESTS AT THIS TIME. CALL LIGHT WITHIN REACH.
--- NOTE | 2019-06-06 02:11 | NUR ---
VITALS AND I&OS DONE AND CHARTED. HELPED PT TO THE BATHROOM AND BACK TO BED. BEDSIDE TABLE AND CALL LIGHT IN REACH. EMPTIED GARBAGES . PT NEEDS NOTHING MORE AT THIS TIME.
--- NOTE | 2019-06-06 04:46 | NUR ---
ROUNDED ON pt. RESTING WITH EYES CLOSED, RESPIRATIONS REGULAR AND UNLABORED. CALL LIGHT WITHIN REACH.
--- NOTE | 2019-06-06 05:41 | NUR ---
IN TO GIVE MEDICATION, pt REPORTED 7/10 PAIN. PRN MORPHINE GIVEN (SEE MAR). pt UP TO VOID AND BACK TO BED. ABD TIGHT WHEN GETTING UP TO VOID, MUCH SOFTER AFTER SHE WAS BACK IN BED. TENDER. ACTIVE BTS IN ALL QUADRANTS. CALL LIGHT WITHIN REACH.
--- NOTE | 2019-06-06 06:26 | NUR ---
pt RESTED "A LITTLE" DURING SHIFT. ABD PAINFUL, PRN MEDS X2. CHRONIC BACK PAIN. USED HOME CPAP WHILE SLEEPING. NPO SINCE MIDNIGHT. SBA. USES CALL LIGHT APPROPRIATELY.
--- NOTE | 2019-06-06 06:49 | NUR ---
pt RESTING IN BED. STATED THAT PAIN WAS "ALRIGHT" NO REQUESTS AT THIS TIME. CALL LIGHT WITHIN REACH.
--- NOTE | 2019-06-06 08:15 | NUR ---
Spoke with Tameka and Rashaun. 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 Lives with her spouse Rashaun who is also retired. They live in [place] with [address] steps. Rashaun states he will be home with Tameka and will provide care and house hold tasks, as well as, transportation. Tameka does not use any DME, but has a CPAp. They plan to dc to home on dc.
--- NOTE | 2019-06-06 08:51 | NUR ---
PATIENT UP TO SHOWER AND BACK TO BED,SBA. PATIENT SHOWERED IND. HIBACLENSE DONE. LINENS CHANGED. NEW GOWN AND ATTENDS PROVIDED. PATIENT COMPLAINED OF DITERGENTS IRRITATING SKIN, RN NOTIFIED AND NEW LINENS THAT ARE REWASHED ARE BEING BROUGHT. CALL LIGHT IN REACH. NO FURTHER NEEDS AT THIS TIME.
--- NOTE | 2019-06-06 09:05 | NUR ---
PT SITTING UP IN BED, JUST FINISHED UP WITH SHOWER, MINIMAL ASSIST. ALERT AND ORIENTED. DENIES PAIN AT THIS TIME. ASSESSMENT COMPLETED. IV TO LEFT AC FLUSHES EASILY, DRESSING CDI. CALL LIGHT WITHIN REACH.
--- NOTE | 2019-06-06 10:49 | NUR ---
PATIENT IN BED RESTING, RN IN ROOM. CALL LIGHT IN REACH. NO FURTHER NEEDS AT THIS TIME.
--- NOTE | 2019-06-06 10:50 | NUR ---
PT REPORTS 11/17 ABD PAIN. MEDICATED WITH PRN IV MORPHINE. DENIES ANY OTHER NEED OR CONCERN AT THIS TIME. CALL LIGHT WITHIN REACH.
[2019-06-06] MEDS ORDERED: NITROGLYCERIN0.4 MG SL (11:19)
--- NOTE | 2019-06-06 13:04 | NUR ---
PATIENT IN BED, VISITOR IN ROOM. FRESH WATER GIVEN. CALL LIGHT IN REACH. NO FURTHER NEEDS AT THIS TIME.
--- NOTE | 2019-06-06 13:35 | NUR ---
PT GIVEN DETERGENT FREE LINENS BY E.S. BED LINENS AND GOWN CHANGED AT THIS TIME. PT SBA TO RESTROOM AND AMB BACK TO BED. CALL LIGHT WITHIN REACH.
--- NOTE | 2019-06-06 14:29 | NUR ---
OFFERED PT CLEAR LIQUIDS. REFUSED ALL BUT WATER. LETICIA WATER WELL. CURRENTLY SITTING UP IN BED PLAYING [email or web address] WITH VISITOR. CALL LIGHT WITHIN REACH.
--- NOTE | 2019-06-06 14:48 | NUR ---
PT REPORTS 8/10 RLQ PAIN. MEDICATED WITH 4MG IV MORHINE. CALL LIGHT WITHIN REACH.
--- NOTE | 2019-06-06 17:53 | NUR ---
PT SITTING UP IN BED CHATTING WITH VISITOR. DENIES PAIN OR OTHER NEEDS OR CONCERNS AT THIS TIME. INDEPENDENT TO RESTROOM. CALL LIGHT WITHIN REACH.
--- NOTE | 2019-06-06 18:51 | NUR ---
PATIENT IN BED RESTING. CALL LIGHT IN REACH. NO FURTHER NEEDS AT THIS TIME.
--- NOTE | 2019-06-06 19:32 | NUR ---
REPORT RECEIVED FROM DAY SHIFT RN. PT LYING IN BED RESTING WITH EYES CLOSED, NAD. CPAP IN PLACE. IVF INFUSING. CALL LIGHT IN REACH.
--- NOTE | 2019-06-06 20:30 | NUR ---
PT SITTING UP IN BED VISITING WITH FAMILY, ALERT AND ORIENTED. IV ABX HUNG. PT DENIES OTHER NEEDS AT THIS TIME. CALL LIGHT IN REACH.
--- NOTE | 2019-06-06 21:00 | NUR ---
EVENING ASSESSMENT COMPLETE. PM MEDS GIVEN WITHOUT DIFFICULTY. PT UP TO BR WITH MINIMAL SBA. BACK TO BED, LETICIA WELL. PT DENIES PAIN OR NAUSEA. SCD'S IN PLACE. CPAP IN PLACE. CALL LIGHT IN REACH.
--- NOTE | 2019-06-06 23:00 | NUR ---
PT UP TO BR WITH SBA. BACK TO BED, LETICIA WELL. SCD'S IN PLACE. CPAP ON.
--- NOTE | 2019-06-07 00:01 | NUR ---
PT RESTING IN BED WTIH EYES CLOSED, CPAP IN PLACE. NEW BAG OF IVF HUNG. PT MADE NPO PER MD ORDER.
--- NOTE | 2019-06-07 02:19 | NUR ---
PT RESTING WITH EYES CLOSED, CPAP IN PLACE. IV ABX HUNG.
--- NOTE | 2019-06-07 04:23 | NUR ---
PT RESTING WITH EYES CLOSED. CPAP IN PLACE. IV ABX INFUSING. PT REMAINS NPO. SCD'S IN PLACE.
--- NOTE | 2019-06-07 04:46 | NUR ---
PT SLEPT WELL. ALERT AND ORIENTED, USES CALL LIGHT APPROPRIATELY. NPO. CPAP AT NIGHT. NO PAIN OR NAUSEA THIS SHIFT. IVF AND IV ABX. TO BR WITH SBA. SCD'S. SOAP FREE LINEN DUE TO ALLERGY TO DETERGENT.
--- NOTE | 2019-06-07 05:38 | NUR ---
PT UP TO BR WITH SBA. BACK TO BED, LETICIA WELL. SCD'S IN PLACE. PRN FOR NAUSEA AND PAIN GIVEN. CALL LIGHT IN REACH.
--- NOTE | 2019-06-07 07:44 | HP ---
[facility] [address], [place] [address] Signed ADMISSION DATE: 06/05/2019 REASON FOR ADMISSION: Right lower abdominal pain and tenderness, probable appendicitis, secondary involvement of sigmoid and right adnexa. HISTORY: This 68-year-old white woman is a patient of Dr. Bates in [place], [place]. She lives in [place]. She presents to the emergency room approximately 11:30 this morning, having had persistent and worsening right lower abdominal pain for the preceding four days or so. Her pain began on Thursday and today is Thursday. The pain has not migrated anywhere else, but remains rather significant in the right lower abdomen. She has had no diarrhea or hematemesis. She does describe a chronic problem of "irritable bowel." She has had no blood per rectum. She is noted to have bowel movements three times today. The patient has atrial fibrillation, for which, she takes Eliquis chronically. She has a distant history of myocardial infarction (non-STEMI) for which she has undergone coronary stenting. She does take aspirin, but she does not recall having taken Plavix or other anti-platelet agents in the past. A CT scan was performed under the direction of Dr. Sanchez through the emergency room evaluation, which shows a markedly dilated and inflamed appendix with adjacent inflammatory areas. The adjacent sigmoid colon is also inflamed, contained a few diverticula and possibility of secondary inflammation. The appendix could not be ruled out. There is also engorgement of the right pelvic adnexa. My review of the films shows there to be a very indistinct inflammatory focus in the right lower abdomen with poor ability to distinguish surrounding structures. She currently is feeling better than when she presented to the emergency room. I discussed with the emergency room nurses who saw her when she presented and their concern was that she was having a myocardial infarction based on her appearance overall. I am unsure if she actually had an EKG, but we will need to find that out. REVIEW OF SYSTEMS: She denies any shortness of breath or chest pain proper. She has distant history of reflux, but no reflux currently, having undergone laparoscopic fundoplication. This was in [place] about six years ago. Electronically Signed By: RADHA SMALLS MD 06/07/19 0744 PATIENT NAME: KINGSLEY SNELL HISTORY AND PHYSICAL DATE OF : 46 REPORT #: [id number] PHYSICIAN: RADHA SMALLS MD PCP: EVELIO BATES MD REPORT IS CONFIDENTIAL AND NOT TO BE RELEASED WITHOUT AUTHORIZATION [facility] [address] [place] [id number] Signed PHYSICAL EXAMINATION: GENERAL: An anxious white woman who does not look to be in severe distress at this time. She is accompanied by her friend. Her is elsewhere having lunch apparently. VITAL SIGNS: Temperature of 98.3, pulse of 84, blood pressure 116/54, O2 saturation on room air is 95%. HEENT: Mucous membranes are dry. NECK: Trachea is midline. CHEST: Shows normal respiratory excursion without tachypnea. ABDOMEN: Somewhat obese. She has marked tenderness throughout, most dominantly in the right lower quadrant. There is no palpable mass. I detect no ascites. EXTREMITIES: Show no clubbing, cyanosis, or edema, though she does have obesity. DIAGNOSTIC DATA: Lab studies show a white count of 12.6, hematocrit 43.4, platelets 234,000. Chem profile normal. Creatinine 1.02. Liver enzymes normal. Lipase normal at 10. Coag studies show an INR of 1.3. Urinalysis was essentially normal. I have reviewed the CT scan images as well as the report of the radiologist. ASSESSMENT: Likely, the patient does indeed have appendicitis with secondary advanced inflammatory effects to nearby structures including sigmoid with known diverticulosis and now possibly diverticulitis. She admits she has had diverticulitis in the past. Additionally, the right adnexal structures are congested and possibly contiguous with this inflammatory process. Her issue has been going on for four days at minimum. She may have a simple appendicitis with secondarily inflamed structures of the right pelvis including the sigmoid or indeed this could be a primary process of the colon itself or even the right adnexal structures. The patient is anticoagulated with Eliquis and operation if possible should be deferred. As it turns out, she took her last dose this morning. For now, we will administer intravenous fluids, broad-spectrum antibiotics, DVT prophylaxis, parenteral pain control, anticipating probable operation tomorrow in the afternoon, which may allow for attenuation of the effective anticoagulation program. In addition, she had a 12-lead EKG, though it is unlikely she has any cardiac problem at this time. Radha Smalls MD Electronically Signed By: RADHA SMALLS MD 06/07/19 0744 PATIENT NAME: KINGSLEY SNELL HISTORY AND PHYSICAL DATE OF : 46 REPORT #: [id number] PHYSICIAN: RADHA SMALLS MD PCP: EVELIO BATES MD REPORT IS CONFIDENTIAL AND NOT TO BE RELEASED WITHOUT AUTHORIZATION [facility] [address] [place], [place] [address] Signed /NALINI /[id number] cc: Dr. Daniel Bates MD Copies: EVELIO BATES MD ~ Electronically Signed By: RADHA SMALLS MD 06/07/19 0744 PATIENT NAME: KINGSLEY SNELL ROSY HISTORY AND PHYSICAL DATE OF : 46 REPORT #: [id number] PHYSICIAN: RADHA SMALLS MD PCP: EVELIO BATES MD REPORT IS CONFIDENTIAL AND NOT TO BE RELEASED WITHOUT AUTHORIZATION
--- NOTE | 2019-06-07 10:16 | NUR ---
PATIENT IN BED WATCHING TV, FAMILY IN ROOM. PATIENT DID PREOP [place]. CALL LIGHT IN REACH. NO FURTHER NEEDS AT THIS TIME.
--- NOTE | 2019-06-07 10:20 | NUR ---
PT AMB INDEPENDENTLY TO STRETCHER AND TRANSPORTED TO DAY SURGERY AT THIS TIME.
--- NOTE | 2019-06-07 10:57 | EKG ---
[facility] [address] [place], [place] [address] Signed Normal sinus rhythm Septal infarct , age undetermined Abnormal ECG When compared with ECG of 13-JAN-2019 18:00, No significant change was found Confirmed by HARRY ZACARIAS MD ([id number]) on 06/07/2019 10:56:50 AM Electronically Signed By: HARRY ZACARIAS MD 06/07/19 1057 PATIENT NAME: KINGSLEY SNELL Electrocardiogram DATE OF : 46 PHYSICIAN: HARRY ZACARIAS MD REPORT #: [id number] REPORT IS CONFIDENTIAL AND NOT TO BE RELEASED WITHOUT AUTHORIZATION
--- NOTE | 2019-06-07 12:30 | NUR ---
Pt to gone to surgery when attempted to see. Will visit tomorrow.
--- NOTE | 2019-06-07 14:41 | NUR ---
PT TAKEN TO SURGERY. WILL FOLLOW UPON RETURN
--- NOTE | 2019-06-07 14:49 | NUR ---
06/07/19 1449 Melva,Cathy 1435 PT ARRIVED TO PACU ON 6L VIA MASK, PT REACTIVE TO PAINFUL STIMULI PT MOANING, EYE REMAIN CLOSED. RESP EVEN AND UNLABORED. 1449 PT MOVED HEAD, PT BACK TO SLEEP. VSS.
--- NOTE | 2019-06-07 16:35 | NUR ---
PT ARRIVED TO UNIT FROM PACU VIA STRETCHER. TRANSFERRED TO HOSPITAL BED INDEPENDENTLY BY SLIDING FROM ONE BED TO THE OTHER. PT REPORTS 10/10 PAIN, APPEARS VERY DROWSY AND FALLS ASLEEP EASILY. REPORTS NAUSEA, ASKED FOR SOME WATER AND THEN FELL ASLEEP. MIDLINE INCISION WITH MEPILEX AND OPSITE, SCANT AMOUNT OF RED DRAINAGE NOTED NEAR UMBILICUS. DANIEL DRAININ PLACE TO RLQ DRESSED WITH GAUZE AND TAPE, SMALL AMOUNT OF DARK RED DRAINAGE NOTED AND DANIEL PUTTING OUT DARK RED DRAINAGE. VS OBTAINED AND ASSESSMENT COMPLETED. ATTEMPTED TO WEAN PT TO RA, DESATTED TO 89%. PLACE ON 1LN SATTING 93%. IV TYLENOL INFUSING. SCD'S IN PLACE. VISITORS AT BEDSIDE BREIFLY AND THEN LEFT SHORTLY AFTER PT GOT SETTLED. PT SLEEPING NOW. CALL LIGHT WITHIN REACH.
--- NOTE | 2019-06-07 17:19 | NUR ---
PT APPEARS TO BE SLEEPING SOUNDLY UPON ENTERING ROOM. EYES CLOSED, RESP EVEN AND UNLABORED. AWOKE EASILY TO VOICE. DENIES NEED FOR PAIN MEDICATION AT THIS TIME. TOOK A FEW SIPS OF WATER, LETICIA WELL. REFUSES FOOD AT THIS TIME, STATES SHE IS NOT HUNGRY. ABD DRESSINGS AND DANIEL REMAIN UNCHANGED. CALL LIGHT WITHIN REACH.
--- NOTE | 2019-06-07 18:26 | NUR ---
PT APPEARS TO BE SLEEPING COMFORTABLY. EYES CLOSED, RESP EVEN AND UNLABORED. AT BEDSIDE. CALL LIGHT WITHIN REACH.
--- NOTE | 2019-06-07 18:55 | NUR ---
CALL LIGHT ANSWERED. PATIENT RESTING IN BED. VISITORS IN ROOM. PATIENT GOES TO USE THE BATHROOM. ONE PERSON ASSISTING. PATIENT GOES TO WALK IN THE HALLWAY. PATIENT BACKS TO BED. ONE PERSON ASSISTING. CALL LIGHT WITHIN REACH. NO OTHER NEEDS AT THIS TIME
--- NOTE | 2019-06-07 19:00 | NUR ---
PT AMB HALLWAY WITH [employer]INCIPAL, REPORTS TO THIS RN THAT PT VOIDED 900ML.
--- NOTE | 2019-06-07 20:15 | NUR ---
REPORT RECEIVED FROM DAY SHIFT RN. PT IN BED, ALERT AND ORIENTED VISITING WITH FAMILY IN ROOM. MEDICATED WITH PRN FOR 8/10 ABD PAIN. DAY SHIFT RN MEDICATED FOR NAUSEA. PT UP TO BR WITH SBA, LETICIA WELL. BACK TO BED. SCD'S IN PLACE. CPOX IN PLACE. CALL LIGHT IN REACH.
--- NOTE | 2019-06-07 21:00 | NUR ---
EVENING ASSESSMENT COMPLETE. PM MEDS GIVEN WITHOUT ISSUE. LOWER MIDLINE ABD DRESSING INTACT WITH SMALL AMOUNT OF SANGUINEOUS DRAINAGE. RLQ DRESSING INTACT. VIKI DRAIN EMPTIED OF 130 ML DARK RED DRAINAGE. PT UP TO BR WITH SBA, LETICIA WELL. BACK TO BED, SCD'S ON, CPOX IN PLACE. COFFEE GIVEN PER REQUEST.
--- NOTE | 2019-06-07 23:15 | NUR ---
IV ABX HUNG. PT UP TO BR WITH SBA, BACK TO BED. LETICIA WELL. PT C/O INSOMNIA WHICH SHE STATES IS NORMAL FOR HER. SCD'S AND CPOX IN PLACE.
--- NOTE | 2019-06-08 02:00 | NUR ---
PT UP TO BR WITH SBA. BACK TO BED, LETICIA WELL. SCD'S AND CPOX IN PLACE. MEDICATED WITH IV PRN, PT REFUSING PO TYLENOL IT "NEVER WORKS FOR ME". DENIES NAUSEA. VS AND I&O'S COMPLETE. CALL LIGHT IN REACH.
--- NOTE | 2019-06-08 03:06 | NUR ---
Patient ambulated from the bed to the bathroom back to bed with 1 P Stand by Assist. fresh water given and call light in reach.
--- NOTE | 2019-06-08 04:15 | NUR ---
PT ALERT AND ORIENTED, USES CALL LIGHT APPROPRIATELY. S/P OPEN APPY. CPOX. CPAP AT NIGHT. LETICIA CL LIQ, ADVANCE TO REG LETICAI. SBA. MIDLINE ABD INCISION WITH SM AMOUNT OF RED DRAINAGE. DANIEL DRAIN RLQ. IV ABX. SCD'S. SOAP FREE LAUNDRY. NO ADHESIVE TAPE. PAIN CONTROLLED WITH IV MORPHINE, REFUSES PO TYLENOL.
--- NOTE | 2019-06-08 06:15 | NUR ---
PT UP TO BR WITH SBA, GAIT STEADY. AMB TWO LAPS AROUND UNIT, LETICIA WELL. PRN GIVEN FOR ITCHING AND PAIN. SCD'S IN PLACE. IV ABX INFUSING. PT EATING JELLO AT THIS TIME.
--- NOTE | 2019-06-08 06:20 | NUR ---
PATIENT WALKED AROUND NURSES STATION 2 x COMPLETE .PATIENT IS BACK IN BED.
--- NOTE | 2019-06-08 08:21 | OR ---
[facility] [address] [place], [place] [address] Signed DATE OF OPERATION: 06/07/2019 SURGEON: Radha Smalls MD PREOPERATIVE DIAGNOSES: 1. Complex acute appendicitis. 2. Chronic anticoagulation with Eliquis (thrombin inhibitor). POSTOPERATIVE DIAGNOSES: 1. Complex acute appendicitis. 2. Chronic anticoagulation with Eliquis (thrombin inhibitor). 3. Acute appendicitis with periappendiceal and pericecal abscess and fibrinous peel. 4. Inflammation of right adnexa without sign of neoplasm. 5. Inflamed sigmoid in region of primary process with diverticular changes. PROCEDURES PERFORMED: 1. Laparoscopy, conversion to open laparotomy, drainage of intraabdominal abscess, and placement of drain. 2. Open appendectomy. ANESTHESIA: General endotracheal; Radha Gee CRNA. INDICATION: This 68-year-old white woman was admitted by hi on June 05, 2019, with severe right lower abdominal pain. A CT scan finding showing marked appendicitis, but also findings of a diverticulitis at the rectosigmoid, which was contiguous with the appendix as well as markedly inflamed right adnexal structures (tube). She has had a hysterectomy in the past. She is chronically anticoagulated for atrial fibrillation with Eliquis and had taken the medication on the way to the hospital actually. On that basis, she was admitted, given fluid resuscitation, IV antibiotics meropenem, anticipating delay of operation until her Eliquis has cleared. She has improved with antibiotic therapy but still has persistent tenderness in the right lower abdomen, although less than previously. She is admitted at this time to undergo a laparoscopic appendectomy, possible open procedure depending on findings. FINDINGS: Abdominal palpation upon relaxation showed a dense mass in the right lower abdomen. Electronically Signed By: RADHA SMALLS MD 06/08/19 0821 PATIENT NAME: KINGSLEY SNELL OPERATIVE REPORT DATE OF : 46 REPORT #: [id number] PHYSICIAN: RADHA SMALLS MD PCP: SHANE BATES MD REPORT IS CONFIDENTIAL AND NOT TO BE RELEASED WITHOUT AUTHORIZATION [facility] [address] [place], [place] [address] Signed Nevertheless, laparoscopy was performed. The liver appeared reasonably normal. There was no sign of ascites, carcinomatosis, or free fluid in the abdomen to suggest other etiologies. The patient was intolerant of pneumoperitoneum even at a lower level of 10 mmHg showing bradycardia, hypotension, and decreased O2 saturations. On that basis, she was converted to an open laparotomy procedure, which she tolerated well. In hindsight, conversion would have been likely anyway. She was found to have a dense mass in the right lower abdomen, which was made up of the appendix laterally. The sigmoid colon with diverticular changes medially and markedly inflamed and edematous right adnexal structures, particularly the right salpinx. A small abscess was noted in conjunction with the periappendiceal area with a fibrinous peel and Gram stain and cultures were obtained. Complete appendectomy was performed. Palpation of the cecum showed a firm rounded plaque-like change, for which I will recommend colonoscopy in the relatively near future. There is no sign of carcinomatosis or other problems. At conclusion, safe appendectomy with drainage of the abscess cavity is accomplished as well as placement of drain in the area of maximal inflammation. DESCRIPTION OF PROCEDURE: The patient was brought to the operating room, given a general endotracheal anesthetic. She had been on antibiotic meropenem. Sequential compression device stockings were used. The abdomen was prepared with chlorhexidine solution and draped sterilely. The infraumbilical incision was made and using an open Bruna cannula technique, pneumoperitoneum achieved to a level of 14 mmHg of carbon dioxide gas. Intraabdominal inspection showed no sign of ascites or carcinomatosis. Liver had a reasonably sharp edge. There was no sign of cirrhotic change. The right lower abdomen showed omental adhesions and a dense firm process in the right lower abdomen. Manipulation with the scope allowed for takedown of some adhesions of the omentum to the right lower abdominal wall. At this point, it was noted the patient was rather hypotensive relatively with a systolic pressure of 85, pulse of 42, and O2 saturations that were diminished. On that basis, pneumoperitoneum was relieved and her blood pressure promptly improved as did her saturations and increase in her pulse rate. Reintroduction of pneumoperitoneum at 10 mmHg was undertaken but similar effects were noted. Given the dense mass on the high probability, conversion of operation would be inevitable. Further attempts at laparoscopy were abandoned and plans made for laparotomy. The trocar was removed and a midline incision was made extending from the umbilicus inferiorly to the symphysis pubis initially only part way and later extended a bit. She has a very thick abdominal wall pannus. The abdomen was entered without problem and palpation of the right lower abdomen revealed a dense mass, phlegmonous, and alvarez of the adherent adnexal structures to sigmoid to cecum at the offending process of appendicitis. The Bookwalter retractor was used to provide exposure. Plan for good visualization of the cecum. The appendix could be divined from the surrounding tissue Electronically Signed By: RADHA SMALLS MD 06/08/19 0821 PATIENT NAME: KINGSLEY SNELL ROSY OPERATIVE REPORT DATE OF : 46 REPORT #: [id number] PHYSICIAN: RADHA SMALLS MD PCP: SHANE BATES MD REPORT IS CONFIDENTIAL AND NOT TO BE RELEASED WITHOUT AUTHORIZATION [facility] [address] [place], [place] [address] Signed with blunt dissection and was markedly inflamed and edematous. Medial and deep to this was a fibrinous peel with a collection of fluid consistent with small abscess. Gram stain and cultures were obtained. Terminal ileum appeared normal. There were dense inflammatory changes associated with rectosigmoid and diverticulosis noted in the area. This did not appear to be a diverticular perforation, so far as could be told. Once isolated, the right adnexal structures could be fully evaluated and they were markedly inflamed and slightly dilated and edematous. There was surgical absence of the uterus. I identified no ovarian tissue. The appendix was freed from surrounding soft tissue and the base of the appendix clearly identified from the cecum itself. The mesoappendix was then sequentially secured with tonsil clamps and ligated with 2-0 Vicryl ties. A dense and gummy texture to the mesoappendix were noted, but good hemostasis was assured. By this point, the appendix was well mobilized. A straight hemostat was applied across the base of the appendix, crushed and milked distally and the crush alvarez doubly ligated with 2-0 chromic ties. The appendix was amputated. The stump cauterized and then inverted with two separate interrupted 2-0 Vicryl in a Z-configuration. Copious irrigation was undertaken in the area. Further examination of the sigmoid colon showed no sign of perforated diverticulitis, though the sigmoid was contiguous with the process to begin with. Right adnexal structures similarly showed no sign of acute infection, only secondary inflammation most likely. Copious irrigation was undertaken of the peritoneal cavity. Excess irrigation fluid suctioned free. Midline fascia was then reapproximated with running #1 PDS suture. Subcutaneous tissue irrigated and skin closed with running subcuticular 3-0 Vicryl. Steri-Strips were applied. A silver sponge dressing was applied. The patient was ultimately extubated and transferred to recovery room in good condition having suffered no complication. MD SILAS Martinez/NALINIL /[id number] Electronically Signed By: RADHA SMALLS MD 06/08/19 0821 PATIENT NAME: KINGSLEY SNELL OPERATIVE REPORT DATE OF : 46 REPORT #: [id number] PHYSICIAN: RADHA SMALLS MD PCP: SHANE BATES MD REPORT IS CONFIDENTIAL AND NOT TO BE RELEASED WITHOUT AUTHORIZATION [facility] [address] [place], [place] [address] Signed cc: Dr. Sanchez [facility] Shane Bates MD Copies: SHANE BATES MD ~ Electronically Signed By: RADHA SMALLS MD 06/08/19 0821 PATIENT NAME: KINGSLEY SNELL ROSY OPERATIVE REPORT DATE OF : 46 REPORT #: [id number] PHYSICIAN: RADHA SMALLS MD PCP: SHANE BATES MD REPORT IS CONFIDENTIAL AND NOT TO BE RELEASED WITHOUT AUTHORIZATION
--- NOTE | 2019-06-08 08:30 | NUR ---
PT IS SITTING UP IN BED VISITING WITH , STATED SHE HAD A LITTLE APPETITE THIS MORNING, ORDERED SCRAMBLED EGGS. INCREASED FLATUS. VOIDING WELL AND TAKING FLUIDS WELL.
--- NOTE | 2019-06-08 10:13 | NUR ---
PATIENT IN BED RESTING. CALL LIGHT IN REACH. NO FURTHER NEEDS AT THIS TIME.
--- NOTE | 2019-06-08 12:43 | NUR ---
Spoke with Tameka. She states she is feeling well and plans on dc tomorrow. Denies need for any equipment. Plans to dc home with spouse Rashaun, who will assist her.
--- NOTE | 2019-06-08 13:43 | NUR ---
PATIENT UP TO BATHROOM AND THEN AMBULATED IN HALLWAY, 1PA. CALL LIGHT IN REACH. NO FURTHER NEEDS AT THIS TIME.
--- NOTE | 2019-06-08 13:59 | NUR ---
PATIENT AMBULATED 3 1/2 LAPS IN JOHNS AROUND NURSES STATION. PATIENT DID ORAL CARE AT SINK. CALL LIGHT IN REACH. NO FURTHER NEEDS AT THIS TIME.
--- NOTE | 2019-06-08 17:26 | NUR ---
ATE 25% OF CHICKEN DINNER, NO NAUSEA, TAKING PO FLUIDS WELL, VISITORS IN ROOM NOW, DENIES ANY NEEDS AT THIS TIME.
--- NOTE | 2019-06-08 19:06 | NUR ---
SHIFT REPORT RECEIVED FROM DAYSHIFT ZAYNAB CHO AT BEDSIDE. PT AWAKE AND RESTING IN BED, DENIES NEEDS. CALL LIGHT IN REACH.
--- NOTE | 2019-06-08 21:00 | NUR ---
PT RESTING IN BED AND WATCHING TELEVISION, DENIES NEEDS. RESPIRATIONS EVEN AND UNLABORED, NO DISTRESS NOTED. CALL LIGHT IN REACH.
--- NOTE | 2019-06-08 22:00 | NUR ---
ASSESSMENT COMPLETE, SCHEDULED MEDS GIVEN (SEE EMAR). PT REPORTS 7/10 PAIN IN ABDOMEN, PRN TYLENOL GIVEN. SMALL AMOUNT SEROSANGUINEOUS SHADOWING NOTED TO ABDOMINAL DRESSING, SHADOWING REMAINS WITHIN OUTLINED AREA. DANIEL OUTPUT ALSO SEROSANGUINEOUS IN COLOR, WILL MONITOR. PT DENIES NAUSEA, BILATERAL SCD'S IN PLACE. NO ADDITIONAL NEEDS, CALL LIGHT IN REACH.
--- NOTE | 2019-06-09 00:53 | NUR ---
PT RESTING IN BED WITH EYES CLOSED. RESPIRAITONS EVEN AND UNLABORED, NO DISTRESS NOTED. PT'S HOME CPAP MACHINE IN PLACE. CALL LIGHT IN REACH.
--- NOTE | 2019-06-09 02:22 | NUR ---
PT RESTING IN BED WITH EYES CLOSED. RESPIRATIONS EVEN AND UNLABORED, NO DISTRESS NOTED. PT APPEARS COMFORTABLE. CALL LIGHT IN REACH. CPAP MACHINE IN PLACE.
--- NOTE | 2019-06-09 03:56 | NUR ---
PT AWAKE AND RESTING IN BED, CPAP MACHINE IN PLACE. ASSESSMENT COMPLETE, NO NEW CHANGES OR CONCERNS. PT REPORTS MILD NAUSEA, PRN ZOFRAN ADMINISTERED. NO CHANGES IN SHADOWING FROM ABDOMINAL DRESSING OR COLOR OF DANIEL OUTPUT. SCD'S ON, NO FURTHER NEEDS, CALL LIGHT IN REACH.
--- NOTE | 2019-06-09 05:57 | NUR ---
SCHEDULED THYROID MEDICATION GVEN (SEE EMAR). VS AND I&O'S COLLECTED AND STABLE. NO ADDITIONAL NEEDS AT THIS TIME, CALL LIGHT IN REACH.
--- NOTE | 2019-06-09 08:40 | NUR ---
PT STATES SHE SLEPT WELL LAST NIGHT, WORE CPAP, REPORTS NO PAIN THIS AM, JUST SORENESS, NO NEW SHADOWING ON DRSG, HUNGRY THIS AM, BREAKFAST ORDERED.
--- NOTE | 2019-06-09 09:07 | NUR ---
PT ATE 75% OF BREAKFAST, UP TO RECLINER TO WATCH TV, C/O MILD NAUSEA, ZOFRAN GIVEN. CALL LIGHT IN EASY REACH.
--- NOTE | 2019-06-09 10:07 | PATH ---
[facility] [address] [place], [place] [address] Signed SPECIMEN(S): A APPENDIX SPECIMEN SOURCE: A. APPENDIX CLINICAL HISTORY: Appendicitis. FINAL PATHOLOGIC DIAGNOSIS: Appendix, appendectomy: - Acute appendicitis with periappendicitis. MICROSCOPIC EXAMINATION: Histologic sections of all submitted blocks are examined by light microscopy. These findings, together with the gross examination, support the pathologic diagnosis. GROSS DESCRIPTION: The specimen, labeled "CV, appendix," is received in formalin and consists of Specimen: Appendix with mesoappendix. Dimensions: 5.5 x 0.8 cm. Serosa: Violaceous and red and focally congested. It is partially covered with yellow-hathaway, adherent, plaque-like material. Perforation: Not grossly identified. Inking: Staple line is inked black. Mucosa: [place]-h[place]. Fecalith: Not grossly identified. Additional: None. Tubing Drier sections are submitted in cassette (A1). JS (under the direct supervision of a pathologist) Following initial examination of HE slides, Dr. Neff requests remaining appendix tissue. All remaining tissue entirely submitted in cassettes A2-A16. A2-A8 remaining appendix with attached periappendiceal adipose tissue AT (under the direct supervision of a pathologist) The Gross Description was prepared using a voice recognition system. The report was reviewed for accuracy; however, sound-alike word errors, addition and/or deletions may occur. If there is any question about this report, please contact Client Services. PERFORMING LABORATORY: PATIENT NAME: KINGSLEY SNELL PATHOLOGY DATE OF : 46 REPORT #: [id number] PHYSICIAN: DEBBIE TRAN PCP: EVELIO DO MD REPORT IS CONFIDENTIAL AND NOT TO BE RELEASED WITHOUT AUTHORIZATION [facility] [address] [address] Signed The technical component was performed [place] [address] (Arts Administrator: Kamila Duggan MD; CLIA# [id number]). Professional interpretation was performed by [facility] [address] [place] [address] (Arts Administrator: Ja Cagle MD; CLIA# [id number]). Diagnostician: Chelsey Neff MD Pathologist Electronically Signed 06/09/2019 Copies: ~ PATIENT NAME: KINGSLEY SNELL PATHOLOGY DATE OF : 46 REPORT #: [id number] PHYSICIAN: DEBBIE TRAN PCP: EVELIO DO MD REPORT IS CONFIDENTIAL AND NOT TO BE RELEASED WITHOUT AUTHORIZATION
--- NOTE | 2019-06-09 11:10 | NUR ---
In room while Dr. Hernandez visits pt. Plans to dc to home today. Pt c/o nausea and orders meds for nausea and if nausea stops will dc today, if not tomorrow. DANIEL removed with 20 cc pink serous fluid. Midline abd dressing removed and steri strips left in place. Pt denies needs, plans on dc to home when nausea improved with spouse.
--- NOTE | 2019-06-09 11:27 | NUR ---
DR SMALLS IN TO SEE PT, DANIEL DRAIN DC'D, DRSG REMOVED FROM MIDLINE INCISION, STERI STRIPS WITH OLD DRAINGAGE REMAIN INTACT, REVIEWED S/SX TO REPORT TO DOCTOR AND PROGRESSION OF STERI STRIPS FALLING OFF. PT VERBALIZES UNDERSTANDING AND DENIES FURTHER QUESTIONS, PLEASES WITH HER PROGRESS.
--- NOTE | 2019-06-09 12:09 | NUR ---
PATIENT IF SHE DOESN'T GO HOME TODAY. SHE IS GOING TO GET HER TO BRING UP HER OWN SHAMPOO AND BODY WASH.
--- NOTE | 2019-06-09 12:12 | NUR ---
PATIENT WALKED 2 LAPS 0930 AFTER BREAKFAST. THAN WALKED 2 MORE LAPS WITH A FRIEND ABOUT AN HALF AGO. PATIENT IS EATING LUNCH NOW.
--- NOTE | 2019-06-09 14:02 | NUR ---
PT ALERT, ORIENTED AND VISITING WITH SEVERAL VISITORS. PT MENTIONED THAT SHE HOPES DC IS TODAY. WENT OVER SPECIFIC ELEMENTS WITH HER FOR DC. HAD PLEASANT VISIT, PT HAD TO USE RR. GAVE BLESSING, WILL FOLLOW NEEDED
--- NOTE | 2019-06-09 14:34 | NUR ---
PT UP TO SHOWER, TOLERATED WELL.
--- NOTE | 2019-06-09 17:32 | NUR ---
PT STATES SHE IS TIRED BUT COMFORTABLE. DINNER TRAY HERE, SITTING UP TO EAT DINNER, DENIES ANY NEEDS AT THIS TIME.
--- NOTE | 2019-06-09 19:07 | NUR ---
SHIFT REPORT RECEIVED FROM AJAY CHO AT BEDSIDE. PT AWAKE AND RESTING IN BED, VERBAIZING INTEREST IN BEING DICHARGED IF ALLOWED BY DR SMALLS. MARQUIS WORTHY DISCUSSING PT'S INTEREST WITH BRYNINVICTOR HUGO ATM TECHNICIAN YVETTE. PT DENIES ADDITIONAL NEEDS, CALL LIGHT IN REACH.
[2019-06-09] MEDS ORDERED: CIPROFLOXACIN500 MG PO (19:45)
[2019-06-09] MEDS ORDERED: METRONIDAZOLE250 MG PO (19:46)
[2019-06-09] MEDS ORDERED: ELIQUIS5 MG PO (19:46)
[2019-06-09] MEDS ORDERED: TYLENOL EXTRA500 MG PO (19:48)
--- NOTE | 2019-06-09 20:45 | NUR ---
ASSESSMENT COMPLETE, PT A/OX4, RATES TOLERABLE 3-4/10 ABDOMINAL PAIN. DENIES NAUSEA, BOWEL TONES ACTIVE. OLD SEROSANGUINEOUS DRY SHADOWING NOTED STERI STRIPS, DANIEL REMOVAL SITE COVERED C/D/I. WRITTEN AND VERBAL DISCHARGE INSTRUCTIONS PROVIDED TO PT. THIS RN WENT THROUGH ALL DISCHARGE INSTRUCTIONS WITH PT AND FRIEND/FAMILY MEMBER. PRESCRICPTION FOR PAIN AND PO ABX SENT TO PT'S LISTED PHARMACY, TO BE PICKED UP TONIGHT BY PT AND PT'S . ALL QUESTIONS ANSWERED, PT DENIED QUESTIONS AND CONCERNS. DISCHARGE VS TAKEN AND STABLE AND IV REMOVED BY [facility] AUGUST. PT TRANSFERRED VIA WHEELCHAIR BY [facility] A[facility] TO [facility], TO DRIVE PT HOME. INTO PERSONAL
== END 2019-06-09 20:50 | disposition home or self-care (01) | DRG 339 ==
LOC: ED 11:01 → MS 14:49
PROVIDERS: ADMIT Surgery
PROC: 0DTJ0ZZ Resection of Appendix, Open Approach (ICD-10-PCS; principal; 2019-06-07 11:00)
PROC: 0WJG4ZZ Inspection of Peritoneal Cavity, Percutaneous Endoscopic Approach (ICD-10-PCS; 2019-06-07 11:00)
DX: K35.33 Acute appendicitis with perforation, localized peritonitis, and gangrene, with abscess (principal); K57.32 Diverticulitis of large intestine without perforation or abscess without bleeding; N70.91 Salpingitis, unspecified; I48.91 Unspecified atrial fibrillation; I25.2 Old myocardial infarction; Z95.5 Presence of coronary angioplasty implant and graft; Z79.01 Long term (current) use of anticoagulants; Z53.31 Laparoscopic surgical procedure converted to open procedure; Z88.5 Allergy status to narcotic agent; Z88.8 Allergy status to other drugs, medicaments and biological substances
CPT/HCPCS: 00840; 36415; 74177; 80053; 81001; 82247; 82465; 83615; 83690; 84100; 84478; 84550; 85002; 85025; 85610; 93005; 93010; 94762; 96361; 99285-25; J0131; J0694; J1100; J1644; J1885; J2001; J2185; J2270; J2405; J2704; J2765; J3010; J7030; J7121; Q9967

== ENCOUNTER 2021-05-25 13:11 | Emergency (ER) | payer MEDICARE, OTHER ==
[~2021-05-25] VITALS: Ht 160 cm; Wt 88.0 kg
[~2021-05-25 13:11] MED LIST changes: +CIPROFLOXACIN500 MG PO; +LEVOTHYROXINE88 MCG PO; +LOSARTAN POTASS25 MG PO; +METRONIDAZOLE250 MG PO; +NITROGLYCERIN0.4 MG SL; +TYLENOL EXTRA500 MG PO
--- OUTSIDE RECORDS SUMMARY | 2021-05-25 13:14 | XMS ---
PreManage Notification: KINGSLEY SNELL Security [place] Events No recent Security Events currently on file CRITERIA MET - PDMP CARE PROVIDERS EVELIO DO Internal Medicine Current PHONE: Unknown Suhail has no Care Guidelines for this patient. EMounika VISIT COUNT (12 MO.) 1 OTTO Martins TOTAL 1 NOTE: Visits indicate total known visits. ED/UCC VISIT TRACKING (12 MO.) 05/25/2021 13:12 [facility] [place] TYPE: Emergency COMPLAINT: - ABDOMINAL PAIN INPATIENT VISIT TRACKING (12 MO.) No inpatient visits to display in this time frame [id number]
[2021-05-25] MEDS ORDERED: AMLODIPINE BES2.5 MG PO (14:47)
== END 2021-05-25 17:28 | disposition home or self-care (01) ==
LOC: ED 13:11
DX: R10.10 Upper abdominal pain, unspecified (principal); R10.30 Lower abdominal pain, unspecified; G89.29 Other chronic pain; R19.7 Diarrhea, unspecified; M79.7 Fibromyalgia; K58.9 Irritable bowel syndrome, unspecified; I48.91 Unspecified atrial fibrillation; I10 Essential (primary) hypertension; Z88.8 Allergy status to other drugs, medicaments and biological substances; Z88.5 Allergy status to narcotic agent; Z91.048 Other nonmedicinal substance allergy status; Z79.01 Long term (current) use of anticoagulants; Z79.82 Long term (current) use of aspirin; Z79.890 Hormone replacement therapy
CPT/HCPCS: 80053; 81001; 83690; 85025; 99284; G0480

== ENCOUNTER 2022-07-02 22:45 | Emergency (ER) | payer MEDICARE, OTHER ==
[~2022-07-02] VITALS: Ht 160 cm; Wt 88.0 kg
[~2022-07-02 22:45] MED LIST changes: +AMLODIPINE BES2.5 MG PO
--- OUTSIDE RECORDS SUMMARY | 2022-07-02 22:48 | XMS ---
PreManage Notification: KINGSLEY SNELL Security Doctor Assistant Events No recent Security Events currently on file CRITERIA MET - PDMP CARE PROVIDERS EVELIO DO [place] Internal Medicine 05/27/2021-Current PHONE: Unknown Suhail has no Care Guidelines for this patient. E.DLucy VISIT COUNT (12 MO.) 1 OTTO Martins TOTAL 1 NOTE: Visits indicate total known visits. ED/UCC VISIT TRACKING (12 MO.) 07/02/2022 22:46 [facility] [place] TYPE: Emergency COMPLAINT: - CHEST PAIN INPATIENT VISIT TRACKING (12 MO.) No inpatient visits to display in this time frame [id number]
[2022-07-02] MEDS ORDERED: NALTREXONE HCL50 MG PO (23:02)
--- NOTE | 2022-07-03 07:21 | EKG ---
[facility] [address] [facility] [place], [place] [address] Signed Normal sinus rhythm Possible Anterior infarct (cited on or before 06-JUN-2019) Abnormal ECG When compared with ECG of 06-JUN-2019 08:26, No significant change was found Confirmed by PREET GODOY MD ([id number]) on 07/03/2022 7:21:30 AM Electronically Signed By: PREET GODOY MD 07/03/22 07 PATIENT NAME: ALISKINGSLEY ROSY Electrocardiogram DATE OF : 46 PHYSICIAN: PREET GODOY MD REPORT #: [id number] REPORT IS CONFIDENTIAL AND NOT TO BE RELEASED WITHOUT AUTHORIZATION
== END 2022-07-03 00:16 | disposition home or self-care (01) ==
LOC: ED 22:45
DX: R07.9 Chest pain, unspecified (principal); I25.2 Old myocardial infarction; I10 Essential (primary) hypertension; I25.10 Atherosclerotic heart disease of native coronary artery without angina pectoris; I48.91 Unspecified atrial fibrillation; G47.30 Sleep apnea, unspecified; Z95.5 Presence of coronary angioplasty implant and graft; Z88.5 Allergy status to narcotic agent; Z91.048 Other nonmedicinal substance allergy status; Z88.8 Allergy status to other drugs, medicaments and biological substances; Z79.899 Other long term (current) drug therapy; Z79.01 Long term (current) use of anticoagulants; Z79.82 Long term (current) use of aspirin
CPT/HCPCS: 36415; 71045; 80053; 83735; 84484; 85025; 93005; 93010; 99285-25; A9270

== ENCOUNTER 2023-03-24 05:26 | Emergency (ER) | payer MEDICARE, OTHER ==
[~2023-03-24] VITALS: Ht 160 cm; Wt 88.0 kg
--- OUTSIDE RECORDS SUMMARY | ~2023-03-24 | XMS | Continuity of Care Document ---
Demographics + + + | Address | [address] | | | [place] [address] | + + + | Preferred Language | Unknown | + + + | Marital Status | Unknown | + + + | Anabaptist Affiliation | Unknown | + + + | Race | White | + + + | Ethnic Group | Not or | + + + Author + + + | Author | [facility] | + + + | Organization | [facility] | + + + | Address | [address] | | | [place] [address] | + + + | Phone | | + + + Care Team Providers + + + + | Care Pharmacy Clinical Specialist Name | Role | Phone | + + + + Unavailable | Unavailable | + + + + Allergies No information. Encounters No information. Functional Status No information. Immunizations No information. Medications No information. Problems + + + + | date | description | facility | + + + + | 2023-03-17 12:32:35 | Encounter for other | [facility] | | | preprocedural examination | | + + + + | 2023-03-17 14:07:54 | Spinal stenosis, lumbar | [facility] | | | region with neurogenic | | | | claudication | | + + + + | 2023-03-17 14:07:54 | Other intervertebral disc | [facility] | | | displacement, lumbar region | | | | | | + + + + | 2023-03-17 15:07:46 | H&P | [facility] | + + + + | 2023-03-18 01:43:24 | Spinal stenosis, lumbar | [facility] | | | region with neurogenic | | | | claudication | | + + + + | 2023-03-18 01:43:24 | Other intervertebral disc | [facility] | | | displacement, lumbar region | | | | | | + + + + | 2023-03-18 05:50:42 | Spinal stenosis, lumbar | [facility] | | | region with neurogenic | | | | claudication | | + + + + | 2023-03-18 05:50:42 | Other intervertebral disc | [facility] | | | displacement, lumbar region | | | | | | + + + + | 2023-03-19 12:36:06 | Spinal stenosis, lumbar | [facility] | | | region without neurogenic | | | | claudication | | + + + + | 2023-03-19 12:36:06 | Spinal stenosis, lumbar | [facility] | | | region with neurogenic | | | | claudication | | + + + + | 2023-03-19 12:36:06 | Other intervertebral disc | [facility] | | | displacement, lumbar region | | | | | | + + + + | 2023-03-20 22:25:36 | Spinal stenosis, lumbar | [facility] | | | region with neurogenic | | | | claudication | | + + + + | 2023-03-20 22:25:36 | Other intervertebral disc | [facility] | | | displacement, lumbar region | | | | | | + + + + | 2023-03-20 22:25:36 | Encounter for other | [facility] | | | preprocedural examination | | + + + + Procedures No information. Results/Labs No information. Social History +--------+ + + | date | description | facility | +--------+ + + Vital Signs No information."
[~2023-03-24 05:26] MED LIST changes: +NALTREXONE HCL50 MG PO
--- OUTSIDE RECORDS SUMMARY | 2023-03-24 05:31 | XMS ---
PreManage Notification: KINGSLEY SNELL Security Marketing Community Liaison Events No recent Security Events currently on file CRITERIA MET - LAMONTP CARE PROVIDERS EVELIO DO [place] Internal Medicine 05/27/2021-Current PHONE: Unknown TEDDY PRATT Nurse Practitioner Current ROSY PHONE: [phone] Suhail has no Care Guidelines for this patient. EMounika VISIT COUNT (12 MO.) 2 OTTO Martins TOTAL 2 NOTE: Visits indicate total known visits. ED/UCC VISIT TRACKING (12 MO.) 03/24/2023 05:26 [facility] TYPE: Emergency COMPLAINT: - LOWER BACK PAIN 07/02/2022 22:46 [facility] TYPE: Emergency COMPLAINT: - CHEST PAIN DIAGNOSES: - Allergy status to narcotic agent - Allergy status to other drugs, medicaments and biological substances - Atherosclerotic heart disease of [place] coronary artery without angina pectoris - Chest pain, unspecified - Essential (primary) hypertension - assisted (current) use of anticoagulants - assisted (current) use of aspirin - Old myocardial infarction - Other fdc (current) drug therapy - Other nonmedicinal substance allergy status - Presence of coronary angioplasty implant and graft - Sleep apnea, unspecified - Unspecified atrial fibrillation INPATIENT VISIT TRACKING (12 MO.) No inpatient visits to display in this time frame [id number]
[2023-03-24 05:51] LABS: EOSINOPHILS 3.7 % (0-6); HEMATOCRIT 38.7 % (35.0-50.0); HEMOGLOBIN 13.4 g/dL (12.0-18.0); LYMPHOCYTES 25.4 % (24-44); MCH 34.1 (27-36); MCHC 34.6 g/dl (30-36); MCV 98.6 fl (81-99); MONOCYTES 9.1 % (0-12); NEUTROPHILS 60.8 % (39-80); PLATELET COUNT 319 K/uL (140-440); RBC 3.93 M/ul (4.3-5.7); RDW 13.6 (10.5-15.0)
[2023-03-24 06:13] LABS: ALBUMIN 3.5 g/dL (3.4-5.0); ANION GAP 14.8 (7-21); BILIRUBIN, TOTAL 0.8 ng/dL (0.2-1.0); BUN/CREATININE RATIO 14.28 (6.0-28.6); CALCIUM 9.3 mg/dL (8.5-10.1); CREATININE, SERUM 0.98 mg/dL (0.55-1.02); POTASSIUM 3.8 mmol/L (3.5-5.1)
[2023-03-24 06:16] LABS: BILIRUBIN, URINE NEGATIVE (negative); BLOOD/HGB, URINE NEGATIVE (Negative); KETONE, URINE TRACE (Negative); LEUK ESTERASE, URINE NEGATIVE (negative); NITRITE, URINE NEGATIVE (negative)
[2023-03-24 13:40] LABS: INFLUENZA B NAA NEGATIVE (NEGATIVE); RESPIRATORY SYNCYTIAL VIR NAA NEGATIVE (NEGATIVE)
[2023-03-24 21:25] VITALS: BP 154/79
== END 2023-03-24 21:27 | disposition short-term general hospital (02) ==
LOC: ED 05:26
PROVIDERS: Emergency Medicine; Internal Medicine
DX: M96.840 Postprocedural hematoma of a musculoskeletal structure following a musculoskeletal system procedure (principal); Y83.8 Other surgical procedures as the cause of abnormal reaction of the patient, or of later complication, without mention of misadventure at the time of the procedure; G89.18 Other acute postprocedural pain; M54.41 Lumbago with sciatica, right side; I10 Essential (primary) hypertension; I48.91 Unspecified atrial fibrillation; G47.30 Sleep apnea, unspecified; I25.2 Old myocardial infarction; Z95.5 Presence of coronary angioplasty implant and graft; Z79.01 Long term (current) use of anticoagulants; Z79.899 Other long term (current) drug therapy; Z88.5 Allergy status to narcotic agent; Z88.8 Allergy status to other drugs, medicaments and biological substances; Z91.048 Other nonmedicinal substance allergy status; Z20.822 Contact with and (suspected) exposure to COVID-19
CPT/HCPCS: 36415; 72148; 80053; 81003; 85025; 87502; G0480; J1100; J1170; J2060; J7121; U0002